=== PATIENT | male | born 1935 | race Caucasian/White ===

== ENCOUNTER 2017-04-03 10:42 | Emergency (ER) | payer MEDICARE, OTHER ==
[2017-04-03] MEDS ORDERED: SODIUM CHLORIDE 0.9% 500 ML IV STA (11:16)
[2017-04-03] MEDS ORDERED: SODIUM CHLORIDE 0.9% 1,000 ML IV STA (11:16)
--- NOTE | 2017-04-03 12:02 | ED ---
General Adult HPI - General Chief complaint: Neuro Symptoms/Deficit Stated complaint: TIA Symptoms Time Seen by Provider: 04/03/17 10:53 Source: patient, EMS, RN notes reviewed, old records reviewed Mode of arrival: EMS - History of Present Illness Initial comments: This is an 79-year-old male the ER for evaluation of mental status. Patient's poor historian unable to give history history obtained by EMS, patient sent from [facility] for evaluation regarding altered mental status not acting himself, or Appropriately. Per [facility] patient was supposed to go home today but over the last 2 days been having some diarrhea some nausea decreased appetite and decreased and altered mental state. Patient is somewhat this time denies any specific complaints. - Related Data Home Medications Medication Instructions Recorded Confirmed Atorvastatin Calcium [Lipitor] 10 mg PO HS 11/02/15 04/03/17 Finasteride [Proscar] 5 mg PO DAILY 11/02/15 04/03/17 Gabapentin [Neurontin] 300 mg PO BID 11/02/15 04/03/17 Isosorbide Mononitrate ER [Imdur] 30 mg PO DAILY 11/02/15 04/03/17 Ranitidine HCl 150 mg PO BID 11/02/15 04/03/17 HYDROcodone/APAP 5-325MG [[place] 1 tab PO Q6HR PRN 04/03/17 04/03/17 5-325] Insulin Aspart [NovoLOG Flexpen] See Protocol SQ DIRECTED 04/03/17 04/03/17 Metoprolol Tartrate [Lopressor] 25 mg PO BID 04/03/17 04/03/17 Nitroglycerin Sl Tabs [Nitrostat] 0.4 mg SUBLINGUAL Q5M PRN 04/03/17 04/03/17 glipiZIDE [Glucotrol] 10 mg PO BID 04/03/17 04/03/17 metFORMIN HCL [Glucophage] 500 mg PO BID 04/03/17 04/03/17 Allergies Allergy/AdvReac Type Severity Reaction Status Date / Time No Known Allergies Allergy Verified 04/03/17 12:33 Review of Systems ROS Statement: Those systems with pertinent positive or pertinent negative responses have been documented in the HPI. ROS Other: All systems not noted in ROS Statement are negative. Past Medical History Past Medical History: Coronary Artery Disease (CAD), Diabetes Mellitus, Deep Vein Thrombosis (DVT), Hyperlipidemia, Hypertension, Prostate Disorder Additional Past Medical History / Comment(s): Pt was admitted to [facility] recently with UTI/severe sepsis and readmitted with diarrhea. He was then discharged to [facility] on the [address] about 2 weeks ago for rehab due to his weakness. [facility] document also states pt has DVT R popliteal and is on coumadin for this reason. 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 Last Myocardial Infarction Date:: 03/04/11 History of Any Multi-Drug Resistant Organisms: None Reported Past Surgical History: Unable to Obtain Additional Past Surgical History / Comment(s): 2005 and 2011 PTCA with stent, 2006 CABG-3 vessel, sebaceous cysts removed from neck, cataract removals bilateral, colonoscopy, total R knee arthroplasty. Past Anesthesia/Blood Transfusion Reactions: No Reported Reaction Date of Last Stent Placement:: 2011 Past Psychological History: Unable to Obtain Smoking Status: Unknown if ever smoked Past Alcohol Use History: None Reported Past Drug Use History: None Reported - Past Family History Father Additional Family Medical History / Comment(s): Father had heart disease. Mother Additional Family Medical History / Comment(s): Mother had heart disease. General Exam General appearance: alert, in no apparent distress Head exam: Present: atraumatic, normocephalic, normal inspection Eye exam: Present: normal appearance, PERRL, EOMI. Absent: scleral icterus, conjunctival injection, periorbital swelling ENT exam: Present: normal exam, mucous membranes moist Neck exam: Present: normal inspection. Absent: tenderness, meningismus, lymphadenopathy Respiratory exam: Present: normal lung sounds bilaterally. Absent: respiratory distress, wheezes, rales, rhonchi, stridor Cardiovascular Exam: Present: regular rate, normal rhythm, normal heart sounds. Absent: systolic murmur, diastolic murmur, rubs, gallop, clicks GI/Abdominal exam: Present: soft, normal bowel sounds. Absent: distended, tenderness, guarding, rebound, rigid Extremities exam: Present: normal inspection, full ROM, normal capillary refill. Absent: tenderness, pedal edema, joint swelling, calf tenderness Back exam: Present: normal inspection Neurological exam: Present: alert, oriented X3, CN II-XII intact Psychiatric exam: Present: normal affect, normal mood Skin exam: Present: warm, dry, intact, normal color. Absent: rash Course Vital Signs 04/03/17 04/03/17 04/03/17 10:47 12:26 13:26 Temperature 97.6 F Pulse Rate 86 63 66 Respiratory 18 17 18 Rate Blood Pressure 116/70 119/59 107/58 O2 Sat by Pulse 96 96 96 Oximetry 04/03/17 04/03/17 13:56 15:02 Temperature Pulse Rate 71 75 Respiratory 19 18 Rate Blood Pressure 119/67 118/64 O2 Sat by Pulse 98 96 Oximetry - Reevaluation(s) Reevaluation #1: 04/03/17 16:32 Family is at bedside, and is concerned patient's quick deterioration at [facility]. Patient states the family states patient is lucid at this point EKG Findings - EKG Comments: EKG Findings:: EKG shows sinus rhythm rate of 97, HI 140, QRS 74, QTC 416 Medical Decision Making - Medical Decision Making 81 male the ER for evaluation regarding altered mental status. Chest x-ray CT brain labwork urine flu test negative. Patient can be discharged home - Lab Data Result diagrams: 04/03/17 12:12 04/03/17 12:12 Lab Results 04/03/17 04/03/17 04/03/17 Range/Units 12:12 12:12 12:12 WBC 2.5 L (3.8-10.6) k/uL RBC 5.24 (4.30-5.90) m/uL Hgb 15.0 (13.0-17.5) gm/dL Hct 45.6 (39.0-53.0) % MCV 87.0 (80.0-100.0) fL MCH 28.7 (25.0-35.0) pg MCHC 33.0 (31.0-37.0) g/dL RDW 13.3 (11.5-15.5) % Plt Count 145 L (150-450) k/uL Neutrophils % 45 % Lymphocytes % 34 % Monocytes % 14 % Eosinophils % 2 % Basophils % 1 % Neutrophils # 1.1 L (1.3-7.7) k/uL Lymphocytes # 0.9 L (1.0-4.8) k/uL Monocytes # 0.4 (0-1.0) k/uL Eosinophils # 0.1 (0-0.7) k/uL Basophils # 0.0 (0-0.2) k/uL PT (9.0-12.0) sec INR (<1.2) APTT (22.0-30.0) sec Sodium 138 (137-145) mmol/L Potassium 4.1 (3.5-5.1) mmol/L Chloride 104 (98-107) mmol/L Carbon Dioxide 27 (22-30) mmol/L Anion Gap 7 mmol/L BUN 14 (9-20) mg/dL Creatinine 1.00 (0.66-1.25) mg/dL Est GFR (MDRD) Af Amer >60 (>60 ml/min/1.73 sqM) Est GFR (MDRD) Non-Af >60 (>60 ml/min/1.73 sqM) Glucose 121 H (74-99) mg/dL Calcium 8.1 L (8.4-10.2) mg/dL Phosphorus 3.0 (2.5-4.5) mg/dL Magnesium 2.1 (1.6-2.3) mg/dL Total Bilirubin 0.4 (0.2-1.3) mg/dL AST 64 H (17-59) U/L ALT 45 (21-72) U/L Alkaline Phosphatase 81 (38-126) U/L Total Creatine Kinase 594 H (55-170) U/L CK-MB (CK-2) 2.1 (0.0-2.4) ng/mL CK-MB (CK-2) Rel Index 0.4 Troponin I <0.012 (0.000-0.034) ng/mL Total Protein 5.7 L (6.3-8.2) g/dL Albumin 3.0 L (3.5-5.0) g/dL Urine Color Urine Appearance (Clear) Urine pH (5.0-8.0) Ur Specific [place] (1.001-1.035) Urine Protein (Negative) Urine Glucose (UA) (Negative) Urine Ketones (Negative) Urine Blood (Negative) Urine Nitrite (Negative) Urine Bilirubin (Negative) Urine Urobilinogen (<2.0) mg/dL Ur Leukocyte Esterase (Negative) 04/03/17 04/03/17 Range/Units 12:12 15:00 WBC (3.8-10.6) k/uL RBC (4.30-5.90) m/uL Hgb (13.0-17.5) gm/dL Hct (39.0-53.0) % MCV (80.0-100.0) fL MCH (25.0-35.0) pg MCHC (31.0-37.0) g/dL RDW (11.5-15.5) % Plt Count (150-450) k/uL Neutrophils % % Lymphocytes % % Monocytes % % Eosinophils % % Basophils % % Neutrophils # (1.3-7.7) k/uL Lymphocytes # (1.0-4.8) k/uL Monocytes # (0-1.0) k/uL Eosinophils # (0-0.7) k/uL Basophils # (0-0.2) k/uL PT 10.1 (9.0-12.0) sec INR 1.0 (<1.2) APTT 23.4 (22.0-30.0) sec Sodium (137-145) mmol/L Potassium (3.5-5.1) mmol/L Chloride (98-107) mmol/L Carbon Dioxide (22-30) mmol/L Anion Gap mmol/L BUN (9-20) mg/dL Creatinine (0.66-1.25) mg/dL Est GFR (MDRD) Af Amer (>60 ml/min/1.73 sqM) Est GFR (MDRD) Non-Af (>60 ml/min/1.73 sqM) Glucose (74-99) mg/dL Calcium (8.4-10.2) mg/dL Phosphorus (2.5-4.5) mg/dL Magnesium (1.6-2.3) mg/dL Total Bilirubin (0.2-1.3) mg/dL AST (17-59) U/L ALT (21-72) U/L Alkaline Phosphatase (38-126) U/L Total Creatine Kinase (55-170) U/L CK-MB (CK-2) (0.0-2.4) ng/mL CK-MB (CK-2) Rel Index Troponin I (0.000-0.034) ng/mL Total Protein (6.3-8.2) g/dL Albumin (3.5-5.0) g/dL Urine Color Yellow Urine Appearance Clear (Clear) Urine pH 5.5 (5.0-8.0) Ur Specific [place] 1.017 (1.001-1.035) Urine Protein Trace H (Negative) Urine Glucose (UA) 1+ H (Negative) Urine Ketones Negative (Negative) Urine Blood Negative (Negative) Urine Nitrite Negative (Negative) Urine Bilirubin Negative (Negative) Urine Urobilinogen <2.0 (<2.0) mg/dL Ur Leukocyte Esterase Negative (Negative) - Radiology Data Radiology results: report reviewed (Chest x-ray CT brain negative for acute disease), image reviewed Disposition Clinical Impression: Altered mental status Disposition: HOME SELF-CARE Condition: Good Instructions: Weakness (ED), Altered Mental Status (ED) Referrals: Alli Peguero MD [Primary Care Provider] - 1-2 days
[2017-04-03 12:28] LABS: Basophils % (A) 1 %; Eosinophils # (A) 0.1 k/uL (0-0.7); Eosinophils % (A) 2 %; HCT 45.6 % (39.0-53.0); Lymphocytes # (A) 0.9 k/uL (1.0-4.8); Lymphocytes % (A) 34 %; MCH 28.7 pg (25.0-35.0); Mean Platelet Volume 8.2; Monocytes # (A) 0.4 k/uL (0-1.0); Monocytes % (A) 14 %; Neutrophils # (A) 1.1 k/uL (1.3-7.7); Neutrophils % (A) 45 %; Platelet Count 145 k/uL (150-450); RBC 5.24 m/uL (4.30-5.90); RDW 13.3 % (11.5-15.5); WBC 2.5 k/uL (3.8-10.6)
[2017-04-03 12:33] LABS: Partial Thromboplastin Time 23.4 sec (22.0-30.0); Prothrombin Time 10.1 sec (9.0-12.0)
[2017-04-03 12:41] LABS: ALT 45 U/L (21-72); AST 64 U/L (17-59); Alkaline Phosphatase 81 U/L (38-126); Anion Gap 7 mmol/L; Blood Urea Nitrogen 14 mg/dL (9-20); Calcium 8.1 mg/dL (8.4-10.2); Carbon Dioxide 27 mmol/L (22-30); Chloride 104 mmol/L (98-107); Glucose 121 mg/dL (74-99); Magnesium 2.1 mg/dL (1.6-2.3); Potassium 4.1 mmol/L (3.5-5.1); Sodium 138 mmol/L (137-145); Total Bilirubin 0.4 mg/dL (0.2-1.3); Total Protein 5.7 g/dL (6.3-8.2)
[2017-04-03 13:10] LABS: Creatine Kinase 594 U/L (55-170)
[2017-04-03 13:23] LABS: Creatine Kinase MB 2.1 ng/mL (0.0-2.4); Troponin I <0.012 ng/mL (0.000-0.034)
--- NOTE | 2017-04-03 13:43 | CT ---
EXAMINATION TYPE: CT brain wo con DATE OF EXAM: 04/03/2017 COMPARISON: CT brain 11/02/2015 HISTORY: TIA symptoms CT DLP: 2285 mGycm Automated exposure control for dose reduction was used. Helical acquisition through the brain FINDINGS: There is motion, artifact. No gross hemorrhage or hydrocephalus. Cortical atrophy is present. Periven tricular white matter low-attenuation is again seen. Vascular calcifications are present. No gross fr acture. Inflammatory change noted in the right maxillary sinus. IMPRESSION: THERE IS MOTION. NO GROSS BRAIN ABNORMALITY. FOLLOW-UP NEEDED. RIGHT MAXILLARY SINUS DISEASE
--- NOTE | 2017-04-03 13:50 | XR ---
EXAMINATION TYPE: XR chest 2V DATE OF EXAM: 04/03/2017 COMPARISON: 11/02/2015 HISTORY: 81-year-old male weakness and altered mental status TECHNIQUE: AP and lateral views FINDINGS: Median sternotomy wires are present with post-CABG clips. Heart upper limits of normal in size. Stabl e elongation of the thoracic aorta. No consolidation or pleural effusion seen. Hazy densities in the lower lungs related to overlying soft tissue. IMPRESSION: Chronic changes without acute cardiopulmonary process.
[2017-04-03 15:04] VITALS: RESP 18
[2017-04-03 15:26] LABS: Appearance,Urine Clear (Clear); Bilirubin,Urine Negative (Negative); Blood,Urine Negative (Negative); Color,Urine Yellow; Glucose,Urine (UA) 1+ (Negative); Ketones,Urine Negative (Negative); Leukocyte Esterase,Urine Negative (Negative); Nitrite,Urine Negative (Negative); PH, Urine 5.5 (5.0-8.0); Protein,Urine Trace (Negative); Specific Gravity,Urine 1.017 (1.001-1.035); Urobilinogen,Urine <2.0 mg/dL (<2.0)
[2017-04-03 18:33] VITALS: BP 118/66; PULSE 66; TEMP 98.7
== END 2017-04-03 17:00 | disposition home or self-care (01) ==
LOC: EC 10:42
DX: R41.82 Altered mental status, unspecified (principal); R19.7 Diarrhea, unspecified; R11.0 Nausea; R63.8 Other symptoms and signs concerning food and fluid intake; E78.5 Hyperlipidemia, unspecified; I10 Essential (primary) hypertension; I25.10 Atherosclerotic heart disease of native coronary artery without angina pectoris; E11.9 Type 2 diabetes mellitus without complications; N42.9 Disorder of prostate, unspecified; Z79.4 Long term (current) use of insulin; Z79.899 Other long term (current) drug therapy
CPT/HCPCS: 36415; 70450; 71046; 80053; 81003; 82550; 82553; 83735; 84100; 84484; 85025; 85610; 85730; 87086; 93005; 96360; 96361; 99285

== ENCOUNTER 2017-05-12 08:16 | Emergency (ER) | payer MEDICARE, OTHER ==
[2017-05-12] MEDS ORDERED: TOPICAL SKIN ADHESIVE 1 EACH AMP TOPICAL ONE (08:31)
--- NOTE | 2017-05-12 08:34 | ED ---
General Adult HPI - General Chief complaint: Fall Stated complaint: Fall Time Seen by Provider: 05/12/17 08:20 Source: patient, RN notes reviewed Mode of arrival: EMS Limitations: no limitations - History of Present Illness Initial comments: Patient 81-year-old male presenting to the emergency room today with a chief complaint of a fall that occurred this morning. He states he went to sit down on a chair was too close to the edge lost his balance falling backwards hitting the back of his head. States she was no loss consciousness. Patient states his neighbor called EMS as he had a difficult time getting off the floor. Patient does admit to a skin tear to the left hand. States his tetanus is up-to -date. Patient does admit some neck pain and a mild headache. Not on any blood thinners. Denies any other injuries or complaints currently. Patient denies any recent fever, chills, shortness of breath, chest pain, back pain, abdominal pain, nausea or vomiting, numbness or tingling, dysuria or hematuria, constipation or diarrhea, visual changes, or any other complaints. - Related Data Home Medications Medication Instructions Recorded Confirmed Atorvastatin Calcium [Lipitor] 10 mg PO HS 11/02/15 05/12/17 Finasteride [Proscar] 5 mg PO DAILY 11/02/15 05/12/17 Gabapentin [Neurontin] 300 mg PO BID 11/02/15 05/12/17 Isosorbide Mononitrate ER [Imdur] 30 mg PO DAILY 11/02/15 05/12/17 Ranitidine HCl 150 mg PO BID 11/02/15 05/12/17 HYDROcodone/APAP 5-325MG [[place] 1 tab PO Q6HR PRN 04/03/17 05/12/17 5-325] Insulin Aspart [NovoLOG Flexpen] See Protocol SQ ACHS 04/03/17 05/12/17 Metoprolol Tartrate [Lopressor] 25 mg PO BID 04/03/17 05/12/17 Nitroglycerin Sl Tabs [Nitrostat] 0.4 mg SUBLINGUAL Q5M PRN 04/03/17 05/12/17 glipiZIDE [Glucotrol] 10 mg PO BID 04/03/17 05/12/17 metFORMIN HCL [Glucophage] 500 mg PO BID 04/03/17 05/12/17 Allergies Allergy/AdvReac Type Severity Reaction Status Date / Time No Known Allergies Allergy Verified 05/12/17 08:42 Review of Systems ROS Statement: Those systems with pertinent positive or pertinent negative responses have been documented in the HPI. ROS Other: All systems not noted in ROS Statement are negative. Past Medical History Past Medical History: Coronary Artery Disease (CAD), Diabetes Mellitus, Deep Vein Thrombosis (DVT), Hyperlipidemia, Hypertension, Prostate Disorder Additional Past Medical History / Comment(s): Pt was admitted to [facility] recently with UTI/severe sepsis and readmitted with diarrhea. He was then discharged to [facility] on the [address] about 2 weeks ago for rehab due to his weakness. [facility] document also states pt has DVT R popliteal and is on coumadin for this reason. 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 Last Myocardial Infarction Date:: 03/04/11 History of Any Multi-Drug Resistant Organisms: None Reported Past Surgical History: Unable to Obtain Additional Past Surgical History / Comment(s): 2005 and 2011 PTCA with stent, 2006 CABG-3 vessel, sebaceous cysts removed from neck, cataract removals bilateral, colonoscopy, total R knee arthroplasty. Past Anesthesia/Blood Transfusion Reactions: No Reported Reaction Date of Last Stent Placement:: 2011 Past Psychological History: Unable to Obtain Smoking Status: Unknown if ever smoked Past Alcohol Use History: None Reported Past Drug Use History: None Reported - Past Family History Father Additional Family Medical History / Comment(s): Father had heart disease. Mother Additional Family Medical History / Comment(s): Mother had heart disease. General Exam - General Exam Comments Initial Comments: General: The patient is awake and alert, in no distress, and does not appear acutely ill. Patient currently C-collared. Eye: Pupils are equal, round and reactive to light, extra-ocular movements are intact. No nystagmus. There is normal conjunctiva bilaterally. No signs of icterus. Ears, nose, mouth and throat: There are moist mucous membranes and no oral lesions. Neck: The neck is supple, there is no tenderness or JVD. Cardiovascular: There is a regular rate and rhythm. No murmur, rub or gallop is appreciated. Respiratory: Lungs are clear to auscultation, respirations are non-labored, breath sounds are equal. No wheezes, stridor, rales, or rhonchi. Musculoskeletal: Normal ROM. No step-offs deformities of the cervical, thoracic or lumbar spine. No tenderness in thoracic or lumbar spine. Mild tender to palpation midline from C5 to C7. Strength 5/5. Sensation intact. Pulses equal bilaterally 2+. Neurological: A&O x 3. CN II-XII intact, There are no obvious motor or sensory deficits. Coordination appears grossly intact. Speech is normal. Skin: Small 1 cm skin tear to the left third MCP joint area. No active bleeding. Psychiatric: Cooperative, appropriate mood & affect, normal judgment. Limitations: no limitations Course Vital Signs 05/12/17 08:20 Temperature 97.9 F Pulse Rate 77 Respiratory 18 Rate Blood Pressure 153/70 O2 Sat by Pulse 98 Oximetry Procedures - Procedures Initial comment: 1 cm linear laceration to the back of the left hand. No active bleeding. Wound was irrigated with saline. Wound edges approximated and closed with Dermabond. Patient tolerated well. Medical Decision Making - Medical Decision Making Patient 81-year-old male presenting for a fall. Sat on the edge of a chair lost his balance at the back of his head. Denies any dizziness lightheadedness or loss consciousness. Patient is not on any blood thinners. Patient's CT of the head and neck is negative for any acute abnormality. Results were discussed with patient. Patient's laceration/skin tear was irrigated with saline and closed here in emergency room. Patient's tetanus is up-to-date. Case discussed in detail with attending physician Dr. Olivarez. Patient will be discharged home. Disposition Clinical Impression: Fall, Hand laceration Disposition: HOME SELF-CARE Condition: Good Instructions: Laceration (ED) Additional Instructions: Please allow glue to fall off on its own over the next 3-5 days. Please watch for any signs of infection. Please follow-up the family doctor return to emergency room for any other concerns. Referrals: Aldo Guerrero MD [Primary Care Provider] - 1-2 days Time of Disposition: 09:38
--- NOTE | 2017-05-12 09:06 | CT ---
EXAMINATION TYPE: CT brain pili kelley DATE OF EXAM: 05/12/2017 COMPARISON: April 03, 2017 HISTORY: fall, hit back of head CT DLP: [address] of the brain was performed. The ventricles, basal cisterns and sulci overlying the cerebral convexities demonstrate moderate enla rgement. There is no evidence for intracranial hemorrhage or sulcal effacement. There is decreased attenuatio n about the periventricular white matter and deep white matter of both cerebral hemispheres, compatib le with chronic small vessel ischemia. No mass effects are seen. If symptoms persist consider MRI. Osseous calvarium is intact. IMPRESSION: 1. Age related atrophic and chronic small vessel ischemic change without acute intracranial process seen at this time. CT Cervical Spine: Unenhanced CT of the cervical spine was performed with bone and soft tissue window settings submitted . Coronal and sagittal reconstruction is obtained. There is normal alignment and prevertebral soft tissues. Reversal of the normal cervical lordosis may be related to muscle spasticity. No evidence for acute cervical fracture . Scattered degenerative disc disease and spondylosis. Biapical scarring. IMPRESSION: 1. No evidence for acute fracture or subluxation of the cervical spine.
[2017-05-12 10:12] VITALS: BP 128/60; PULSE 70; RESP 16; TEMP 97.8
== END 2017-05-12 10:10 | disposition home or self-care (01) ==
LOC: EC 08:16
DX: S61.412A Laceration without foreign body of left hand, initial encounter (principal); E11.9 Type 2 diabetes mellitus without complications; I25.10 Atherosclerotic heart disease of native coronary artery without angina pectoris; E78.5 Hyperlipidemia, unspecified; I10 Essential (primary) hypertension; N42.9 Disorder of prostate, unspecified; Z86.718 Personal history of other venous thrombosis and embolism; Z79.4 Long term (current) use of insulin; Z79.899 Other long term (current) drug therapy; W18.00XA Striking against unspecified object with subsequent fall, initial encounter; Y92.009 Unspecified place in unspecified non-institutional (private) residence as the place of occurrence of the external cause
CPT/HCPCS: 12001; 70450; 72125; 99284

== ENCOUNTER 2017-05-31 12:28 | Inpatient (IN) | payer MEDICARE, OTHER ==
[2017-05-31] MEDS ORDERED: ACETAMINOPHEN TAB 500 MG TAB PO STA (12:59)
[2017-05-31] MEDS ORDERED: SODIUM CHLORIDE 0.9% 1,000 ML IV STA (12:59)
--- NOTE | 2017-05-31 13:02 | ED ---
General Adult HPI - General Chief complaint: Weakness Stated complaint: WEAKNESS/HEADACHE Time Seen by Provider: 05/31/17 12:31 Source: patient, family, RN notes reviewed Mode of arrival: EMS Limitations: no limitations - History of Present Illness Initial comments: Patient is a pleasant 81-year-old male presenting to the emergency Department with generalized weakness. Onset was late last night, early this morning. Patient states he is fatigued and patient states he is able to get around his house however is difficult. Patient feels like he is been a pass out. Patient does have a headache. Headache is 6/10. Patient has been dealing with headaches over the past month or so. No isolated area of weakness. Patient feels achy. No fever. - Related Data Home Medications Medication Instructions Recorded Confirmed Atorvastatin Calcium [Lipitor] 10 mg PO HS 11/02/15 05/12/17 Finasteride [Proscar] 5 mg PO DAILY 11/02/15 05/12/17 Gabapentin [Neurontin] 300 mg PO BID 11/02/15 05/12/17 Isosorbide Mononitrate ER [Imdur] 30 mg PO DAILY 11/02/15 05/12/17 Ranitidine HCl 150 mg PO BID 11/02/15 05/12/17 HYDROcodone/APAP 5-325MG [[place] 1 tab PO Q6HR PRN 04/03/17 05/12/17 5-325] Insulin Aspart [NovoLOG Flexpen] See Protocol SQ ACHS 04/03/17 05/12/17 Metoprolol Tartrate [Lopressor] 25 mg PO BID 04/03/17 05/12/17 Nitroglycerin Sl Tabs [Nitrostat] 0.4 mg SUBLINGUAL Q5M PRN 04/03/17 05/12/17 glipiZIDE [Glucotrol] 10 mg PO BID 04/03/17 05/12/17 metFORMIN HCL [Glucophage] 500 mg PO BID 04/03/17 05/12/17 Allergies Allergy/AdvReac Type Severity Reaction Status Date / Time No Known Allergies Allergy Verified 05/12/17 08:42 Review of Systems ROS Statement: Those systems with pertinent positive or pertinent negative responses have been documented in the HPI. ROS Other: All systems not noted in ROS Statement are negative. Constitutional: Denies: fever Eyes: Denies: eye pain ENT: Denies: ear pain Respiratory: Denies: cough Cardiovascular: Denies: chest pain Endocrine: Reports: fatigue Gastrointestinal: Denies: abdominal pain Genitourinary: Denies: dysuria Musculoskeletal: Denies: back pain Skin: Denies: rash Neurological: Reports: headache, weakness (Generalized). Denies: confusion Past Medical History Past Medical History: Coronary Artery Disease (CAD), Diabetes Mellitus, Deep Vein Thrombosis (DVT), Hyperlipidemia, Hypertension, Prostate Disorder Additional Past Medical History / Comment(s): Pt was admitted to [facility] recently with UTI/severe sepsis and readmitted with diarrhea. He was then discharged to [facility] on the [place] about 2 weeks ago for rehab due to his weakness. [facility] document also states pt has DVT R popliteal and is on coumadin for this reason. 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 Last Myocardial Infarction Date:: 03/04/11 History of Any Multi-Drug Resistant Organisms: None Reported Past Surgical History: Unable to Obtain Additional Past Surgical History / Comment(s): 2005 and 2011 PTCA with stent, 2006 CABG-3 vessel, sebaceous cysts removed from neck, cataract removals bilateral, colonoscopy, total R knee arthroplasty. Past Anesthesia/Blood Transfusion Reactions: No Reported Reaction Date of Last Stent Placement:: 2011 Past Psychological History: Unable to Obtain Smoking Status: Unknown if ever smoked Past Alcohol Use History: None Reported Past Drug Use History: None Reported - Past Family History Father Additional Family Medical History / Comment(s): Father had heart disease. Mother Additional Family Medical History / Comment(s): Mother had heart disease. General Exam Limitations: no limitations General appearance: alert, in no apparent distress Head exam: Present: atraumatic Eye exam: Present: normal appearance, PERRL, EOMI ENT exam: Present: normal oropharynx Neck exam: Present: normal inspection Respiratory exam: Present: normal lung sounds bilaterally Cardiovascular Exam: Present: regular rate, normal rhythm GI/Abdominal exam: Present: soft. Absent: tenderness Extremities exam: Present: normal inspection, full ROM. Absent: tenderness Neurological exam: Present: alert, oriented X3, CN II-XII intact. Absent: motor sensory deficit Expanded Neurological exam: Present: protecting the airway Patient oriented to: Present: person, place, time Speech: Present: fluid speech Cranial nerves: EOM's Intact: Normal Motor strength exam: RUE: 5, LUE: 5, RLE: 5, LLE: 5 Eye Response: (4) open spontaneously Motor Response: (6) obeys commands Verbal Response: (5) oriented Psychiatric exam: Present: normal affect, normal mood Skin exam: Present: normal color Course Vital Signs 05/31/17 05/31/17 12:36 13:50 Temperature 97.2 F L Pulse Rate 100 88 Respiratory 18 18 Rate Blood Pressure 107/62 100/56 O2 Sat by Pulse 98 96 Oximetry EKG Findings - EKG Comments: EKG Findings:: Sinus rhythm and 98. MI 178. QRS 84. QT 350. QTC 446. Normal axis. PVC and PACs present. Normal QRS. Nonspecific T waves. Medical Decision Making - Medical Decision Making Patient reevaluated and resting comfortably in bed. Family updated on results and plan. Patient was able to get up and walk however following that he had a lot of dizziness and was unable to sit up. Case was discussed in detail with Dr. Harris, covering for Dr. buckley, who will admit for Dr. chavez - Lab Data Result diagrams: 05/31/17 12:55 05/31/17 12:55 Lab Results 05/31/17 05/31/17 05/31/17 Range/Units 12:55 12:55 12:55 WBC 5.2 (3.8-10.6) k/uL RBC 4.85 (4.30-5.90) m/uL Hgb 14.1 (13.0-17.5) gm/dL Hct 40.8 (39.0-53.0) % MCV 84.0 (80.0-100.0) fL MCH 29.1 (25.0-35.0) pg MCHC 34.6 (31.0-37.0) g/dL RDW 13.8 (11.5-15.5) % Plt Count 209 (150-450) k/uL Neutrophils % 63 % Lymphocytes % 21 % Monocytes % 7 % Eosinophils % 6 % Basophils % 1 % Neutrophils # 3.3 (1.3-7.7) k/uL Lymphocytes # 1.1 (1.0-4.8) k/uL Monocytes # 0.4 (0-1.0) k/uL Eosinophils # 0.3 (0-0.7) k/uL Basophils # 0.0 (0-0.2) k/uL PT (9.0-12.0) sec INR (<1.2) APTT (22.0-30.0) sec Sodium 141 (137-145) mmol/L Potassium 4.1 (3.5-5.1) mmol/L Chloride 106 (98-107) mmol/L Carbon Dioxide 24 (22-30) mmol/L Anion Gap 11 mmol/L BUN 17 (9-20) mg/dL Creatinine 0.90 (0.66-1.25) mg/dL Est GFR (CKD-EPI)AfAm >90 (>60 ml/min/1.73 sqM) Est GFR (CKD-EPI)NonAf 79 (>60 ml/min/1.73 sqM) Glucose 196 H (74-99) mg/dL Plasma Lactic Acid Ronen (0.7-2.0) mmol/L Calcium 9.2 (8.4-10.2) mg/dL Phosphorus 3.6 (2.5-4.5) mg/dL Magnesium 1.8 (1.6-2.3) mg/dL Total Bilirubin 0.3 (0.2-1.3) mg/dL AST 18 (17-59) U/L ALT 25 (21-72) U/L Alkaline Phosphatase 96 (38-126) U/L Total Creatine Kinase 35 L (55-170) U/L CK-MB (CK-2) 1.1 (0.0-2.4) ng/mL CK-MB (CK-2) Rel Index 3.1 Troponin I <0.012 (0.000-0.034) ng/mL Total Protein 5.5 L (6.3-8.2) g/dL Albumin 2.9 L (3.5-5.0) g/dL TSH 2.830 (0.465-4.680) mIU/L Free T4 1.04 (0.78-2.19) ng/dL Free T3 pg/mL 2.4 L (2.8-5.3) pg/ml Urine Color Urine Appearance (Clear) Urine pH (5.0-8.0) Ur Specific [place] (1.001-1.035) Urine Protein (Negative) Urine Glucose (UA) (Negative) Urine Ketones (Negative) Urine Blood (Negative) Urine Nitrite (Negative) Urine Bilirubin (Negative) Urine Urobilinogen (<2.0) mg/dL Ur Leukocyte Esterase (Negative) Urine RBC (0-5) /hpf Urine WBC (0-5) /hpf Ur Squamous Epith Cells (0-4) /hpf Urine Mucus (None) /hpf 05/31/17 05/31/17 05/31/17 Range/Units 12:55 12:55 14:40 WBC (3.8-10.6) k/uL RBC (4.30-5.90) m/uL Hgb (13.0-17.5) gm/dL Hct (39.0-53.0) % MCV (80.0-100.0) fL MCH (25.0-35.0) pg MCHC (31.0-37.0) g/dL RDW (11.5-15.5) % Plt Count (150-450) k/uL Neutrophils % % Lymphocytes % % Monocytes % % Eosinophils % % Basophils % % Neutrophils # (1.3-7.7) k/uL Lymphocytes # (1.0-4.8) k/uL Monocytes # (0-1.0) k/uL Eosinophils # (0-0.7) k/uL Basophils # (0-0.2) k/uL PT 9.8 (9.0-12.0) sec INR 1.0 (<1.2) APTT 19.1 L (22.0-30.0) sec Sodium (137-145) mmol/L Potassium (3.5-5.1) mmol/L Chloride (98-107) mmol/L Carbon Dioxide (22-30) mmol/L Anion Gap mmol/L BUN (9-20) mg/dL Creatinine (0.66-1.25) mg/dL Est GFR (CKD-EPI)AfAm (>60 ml/min/1.73 sqM) Est GFR (CKD-EPI)NonAf (>60 ml/min/1.73 sqM) Glucose (74-99) mg/dL Plasma Lactic Acid Ronen 1.7 (0.7-2.0) mmol/L Calcium (8.4-10.2) mg/dL Phosphorus (2.5-4.5) mg/dL Magnesium (1.6-2.3) mg/dL Total Bilirubin (0.2-1.3) mg/dL AST (17-59) U/L ALT (21-72) U/L Alkaline Phosphatase (38-126) U/L Total Creatine Kinase (55-170) U/L CK-MB (CK-2) (0.0-2.4) ng/mL CK-MB (CK-2) Rel Index Troponin I (0.000-0.034) ng/mL Total Protein (6.3-8.2) g/dL Albumin (3.5-5.0) g/dL TSH (0.465-4.680) mIU/L Free T4 (0.78-2.19) ng/dL Free T3 pg/mL (2.8-5.3) pg/ml Urine Color Yellow Urine Appearance Cloudy (Clear) Urine pH 5.0 (5.0-8.0) Ur Specific [place] 1.021 (1.001-1.035) Urine Protein Trace H (Negative) Urine Glucose (UA) 3+ H (Negative) Urine Ketones Negative (Negative) Urine Blood Negative (Negative) Urine Nitrite Negative (Negative) Urine Bilirubin Negative (Negative) Urine Urobilinogen <2.0 (<2.0) mg/dL Ur Leukocyte Esterase Negative (Negative) Urine RBC 1 (0-5) /hpf Urine WBC 3 (0-5) /hpf Ur Squamous Epith Cells 12 H (0-4) /hpf Urine Mucus Occasional H (None) /hpf - Radiology Data Radiology results: report reviewed (Computed tomography scan of the brain shows no acute abnormality. Atrophy and chronic white matter changes are present.), image reviewed (Two-view chest x-ray shows COPD.) Disposition Clinical Impression: Weakness Disposition: ADMITTED IP TO THIS HOSP Referrals: Aldo Guerrero MD [Primary Care Provider] - 1-2 days
[2017-05-31 13:10] LABS: Basophils % (A) 1 %; Eosinophils # (A) 0.3 k/uL (0-0.7); Eosinophils % (A) 6 %; HCT 40.8 % (39.0-53.0); HGB 14.1 gm/dL (13.0-17.5); Lymphocytes # (A) 1.1 k/uL (1.0-4.8); Lymphocytes % (A) 21 %; MCH 29.1 pg (25.0-35.0); MCHC 34.6 g/dL (31.0-37.0); Mean Platelet Volume 7.7; Monocytes # (A) 0.4 k/uL (0-1.0); Monocytes % (A) 7 %; Neutrophils # (A) 3.3 k/uL (1.3-7.7); Neutrophils % (A) 63 %; Platelet Count 209 k/uL (150-450); RBC 4.85 m/uL (4.30-5.90); RDW 13.8 % (11.5-15.5); WBC 5.2 k/uL (3.8-10.6)
[2017-05-31 13:20] LABS: Prothrombin Time 9.8 sec (9.0-12.0)
[2017-05-31 13:25] LABS: ALT 25 U/L (21-72); AST 18 U/L (17-59); Albumin 2.9 g/dL (3.5-5.0); Alkaline Phosphatase 96 U/L (38-126); Anion Gap 11 mmol/L; Blood Urea Nitrogen 17 mg/dL (9-20); Calcium 9.2 mg/dL (8.4-10.2); Carbon Dioxide 24 mmol/L (22-30); Chloride 106 mmol/L (98-107); Glucose 196 mg/dL (74-99); Magnesium 1.8 mg/dL (1.6-2.3); Phosphorus 3.6 mg/dL (2.5-4.5); Potassium 4.1 mmol/L (3.5-5.1); Sodium 141 mmol/L (137-145); Total Bilirubin 0.3 mg/dL (0.2-1.3); Total Protein 5.5 g/dL (6.3-8.2)
[2017-05-31 13:30] LABS: Creatine Kinase 35 U/L (55-170); Partial Thromboplastin Time 19.1 sec (22.0-30.0)
--- NOTE | 2017-05-31 13:40 | CT ---
EXAMINATION TYPE: CT brain wo con DATE OF EXAM: 05/31/2017 COMPARISON: Previous study dated 05/12/2017. HISTORY: WARD, weakness CT DLP: 1207 mGycm Automated exposure control for dose reduction was used. FINDINGS: There are generalized changes of sulcal prominence and ventriculomegaly, compatible with atrophic shahram nge. There is diffuse periventricular white matter lucency, compatible small vessel ischemic change. There is no acute focal lesion, mass effect or midline shift identified. I do not see evidence of int racranial blood. Visualized portions of the paranasal sinuses and mastoids are clear. The bony calvarium is intact. IMPRESSION: 1. NO ACUTE INTRACRANIAL ABNORMALITY. 2. ATROPHIC CHANGE. 3. CHRONIC WHITE MATTER ISCHEMIC CHANGE.
[2017-05-31 13:41] LABS: T4, Free (Free Thyroxine) 1.04 ng/dL (0.78-2.19)
[2017-05-31 13:43] LABS: Creatine Kinase MB 1.1 ng/mL (0.0-2.4); Troponin I <0.012 ng/mL (0.000-0.034)
--- NOTE | 2017-05-31 13:48 | XR ---
EXAMINATION TYPE: XR chest 2V DATE OF EXAM: 05/31/2017 HISTORY: Weakness. REFERENCE: Previous study dated 11/07/2015. FINDINGS: There has been a midline sternotomy. Lung volumes are prominent. Heart size upper limits of normal. Lungs are clear. IMPRESSION: COPD.
[2017-05-31 15:01] LABS: Appearance,Urine Cloudy (Clear); Bilirubin,Urine Negative (Negative); Blood,Urine Negative (Negative); Color,Urine Yellow; Glucose,Urine (UA) 3+ (Negative); Ketones,Urine Negative (Negative); Leukocyte Esterase,Urine Negative (Negative); Mucus,Urine Occasional /hpf; Nitrite,Urine Negative (Negative); Protein,Urine Trace (Negative); RBC,Urine 1 /hpf (0-5); Specific Gravity,Urine 1.021 (1.001-1.035); Squamous Epithelial Cell,Urine 12 /hpf (0-4); Urobilinogen,Urine <2.0 mg/dL (<2.0); WBC,Urine 3 /hpf (0-5)
[2017-05-31] MEDS ORDERED: NALOXONE 0.4 MG/ML 1 ML VIAL IV PRN (15:57)
[2017-05-31] MEDS ORDERED: MECLIZINE 12.5 MG TAB PO STA (15:57)
[2017-05-31 17:10] LABS: Glucose,Whole Blood 124 mg/dL (75-99)
[2017-05-31] MEDS: SODIUM CHLORIDE 0.9% 1,000 ML IV SCH (18:44)
[2017-05-31 19:55] LABS: Creatine Kinase 46 U/L (55-170)
[2017-05-31 20:08] LABS: Creatine Kinase MB 1.2 ng/mL (0.0-2.4); Troponin I <0.012 ng/mL (0.000-0.034)
[2017-05-31] MEDS ORDERED: NITROGLYCERIN SL TABS 0.4 MG TAB SUBLINGUAL PRN (20:45)
[2017-05-31 20:54] LABS: Glucose,Whole Blood 161 mg/dL (75-99)
[2017-05-31] MEDS: ATORVASTATIN 10 MG TAB PO SCH (21:33)
[2017-05-31] MEDS: INSULIN ASPART 100 UNIT/ML 1 ML 10 ML VIAL SQ SCH (21:33)
[2017-05-31] MEDS: INSULIN DETEMIR 100 UNIT/ML 10 ML VIAL SQ SCH ×2 (21:33→22:07)
[2017-05-31] MEDS: GABAPENTIN 300 MG CAP PO SCH (21:33)
[2017-05-31] MEDS: METOPROLOL TARTRATE 25 MG TAB PO SCH (21:33)
[2017-05-31] MEDS: FAMOTIDINE 20 MG TAB PO SCH (21:33)
[2017-05-31] MEDS: FINASTERIDE 5 MG TAB PO SCH (21:33)
--- NOTE | 2017-06-01 00:14 | P.HPIM ---
History of Present Illness H&P Date: 05/31/17 Chief Complaint: Weakness and dizziness Patient is age 1-year-old male with a known history of coronary artery disease with history of CABG several years ago and PCI in 2011, diabetes type 2 and other multiple medical problems came to ER with complaints of generalized weakness and dizziness. Patient has been feeling dizzy since last night and has generalized weakness and fatigue and difficulty getting out of bed. Patient felt like passing out. Patient is also having headache and also some blurry vision as well. Headache is for the past 1 month. Denied any injury or trauma. No exertional short of breath. Patient does have these vague symptoms. CT head showed no acute abnormality. Atrophy and chronic white matter ischemic changes noted. Chest x-ray showed COPD Laboratory data within normal limits. CPK not elevated. Troponin negative. Liver enzymes are not elevated. patient was hypotensive with SBP 100 mm hg on admission. Patient was given a fluid bolus in the ER. 1 L TSH and free T4 are within normal limits. T3 level is slightly low at 2.4 (2.8) Review of Systems Constitutional: Patient denies any fever or chills . Generalized weakness and fatigue Abdomen: Patient denied nausea vomiting and diarrhea and abdominal pain. Cardiovascular: Patient denies any chest pain or short of breath no palpitations. Respiratory: patient denied any cough is from production. No shortness of breath Neurologic: Patient denied any numbness or tingling . Patient does have headache. Musculoskeletal: Patient denies any complaints of joint swelling or deformity. Skin: Negative Psychiatric: Negative Endocrine: No heat or cold intolerance. No recent weight gain. Genitourinary: No dysuria or hematuria. All other 14 point ROS negative except the above Past Medical History Past Medical History: Coronary Artery Disease (CAD), Diabetes Mellitus, Deep Vein Thrombosis (DVT), Hyperlipidemia, Hypertension, Prostate Disorder Additional Past Medical History / Comment(s): Pt was admitted to [facility] recently with UTI/severe sepsis and readmitted with diarrhea. He was then discharged to [facility] on the [place] about 2 weeks ago for rehab due to his weakness. [facility] document also states pt has DVT R popliteal and is on coumadin for this reason. 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 Last Myocardial Infarction Date:: 03/04/11 History of Any Multi-Drug Resistant Organisms: None Reported Past Surgical History: Unable to Obtain Additional Past Surgical History / Comment(s): 2005 and 2011 PTCA with stent, 2007 CABG-3 vessel, sebaceous cysts removed from neck, cataract removals bilateral, colonoscopy, total R knee arthroplasty. Past Anesthesia/Blood Transfusion Reactions: No Reported Reaction Date of Last Stent Placement:: 2011 Past Psychological History: Unable to Obtain Smoking Status: Unknown if ever smoked Past Alcohol Use History: None Reported Past Drug Use History: None Reported - Past Family History Father Additional Family Medical History / Comment(s): Father had heart disease. Mother Additional Family Medical History / Comment(s): Mother had heart disease. Medications and Allergies Home Medications Medication Instructions Recorded Confirmed Type Atorvastatin Calcium [Lipitor] 10 mg PO HS 11/02/15 05/12/17 History Finasteride [Proscar] 5 mg PO DAILY 11/02/15 05/12/17 History Gabapentin [Neurontin] 300 mg PO BID 11/02/15 05/12/17 History Isosorbide Mononitrate ER [Imdur] 30 mg PO DAILY 11/02/15 05/12/17 History Ranitidine HCl 150 mg PO BID 11/02/15 05/12/17 History HYDROcodone/APAP 5-325MG [[place] 1 tab PO Q6HR PRN 04/03/17 05/12/17 History 5-325] Insulin Aspart [NovoLOG Flexpen] See Protocol SQ ACHS 04/03/17 05/12/17 History Metoprolol Tartrate [Lopressor] 25 mg PO BID 04/03/17 05/12/17 History Nitroglycerin Sl Tabs [Nitrostat] 0.4 mg SUBLINGUAL Q5M PRN 04/03/17 05/12/17 History glipiZIDE [Glucotrol] 10 mg PO BID 04/03/17 05/12/17 History metFORMIN HCL [Glucophage] 500 mg PO BID 04/03/17 05/12/17 History Allergies Allergy/AdvReac Type Severity Reaction Status Date / Time No Known Allergies Allergy Verified 05/31/17 16:13 Physical Exam Vitals: Vital Signs Temp Pulse Resp BP Pulse Ox 05/31/17 13:50 88 18 100/56 96 05/31/17 12:36 97.2 F L 100 18 107/62 98 Intake and Output 05/31/17 05/31/17 05/31/17 06:59 14:59 22:59 Other: Weight 109.769 kg PHYSICAL EXAMINATION: Patient is lying in the bed comfortably, no acute distress, awake alert and oriented.. HEENT: Normocephalic. Neck is supple. Pupils reactive. Nostrils clear. Oral cavity is moist. Ears reveal no drainage. Neck reveals no JVD, carotid bruits, or thyromegaly. CHEST EXAMINATION: Trachea is central. Symmetrical expansion. Lung melton clear to auscultation and percussion. CARDIAC: Normal S1, S2 with no gallops. No murmurs ABDOMEN: Soft. Bowel sounds normal. No organomegaly. No abdominal bruits. Extremities: reveal no edema. No clubbing or cyanosis Neurologically awake, alert, oriented x3 with well-coordinated movements. No focal deficits noted Skin: No rash or skin lesions. Psychiatric: Cooperative. Nonsuicidal Musculoskeletal: No joint swelling or deformity. Normal range of motion. Results CBC & Chem 7: 05/31/17 12:55 05/31/17 12:55 Labs: Abnormal Lab Results - Last 24 Hours (Table) 05/31/17 05/31/17 05/31/17 Range/Units 12:55 12:55 12:55 APTT 19.1 L (22.0-30.0) sec Glucose 196 H (74-99) mg/dL Total Creatine Kinase 35 L (55-170) U/L Total Protein 5.5 L (6.3-8.2) g/dL Albumin 2.9 L (3.5-5.0) g/dL Free T3 pg/mL 2.4 L (2.8-5.3) pg/ml Urine Protein (Negative) Urine Glucose (UA) (Negative) Ur Squamous Epith Cells (0-4) /hpf Urine Mucus (None) /hpf 05/31/17 Range/Units 14:40 APTT (22.0-30.0) sec Glucose (74-99) mg/dL Total Creatine Kinase (55-170) U/L Total Protein (6.3-8.2) g/dL Albumin (3.5-5.0) g/dL Free T3 pg/mL (2.8-5.3) pg/ml Urine Protein Trace H (Negative) Urine Glucose (UA) 3+ H (Negative) Ur Squamous Epith Cells 12 H (0-4) /hpf Urine Mucus Occasional H (None) /hpf Thrombosis Risk Factor Assmnt - DVT/VTE Prophylaxis DVT/VTE Prophylaxis: Pharmacologic Prophylaxis ordered Assessment and Plan Assessment: Generalized weakness and dizziness with headache. Unspecified etiology. CT head, chest x-ray, UA negative and CPK, LFTs, TSH within normal limits. Possible hypotension present on admission and deconditioning. Neurology was consulted for further evaluation. Continue to monitor overnight. Symptomatic management. Patient was given a dose of meclizine while in the ER. History of coronary artery disease status post CABG in 2006 and PTCA in 2011 Diabetes type 2 insulin-dependent Hypertension Hyperlipidemia Prostate disorder Recent admission at [facility] with UTI/sepsis History of DVT Osteoarthritis with history of right total knee arthroplasty DVT prophylaxis Plan: Patient be continued on home medications and monitor blood pressure. Neurology evaluation. PT OT and follow closely. Further recommendations based on the clinical course. Anticipate discharge tomorrow with some clinical improvement. Time with Patient: Greater than 30
[2017-06-01 02:22] LABS: Creatine Kinase 70 U/L (55-170)
[2017-06-01 02:36] LABS: Creatine Kinase MB 1.4 ng/mL (0.0-2.4); Troponin I <0.012 ng/mL (0.000-0.034)
[2017-06-01] MEDS: HYDROcodone/APAP 5-325MG 1 EACH TAB PO PRN ×2 (02:37→17:37)
[2017-06-01 07:36] LABS: Glucose,Whole Blood 120 mg/dL (75-99)
[2017-06-01] MEDS: INSULIN ASPART 100 UNIT/ML 1 ML 10 ML VIAL SQ SCH ×4 (07:39→20:56)
[2017-06-01] MEDS: GABAPENTIN 300 MG CAP PO SCH ×2 (08:15→20:57)
[2017-06-01] MEDS: metFORMIN 500 MG TAB PO SCH ×2 (08:15→17:37)
[2017-06-01] MEDS: FAMOTIDINE 20 MG TAB PO SCH ×2 (08:15→20:57)
[2017-06-01] MEDS: METOPROLOL TARTRATE 25 MG TAB PO SCH ×2 (08:15→20:57)
[2017-06-01] MEDS: FINASTERIDE 5 MG TAB PO SCH (08:15)
[2017-06-01 08:51] LABS: Basophils % (A) 1 %; Eosinophils # (A) 0.4 k/uL (0-0.7); Eosinophils % (A) 9 %; Lymphocytes # (A) 1.3 k/uL (1.0-4.8); Lymphocytes % (A) 29 %; MCH 29.3 pg (25.0-35.0); MCHC 34.1 g/dL (31.0-37.0); Mean Platelet Volume 7.9; Monocytes # (A) 0.4 k/uL (0-1.0); Monocytes % (A) 9 %; Neutrophils # (A) 2.2 k/uL (1.3-7.7); Neutrophils % (A) 50 %; Platelet Count 170 k/uL (150-450); RBC 4.76 m/uL (4.30-5.90); RDW 13.9 % (11.5-15.5); WBC 4.4 k/uL (3.8-10.6)
[2017-06-01 09:11] LABS: ALT 27 U/L (21-72); AST 19 U/L (17-59); Albumin 2.8 g/dL (3.5-5.0); Alkaline Phosphatase 85 U/L (38-126); Anion Gap 9 mmol/L; Blood Urea Nitrogen 13 mg/dL (9-20); Calcium 8.5 mg/dL (8.4-10.2); Carbon Dioxide 22 mmol/L (22-30); Chloride 109 mmol/L (98-107); Glucose 119 mg/dL (74-99); Potassium 4.2 mmol/L (3.5-5.1); Sodium 140 mmol/L (137-145); Total Bilirubin 0.4 mg/dL (0.2-1.3); Total Protein 5.3 g/dL (6.3-8.2)
[2017-06-01 12:36] LABS: Glucose,Whole Blood 142 mg/dL (75-99)
[2017-06-01] MEDS: ISOSORBIDE MONONITRATE ER 30 MG TAB.ER.24H PO SCH (14:29)
[2017-06-01 17:24] LABS: Hemoglobin A1C 7.8 % (4.0-6.0)
[2017-06-01 17:33] LABS: Glucose,Whole Blood 218 mg/dL (75-99)
[2017-06-01] MEDS: SODIUM CHLORIDE 0.9% 1,000 ML IV SCH (17:37)
[2017-06-01] MEDS ORDERED: CARBIDOPA-LEVODOPA 10-100 MG 1 EACH TAB PO SCH (18:15)
--- NOTE | 2017-06-01 19:25 | PN ---
PROGRESS NOTE DATE OF SERVICE: 06/01/17. PRESENTING COMPLAINT: Weak and tired. INTERVAL HISTORY: This patient presented with multitude of symptoms. The patient said he had a bit of a headache that went away. He become dizzy sometimes when he gets up. Also got a tremor to the left arm. The patient is rather slow on questioning. The patient thinks he has become a bit slow. His speech is rather monotonous. I did get an orthostatic none that came back to be negative. Neurology was consulted. The patient does drool sometimes. Not the most detailed historian. Currently, he is at rehab. REVIEW OF SYSTEMS: Done for constitutional, cardiovascular, GI, pulmonary; relevant findings as above. CURRENT MEDICATIONS: Reviewed. PHYSICAL EXAMINATION: Temperature 97.5, pulse 81, respiratory 18, blood pressure 110/63, pulse ox 96% on room air. GENERAL APPEARANCE: Sitting at the edge of bed, tired appearing. EYES: Pupils equal. Conjunctivae normal. HEENT: External nose and ears normal. Oral cavity normal. NECK: JVD unable to assess. RESPIRATORY: Effort normal. Lungs, slightly decreased breath sounds. CARDIOVASCULAR: 1st and 2nd sounds, minimal edema. ABDOMEN: Soft, nontender. Liver and spleen not palpable. NEUROLOGICAL: The patient's forehead tap, the patient does not stop blinking. The patient is known to have a tremor on the left arm. Speech is rather monotonous though there is not much better rigidity, though there is bradykinesia. INVESTIGATIONS: White count 4.4, potassium 4.2. BUN and creatinine are normal. ASSESSMENT: 1. Possible Parkinson disease with bradykinesia, tremor, though there is not much rigidity. The patient also got other masklike facies, has got a monotonous tone. 2. Diabetes mellitus type 2 on oral hypoglycemic. 3. Coronary artery disease with prior history of stent and coronary bypass. 4. Hyperlipidemia. 5. Essential hypertension. 6. Chronic spinal stenosis. 7. Possible underlying neurocognitive disorder. Will need further evaluation. 8. Possible history of DVT in the right popliteal with a history of being on Coumadin. PLAN: PT, OT was consulted. Will start the patient on Sinemet 10/100 one tablet 3 times a day. I did speak to the nurse, Priscila, to confirm if the patient is still on Coumadin because of a DVT and also do a mini-mental state examination to further assess neurocognitive disorder. Follow. Also at this point, the patient is felt to be rather unsafe to be discharged, is rather unsteady and we will see how he does with Sinemet and also wait at this point for further neurological workup. MMODL / IJN: [id number] /
[2017-06-01 20:49] LABS: Glucose,Whole Blood 188 mg/dL (75-99)
[2017-06-01] MEDS: INSULIN DETEMIR 100 UNIT/ML 10 ML VIAL SQ SCH (20:56)
[2017-06-01] MEDS: ENOXAPARIN 40 MG/0.4 ML SYRINGE SQ SCH (20:57)
[2017-06-01] MEDS: ATORVASTATIN 10 MG TAB PO SCH (22:02)
--- NOTE | 2017-06-01 23:37 | CONS ---
CONSULTATION DATE OF CONSULTATION: 06/01/2017. CHIEF COMPLAINT: Headache and visual changes. HISTORY OF PRESENT ILLNESS: Mr. Rosario is a pleasant 81-year-old, male, who is being evaluated by the neurology service per the request of Dr. Harris for the above-mentioned complaints. The patient was brought into [facility] Emergency Room mainly with the complaints of generalized weakness but he was also complaining of a headache, visual changes, and dizziness. He states that he has been having a headache since he fell a couple of weeks ago. He did suffer a head injury with no loss of consciousness. The headache is described as a dull pain that is mostly in the occipital region bilaterally. He rates it at 5/10 in intensity at the time of my evaluation. He also reports some dizziness which she describes as an off-balance sensation. These symptoms come and go over the past couple of weeks. He also notices that his vision has been more blurred and usual. A CT scan of the brain was done which showed no acute intracranial abnormalities. There was evidence of small vessel ischemic changes and generalized atrophy. His CBC, urinalysis, and TSH were normal. His comprehensive metabolic profile was normal except for mild hyperglycemia at 119 and decreased protein and albumin at 5.3 and 2.8 respectively. At the time of my evaluation, he is lying in his bed and appears to be in no acute distress. A noticeable resting tremor is noticed in the left upper extremity. His son is at bedside and he states that this has been present for a couple of years and has been getting worse. The patient also reports occasional difficulty swallowing. PAST MEDICAL HISTORY: Coronary artery disease, diabetes, deep venous thrombosis, dyslipidemia, hypertension, benign prostatic hypertrophy. History of childhood epilepsy, chronic low back pain, lumbar stenosis. SOCIAL HISTORY: He denies any tobacco, alcohol or drug use. FAMILY HISTORY: Positive for heart disease. HOME MEDICATIONS: Reviewed in the chart. ALLERGIES: No known drug allergies. REVIEW OF SYSTEM: CONSTITUTIONAL: Negative. EYES: As mentioned above. ENT: As mentioned above. He also reports chronic hearing loss. CARDIOVASCULAR: Negative. GENITOURINARY: Negative. RESPIRATORY: Negative. NEUROLOGICAL: As mentioned above. GASTROINTESTINAL: Negative. GENITOURINARY: Positive for benign prostatic hypertrophy. MUSCULOSKELETAL: Positive for recurrent low back pain and occasional joint pain. DERMATOLOGICAL: Negative. ENDOCRINE: Positive for diabetes. PSYCHIATRIC: Negative. PHYSICAL EXAM: Vital signs show a temperature of 98.4, pulse 58, respiration 18, blood pressure 138/79. GENERAL APPEARANCE: The patient is a well-developed, elderly male who appears to be in no acute distress. HEENT: Normal normocephalic atraumatic, no facial asymmetry is seen. Extraocular muscles are intact. Tenderness to palpation is felt along bilateral greater occipital nerve regions. NECK: Supple with no masses felt. CARDIOVASCULAR: Bradycardic rate with normal rhythm. ABDOMEN: Nontender nondistended. EXTREMITIES: No edema or clubbing. NEUROLOGIC: The patient is awake and oriented x3. Speech and language are normal. Strength is full in all 4 extremities. Sensory exam was normal to light touch in all 4 extremities. A resting tremor is noticed in the left upper extremity. Mild cogwheel rigidity is noticed in bilateral upper extremities, left more than right. Mild dysdiadochokinesia is noticed on the left upper extremity. No facial asymmetry seen on cranial nerve testing. IMPRESSION: 1. Headache. 2. Occipital neuritis. 3. Resting tremor. 4. Rigidity. 5. Visual changes. 6. Dizziness. RECOMMENDATIONS: The patient has been having a headache since a recent fall and head injury. As mentioned above. His CT scan of the brain showed no acute findings. He does have evidence of occipital neuritis on my examination and this is likely causing his headache, and this is likely due to his recent fall. He is complaining of disequilibrium and worsening visual changes. I will order an MRI of the brain without contrast. An EEG has been ordered. He is also complaining of some dysphagia and a swallow study will be ordered. He does have a resting tremor on my examination, and has cogwheel rigidity as well. The symptoms have been present for several years as mentioned above, and the patient likely has undiagnosed Parkinson disease. I had a lengthy discussion with the patient and his son regarding this. I will refrain from starting any medications for this until he is evaluated in outpatient clinic. I will likely try him on dopamine agonists at that time. Physical Therapy will be consulted. Continue the rest of your current workup and management. I will continue to follow with you. Further recommendations to follow. Thank you for allowing me to participate in the care of your patient. If you have any questions, please feel free to contact me. SERVANDO / RADUN: [id number] /
[2017-06-02 07:28] LABS: Glucose,Whole Blood 102 mg/dL (75-99)
[2017-06-02] MEDS: INSULIN ASPART 100 UNIT/ML 1 ML 10 ML VIAL SQ SCH ×4 (08:01→21:01)
[2017-06-02] MEDS ORDERED: ASPIRIN 325 MG TAB PO SCH (09:00)
--- NOTE | 2017-06-02 11:26 | FL ---
EXAMINATION TYPE: FL barium swallow DATE OF EXAM: 06/02/2017 CLINICAL HISTORY: Dysphagia. TECHNIQUE: A double contrast esophagram is performed utilizing air and barium. A total of fluoro 1 minute 44 seconds of fluoroscopic time was utilized during procedure. 3 fluoroscopic images were save d. Exam is slightly limited as the patient was unsteady and in appropriate position. COMPARISON: None FINDINGS: The esophagus shows slightly delayed motility with blunted secondary waves but no tertiary contractions. There is normal emptying into the stomach without evidence of stricture or hiatal herni a. No mucosal abnormalities are appreciated. No significant gastroesophageal reflux was seen during r eal time performance of this study. A mild degree of intraesophageal reflux was seen within the mid t horacic esophagus in the gravity dependent and independent portions of the examination. Incidentally noted vallecular retention of contrast was seen. IMPRESSION: 1. Slight delayed motility of the esophagus likely relates to presbyesophagus but is mild and without tertiary contractions. This results in minimal midthoracic intraesophageal reflux without gastroesop hageal reflux. 2. Incidental note of vallecular retention of contrast.
[2017-06-02] MEDS: GABAPENTIN 300 MG CAP PO SCH ×2 (12:14→21:00)
[2017-06-02] MEDS: metFORMIN 500 MG TAB PO SCH ×2 (12:14→17:21)
[2017-06-02] MEDS: ISOSORBIDE MONONITRATE ER 30 MG TAB.ER.24H PO SCH (12:14)
[2017-06-02] MEDS: METOPROLOL TARTRATE 25 MG TAB PO SCH ×2 (12:14→21:00)
[2017-06-02] MEDS: ENOXAPARIN 40 MG/0.4 ML SYRINGE SQ SCH (12:15)
[2017-06-02] MEDS: FAMOTIDINE 20 MG TAB PO SCH ×2 (12:15→21:00)
[2017-06-02] MEDS: ASPIRIN 81 MG PO SCH (12:15)
[2017-06-02] MEDS: FINASTERIDE 5 MG TAB PO SCH (12:15)
[2017-06-02 12:21] LABS: Glucose,Whole Blood 109 mg/dL (75-99)
--- NOTE | 2017-06-02 15:05 | PN ---
PROGRESS NOTE DATE OF SERVICE: 06/02/17. PRESENTING COMPLAINT: Tired. INTERVAL HISTORY: The patient presented with multiple symptoms, had started him on Sinemet. Yesterday per Dr. Hutchinson wants to hold off the medication for Parkinson's when he sees them as an outpatient. The patient in the meantime, the patient has had more tests pending including MRI, EEG and a modified barium swallow. The patient otherwise is able to tolerate his diet. Continues to have his resting tremor. REVIEW OF SYSTEMS: Done for constitutional, cardiovascular, GI, pulmonary, neurological; relevant findings as above. CURRENT MEDICATIONS: Reviewed. EXAMINATION: On examination, temperature 96.8, pulse 56, respiratory 18, blood pressure 107/64, pulse ox 95% on room air. GENERAL APPEARANCE: Sitting up, awake. EYES: Pupils equal. Conjunctivae normal. HEENT: External nose and ears normal. Oral cavity normal. NECK: JVD unable to assess. Mass not palpable. RESPIRATORY: Effort normal. Lungs, slightly decreased breath sounds. CARDIOVASCULAR: 1st and 2nd sounds normal. Mild edema. ABDOMEN: Soft, nontender. Liver and spleen not palpable. NEUROLOGICAL: Resting tremor and bradykinesia with monotonous speech. INVESTIGATIONS: Accu-Cheks are noted. Barium swallow x-ray shows slight delayed motility of the esophagus, possibly presbyesophagus and some vallecular retention of contrast. ASSESSMENT: 1. Probably Parkinson disease with bradykinesia and tremor, to be started on medications as an outpatient per Dr. Hutchinson. 2. Diabetes mellitus type 2 on oral hypoglycemic. 3. Coronary artery disease with prior history of stent and coronary bypass. 4. Hyperlipidemia. 5. Essential hypertension. 6. Chronic spinal stenosis. 7. Possibly underlying neurocognitive disorder. 8. Dysphagia with possible element of aspiration. PLAN: PT, OT is to continue. We will await further testing results to come back and the patient possibly may need rehab. I will switch the patient to the lower dose of glipizide and DC the Levemir subsequently. MMODL / IJN: [id number] /
--- NOTE | 2017-06-02 16:47 | MR ---
EXAMINATION TYPE: MR brain wo con DATE OF EXAM: 06/02/2017 3:04 PM COMPARISON: NONE HISTORY: Headache, weakness, tremor, visual changes FINDINGS: The ventricles, basal cisterns and sulci overlying the cerebral convexities are moderately enlarged. There is evidence of mild to moderate periventricular white matter ischemic demyelination. Remote deep white matter insults are also noted. No acute edema is seen on diffusion weighted imaging. There is no evidence for midline shift or mass effect. Acute intracranial hemorrhage or extra-axial collection is not evident. The paranasal sinuses and mastoid air cells are well-aerated. IMPRESSION: Age-related atrophic and chronic small vessel ischemic change. No acute intracranial process at this time.
[2017-06-02] MEDS: glipiZIDE 5 MG TAB PO SCH (17:21)
[2017-06-02 17:43] LABS: Glucose,Whole Blood 122 mg/dL (75-99)
--- NOTE | 2017-06-02 19:02 | EEG ---
ELECTROENCEPHALOGRAM REPORT DATE OF SERVICE: 06/02/2017. REASON FOR TESTING: Headache and dizziness. DESCRIPTION OF THE PROCEDURE: This EEG was performed using a 21 channel digital electroencephalograph, following international 10-20 system. DESCRIPTION OF THE RECORDING: From the beginning of the tracing, with patient's eyes closed, the background rhythm was mostly consisting of 8 Hz alpha frequency in the posterior occipital leads. No obvious asymmetry is seen. Photic stimulation was performed with a minimal driving response seen. No pathological waves were elicited. Hyperventilation was not performed. Rare movement artifacts are seen. The patient remains awake throughout the tracing. No epileptiform discharges were seen. His EKG lead showed a regular rate and rhythm. INTERPRETATION: This awake EEG can be considered within normal limits. There was no asymmetry seen. No epileptiform discharges were noticed. The absence of epileptiform discharges does not rule out the diagnosis of epilepsy, therefore clinical correlation is recommended. MMMICHAELL / IJLaura: [id number] /
[2017-06-02 20:40] LABS: Glucose,Whole Blood 133 mg/dL (75-99)
[2017-06-02] MEDS: ATORVASTATIN 10 MG TAB PO SCH (21:00)
[2017-06-02] MEDS: INSULIN DETEMIR 100 UNIT/ML 10 ML VIAL SQ SCH (21:07)
--- NOTE | 2017-06-02 22:08 | P.PN ---
Subjective Progress Note Date: 06/02/17 Principal diagnosis: weakness- generalized Neurology is following on a 81 year old male for generalized weakness, headache , visual changes, resting tremor, dysphagia and dizziness. Patient presented to the ED with the noted symptoms above and has a fall history a couple weeks ago. Patient denied any loss of consciousness, but did have ongoing occipital neuralgia pain. Vision has been blurred more than usual. Patient had imaging and testing consisting of CT brain - no acute process, + small vessel ischemic disease, + generalized atrophy. CBC, UA, TSH were all normal. Mild hyperglycemia and decreased protein and albumin Medications included Sinemet for resting tremor was termianted by supervising physician yesterday with a notation that medication management for tremor would be addressed in the outpatient setting. Patient was alert and oriented x 3 Patient was seated at the bed side with nursing staff providing care. Patient was in no acute distress Objective - Vital Signs Vital signs: Vital Signs Temp 98.7 F 06/02/17 15:25 Pulse 89 06/02/17 15:32 Resp 18 06/02/17 15:25 BP 111/68 06/02/17 15:32 Pulse Ox 96 06/02/17 15:25 Intake & Output 06/02/17 06/02/17 06/03/17 06:59 18:59 06:59 Intake Total 100 240 Balance 100 240 Intake: Oral 100 240 Other: # Voids 1 3 - Exam General appearance: Alert & oriented x3, no apparent distress. Head: Atraumatic, normocephalic, normal inspection Eyes: Well appearance, PERRLA, EOMI. Absent scleral icterus, conjunctival injection, nystagmus, periorbital swelling. Ear, nose and throat: Normal exam, mucous membranes moist Neck: Normal inspection, absent tenderness, lymphadenopathy. Respiratory: No increased work of breathing Cardiovascular: Regular rate, rhythm GI/abdominal: no tenderness, no guarding Extremities: full range of motion, normal capillary refill, no tenderness, pedal edema joint swelling, calf tenderness. Neurological: cranial nerves II through XII intact no lateralizing weakness, nilaterla lower extremity weakness as noted below no seizure activity noted on physical exam no pronator drift and no nystagmus. Left lower extremity: 4/5 Right lower extremity: 4/5 Left upper extremity: 5/5, resting tremor, cogwheel rigidity Right upper extremity: 5/5 Sensation: equal in all 4 extremities Psychological: Mood and affect appropriate for setting. - Labs CBC & Chem 7: 06/01/17 08:01 06/01/17 08:01 Labs: Abnormal Lab Results - Last 24 Hours (Table) 06/01/17 06/02/17 06/02/17 Range/Units 01:38 07:11 12:04 POC Glucose (mg/dL) 102 H 109 H (75-99) mg/dL Hemoglobin A1c 7.8 H (4.0-6.0) % 06/02/17 06/02/17 Range/Units 17:01 20:39 POC Glucose (mg/dL) 122 H 133 H (75-99) mg/dL Hemoglobin A1c (4.0-6.0) % Assessment and Plan (1) Resting tremor Current Visit: Yes Status: Acute Code(s): R25.9 - UNSPECIFIED ABNORMAL INVOLUNTARY MOVEMENTS SNOMED Code(s): 01190721 (2) Headache Current Visit: Yes Status: Acute Code(s): R51 - HEADACHE SNOMED Code(s): 09516646 (3) Visual changes Current Visit: Yes Status: Acute Code(s): H53.9 - UNSPECIFIED VISUAL DISTURBANCE SNOMED Code(s): 216595829 (4) Dizziness Current Visit: Yes Status: Acute Code(s): R42 - DIZZINESS AND GIDDINESS SNOMED Code(s): 540036292 (5) Weakness Current Visit: Yes Status: Acute Code(s): R53.1 - WEAKNESS SNOMED Code(s) : 75551326 Plan: 1. resting tremor 2. generalized weakness 3. occipital neuralgia 4. vision changes 5. dizziness 6. dysphagia Patient's symptoms appear related to his recent fall and head injury with regard to #2-5 above. MRI of the brain noted no acute process. It did note atrophic and chronic small vessel ischemic disease. Patient to continue aspirin and lipitor as implemented. Continue with rehabilitation efforts. PT, OT are on consult. Patient states that his dizziness and head pain have improved considerably since beginning treatment in the ED. He also passed a swallow study related to his dysphagia. Patients resting tremor will be addressed in the outpatient setting at a later date and no medications will be implemented for this disorder at this time. Status: Neurology willl continue to follow at this time. I have discussed the plan of care with the physician prior to implementation and he agrees with the plan as implemented.
[2017-06-03 06:28] VITALS: RESP 16; TEMP 97.8
[2017-06-03 07:00] LABS: Glucose,Whole Blood 96 mg/dL (75-99)
[2017-06-03] MEDS: INSULIN ASPART 100 UNIT/ML 1 ML 10 ML VIAL SQ SCH ×2 (08:10→12:56)
[2017-06-03] MEDS: FAMOTIDINE 20 MG TAB PO SCH (08:11)
[2017-06-03] MEDS: ENOXAPARIN 40 MG/0.4 ML SYRINGE SQ SCH (08:11)
[2017-06-03] MEDS: GABAPENTIN 300 MG CAP PO SCH (08:12)
[2017-06-03] MEDS: metFORMIN 500 MG TAB PO SCH (08:12)
[2017-06-03] MEDS: glipiZIDE 5 MG TAB PO SCH (08:12)
[2017-06-03] MEDS: FINASTERIDE 5 MG TAB PO SCH (08:12)
[2017-06-03] MEDS: ASPIRIN 81 MG PO SCH (08:12)
[2017-06-03 11:48] LABS: Glucose,Whole Blood 162 mg/dL (75-99)
[2017-06-03 12:17] VITALS: BP 115/77; PULSE 76
[2017-06-03] MEDS: METOPROLOL TARTRATE 25 MG TAB PO SCH (12:17)
[2017-06-03] MEDS: ISOSORBIDE MONONITRATE ER 30 MG TAB.ER.24H PO SCH (12:17)
--- NOTE | 2017-06-03 23:42 | DS ---
DISCHARGE SUMMARY DATE OF ADMISSION: May 31, 2017. DATE OF DISCHARGE: June 03, 2017. FINAL DIAGNOSES: 1. Possible Parkinson disease resulting in poor balance. 2. Diabetes mellitus type 2 on oral hypoglycemic. 3. Dysphagia due to possibly presbyesophagus. 4. Coronary artery disease prior history of stent and coronary bypass. 5. Hyperlipidemia. 6. Essential hypertension. 7. Chronic spinal stenosis. 8. Neurocognitive disorder. CONSULTATION: Dr. Hutchinson from Neurology. HOSPITAL COURSE: This patient presented weak, tired, falls, found to have bradykinesia, slow speech, tremors. Dr. Hutchinson would like to start his antiparkinson medications as an outpatient. The patient did have a barium swallow, some delayed motility. No evidence of presbyesophagus and some retention of contrast. The patient is seen by Physical therapy and social service worker. The patient will be going home. Tolerating a diet. On examination, the patient has got bradykinesia, tremors, slow , slow speech. CT scan of the brain showed some chronic changes. EEG negative for seizures and brain MRI showed age-related atrophic changes. DISCHARGE MEDICATIONS: 1. Lipitor 10 mg q.h.s. 2. Proscar 5 mg p.o. daily. 3. Neurontin 300 mg p.o. b.i.d. 4. Imdur ER 30 mg p.o. daily. 5. Ranitidine 150 mg b.i.d. 6. Blossom 5 one tab q.6h p.r.n. 7. Nitrostat 0.4 sublingual q.5 p.r.n. 8. Glucophage 500 mg p.o. b.i.d. 9. Aspirin 81 mg p.o. daily. 10.Lopressor 12.5 p.o. b.i.d. 11.Glucotrol 5 mg with breakfast. FOLLOWUP: Follow up with Dr. Hutchinson in 1 week, Dr. Guerrero on June 08, 2017, visiting nurses to go home with [facility] at home. Copy to Dr. Guerrero. MMODL / IJN: [id number] /
== END 2017-06-03 15:00 | disposition home health service (06) | DRG 57 ==
LOC: EC 12:28 → 5MS5E 15:57 → 4MS4W 16:25 → OBSVTOIN 06-03 08:00
PROVIDERS: ADMIT Hospitalist; ATTEND Hospitalist
DX: G20 Parkinson's disease (principal); E11.65 Type 2 diabetes mellitus with hyperglycemia; I95.9 Hypotension, unspecified; Z95.1 Presence of aortocoronary bypass graft; R13.10 Dysphagia, unspecified; E78.5 Hyperlipidemia, unspecified; I10 Essential (primary) hypertension; I25.10 Atherosclerotic heart disease of native coronary artery without angina pectoris; M54.81 Occipital neuralgia; R41.9 Unspecified symptoms and signs involving cognitive functions and awareness; K22.8 Other specified diseases of esophagus; H91.90 Unspecified hearing loss, unspecified ear; Z96.651 Presence of right artificial knee joint; M48.061 Spinal stenosis, lumbar region without neurogenic claudication; G89.29 Other chronic pain; N40.0 Benign prostatic hyperplasia without lower urinary tract symptoms; I25.2 Old myocardial infarction; Z91.81 History of falling; Z79.01 Long term (current) use of anticoagulants; Z79.4 Long term (current) use of insulin; Z79.899 Other long term (current) drug therapy; Z82.49 Family history of ischemic heart disease and other diseases of the circulatory system; Z86.718 Personal history of other venous thrombosis and embolism; Z95.5 Presence of coronary angioplasty implant and graft; Z79.891 Long term (current) use of opiate analgesic
CPT/HCPCS: 36415; 70450; 70551; 71046; 74220; 80053; 81001; 82550; 82553; 83036; 83605; 83735; 84100; 84439; 84443; 84481; 84484; 85025; 85610; 85730; 93005; 95816; 96360; 96361; 99285

== ENCOUNTER 2017-08-09 22:37 | Observation (INO) | payer MEDICARE, OTHER ==
--- NOTE | 2017-08-09 23:14 | ED ---
Back Pain HPI - General Chief Complaint: Back Pain/Injury Stated Complaint: back pain/hip pain Time Seen by Provider: 08/09/17 22:44 Source: patient, EMS, RN notes reviewed Limitations: no limitations - History of Present Illness Initial Comments: This is an 81-year-old male who presents to the emergency department with chief coming to fall injuries. Patient states that approximately one week to 10 days ago he was sitting on a chair and it tipped over and hit him in the head. He comes in via EMS complaining of right low back pain and right-sided head pain. Patient states that since his initial fall he has fallen 4 or 5 other times. Patient is unsure why he is falling. Patient also reports increased urinary frequency and burning upon urination. Patient states that he's also had multiple episodes of vomiting a "black tarry substance." He states that the last episode of vomiting was a couple of days ago. He denies any hematuria, melena or hematochezia. Denies hemoptysis. Denies fevers or chills, chest pain or shortness of breath, abdominal pain, diarrhea or constipation. Patient states that he is ambulating normally. He complains of lumbar pain to the right side of his back as well as right hip pain. - Related Data Home Medications Medication Instructions Recorded Confirmed Atorvastatin Calcium [Lipitor] 10 mg PO HS 11/02/15 06/01/17 Finasteride [Proscar] 5 mg PO DAILY 11/02/15 06/01/17 Gabapentin [Neurontin] 300 mg PO BID 11/02/15 06/01/17 Isosorbide Mononitrate ER [Imdur] 30 mg PO DAILY 11/02/15 06/01/17 Ranitidine HCl 150 mg PO BID 11/02/15 06/01/17 HYDROcodone/APAP 5-325MG [[place] 1 tab PO Q6HR PRN 04/03/17 06/01/17 5-325] Nitroglycerin Sl Tabs [Nitrostat] 0.4 mg SUBLINGUAL Q5M PRN 04/03/17 06/01/17 metFORMIN HCL [Glucophage] 500 mg PO BID 04/03/17 06/01/17 Previous Rx's Medication Instructions Recorded Aspirin 81 mg PO DAILY chew 06/03/17 Metoprolol Tartrate [Lopressor] 12.5 mg PO BID #0 06/03/17 glipiZIDE [Glucotrol] 5 mg PO AC-BRKFST #30 tab 06/03/17 Sulfamethox-Tmp 800-160Mg [Bactrim 1 tab PO Q12HR #10 tab 08/10/17 DS 800-160 mg] Allergies Allergy/AdvReac Type Severity Reaction Status Date / Time No Known Allergies Allergy Verified 08/09/17 22:45 Review of Systems ROS Statement: Those systems with pertinent positive or pertinent negative responses have been documented in the HPI. ROS Other: All systems not noted in ROS Statement are negative. Past Medical History Past Medical History: Coronary Artery Disease (CAD), Diabetes Mellitus, Deep Vein Thrombosis (DVT), Hyperlipidemia, Hypertension, Prostate Disorder Additional Past Medical History / Comment(s): Pt was admitted to [facility] recently with UTI/severe sepsis and readmitted with diarrhea. He was then discharged to [facility] on the [place] about 2 weeks ago for rehab due to his weakness. [facility] document also states pt has DVT R popliteal and is on coumadin for this reason. 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 Past Anesthesia/Blood Transfusion Reactions: No Reported Reaction Date of Last Stent Placement:: 2011 Past Psychological History: No Psychological Hx Reported Smoking Status: Unknown if ever smoked Past Alcohol Use History: None Reported Past Drug Use History: None Reported - Past Family History Father Additional Family Medical History / Comment(s): Father had heart disease. Mother Additional Family Medical History / Comment(s): Mother had heart disease. General Exam - General Exam Comments Initial Comments: General: Awake and alert, well-developed; in no apparent distress. HEENT: Head atraumatic, normocephalic. No hematomas noted. Pupils are equal, round and reactive to light. Extraocular movements intact. Oropharynx moist without erythema or exudate. Neck: Supple. Normal ROM. No tenderness. Cardiovascular: Regular rate and rhythm. No murmurs, rubs or gallops. Chest symmetrical. No bilateral pedal edema. Pedal pulses are 2+ equal and palpable bilaterally. Respiratory: Lungs clear to auscultation bilaterally. No wheezes, rales or rhonchi. Normal respiratory effort with no use of accessory muscles. Abdomen: Soft, non-tender, non-distended. No rigidity, rebound or guarding. Normal bowel sounds in all 4 quadrants. Musculoskeletal: Normal ROM, no tenderness bilateral, strength 5/5 upper and lower extremities. Ambulating normally. Skin: [place], warm and dry without rashes or lesions. Neurological: Alert and oriented x3. CN II-XII grossly intact. Speech is fluent and answers are appropriate. No focal neuro deficits. Romberg negative. Finger to nose testing normal. Psychiatric: Normal mood and affect. No overt signs of depression or anxiety noted. Limitations: no limitations Rectal exam: Present: normal inspection, normal rectal tone Back exam: Present: normal inspection, full ROM, paraspinal tenderness (Right lumbar). Absent: vertebral tenderness Course Vital Signs 08/09/17 08/10/17 08/10/17 22:39 00:45 02:00 Temperature 98.9 F 98.9 F Pulse Rate 86 67 88 Respiratory 20 19 19 Rate Blood Pressure 156/77 139/67 132/61 O2 Sat by Pulse 94 L 94 L 97 Oximetry Medical Decision Making - Medical Decision Making This is an 81-year-old male who presents to the emergency department with chief complaint of fall injuries. Patient states that 10 days ago he had a fall after slipping from his chair. He states that since that time he has had a 4-5 falls. He called EMS for transport to the emergency department this evening for right low back and right hip pain. Patient denies any loss of consciousness , nausea or vomiting, dizziness or headache. He states he is unsure why he has been falling. He reports recent vomiting episodes of a dark substance. He also reports increased urinary frequency and dysuria. CBC was unremarkable with a normal hemoglobin and hematocrit. No white count. CMP was unremarkable. UA did reveal evidence for infection with large leukocyte esterase and greater than 182 white blood cells, occasional white blood cell clumps. Stool occult was negative. CT of the brain and C-spine were obtained and reveal no acute abnormalities. X-ray of the lumbar spine was negative. X- ray of the bilateral hips and pelvis were negative. Patient was given one dose of Rocephin in the emergency Department for urinary tract infection. Vital signs are stable throughout entire emergency department stay and patient is in no acute distress. This case was discussed with attending physician, Dr. Lawrence. Patient's vital signs are stable and he is in no acute distress. He will be discharged home at this time. He will be given a prescription for Bactrim to treat UTI. Recommend following up with primary care provider within 1-2 days. Patient is in agreement with plan and voices understanding. All questions answered. - Lab Data Result diagrams: 08/09/17 23:27 08/09/17 23:27 Lab Results 08/09/17 08/09/17 08/09/17 Range/Units 00:24 23:27 23:27 WBC 8.0 (3.8-10.6) k/uL RBC 5.06 (4.30-5.90) m/uL Hgb 14.9 (13.0-17.5) gm/dL Hct 44.4 (39.0-53.0) % MCV 87.7 (80.0-100.0) fL MCH 29.4 (25.0-35.0) pg MCHC 33.5 (31.0-37.0) g/dL RDW 14.2 (11.5-15.5) % Plt Count 231 (150-450) k/uL Neutrophils % 72 % Lymphocytes % 13 % Monocytes % 10 % Eosinophils % 3 % Basophils % 0 % Neutrophils # 5.8 (1.3-7.7) k/uL Lymphocytes # 1.1 (1.0-4.8) k/uL Monocytes # 0.8 (0-1.0) k/uL Eosinophils # 0.2 (0-0.7) k/uL Basophils # 0.0 (0-0.2) k/uL PT (9.0-12.0) sec INR (<1.2) APTT (22.0-30.0) sec Sodium 134 L (137-145) mmol/L Potassium 4.5 (3.5-5.1) mmol/L Chloride 100 (98-107) mmol/L Carbon Dioxide 25 (22-30) mmol/L Anion Gap 9 mmol/L BUN 21 H (9-20) mg/dL Creatinine 1.00 (0.66-1.25) mg/dL Est GFR (CKD-EPI)AfAm 81 (>60 ml/min/1.73 sqM) Est GFR (CKD-EPI)NonAf 70 (>60 ml/min/1.73 sqM) Glucose 234 H (74-99) mg/dL Calcium 9.3 (8.4-10.2) mg/dL Total Bilirubin 0.6 (0.2-1.3) mg/dL AST 18 (17-59) U/L ALT 18 L (21-72) U/L Alkaline Phosphatase 126 (38-126) U/L Troponin I (0.000-0.034) ng/mL Total Protein 6.2 L (6.3-8.2) g/dL Albumin 3.5 (3.5-5.0) g/dL Urine Color Urine Appearance (Clear) Urine pH (5.0-8.0) Ur Specific Her[place] (1.001-1.035) Urine Protein (Negative) Urine Glucose (UA) (Negative) Urine Ketones (Negative) Urine Blood (Negative) Urine Nitrite (Negative) Urine Bilirubin (Negative) Urine Urobilinogen (<2.0) mg/dL Ur Leukocyte Esterase (Negative) Urine RBC (0-5) /hpf Urine WBC (0-5) /hpf Urine WBC Clumps (None) /hpf Stool Occult Blood Negative (Negative) Blood Type Blood Type Recheck Antibody Screen Spec Expiration Date 08/09/17 08/09/17 08/10/17 Range/Units 23:27 23:27 00:22 WBC (3.8-10.6) k/uL RBC (4.30-5.90) m/uL Hgb (13.0-17.5) gm/dL Hct (39.0-53.0) % MCV (80.0-100.0) fL MCH (25.0-35.0) pg MCHC (31.0-37.0) g/dL RDW (11.5-15.5) % Plt Count (150-450) k/uL Neutrophils % % Lymphocytes % % Monocytes % % Eosinophils % % Basophils % % Neutrophils # (1.3-7.7) k/uL Lymphocytes # (1.0-4.8) k/uL Monocytes # (0-1.0) k/uL Eosinophils # (0-0.7) k/uL Basophils # (0-0.2) k/uL PT (9.0-12.0) sec INR (<1.2) APTT (22.0-30.0) sec Sodium (137-145) mmol/L Potassium (3.5-5.1) mmol/L Chloride (98-107) mmol/L Carbon Dioxide (22-30) mmol/L Anion Gap mmol/L BUN (9-20) mg/dL Creatinine (0.66-1.25) mg/dL Est GFR (CKD-EPI)AfAm (>60 ml/min/1.73 sqM) Est GFR (CKD-EPI)NonAf (>60 ml/min/1.73 sqM) Glucose (74-99) mg/dL Calcium (8.4-10.2) mg/dL Total Bilirubin (0.2-1.3) mg/dL AST (17-59) U/L ALT (21-72) U/L Alkaline Phosphatase (38-126) U/L Troponin I <0.012 (0.000-0.034) ng/mL Total Protein (6.3-8.2) g/dL Albumin (3.5-5.0) g/dL Urine Color Yellow Urine Appearance Turbid (Clear) Urine pH 5.5 (5.0-8.0) Ur Specific Her[place] 1.011 (1.001-1.035) Urine Protein 1+ H (Negative) Urine Glucose (UA) 3+ H (Negative) Urine Ketones Negative (Negative) Urine Blood Small H (Negative) Urine Nitrite Negative (Negative) Urine Bilirubin Negative (Negative) Urine Urobilinogen <2.0 (<2.0) mg/dL Ur Leukocyte Esterase Large H (Negative) Urine RBC 9 H (0-5) /hpf Urine WBC >182 H (0-5) /hpf Urine WBC Clumps Occasional H (None) /hpf Stool Occult Blood (Negative) Blood Type O Positive Blood Type Recheck No Antibody Screen NEGATIVE Spec Expiration Date 08/13/2017 - 232108/10/17 Range/Units 00:22 WBC (3.8-10.6) k/uL RBC (4.30-5.90) m/uL Hgb (13.0-17.5) gm/dL Hct (39.0-53.0) % MCV (80.0-100.0) fL MCH (25.0-35.0) pg MCHC (31.0-37.0) g/dL RDW (11.5-15.5) % Plt Count (150-450) k/uL Neutrophils % % Lymphocytes % % Monocytes % % Eosinophils % % Basophils % % Neutrophils # (1.3-7.7) k/uL Lymphocytes # (1.0-4.8) k/uL Monocytes # (0-1.0) k/uL Eosinophils # (0-0.7) k/uL Basophils # (0-0.2) k/uL PT 9.9 (9.0-12.0) sec INR 1.0 (<1.2) APTT 20.7 L (22.0-30.0) sec Sodium (137-145) mmol/L Potassium (3.5-5.1) mmol/L Chloride (98-107) mmol/L Carbon Dioxide (22-30) mmol/L Anion Gap mmol/L BUN (9-20) mg/dL Creatinine (0.66-1.25) mg/dL Est GFR (CKD-EPI)AfAm (>60 ml/min/1.73 sqM) Est GFR (CKD-EPI)NonAf (>60 ml/min/1.73 sqM) Glucose (74-99) mg/dL Calcium (8.4-10.2) mg/dL Total Bilirubin (0.2-1.3) mg/dL AST (17-59) U/L ALT (21-72) U/L Alkaline Phosphatase (38-126) U/L Troponin I (0.000-0.034) ng/mL Total Protein (6.3-8.2) g/dL Albumin (3.5-5.0) g/dL Urine Color Urine Appearance (Clear) Urine pH (5.0-8.0) Ur Specific [place] (1.001-1.035) Urine Protein (Negative) Urine Glucose (UA) (Negative) Urine Ketones (Negative) Urine Blood (Negative) Urine Nitrite (Negative) Urine Bilirubin (Negative) Urine Urobilinogen (<2.0) mg/dL Ur Leukocyte Esterase (Negative) Urine RBC (0-5) /hpf Urine WBC (0-5) /hpf Urine WBC Clumps (None) /hpf Stool Occult Blood (Negative) Blood Type Blood Type Recheck Antibody Screen Spec Expiration Date - EKG Data EKG Comments: 23:40:29. Normal sinus rhythm. Nonspecific T wave abnormality. Ventricular rate 91 bpm, IL interval 190, QRS duration 82, QT/QTC 358/440. Disposition Clinical Impression: UTI (urinary tract infection) Disposition: HOME SELF-CARE Condition: Good Instructions: Urinary Tract Infection in Men (ED), Urinary Traction Infection in Older Adults (ED) Additional Instructions: Please take medications as prescribed. Please follow up with primary care provider within 1-2 days. Return to emergency department if symptoms should worsen or any concerns arise. Prescriptions: Sulfamethox-Tmp 800-160Mg [Bactrim DS 800-160 mg] 1 tab PO Q12HR #10 tab Is patient prescribed a controlled substance at d/c from ED?: No Referrals: Aldo Guerrero MD [Primary Care Provider] - 1-2 days Time of Disposition: 02:31
[2017-08-09 23:37] LABS: Basophils % (A) 0 %; Eosinophils # (A) 0.2 k/uL (0-0.7); Eosinophils % (A) 3 %; HCT 44.4 % (39.0-53.0); HGB 14.9 gm/dL (13.0-17.5); Lymphocytes # (A) 1.1 k/uL (1.0-4.8); Lymphocytes % (A) 13 %; MCH 29.4 pg (25.0-35.0); MCHC 33.5 g/dL (31.0-37.0); MCV 87.7 fL (80.0-100.0); Mean Platelet Volume 7.7; Monocytes # (A) 0.8 k/uL (0-1.0); Monocytes % (A) 10 %; Neutrophils # (A) 5.8 k/uL (1.3-7.7); Neutrophils % (A) 72 %; Platelet Count 231 k/uL (150-450); RBC 5.06 m/uL (4.30-5.90); RDW 14.2 % (11.5-15.5)
[2017-08-09 23:43] LABS: Appearance,Urine Turbid (Clear); Bilirubin,Urine Negative (Negative); Blood,Urine Small (Negative); Color,Urine Yellow; Glucose,Urine (UA) 3+ (Negative); Ketones,Urine Negative (Negative); Leukocyte Esterase,Urine Large (Negative); Nitrite,Urine Negative (Negative); PH, Urine 5.5 (5.0-8.0); Protein,Urine 1+ (Negative); RBC,Urine 9 /hpf (0-5); Specific Gravity,Urine 1.011 (1.001-1.035); Urobilinogen,Urine <2.0 mg/dL (<2.0); WBC,Urine >182 /hpf (0-5)
[2017-08-09 23:50] LABS: Albumin 3.5 g/dL (3.5-5.0); Calcium 9.3 mg/dL (8.4-10.2); Potassium 4.5 mmol/L (3.5-5.1); Total Bilirubin 0.6 mg/dL (0.2-1.3); Total Protein 6.2 g/dL (6.3-8.2)
[2017-08-10] MEDS ORDERED: cefTRIAXone IN SWFI 1,000 MG/10 ML SYRINGE IVP STA (00:41)
[2017-08-10 01:00] LABS: Prothrombin Time 9.9 sec (9.0-12.0)
[2017-08-10 01:02] LABS: Partial Thromboplastin Time 20.7 sec (22.0-30.0)
--- NOTE | 2017-08-10 02:06 | CT ---
EXAMINATION TYPE: CT brain pili mccarthy con DATE OF EXAM: 08/10/2017 COMPARISON: 05/12/2017 HISTORY: fall CT DLP: 1488.80 mGycm Automated exposure control for dose reduction was used. TECHNIQUE: CT scan of the head and cervical spine are performed without contrast. FINDINGS: There is cerebral cortical atrophy. There is no mass effect nor midline shift. There is n o sign of intracranial hemorrhage. The calvarium is intact. There is mild cervical kyphotic curvature. There is anterior spurring at C5-6 C6-7. The posterior herbie ments are intact. There is hypertrophic facet arthropathy in the mid cervical spine. IMPRESSION: Cerebral atrophy. No acute intracranial abnormality. 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 No fracture. Brain and cervical spine are stable compared to old exam.
--- NOTE | 2017-08-10 02:08 | XR ---
EXAMINATION TYPE: XR Hip Bilateral and AP pelvis DATE OF EXAM: 08/10/2017 COMPARISON: NONE HISTORY: Fall. Bilateral hip pain TECHNIQUE: 5 views of pelvis and both hips FINDINGS: The pelvic ring is intact. Proximal femurs and hip joints are intact. There is no sign of hip dysplasia. Sacroiliac joints appear normal. IMPRESSION: Negative pelvis and bilateral hip exam.
--- NOTE | 2017-08-10 02:09 | XR ---
EXAMINATION TYPE: XR lumbar spine 2 or 3V DATE OF EXAM: 08/10/2017 COMPARISON: NONE HISTORY: Fall. Back pain TECHNIQUE: 3 views FINDINGS: The lumbar vertebra have normal alignment. Posterior element are intact. There is spurring of the endplates. Sacroiliac joints are intact. I see no compression fracture. IMPRESSION: Spondylotic changes. No fracture.
[2017-08-10] MEDS: SODIUM CHLORIDE 0.9% 1,000 ML IV SCH ×2 (03:52→18:21)
[2017-08-10] MEDS ORDERED: NITROGLYCERIN SL TABS 0.4 MG TAB SUBLINGUAL PRN (06:27)
--- NOTE | 2017-08-10 06:47 | P.HPIM ---
History of Present Illness H&P Date: 08/10/17 Chief Complaint: generalized weakness and falling 81 year old male with extensive past medical history including diabetes mellitus , CAD. Presented to the hospital due to frequent falling over the past week. Started when he slipped off a chair in the sitting position and had the back of his head around 1 week ago without any loss of consciousness or any symptoms prior to the fall, and then since then he developed falling on a daily basis. Currently complaining of low back pain and right hip pain for which she decided to call EMS and get transferred to the hospital.. patient realizes that he has bad case of parkinsons and that its possibly progressing Patient also reports vomiting of blackish material, denies any associated epigastric abdominal pain denies any similar symptoms in the past he denies any history of GI bleeding. Patient also reports urinary frequency and dysuria, with history of urinary tract infection, denies any hematuria, or penile discharge. Denies any associated fevers or chills. But does report associated generalized weakness and frequent falling as mentioned above Patient otherwise denies any chest pain or shortness of breath, denies any fevers or chills, denies any changes in his vision or hearing acutely, denies any focal neurologic deficit. Denies any heat or cold intolerance In the emergency department further testing revealed normal hemoglobin, normal white count, positive urine suggesting urinary tract infection, CAT scan of the brain and spine showed no acute process. Imaging of bilateral hips and pelvis were negative. Occult blood test in the stool was negative. Initially the plan from the ED was to discharge the patient from the emergency department however due to concerns regarding patient's safety as he was unable to walk on his own due to severe weakness and concern for further falling at home decision was made to admit the patient Review of Systems Pertinent positives as noted in HPI. All other systems were reviewed and are negative Past Medical History Past Medical History: Coronary Artery Disease (CAD), Diabetes Mellitus, Deep Vein Thrombosis (DVT), Hyperlipidemia, Hypertension, Prostate Disorder Additional Past Medical History / Comment(s): UTI/severe sepsis, was then discharged to [facility] [place] for rehab due to his weakness. 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 Past Anesthesia/Blood Transfusion Reactions: No Reported Reaction Date of Last Stent Placement:: 2011 Past Psychological History: No Psychological Hx Reported Smoking Status: Never smoker Past Alcohol Use History: None Reported Past Drug Use History: None Reported - Past Family History Father Additional Family Medical History / Comment(s): Father had heart disease. Mother Additional Family Medical History / Comment(s): Mother had heart disease. Medications and Allergies Home Medications Medication Instructions Recorded Confirmed Type Atorvastatin Calcium [Lipitor] 10 mg PO HS 11/02/15 06/01/17 History Finasteride [Proscar] 5 mg PO DAILY 11/02/15 06/01/17 History Gabapentin [Neurontin] 300 mg PO BID 11/02/15 06/01/17 History Isosorbide Mononitrate ER [Imdur] 30 mg PO DAILY 11/02/15 06/01/17 History Ranitidine HCl 150 mg PO BID 11/02/15 06/01/17 History HYDROcodone/APAP 5-325MG [[place] 1 tab PO Q6HR PRN 04/03/17 06/01/17 History 5-325] Nitroglycerin Sl Tabs [Nitrostat] 0.4 mg SUBLINGUAL Q5M PRN 04/03/17 06/01/17 History metFORMIN HCL [Glucophage] 500 mg PO BID 04/03/17 06/01/17 History Aspirin 81 mg PO DAILY chew 06/03/17 Rx Metoprolol Tartrate [Lopressor] 12.5 mg PO BID #0 06/03/17 06/01/17 Rx glipiZIDE [Glucotrol] 5 mg PO AC-BRKFST #30 tab 06/03/17 Rx Sulfamethox-Tmp 800-160Mg [Bactrim 1 tab PO Q12HR #10 tab 08/10/17 Rx DS 800-160 mg] Allergies Allergy/AdvReac Type Severity Reaction Status Date / Time No Known Allergies Allergy Verified 08/10/17 04:51 Physical Exam Vitals: Vital Signs Temp Pulse Pulse Resp BP BP Pulse Ox 08/10/17 05:02 18 08/10/17 05:01 98.2 F 90 18 120/60 94 L 08/10/17 02:00 98.9 F 88 19 132/61 97 08/10/17 00:45 67 19 139/67 94 L 08/09/17 22:39 98.9 F 86 20 156/77 94 L Intake and Output 08/09/17 08/09/17 08/10/17 14:59 22:59 06:59 Intake Total 75 Output Total 400 Balance -325 Intake: IV 75 Sodium Chloride 0.9% 1, 75 000 ml @ 75 mls/hr IV . [id number] [facility] Rx#:[id number] Output: Urine 400 Other: Voiding Method Urinal Weight 111.13 kg Constitutional: No acute distress, conversant, pleasant Eyes: Anicteric sclerae, moist conjunctiva, no lid-lag Pupils equal round reactive to light ENMT: NC/AT Oropharynx clear, no erythema, or exudates Neck: Supple, FROM, no masses, or JVD No carotid bruits No thyromegaly Lungs: Clear to auscultation Clear to percussion Normal respiratory effort, no accessory muscle use Cardiovascular: Heart regular in rate and rhythm, No murmurs, gallops, or rubs No peripheral edema Abdominal: Soft Nontender, no guarding, rebound or rigidity Abdomen moving with respiration Normoactive bowel sounds No hepatomegaly, No splenomegaly No palpable mass No abdominal wall hernia noted Skin: Normal temperature, tone, texture, turgor No induration No subcutaneous nodules No rash, lesions No ulcers Extremities: No digital cyanosis No clubbing Pedal pulses intact and symmetrical Radial pulses intact and symmetrical No calf tenderness Psychiatric: Alert and oriented to person, place mask facies fair judgment Neuro Muscles Strength 4/5 in all 4 extremities Sensation to light touch grossly present throughout Cranial nerves II-XII grossly intact No focal sensory deficits gait not tested Lymphatics: no palpable cervical or supraclavicular , or inguinal lymph nodes Results CBC & Chem 7: 08/09/17 23:27 08/09/17 23:27 Labs: Abnormal Lab Results - Last 24 Hours (Table) 08/09/17 08/09/17 08/10/17 Range/Units 23:27 23:27 00:22 APTT 20.7 L (22.0-30.0) sec Sodium 134 L (137-145) mmol/L BUN 21 H (9-20) mg/dL Glucose 234 H (74-99) mg/dL ALT 18 L (21-72) U/L Total Protein 6.2 L (6.3-8.2) g/dL Urine Protein 1+ H (Negative) Urine Glucose (UA) 3+ H (Negative) Urine Blood Small H (Negative) Ur Leukocyte Esterase Large H (Negative) Urine RBC 9 H (0-5) /hpf Urine WBC >182 H (0-5) /hpf Urine WBC Clumps Occasional H (None) /hpf Thrombosis Risk Factor Assmnt - Choose All That Apply Any of the Below Risk Factors Present?: Yes Each Factor Represents 1 point: Obesity (BMI >25) Other Risk Factors: Yes Each Risk Factor Represents 3 Points: Age 75 years or older, History of DVT/PE Other congenital or acquired thrombophilia - If yes, enter type in comment: No Thrombosis Risk Factor Assessment Total Risk Factor Score: 7 Thrombosis Risk Factor Assessment Level: High Risk Assessment and Plan Assessment: 81-year-old male with history of diabetes mellitus, CAD, hypertension, Parkinson disease. Presented to the hospital due to frequent falling over the past week along with dysuria and frequent urination. Patient admitted due to generalized weakness and frequent falling with concerns regarding safety for further evaluation and treatment of his urinary tract infection Plan: #Generalized weakness and frequent falling, this is multifactorial could be secondary to progression of Parkinson disease along with acute urinary tract infection #Acute urinary tract infection, no chronic catheter from home Fall precautions Neurology consult Rocephin IV Follow-up cultures Monitor vital signs Check TSH, vitamin B12 level, vitamin D stores PT/OT evaluation #Recent History of vomiting with black material Fecal occult blood test was negative Continue to monitor Hemoglobin is within normal limits #History of CAD Continue with aspirin and statin and beta joan Continue with Imdur #Hypertension currently controlled Continue with home blood pressure medications #Diabetes mellitus Currently with hyperglycemia Hold oral hypoglycemics Start patient on insulin sliding scale #Diet as tolerated #DVT prophylaxis Heparin subcu 3 times a day await patient daughter to bring uptodate medication list Surrogate decision-maker: Patient's daughter CODE STATUS: Full code Discussed with: Patient, ER, RN Anticipated discharge: 48-[address]: Pending clinical status, possible long term placement A total of 55 minutes was spent on the care of this complex patient more than 50 % of the time was spent in counseling and care coordination.
[2017-08-10 07:30] LABS: Glucose,Whole Blood 207 mg/dL (75-99)
[2017-08-10] MEDS ORDERED: ASPIRIN 81 MG PO SCH (09:00)
[2017-08-10] MEDS ORDERED: GABAPENTIN 300 MG CAP PO SCH ×2 (09:00→21:00)
[2017-08-10] MEDS: INSULIN ASPART 100 UNIT/ML 1 ML 10 ML VIAL SQ SCH ×4 (09:27→21:39)
[2017-08-10] MEDS: HEPARIN SODIUM,PORCINE 5,000 UNIT/ML 1 ML VIAL SQ SCH ×3 (10:03→22:34)
[2017-08-10] MEDS: FINASTERIDE 5 MG TAB PO SCH (10:04)
[2017-08-10] MEDS: ISOSORBIDE MONONITRATE ER 30 MG TAB.ER.24H PO SCH (10:04)
[2017-08-10] MEDS: FAMOTIDINE 20 MG TAB PO SCH ×2 (10:04→20:57)
[2017-08-10] MEDS: METOPROLOL TARTRATE 12.5 MG TAB PO SCH ×3 (10:04→22:36)
[2017-08-10] MEDS ORDERED: CARBIDOPA-LEVODOPA 25-100 MG 1 EACH TAB PO SCH (10:15)
[2017-08-10 12:14] LABS: Glucose,Whole Blood 165 mg/dL (75-99)
[2017-08-10] MEDS: ACETAMINOPHEN TAB 325 MG TAB PO PRN ×2 (12:36→20:58)
[2017-08-10 12:46] LABS: Hemoglobin A1C 7.8 % (4.0-6.0)
[2017-08-10 16:26] LABS: Vitamin D 25 Hydroxy 34.7 ng/mL (30.0-100.0)
[2017-08-10 17:22] LABS: Glucose,Whole Blood 137 mg/dL (75-99)
[2017-08-10] MEDS: CARBIDOPA-LEVODOPA 25-100 MG 1 EACH TAB PO SCH (20:58)
[2017-08-10] MEDS ORDERED: ATORVASTATIN 10 MG TAB PO SCH (21:00)
[2017-08-10 21:08] LABS: Glucose,Whole Blood 140 mg/dL (75-99)
[2017-08-10] MEDS ORDERED: cefTRIAXone IN SWFI 1,000 MG/10 ML SYRINGE IVP SCH (23:00)
[2017-08-11 07:04] LABS: Glucose,Whole Blood 152 mg/dL (75-99)
[2017-08-11 07:38] LABS: Calcium 8.1 mg/dL (8.4-10.2); Magnesium 2.1 mg/dL (1.6-2.3); Phosphorus 3.6 mg/dL (2.5-4.5); Potassium 4.1 mmol/L (3.5-5.1)
[2017-08-11 08:15] VITALS: BP 131/60; PULSE 62; RESP 16; TEMP 97.7
[2017-08-11] MEDS: INSULIN ASPART 100 UNIT/ML 1 ML 10 ML VIAL SQ SCH ×2 (08:24→12:50)
[2017-08-11] MEDS: HEPARIN SODIUM,PORCINE 5,000 UNIT/ML 1 ML VIAL SQ SCH (08:24)
[2017-08-11] MEDS: SODIUM CHLORIDE 0.9% 1,000 ML IV SCH (08:24)
[2017-08-11] MEDS: CARBIDOPA-LEVODOPA 25-100 MG 1 EACH TAB PO SCH ×2 (08:25→12:30)
[2017-08-11] MEDS: FAMOTIDINE 20 MG TAB PO SCH (08:27)
[2017-08-11] MEDS: METOPROLOL TARTRATE 12.5 MG TAB PO SCH (08:27)
[2017-08-11] MEDS: ISOSORBIDE MONONITRATE ER 30 MG TAB.ER.24H PO SCH (08:27)
[2017-08-11] MEDS: FINASTERIDE 5 MG TAB PO SCH (08:27)
[2017-08-11] MEDS ORDERED: ASPIRIN 325 MG TAB PO SCH (09:00)
--- NOTE | 2017-08-11 09:46 | CONS ---
CONSULTATION DATE OF CONSULTATION: 08/10/2017 CHIEF COMPLAINT: Recurrent falls. HISTORY OF PRESENT ILLNESS: Mr. Rosario is a pleasant 81-year-old, male, who is being evaluated today on 08/10/2017 by the Neurology Service per the request of Dr. Ventura for recurrent falls. The patient was recently diagnosed with Parkinson's disease and was started on Sinemet b.i.d. by Dr. Guerrero. He recently established care in my office and his dose was recently increased to 3 times daily. The patient was also establishing care with physical therapy for his gait instability. He was brought into [facility] Emergency Room complaining of recurrent falls with the last 1 having a head injury with no loss of consciousness. He was complaining of low back pain and right hip pain. X- rays were done showing no evidence of any fractures. A CT scan of the brain was done which showed no acute intracranial abnormalities. Generalized atrophy was seen. His CBC, INR, and cardiac enzymes were normal. His comprehensive metabolic profile showed mild hyponatremia at 134, slightly elevated BUN at 21, and hyperglycemia at 234,. His hemoglobin A1c was 7.8. His urinalysis showed greater than 182 WBCs with large leukocyte esterase. He was started on Rocephin and admitted for further workup and management. The patient is also complaining of occasional dysphagia which is not new. He did have a recent barium swallow study on 06/02/2017 which showed a slightly delayed motility of the esophagus. At the time of my evaluation, he is lying in his bed and appears to be in no acute distress. He denies any lateralizing numbness or weakness. PAST MEDICAL HISTORY: Parkinson's disease, recurrent falls, coronary artery disease, diabetes, history of deep venous thrombosis, dyslipidemia, hypertension, spinal stenosis, history of childhood epilepsy, history of coronary artery bypass grafting, history of coronary artery stent placement, orthopedic surgeries, cataract surgeries, cataract surgery, history of sebaceous cyst resection from the neck. SOCIAL HISTORY: There is no history of any tobacco, alcohol or drug use. FAMILY HISTORY: Positive for heart disease. HOME MEDICATIONS: Reviewed in the chart. ALLERGIES: No known drug allergies. REVIEW OF SYSTEMS: As mentioned above and also positive for abdominal pain and recent nausea and vomiting. PHYSICAL EXAM: Vital signs show a temperature of 98.9, pulse 92, respirations 16, blood pressure 128/88. GENERAL APPEARANCE: The patient is a well-developed, elderly male, who appears to be in no acute distress. HEENT: Normocephalic, atraumatic, no facial asymmetry is seen. NECK: Supple with no masses felt. CARDIOVASCULAR: Regular rate and rhythm. ABDOMEN: Mild tenderness to palpation with no distention seen. Extremities showed trace edema with no clubbing seen. NEUROLOGICAL EXAM: The patient is awake and oriented x3. Speech and language are normal. No lateralizing weakness is seen. Mild postural tremors are noticed. Minimal cogwheel rigidity is seen in the right upper extremity more than the left upper extremity. No resting tremor is present at the time of my evaluation. No facial asymmetry is seen on cranial nerve testing. Sensory exam was normal to light touch in all 4 extremities. IMPRESSION: 1. Recurrent falls. 2. Parkinson's disease. 3. Acute urinary tract infection. 4. Dysphagia. RECOMMENDATION: The patient's recurrent falls are likely due to his Parkinson's disease. His dose was recently increased from b.i.d. to t.i.d. at his last outpatient visit. I will change his Sinemet dosing to t.i.d. as he was started on a b.i.d. dose on this admission. Physical therapy has been consulted. The patient will need physical therapy for gait training, and he has been scheduled for this in the outpatient setting. I will consult speech therapy for his dysphagia. He did have a recent swallow study as mentioned above. Continue the rest of your current workup and management. I will continue to follow with you. Further recommendations to follow. Thank you for allowing me to participate in the care of your patient. If you have any questions, please feel free to contact me. MMODL / IJN: [id number] /
[2017-08-11 12:09] LABS: Glucose,Whole Blood 166 mg/dL (75-99)
--- NOTE | 2017-08-11 12:31 | P.DS ---
Providers Date of admission: 08/10/17 03:51 Expected date of discharge: 08/11/17 Attending physician: Susy Ventura MD Consults: 08/10/17 07:02 Consult Physician Routine Consulting Provider: Brooklynn Hutchinson Consult Reason/Comments: falls, Parkinson disease Do you want consulting provider notified?: Yes Primary care physician: Aldo Fam [facility] Course: 81 year old male with extensive past medical history including diabetes mellitus , CAD presented to the hospital due to frequent falling and general weakness. He slipped off a chair in the sitting position and hit the back of his head on the floor around 1 week ago without any loss of consciousness or any symptoms prior to the fall, then since then he has been falling on a daily basis. Upon arrival he was complaining of low back pain and right hip pain. He stated he had a bad case of parkinsons and that its possibly progressing. He reported vomiting of blackish material, denied any associated abdominal pain, similar symptoms in the past, no hx of GI bleeding. He also mentioned urinary frequency and dysuria. He does have history of recurrent urinary tract infections, no hematuria, or penile discharge. Denied any associated fevers or chills. No chest pain or shortness of breath, no changes in his vision or hearing acutely, In the ER he was hemodynamically stable, labs revealed normal hemoglobin, normal white count, UA was positive for pyuria suggesting urinary tract infection, CAT scan of the brain and spine showed no acute process. Imaging of bilateral hips and pelvis were negative. Occult blood test in the stool was negative. Initially the plan was to d/c the patient from the emergency department however due to concerns regarding patient's safety as he was unable to walk on his own due to severe weakness and concern for further falling at home decision was made to admit the patient. Patient was started on IV antibiotics treatment with ceftriaxone 1 g IV daily. He was evaluated by physical therapy when he first came in, physical therapy recommended subacute rehabilitation due to weakness but over the course of the hospitalization his strength improved and today he is able to walk by himself. Patient insisted that he wanted to go home and not to rehab. He will be discharged home in stable condition. I told his daughter to have someone be with him in the house the whole time for the first couple of days after discharge. Discharge diagnoses Adult failure to thrive Urinary tract infection General weakness and frequent falls Patient Condition at Discharge: Good Plan - Discharge Summary Discharge Rx Participant: No New Discharge Prescriptions: New Ciprofloxacin HCl [Cipro] 500 mg PO BID 10 Days #20 tab Continue Atorvastatin Calcium [Lipitor] 10 mg PO HS Gabapentin [Neurontin] 300 mg PO HS Isosorbide Mononitrate ER [Imdur] 30 mg PO DAILY Finasteride [Proscar] 5 mg PO DAILY Nitroglycerin Sl Tabs [Nitrostat] 0.4 mg SUBLINGUAL Q5M PRN PRN Reason: Chest Pain metFORMIN HCL [Glucophage] 500 mg PO BID glipiZIDE [Glucotrol] 5 mg PO AC-BRKFST #30 tab Metoprolol Tartrate [Lopressor] 12.5 mg PO BID #0 Cholecalciferol (Vitamin D3) [Vitamin D3] 2,000 unit PO DAILY Carbidopa-Levodopa 25-100 mg [Sinemet 25-100 mg] 1 tab PO BID Aspirin 325 mg PO DAILY Discharge Medication List Atorvastatin Calcium [Lipitor] 10 mg PO HS 11/02/15 [History] Finasteride [Proscar] 5 mg PO DAILY 11/02/15 [History] Gabapentin [Neurontin] 300 mg PO HS 11/02/15 [History] Isosorbide Mononitrate ER [Imdur] 30 mg PO DAILY 11/02/15 [History] Nitroglycerin Sl Tabs [Nitrostat] 0.4 mg SUBLINGUAL Q5M PRN 04/03/17 [History] metFORMIN HCL [Glucophage] 500 mg PO BID 04/03/17 [History] Metoprolol Tartrate [Lopressor] 12.5 mg PO BID #0 06/03/17 [Rx] glipiZIDE [Glucotrol] 5 mg PO AC-BRKFST #30 tab 06/03/17 [Rx] Aspirin 325 mg PO DAILY 08/10/17 [History] Carbidopa-Levodopa 25-100 mg [Sinemet 25-100 mg] 1 tab PO BID 08/10/17 [History] Cholecalciferol (Vitamin D3) [Vitamin D3] 2,000 unit PO DAILY 08/10/17 [History] Ciprofloxacin HCl [Cipro] 500 mg PO BID 10 Days #20 tab 08/11/17 [Rx] Follow up Appointment(s)/Referral(s): Aldo Guerrero MD [Primary Care Provider] - 1-2 days [facility] Visiting Nurse, [NON-STAFF] - Patient Instructions/Handouts: Urinary Tract Infection in Men (ED), Urinary Traction Infection in Older Adults (ED) Activity/Diet/Wound Care/Special Instructions: Please take medications as prescribed. Please follow up with primary care provider within 1-2 days. Return to emergency department if symptoms should worsen or any concerns arise.
== END 2017-08-11 13:13 | disposition home or self-care (01) ==
LOC: EC 22:37 → 3OBS 08-10 03:51
PROVIDERS: ADMIT Internal Medicine; ATTEND Internal Medicine
DX: R62.7 Adult failure to thrive (principal); R53.1 Weakness; N39.0 Urinary tract infection, site not specified; G20 Parkinson's disease; E11.65 Type 2 diabetes mellitus with hyperglycemia; E87.1 Hypo-osmolality and hyponatremia; R29.6 Repeated falls; I25.10 Atherosclerotic heart disease of native coronary artery without angina pectoris; R13.10 Dysphagia, unspecified; M25.551 Pain in right hip; M54.5 Low back pain; I10 Essential (primary) hypertension; E78.5 Hyperlipidemia, unspecified; N42.9 Disorder of prostate, unspecified; M48.00 Spinal stenosis, site unspecified; E66.9 Obesity, unspecified; Z68.31 Body mass index [BMI] 31.0-31.9, adult; G40.909 Epilepsy, unspecified, not intractable, without status epilepticus; W07.XXXA Fall from chair, initial encounter; Z79.84 Long term (current) use of oral hypoglycemic drugs; Z79.82 Long term (current) use of aspirin; Z79.899 Other long term (current) drug therapy; Z86.718 Personal history of other venous thrombosis and embolism; Z91.81 History of falling; Z86.19 Personal history of other infectious and parasitic diseases; Z95.1 Presence of aortocoronary bypass graft; Z95.5 Presence of coronary angioplasty implant and graft; Z96.651 Presence of right artificial knee joint; Z82.49 Family history of ischemic heart disease and other diseases of the circulatory system
CPT/HCPCS: 99285 ×2; 96374 ×2; 96361 ×4; 96372 ×2; 96376; 36415 ×2; 93005; 97116; 97162; 97535; 97166; 92610; 86900; 86901; 80053; 80048; 84443; 82607; 83735; 84100; 84484; 85025; 85610; 85730; 86850; 82272; 81001; 87040; 82306; 83036; 72100; 73521; 72125; 70450; G0378 ×2; S0138 ×2; J1644 ×2; J0696

== ENCOUNTER 2017-09-02 02:36 | Emergency (ER) | payer MEDICARE, OTHER ==
[2017-09-02 05:22] LABS: Appearance,Urine Cloudy (Clear); Bilirubin,Urine Negative (Negative); Blood,Urine Negative (Negative); Color,Urine Yellow; Glucose,Urine (UA) 3+ (Negative); Ketones,Urine Negative (Negative); Leukocyte Esterase,Urine Moderate (Negative); Mucus,Urine Rare /hpf; Nitrite,Urine Negative (Negative); Protein,Urine Trace (Negative); RBC,Urine 3 /hpf (0-5); Specific Gravity,Urine 1.019 (1.001-1.035); Squamous Epithelial Cell,Urine 5 /hpf (0-4); Urobilinogen,Urine <2.0 mg/dL (<2.0); WBC,Urine 29 /hpf (0-5)
[2017-09-02 05:50] LABS: ALT 27 U/L (21-72); AST 17 U/L (17-59); Alkaline Phosphatase 120 U/L (38-126); Anion Gap 7 mmol/L; Blood Urea Nitrogen 22 mg/dL (9-20); Calcium 8.8 mg/dL (8.4-10.2); Carbon Dioxide 22 mmol/L (22-30); Chloride 108 mmol/L (98-107); Creatine Kinase 40 U/L (55-170); Creatine Kinase MB 2.3 ng/mL (0.0-2.4); Glucose 197 mg/dL (74-99); Potassium 4.6 mmol/L (3.5-5.1); Sodium 137 mmol/L (137-145); Total Bilirubin 0.2 mg/dL (0.2-1.3); Total Protein 5.7 g/dL (6.3-8.2); Troponin I <0.012 ng/mL (0.000-0.034)
[2017-09-02 05:52] LABS: Partial Thromboplastin Time 23.4 sec (22.0-30.0); Prothrombin Time 9.8 sec (9.0-12.0)
[2017-09-02 05:57] LABS: Basophils # (A) 0.1 k/uL (0-0.2); Basophils % (A) 1 %; Eosinophils # (A) 0.2 k/uL (0-0.7); Eosinophils % (A) 4 %; HCT 40.3 % (39.0-53.0); HGB 13.7 gm/dL (13.0-17.5); Lymphocytes # (A) 1.8 k/uL (1.0-4.8); Lymphocytes % (A) 27 %; MCH 29.8 pg (25.0-35.0); MCHC 34.1 g/dL (31.0-37.0); MCV 87.4 fL (80.0-100.0); Mean Platelet Volume 8.2; Monocytes # (A) 0.6 k/uL (0-1.0); Monocytes % (A) 8 %; Neutrophils # (A) 4.1 k/uL (1.3-7.7); Neutrophils % (A) 59 %; Platelet Count 217 k/uL (150-450); RBC 4.61 m/uL (4.30-5.90); RDW 14.7 % (11.5-15.5); WBC 6.9 k/uL (3.8-10.6)
[2017-09-02 09:12] LABS: Glucose,Whole Blood 189 mg/dL (75-99)
--- NOTE | 2017-09-02 10:00 | XR ---
EXAM: XR Lumbar Spine, 2 or 3 Views CLINICAL HISTORY: fall, pain TECHNIQUE: Frontal and lateral views of the lumbar spine. COMPARISON: No relevant prior studies available. FINDINGS: Vertebrae: See below. Disc spaces: Moderate multilevel degenerative changes, most prominent at L5-S1 there is loss of disc height, endplate sclerosis, and facet arthropathy. Soft tissues: Unremarkable. Other findings: IMPRESSION: No acute findings.
== END 2017-09-02 05:47 ==
LOC: EC 02:36
DX: R53.1 Weakness (principal); R11.10 Vomiting, unspecified; R42 Dizziness and giddiness; R30.0 Dysuria; G20 Parkinson's disease; E11.9 Type 2 diabetes mellitus without complications; R29.6 Repeated falls
CPT/HCPCS: 36415; 72100; 80053; 81001; 82550; 82553; 84484; 85025; 85610; 85730; 87086; 99284

== ENCOUNTER 2017-09-21 09:22 | Emergency (ER) | payer MEDICARE, OTHER ==
[2017-09-21 10:11] LABS: Appearance,Urine Turbid (Clear); Bacteria,Urine Rare /hpf; Bilirubin,Urine Negative (Negative); Blood,Urine Large (Negative); Color,Urine Red; Glucose,Urine (UA) 2+ (Negative); Ketones,Urine Negative (Negative); Leukocyte Esterase,Urine Large (Negative); Nitrite,Urine Negative (Negative); PH, Urine 7.5 (5.0-8.0); Protein,Urine 3+ (Negative); RBC,Urine >182 /hpf (0-5); Specific Gravity,Urine 1.017 (1.001-1.035); Urobilinogen,Urine <2.0 mg/dL (<2.0); WBC,Urine >182 /hpf (0-5)
[2017-09-21 10:14] LABS: Partial Thromboplastin Time 22.1 sec (22.0-30.0); Prothrombin Time 9.6 sec (9.0-12.0)
--- NOTE | 2017-09-21 10:14 | ED ---
General Adult HPI - General Chief complaint: Weakness Stated complaint: Blood in urine/not feeling good Time Seen by Provider: 09/21/17 09:42 Source: patient, RN notes reviewed, old records reviewed Mode of arrival: wheelchair Limitations: no limitations - History of Present Illness Initial comments: 82-year-old male presents for evaluation of generalized weakness and hematuria. Patient has diagnosis Parkinson's, he does do with generalized weakness, this sounds more like a chronic issue rather than acute weakness. There is no focal numbness or weakness on history. Patient has had no significant nausea vomiting or diarrhea. No fever or chills. No abdominal pain. No chest pain or dyspnea. He does report a mild cough. Patient reports hematuria which was fairly significant today. No history of blood thinners. - Related Data Home Medications Medication Instructions Recorded Confirmed Atorvastatin Calcium [Lipitor] 10 mg PO HS 11/02/15 09/21/17 Finasteride [Proscar] 5 mg PO DAILY 11/02/15 09/21/17 Gabapentin [Neurontin] 300 mg PO HS 11/02/15 09/21/17 Isosorbide Mononitrate ER [Imdur] 30 mg PO HS 11/02/15 09/21/17 Nitroglycerin Sl Tabs [Nitrostat] 0.4 mg SUBLINGUAL Q5M PRN 04/03/17 09/21/17 metFORMIN HCL [Glucophage] 500 mg PO BID 04/03/17 09/21/17 Carbidopa-Levodopa 25-100 mg 1 tab PO TID 08/10/17 09/21/17 [Sinemet 25-100 mg] Cholecalciferol [Vitamin D3] 1,000 unit PO BID 09/21/17 09/21/17 glipiZIDE [Glucotrol] 5 mg PO AC-BID 09/21/17 09/21/17 Previous Rx's Medication Instructions Recorded Metoprolol Tartrate [Lopressor] 12.5 mg PO BID #0 06/03/17 Cephalexin [Keflex] 500 mg PO Q12HR #14 cap 09/21/17 Allergies Allergy/AdvReac Type Severity Reaction Status Date / Time No Known Allergies Allergy Verified 09/21/17 10:18 Review of Systems ROS Statement: Those systems with pertinent positive or pertinent negative responses have been documented in the HPI. ROS Other: All systems not noted in ROS Statement are negative. Past Medical History Past Medical History: Coronary Artery Disease (CAD), Diabetes Mellitus, Deep Vein Thrombosis (DVT), Hyperlipidemia, Hypertension, Prostate Disorder Additional Past Medical History / Comment(s): UTI/severe sepsis, was then discharged to [facility] the [address] for rehab due to his weakness. 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 Past Anesthesia/Blood Transfusion Reactions: No Reported Reaction Date of Last Stent Placement:: 2011 Past Psychological History: No Psychological Hx Reported Smoking Status: Never smoker Past Alcohol Use History: None Reported Past Drug Use History: None Reported - Past Family History Father Additional Family Medical History / Comment(s): Father had heart disease. Mother Additional Family Medical History / Comment(s): Mother had heart disease. General Exam Limitations: no limitations General appearance: alert, in no apparent distress Head exam: Present: atraumatic, normocephalic Eye exam: Present: normal appearance, PERRL ENT exam: Present: normal exam, mucous membranes moist Neck exam: Present: normal inspection. Absent: tenderness, meningismus Respiratory exam: Present: normal lung sounds bilaterally. Absent: respiratory distress, wheezes Cardiovascular Exam: Present: regular rate, normal rhythm GI/Abdominal exam: Present: soft. Absent: distended, tenderness, guarding Extremities exam: Present: normal inspection Neurological exam: Present: alert, oriented X3, CN II-XII intact. Absent: motor sensory deficit Psychiatric exam: Present: normal affect, normal mood Skin exam: Present: warm, dry, intact. Absent: cyanosis, diaphoretic Course Vital Signs 09/21/17 09/21/17 09/21/17 09:36 11:04 11:12 Temperature 98.0 F Pulse Rate 95 78 89 Respiratory 20 16 18 Rate Blood Pressure 137/84 118/56 118/56 O2 Sat by Pulse 94 L 98 99 Oximetry Medical Decision Making - Medical Decision Making 82-year-old male presenting with chief complaint of hematuria. Patient did complain of some chronic weakness as well as this is been ongoing unchanged from baseline. Laboratory studies obtained, normal white blood cell count, stable hemoglobin, normal electrolytes. Chest x-rays obtained as there was mild cough, this is negative for any focal pneumonia or acute cardiopulmonary process. EKG shows normal sinus rhythm with no ST segment changes. Urinalysis is positive for greater than 182 red blood cells and greater than 182 white blood cells, this is consistent with hemorrhagic cystitis and UTI. Patient does have second urination while emergency department and this urine is clear. Urine culture pending, he's given a dose of ceftriaxone in the emergency department. He will be started on Keflex awaiting culture results. - Lab Data Result diagrams: 09/21/17 09:56 09/21/17 09:56 Lab Results 09/21/17 09/21/17 09/21/17 Range/Units 09:56 09:56 09:56 WBC 10.0 (3.8-10.6) k/uL RBC 5.19 (4.30-5.90) m/uL Hgb 14.2 (13.0-17.5) gm/dL Hct 45.0 (39.0-53.0) % MCV 86.7 (80.0-100.0) fL MCH 27.4 (25.0-35.0) pg MCHC 31.6 (31.0-37.0) g/dL RDW 14.0 (11.5-15.5) % Plt Count 183 (150-450) k/uL Neutrophils % 80 % Lymphocytes % 12 % Monocytes % 5 % Eosinophils % 2 % Basophils % 0 % Neutrophils # 8.0 H (1.3-7.7) k/uL Lymphocytes # 1.2 (1.0-4.8) k/uL Monocytes # 0.5 (0-1.0) k/uL Eosinophils # 0.2 (0-0.7) k/uL Basophils # 0.0 (0-0.2) k/uL PT (9.0-12.0) sec INR (<1.2) APTT (22.0-30.0) sec Sodium 136 L (137-145) mmol/L Potassium 4.7 (3.5-5.1) mmol/L Chloride 105 (98-107) mmol/L Carbon Dioxide 24 (22-30) mmol/L Anion Gap 7 mmol/L BUN 14 (9-20) mg/dL Creatinine 0.97 (0.66-1.25) mg/dL Est GFR (CKD-EPI)AfAm 84 (>60 ml/min/1.73 sqM) Est GFR (CKD-EPI)NonAf 73 (>60 ml/min/1.73 sqM) Glucose 204 H (74-99) mg/dL Plasma Lactic Acid Ronen (0.7-2.0) mmol/L Calcium 8.6 (8.4-10.2) mg/dL Magnesium 1.9 (1.6-2.3) mg/dL Total Bilirubin 0.5 (0.2-1.3) mg/dL AST 25 (17-59) U/L ALT 15 L (21-72) U/L Alkaline Phosphatase 104 (38-126) U/L Total Creatine Kinase 48 L (55-170) U/L CK-MB (CK-2) 1.5 (0.0-2.4) ng/mL CK-MB (CK-2) Rel Index 3.1 Troponin I <0.012 (0.000-0.034) ng/mL Total Protein 6.2 L (6.3-8.2) g/dL Albumin 3.4 L (3.5-5.0) g/dL Urine Color Urine Appearance (Clear) Urine pH (5.0-8.0) Ur Specific Bu[place] (1.001-1.035) Urine Protein (Negative) Urine Glucose (UA) (Negative) Urine Ketones (Negative) Urine Blood (Negative) Urine Nitrite (Negative) Urine Bilirubin (Negative) Urine Urobilinogen (<2.0) mg/dL Ur Leukocyte Esterase (Negative) Urine RBC (0-5) /hpf Urine WBC (0-5) /hpf Urine WBC Clumps (None) /hpf Urine Bacteria (None) /hpf 09/21/17 09/21/17 09/21/17 Range/Units 09:56 09:56 09:56 WBC (3.8-10.6) k/uL RBC (4.30-5.90) m/uL Hgb (13.0-17.5) gm/dL Hct (39.0-53.0) % MCV (80.0-100.0) fL MCH (25.0-35.0) pg MCHC (31.0-37.0) g/dL RDW (11.5-15.5) % Plt Count (150-450) k/uL Neutrophils % % Lymphocytes % % Monocytes % % Eosinophils % % Basophils % % Neutrophils # (1.3-7.7) k/uL Lymphocytes # (1.0-4.8) k/uL Monocytes # (0-1.0) k/uL Eosinophils # (0-0.7) k/uL Basophils # (0-0.2) k/uL PT 9.6 (9.0-12.0) sec INR 1.0 (<1.2) APTT 22.1 (22.0-30.0) sec Sodium (137-145) mmol/L Potassium (3.5-5.1) mmol/L Chloride (98-107) mmol/L Carbon Dioxide (22-30) mmol/L Anion Gap mmol/L BUN (9-20) mg/dL Creatinine (0.66-1.25) mg/dL Est GFR (CKD-EPI)AfAm (>60 ml/min/1.73 sqM) Est GFR (CKD-EPI)NonAf (>60 ml/min/1.73 sqM) Glucose (74-99) mg/dL Plasma Lactic Acid Ronen 2.0 (0.7-2.0) mmol/L Calcium (8.4-10.2) mg/dL Magnesium (1.6-2.3) mg/dL Total Bilirubin (0.2-1.3) mg/dL AST (17-59) U/L ALT (21-72) U/L Alkaline Phosphatase (38-126) U/L Total Creatine Kinase (55-170) U/L CK-MB (CK-2) (0.0-2.4) ng/mL CK-MB (CK-2) Rel Index Troponin I (0.000-0.034) ng/mL Total Protein (6.3-8.2) g/dL Albumin (3.5-5.0) g/dL Urine Color Red Urine Appearance Turbid (Clear) Urine pH 7.5 (5.0-8.0) Ur Specific [place] 1.017 (1.001-1.035) Urine Protein 3+ H (Negative) Urine Glucose (UA) 2+ H (Negative) Urine Ketones Negative (Negative) Urine Blood Large H (Negative) Urine Nitrite Negative (Negative) Urine Bilirubin Negative (Negative) Urine Urobilinogen <2.0 (<2.0) mg/dL Ur Leukocyte Esterase Large H (Negative) Urine RBC >182 H (0-5) /hpf Urine WBC >182 H (0-5) /hpf Urine WBC Clumps Many H (None) /hpf Urine Bacteria Rare H (None) /hpf Disposition Clinical Impression: Urinary tract infection Disposition: HOME SELF-CARE Condition: Fair Instructions: Urinary Tract Infection in Men (ED) Prescriptions: Cephalexin [Keflex] 500 mg PO Q12HR #14 cap Is patient prescribed a controlled substance at d/c from ED?: No Referrals: Aldo Guerrero MD [Primary Care Provider] - 1-2 days Time of Disposition: 11:29
[2017-09-21 10:16] LABS: Albumin 3.4 g/dL (3.5-5.0); Calcium 8.6 mg/dL (8.4-10.2); Magnesium 1.9 mg/dL (1.6-2.3); Potassium 4.7 mmol/L (3.5-5.1); Total Bilirubin 0.5 mg/dL (0.2-1.3); Total Protein 6.2 g/dL (6.3-8.2)
[2017-09-21 10:22] LABS: Basophils % (A) 0 %; Eosinophils # (A) 0.2 k/uL (0-0.7); Eosinophils % (A) 2 %; HGB 14.2 gm/dL (13.0-17.5); Lymphocytes # (A) 1.2 k/uL (1.0-4.8); Lymphocytes % (A) 12 %; MCH 27.4 pg (25.0-35.0); MCHC 31.6 g/dL (31.0-37.0); MCV 86.7 fL (80.0-100.0); Monocytes # (A) 0.5 k/uL (0-1.0); Monocytes % (A) 5 %; Neutrophils % (A) 80 %; Platelet Count 183 k/uL (150-450); RBC 5.19 m/uL (4.30-5.90)
[2017-09-21 10:39] LABS: Creatine Kinase 48 U/L (55-170)
[2017-09-21 10:52] LABS: Creatine Kinase MB 1.5 ng/mL (0.0-2.4); Troponin I <0.012 ng/mL (0.000-0.034)
--- NOTE | 2017-09-21 10:52 | XR ---
EXAMINATION TYPE: XR chest 2V DATE OF EXAM: 09/21/2017 COMPARISON: 05/31/2017 HISTORY: 82-year-old male with weakness TECHNIQUE: AP and lateral views FINDINGS: Heart mildly enlarged. Median sternotomy wires are present. Prominent epicardial fat along the cardia c apex. Pulmonary vasculature within normal limits. No consolidation or pleural effusion seen. IMPRESSION: Borderline heart size. No acute cardiopulmonary process seen.
[2017-09-21 11:13] VITALS: RESP 18
[2017-09-21] MEDS ORDERED: cefTRIAXone IN SWFI 1,000 MG/10 ML SYRINGE IVP STA (11:20)
[2017-09-21 12:39] VITALS: BP 119/87; PULSE 87; TEMP 97.4
== END 2017-09-21 12:38 | disposition home or self-care (01) ==
LOC: EC 09:22
DX: N39.0 Urinary tract infection, site not specified (principal); R05 Cough; R53.1 Weakness; I25.10 Atherosclerotic heart disease of native coronary artery without angina pectoris; E11.9 Type 2 diabetes mellitus without complications; E78.5 Hyperlipidemia, unspecified; I10 Essential (primary) hypertension; N42.9 Disorder of prostate, unspecified; G20 Parkinson's disease; Z86.718 Personal history of other venous thrombosis and embolism; G40.909 Epilepsy, unspecified, not intractable, without status epilepticus; Z79.84 Long term (current) use of oral hypoglycemic drugs; Z79.899 Other long term (current) drug therapy; Z95.1 Presence of aortocoronary bypass graft; Z95.5 Presence of coronary angioplasty implant and graft
CPT/HCPCS: 36415; 93005; 80053; 82550; 82553; 83605; 83735; 84484; 85025; 85610; 85730; 81001; 87086; 71046; 99285; 96374; J0696

== ENCOUNTER 2017-11-27 09:32 | Emergency (ER) | payer MEDICARE, OTHER ==
[2017-11-27 09:43] VITALS: RESP 18; TEMP 98.3
[2017-11-27] MEDS ORDERED: KETOROLAC 30 MG/ML 1 ML VIAL IM STA (10:46)
--- NOTE | 2017-11-27 10:54 | ED ---
General Adult HPI - General Chief complaint: Back Pain/Injury Stated complaint: back pain Time Seen by Provider: 11/27/17 10:34 Source: patient, family, EMS, RN notes reviewed, old records reviewed Mode of arrival: EMS Limitations: no limitations - History of Present Illness Initial comments: 82-year-old male presents for evaluation of back pain and diffuse joint pain. Patient has history of arthritis. His family physician is aware of his pain complaints. He had a fall several months ago that resulted in some worsening of this pain. This was evaluated in the emergency department at that time. Patient is accompanied by his daughter was concerned that he may have urinary tract infection which may be worsening his symptoms. He does have history of Parkinson's. No new falls. No chest pain or abdominal pain. No vomiting or diarrhea. Patient is taking gabapentin at bedtime for pain. No other daily pain medications. No focal weakness or numbness. - Related Data Home Medications Medication Instructions Recorded Confirmed Atorvastatin Calcium [Lipitor] 10 mg PO HS 11/02/15 11/27/17 Finasteride [Proscar] 5 mg PO DAILY 11/02/15 11/27/17 Isosorbide Mononitrate ER [Imdur] 30 mg PO HS 11/02/15 11/27/17 Nitroglycerin Sl Tabs [Nitrostat] 0.4 mg SUBLINGUAL Q5M PRN 04/03/17 11/27/17 metFORMIN HCL [Glucophage] 500 mg PO BID 04/03/17 11/27/17 Carbidopa-Levodopa 25-100 mg 1 tab PO TID 08/10/17 11/27/17 [Sinemet 25-100 mg] Cholecalciferol [Vitamin D3] 1,000 unit PO BID 09/21/17 11/27/17 glipiZIDE [Glucotrol] 10 mg PO AC-BID 09/21/17 11/27/17 Metoprolol Tartrate [Lopressor] 25 mg PO BID 11/27/17 11/27/17 Allergies Allergy/AdvReac Type Severity Reaction Status Date / Time No Known Allergies Allergy Verified 11/27/17 10:38 Review of Systems ROS Statement: Those systems with pertinent positive or pertinent negative responses have been documented in the HPI. ROS Other: All systems not noted in ROS Statement are negative. Past Medical History Past Medical History: Coronary Artery Disease (CAD), Diabetes Mellitus, Deep Vein Thrombosis (DVT), Hyperlipidemia, Hypertension, Prostate Disorder Additional Past Medical History / Comment(s): UTI/severe sepsis, was then discharged to [facility] on the [address] for rehab due to his weakness. 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 Past Anesthesia/Blood Transfusion Reactions: No Reported Reaction Date of Last Stent Placement:: 2011 Past Psychological History: No Psychological Hx Reported Smoking Status: Never smoker Past Alcohol Use History: None Reported Past Drug Use History: None Reported - Past Family History Father Additional Family Medical History / Comment(s): Father had heart disease. Mother Additional Family Medical History / Comment(s): Mother had heart disease. General Exam Limitations: no limitations General appearance: alert, in no apparent distress Head exam: Present: atraumatic, normocephalic Eye exam: Present: normal appearance, PERRL, EOMI ENT exam: Present: normal exam Neck exam: Present: normal inspection. Absent: tenderness, meningismus Respiratory exam: Present: normal lung sounds bilaterally. Absent: respiratory distress, wheezes Cardiovascular Exam: Present: regular rate, normal rhythm GI/Abdominal exam: Present: soft. Absent: distended, tenderness, guarding Extremities exam: Present: normal inspection, tenderness (Tenderness in bilateral knees, no effusion, no warmth), normal capillary refill, other ( Distal pulses intact). Absent: joint swelling, calf tenderness Back exam: Present: tenderness. Absent: CVA tenderness (R), CVA tenderness (L) (Tenderness in the lumbar region both spinal and paraspinal.) Neurological exam: Present: alert, oriented X3, CN II-XII intact. Absent: motor sensory deficit Psychiatric exam: Present: normal affect, normal mood Skin exam: Present: warm, dry, intact. Absent: cyanosis, diaphoretic Course Vital Signs 11/27/17 09:41 Temperature 98.3 F Pulse Rate 60 Respiratory 18 Rate Blood Pressure 163/112 O2 Sat by Pulse 97 Oximetry Medical Decision Making - Medical Decision Making 82-year-old male presenting with low back pain and bilateral knee pain. Symptoms have been ongoing for several months. No acute fall. No alarming features on history or physical exam. Patient has had no bowel or bladder issues. His daughter was concerned about urinary tract infection, urine is obtained which is negative for signs of infection. Patient has normal sensation , he is able to stand and ambulate. X-ray obtained of the lumbar spine was does show degenerative changes specifically at L5 and S1 1, is no change compared to prior. Pelvis x-ray obtained which shows joint space narrowing consistent with osteoarthritis, no acute fracture dislocation. Patient given 1 dose of Toradol in the emergency department on reevaluation he is feeling better. Symptoms are consistent with osteoarthritis, patient will follow-up with primary care physician. Discharged home return with worsening or changing symptoms. - Lab Data Lab Results 11/27/17 Range/Units 11:54 Urine Color Yellow Urine Appearance Clear (Clear) Urine pH 5.0 (5.0-8.0) Ur Specific [place] 1.013 (1.001-1.035) Urine Protein Negative (Negative) Urine Glucose (UA) 2+ H (Negative) Urine Ketones Negative (Negative) Urine Blood Negative (Negative) Urine Nitrite Negative (Negative) Urine Bilirubin Negative (Negative) Urine Urobilinogen <2.0 (<2.0) mg/dL Ur Leukocyte Esterase Negative (Negative) Disposition Clinical Impression: Mechanical back pain, Osteoarthritis Disposition: HOME SELF-CARE Condition: Fair Instructions: Chronic Back Pain (ED), Osteoarthritis (ED) Is patient prescribed a controlled substance at d/c from ED?: No Referrals: Aldo Guerrero MD [Primary Care Provider] - 1-2 days Time of Disposition: 12:17
--- NOTE | 2017-11-27 11:34 | XR ---
EXAMINATION TYPE: XR pelvis AP view DATE OF EXAM: 11/27/2017 COMPARISON: 08/10/2017 HISTORY: Pain TECHNIQUE: AP pelvis FINDINGS: Femoral heads articulate with the acetabulum. There is mild joint space narrowing. Symphysi s pubis and sacroiliac joints are normal. Normal bowel gas is present. Some nonspecific small bowel g as is present. IMPRESSION: 1. No acute osseous abnormality evident.
--- NOTE | 2017-11-27 11:36 | XR ---
EXAMINATION TYPE: XR lumbar spine 2 or 3V DATE OF EXAM: 11/27/2017 COMPARISON: 09/02/2017 HISTORY: Fall one month prior, low back pain TECHNIQUE: Three-view lumbar spine FINDINGS: There 5 lumbar-type vertebral bodies. The pedicles are intact. Spondylosis is present. Vert ebral body heights are preserved. There is narrowing of the L5-S1 disc height. Remaining disc heights appear preserved. No significant interval changes evident. IMPRESSION: 1. Degenerative disc change L5-S1.
[2017-11-27 12:14] LABS: Appearance,Urine Clear (Clear); Bilirubin,Urine Negative (Negative); Blood,Urine Negative (Negative); Color,Urine Yellow; Glucose,Urine (UA) 2+ (Negative); Ketones,Urine Negative (Negative); Leukocyte Esterase,Urine Negative (Negative); Nitrite,Urine Negative (Negative); Protein,Urine Negative (Negative); Specific Gravity,Urine 1.013 (1.001-1.035); Urobilinogen,Urine <2.0 mg/dL (<2.0)
[2017-11-27 12:48] VITALS: BP 138/67; PULSE 59
== END 2017-11-27 12:49 | disposition home or self-care (01) ==
LOC: EC 09:32
DX: M16.10 Unilateral primary osteoarthritis, unspecified hip (principal); M47.817 Spondylosis without myelopathy or radiculopathy, lumbosacral region; M25.561 Pain in right knee; M25.562 Pain in left knee; E78.5 Hyperlipidemia, unspecified; I10 Essential (primary) hypertension; I25.10 Atherosclerotic heart disease of native coronary artery without angina pectoris; E11.9 Type 2 diabetes mellitus without complications; N42.9 Disorder of prostate, unspecified; G20 Parkinson's disease; Z79.84 Long term (current) use of oral hypoglycemic drugs; Z79.899 Other long term (current) drug therapy; Z95.1 Presence of aortocoronary bypass graft; W19.XXXA Unspecified fall, initial encounter
CPT/HCPCS: 81003; 72100; 72170; 99284; 96372; J1885

== ENCOUNTER 2018-01-31 17:47 | Emergency (ER) | payer MEDICARE, OTHER ==
--- NOTE | 2018-01-31 17:59 | ED ---
Nausea/Vomiting/Diarrhea HPI - General Chief complaint: Nausea/Vomiting/Diarrhea Stated complaint: weakness Time Seen by Provider: 01/31/18 17:56 Source: patient, RN notes reviewed Mode of arrival: EMS Limitations: no limitations - History of Present Illness Initial comments: This is a 82-year-old male with a history of Parkinson's disease who is brought in by EMS with complaints of weakness not feeling well having nausea and vomiting today elevated glucose decrease food intake as stated no reports of fevers chills or sweats. No diarrhea no constipation no dysuria or hematuria. MD complaint: nausea, other - Related Data Home Medications Medication Instructions Recorded Confirmed Atorvastatin Calcium [Lipitor] 10 mg PO HS 11/02/15 01/31/18 Finasteride [Proscar] 5 mg PO DAILY 11/02/15 01/31/18 Isosorbide Mononitrate ER [Imdur] 30 mg PO HS 11/02/15 01/31/18 Nitroglycerin Sl Tabs [Nitrostat] 0.4 mg SUBLINGUAL Q5M PRN 04/03/17 01/31/18 metFORMIN HCL [Glucophage] 500 mg PO BID 04/03/17 01/31/18 Cholecalciferol [Vitamin D3] 1,000 unit PO BID 09/21/17 01/31/18 Metoprolol Tartrate [Lopressor] 25 mg PO BID 11/27/17 01/31/18 Previous Rx's Medication Instructions Recorded Ondansetron Odt [Zofran Odt] 4 mg PO Q8HR PRN #10 tab 01/31/18 Allergies Allergy/AdvReac Type Severity Reaction Status Date / Time No Known Allergies Allergy Verified 01/31/18 18:15 Review of Systems ROS Statement: Those systems with pertinent positive or pertinent negative responses have been documented in the HPI. ROS Other: All systems not noted in ROS Statement are negative. Past Medical History Past Medical History: Coronary Artery Disease (CAD), Diabetes Mellitus, Deep Vein Thrombosis (DVT), Hyperlipidemia, Hypertension, Prostate Disorder Additional Past Medical History / Comment(s): UTI/severe sepsis, was then discharged to [facility] on the [address] for rehab due to his weakness. 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 Past Anesthesia/Blood Transfusion Reactions: No Reported Reaction Date of Last Stent Placement:: 2011 Past Psychological History: No Psychological Hx Reported Smoking Status: Never smoker Past Alcohol Use History: None Reported Past Drug Use History: None Reported - Past Family History Father Additional Family Medical History / Comment(s): Father had heart disease. Mother Additional Family Medical History / Comment(s): Mother had heart disease. General Exam - General Exam Comments Initial Comments: This is a well-developed well-nourished awake alert male Limitations: no limitations General appearance: alert, in no apparent distress Head exam: Present: atraumatic, normocephalic, normal inspection Eye exam: Present: normal appearance, PERRL, EOMI. Absent: scleral icterus, conjunctival injection, periorbital swelling ENT exam: Present: normal exam, mucous membranes moist Neck exam: Present: normal inspection. Absent: tenderness, meningismus, lymphadenopathy Respiratory exam: Present: normal lung sounds bilaterally. Absent: respiratory distress, wheezes, rales, rhonchi, stridor Cardiovascular Exam: Present: regular rate, normal rhythm, normal heart sounds. Absent: systolic murmur, diastolic murmur, rubs, gallop, clicks GI/Abdominal exam: Present: soft, normal bowel sounds. Absent: distended, tenderness, guarding, rebound, rigid Extremities exam: Present: normal inspection, full ROM, normal capillary refill. Absent: tenderness, pedal edema, joint swelling, calf tenderness Back exam: Present: normal inspection Neurological exam: Present: alert, oriented X3, CN II-XII intact, other (Tremor noted consistent with Parkinson's disease.) Psychiatric exam: Present: normal affect, normal mood Skin exam: Present: warm, dry, intact, normal color. Absent: rash Course Vital Signs 01/31/18 17:48 Temperature 98.4 F Pulse Rate 65 Respiratory 18 Rate Blood Pressure 133/85 O2 Sat by Pulse 98 Oximetry Medical Decision Making - Medical Decision Making I did discuss findings with the patient family members the patient is feeling improved after IV hydration she will be discharged he does have mildly elevated lipase level he'll follow-up with his doctor outpatient evaluation is had no abdominal pain is asymptomatic at this time his family member is in agreement with this. - Lab Data Result diagrams: 01/31/18 18:10 01/31/18 18:10 Lab Results 01/31/18 01/31/18 01/31/18 Range/Units 18:10 18:10 18:10 WBC 6.6 (3.8-10.6) k/uL RBC 4.80 (4.30-5.90) m/uL Hgb 13.8 (13.0-17.5) gm/dL Hct 42.2 (39.0-53.0) % MCV 88.0 (80.0-100.0) fL MCH 28.9 (25.0-35.0) pg MCHC 32.8 (31.0-37.0) g/dL RDW 14.0 (11.5-15.5) % Plt Count 192 (150-450) k/uL Neutrophils % 54 % Lymphocytes % 32 % Monocytes % 7 % Eosinophils % 4 % Basophils % 1 % Neutrophils # 3.6 (1.3-7.7) k/uL Lymphocytes # 2.1 (1.0-4.8) k/uL Monocytes # 0.5 (0-1.0) k/uL Eosinophils # 0.3 (0-0.7) k/uL Basophils # 0.0 (0-0.2) k/uL Sodium 137 (137-145) mmol/L Potassium 4.2 (3.5-5.1) mmol/L Chloride 108 H (98-107) mmol/L Carbon Dioxide 21 L (22-30) mmol/L Anion Gap 8 mmol/L BUN 14 (9-20) mg/dL Creatinine 0.89 (0.66-1.25) mg/dL Est GFR (CKD-EPI)AfAm >90 (>60 ml/min/1.73 sqM) Est GFR (CKD-EPI)NonAf 79 (>60 ml/min/1.73 sqM) Glucose 216 H (74-99) mg/dL Calcium 8.3 L (8.4-10.2) mg/dL Magnesium 2.0 (1.6-2.3) mg/dL Total Bilirubin 0.3 (0.2-1.3) mg/dL AST 20 (17-59) U/L ALT 12 L (21-72) U/L Alkaline Phosphatase 95 (38-126) U/L Total Creatine Kinase 50 L (55-170) U/L CK-MB (CK-2) 1.0 (0.0-2.4) ng/mL CK-MB (CK-2) Rel Index 2.0 Troponin I <0.012 (0.000-0.034) ng/mL Total Protein 5.8 L (6.3-8.2) g/dL Albumin 3.0 L (3.5-5.0) g/dL Amylase 58 (30-110) U/L Lipase 416 H (23-300) U/L Urine Color Urine Appearance (Clear) Urine pH (5.0-8.0) Ur Specific [place] (1.001-1.035) Urine Protein (Negative) Urine Glucose (UA) (Negative) Urine Ketones (Negative) Urine Blood (Negative) Urine Nitrite (Negative) Urine Bilirubin (Negative) Urine Urobilinogen (<2.0) mg/dL Ur Leukocyte Esterase (Negative) 01/31/18 Range/Units 20:24 WBC (3.8-10.6) k/uL RBC (4.30-5.90) m/uL Hgb (13.0-17.5) gm/dL Hct (39.0-53.0) % MCV (80.0-100.0) fL MCH (25.0-35.0) pg MCHC (31.0-37.0) g/dL RDW (11.5-15.5) % Plt Count (150-450) k/uL Neutrophils % % Lymphocytes % % Monocytes % % Eosinophils % % Basophils % % Neutrophils # (1.3-7.7) k/uL Lymphocytes # (1.0-4.8) k/uL Monocytes # (0-1.0) k/uL Eosinophils # (0-0.7) k/uL Basophils # (0-0.2) k/uL Sodium (137-145) mmol/L Potassium (3.5-5.1) mmol/L Chloride (98-107) mmol/L Carbon Dioxide (22-30) mmol/L Anion Gap mmol/L BUN (9-20) mg/dL Creatinine (0.66-1.25) mg/dL Est GFR (CKD-EPI)AfAm (>60 ml/min/1.73 sqM) Est GFR (CKD-EPI)NonAf (>60 ml/min/1.73 sqM) Glucose (74-99) mg/dL Calcium (8.4-10.2) mg/dL Magnesium (1.6-2.3) mg/dL Total Bilirubin (0.2-1.3) mg/dL AST (17-59) U/L ALT (21-72) U/L Alkaline Phosphatase (38-126) U/L Total Creatine Kinase (55-170) U/L CK-MB (CK-2) (0.0-2.4) ng/mL CK-MB (CK-2) Rel Index Troponin I (0.000-0.034) ng/mL Total Protein (6.3-8.2) g/dL Albumin (3.5-5.0) g/dL Amylase (30-110) U/L Lipase (23-300) U/L Urine Color Yellow Urine Appearance Clear (Clear) Urine pH 6.0 (5.0-8.0) Ur Specific [place] 1.018 (1.001-1.035) Urine Protein Trace H (Negative) Urine Glucose (UA) 4+ H (Negative) Urine Ketones Negative (Negative) Urine Blood Negative (Negative) Urine Nitrite Negative (Negative) Urine Bilirubin Negative (Negative) Urine Urobilinogen <2.0 (<2.0) mg/dL Ur Leukocyte Esterase Negative (Negative) - EKG Data -: EKG Interpreted by Me EKG shows normal: axis - Radiology Data Radiology results: report reviewed (I did review the imaging no acute findings.) , image reviewed Disposition Clinical Impression: Dehydration, Pancreatitis, Gastritis Disposition: HOME SELF-CARE Condition: Good Instructions: Acute Nausea and Vomiting (ED), Dehydration (ED), Pancreatitis ( ED) Prescriptions: Ondansetron Odt [Zofran Odt] 4 mg PO Q8HR PRN #10 tab PRN Reason: Nausea Is patient prescribed a controlled substance at d/c from ED?: No Referrals: Aldo Guerrero MD [Primary Care Provider] - 1-2 days
[2018-01-31 18:23] LABS: Basophils % (A) 1 %; Eosinophils # (A) 0.3 k/uL (0-0.7); Eosinophils % (A) 4 %; HCT 42.2 % (39.0-53.0); HGB 13.8 gm/dL (13.0-17.5); Lymphocytes # (A) 2.1 k/uL (1.0-4.8); Lymphocytes % (A) 32 %; MCH 28.9 pg (25.0-35.0); MCHC 32.8 g/dL (31.0-37.0); Monocytes # (A) 0.5 k/uL (0-1.0); Monocytes % (A) 7 %; Neutrophils # (A) 3.6 k/uL (1.3-7.7); Neutrophils % (A) 54 %; Platelet Count 192 k/uL (150-450); WBC 6.6 k/uL (3.8-10.6)
--- NOTE | 2018-01-31 18:27 | XR ---
EXAMINATION TYPE: XR chest 2V DATE OF EXAM: 01/31/2018 COMPARISON: Chest x-ray September 21, 2017. HISTORY: Cough TECHNIQUE: Frontal and lateral views of the chest are obtained. FINDINGS: Post CABG changes with mediastinal clips and sternal wires is redemonstrated. There is dry cell sealer bina parenchymal change without suspicious focal air space opacity, pleural effusion, or pneumothorax seen. The cardiac silhouette size remains enlarged. Multilevel spurring in the thoracic spine is red emonstrated. IMPRESSION: Chronic changes and cardiomegaly without suspicious acute infiltrate.
[2018-01-31 18:33] LABS: ALT 12 U/L (21-72); AST 20 U/L (17-59); Alkaline Phosphatase 95 U/L (38-126); Amylase 58 U/L (30-110); Anion Gap 8 mmol/L; Blood Urea Nitrogen 14 mg/dL (9-20); Calcium 8.3 mg/dL (8.4-10.2); Carbon Dioxide 21 mmol/L (22-30); Chloride 108 mmol/L (98-107); Glucose 216 mg/dL (74-99); Lipase 416 U/L (23-300); Potassium 4.2 mmol/L (3.5-5.1); Sodium 137 mmol/L (137-145); Total Bilirubin 0.3 mg/dL (0.2-1.3); Total Protein 5.8 g/dL (6.3-8.2)
[2018-01-31 18:54] LABS: Creatine Kinase 50 U/L (55-170)
[2018-01-31 19:06] LABS: Troponin I <0.012 ng/mL (0.000-0.034)
[2018-01-31 20:33] LABS: Appearance,Urine Clear (Clear); Bilirubin,Urine Negative (Negative); Blood,Urine Negative (Negative); Color,Urine Yellow; Glucose,Urine (UA) 4+ (Negative); Ketones,Urine Negative (Negative); Leukocyte Esterase,Urine Negative (Negative); Nitrite,Urine Negative (Negative); Protein,Urine Trace (Negative); Specific Gravity,Urine 1.018 (1.001-1.035); Urobilinogen,Urine <2.0 mg/dL (<2.0)
[2018-01-31 21:54] VITALS: BP 141/72; PULSE 70; RESP 20; TEMP 98.2
== END 2018-01-31 21:41 | disposition home or self-care (01) ==
LOC: EC 17:47
DX: K85.90 Acute pancreatitis without necrosis or infection, unspecified (principal); K29.70 Gastritis, unspecified, without bleeding; E86.0 Dehydration; I25.10 Atherosclerotic heart disease of native coronary artery without angina pectoris; E11.9 Type 2 diabetes mellitus without complications; E78.5 Hyperlipidemia, unspecified; I10 Essential (primary) hypertension; I25.2 Old myocardial infarction; Z87.438 Personal history of other diseases of male genital organs; Z95.1 Presence of aortocoronary bypass graft; Z95.5 Presence of coronary angioplasty implant and graft; Z96.651 Presence of right artificial knee joint; Z79.84 Long term (current) use of oral hypoglycemic drugs; Z79.899 Other long term (current) drug therapy
CPT/HCPCS: 36415; 71046; 80053; 81003; 82150; 82550; 82553; 83690; 83735; 84484; 85025; 93005; 99284

== ENCOUNTER 2018-02-07 07:51 | Inpatient (IN) | payer MEDICARE, OTHER ==
[2018-02-07] MEDS ORDERED: SODIUM CHLORIDE 0.9% 500 ML 500 ML IV STA (07:56)
--- NOTE | 2018-02-07 08:12 | ED ---
General Adult HPI - General Stated complaint: Poss Stroke Time Seen by Provider: 02/07/18 07:56 Source: patient, EMS, RN notes reviewed, old records reviewed Mode of arrival: EMS Limitations: physical limitation - History of Present Illness Initial comments: 82-year-old male presenting with right lower extremity weakness. Patient is brought in by EMS at 8 AM. Symptoms began at approximately 7 AM. Patient woke with these symptoms. He had been up to the bathroom around 4 AM with normal ambulation according to the patient. Patient states when he went to bed yesterday evening he had some mild dizziness, no complaints of focal numbness or weakness. Patient does have history of Parkinson's, hypertension, diabetes. Denies headache or vision changes. Denies symptoms in his upper extremities. Symptoms are isolated to the right leg. - Related Data Home Medications Medication Instructions Recorded Confirmed Atorvastatin Calcium [Lipitor] 10 mg PO HS 11/02/15 02/07/18 Finasteride [Proscar] 5 mg PO DAILY 11/02/15 02/07/18 Isosorbide Mononitrate ER [Imdur] 30 mg PO HS 11/02/15 02/07/18 Nitroglycerin Sl Tabs [Nitrostat] 0.4 mg SUBLINGUAL Q5M PRN 04/03/17 02/07/18 metFORMIN HCL [Glucophage] 500 mg PO BID 04/03/17 02/07/18 Metoprolol Tartrate [Lopressor] 12.5 mg PO BID 11/27/17 02/07/18 Aspirin [Children's Aspirin] 81 mg PO DAILY 02/07/18 02/07/18 Carbidopa-Levodopa 25-100 mg 1 tab PO TID 02/07/18 02/07/18 [Sinemet 25-100] Gabapentin [Neurontin] 300 mg PO BID 02/07/18 02/07/18 glipiZIDE [Glucotrol] 10 mg PO AC-BID 02/07/18 02/07/18 Allergies Allergy/AdvReac Type Severity Reaction Status Date / Time No Known Allergies Allergy Verified 02/07/18 09:31 Review of Systems ROS Statement: Those systems with pertinent positive or pertinent negative responses have been documented in the HPI. ROS Other: All systems not noted in ROS Statement are negative. Past Medical History Past Medical History: Coronary Artery Disease (CAD), Diabetes Mellitus, Deep Vein Thrombosis (DVT), Hyperlipidemia, Hypertension, Prostate Disorder Additional Past Medical History / Comment(s): UTI/severe sepsis, was then discharged to [facility] on the [place] for rehab due to his weakness. 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 Past Anesthesia/Blood Transfusion Reactions: No Reported Reaction Date of Last Stent Placement:: 2011 Past Psychological History: No Psychological Hx Reported Smoking Status: Never smoker Past Alcohol Use History: None Reported Past Drug Use History: None Reported - Past Family History Father Additional Family Medical History / Comment(s): Father had heart disease. Mother Additional Family Medical History / Comment(s): Mother had heart disease. General Exam Limitations: physical limitation General appearance: alert Head exam: Present: atraumatic, normocephalic Eye exam: Present: normal appearance, PERRL, EOMI Neck exam: Present: normal inspection. Absent: tenderness, meningismus Respiratory exam: Present: normal lung sounds bilaterally. Absent: respiratory distress, wheezes Cardiovascular Exam: Present: regular rate, normal rhythm GI/Abdominal exam: Present: soft. Absent: distended Extremities exam: Present: normal inspection, normal capillary refill. Absent: pedal edema Neurological exam: Present: alert, oriented X3, CN II-XII intact, motor sensory deficit (Patient is able to move his toes on the right, unable to lift the leg against gravity. Left leg is 5 out of 5. Bilateral upper extremities 5 out of 5) Psychiatric exam: Present: normal affect, normal mood Skin exam: Present: warm, dry, intact. Absent: cyanosis, diaphoretic Course Vital Signs 02/07/18 02/07/18 02/07/18 07:58 08:12 09:00 Temperature 97.8 F Pulse Rate 78 Respiratory 18 17 Rate Blood Pressure 154/73 147/102 108/78 O2 Sat by Pulse 96 97 Oximetry 02/07/18 02/07/18 02/07/18 09:52 10:00 10:17 Temperature Pulse Rate 64 69 78 Respiratory 16 12 18 Rate Blood Pressure 119/72 119/72 122/56 O2 Sat by Pulse 97 97 97 Oximetry 02/07/18 02/07/18 02/07/18 10:30 11:00 11:30 Temperature Pulse Rate 64 67 65 Respiratory 8 L Rate Blood Pressure 114/79 110/64 118/73 O2 Sat by Pulse Oximetry - Reevaluation(s) Reevaluation #1: 02/07/18 08:[address] Aceves, review CT, CTA 02/07/18 0835 I did discuss the possibility of TPA with the patient, he declines. His symptoms are improving. Reevaluation #2: 02/07/18 11:40 Patient reevaluated, he is moving his right lower extremity, improved strength. Overall improvement on exam. EKG Findings - EKG Comments: EKG Findings:: EKG: Normal sinus rhythm, rate 66, AZ interval 200, castration 88 , QTC 463, no ST segment elevation or depression. Medical Decision Making - Medical Decision Making 82-year-old male history of hypertension diabetes and Parkinson's presents with acute onset weakness. Initial NIH is 8, this is for right-sided facial numbness , mild right facial droop, dysarthria, and right lower extremity paralysis. Case is activated as a code stroke protocol. Patient receives CT CT angiography. Did discuss case with the no intervention at rest. Patient symptoms improved emergency department, he declines TPA and he has not had any TPA candidate given his improving symptoms., Age and the fact that he woke with these symptoms. Patient is on 81 mg aspirin, he is given [address] is obtained. There is no intracranial hemorrhage or mass effect, CT angiography shows no aneurysm, no acute occlusion, or significant stenosis in the carotid arteries. Patient has normal CBC, CMP. He will be admitted for further stroke workup. Neurology placed on consult. Case discussed with Dr. Alegria he will admit. - Lab Data Result diagrams: 02/07/18 08:48 02/07/18 08:48 Lab Results 02/07/18 02/07/18 02/07/18 Range/Units 08:48 08:48 08:48 WBC 5.4 (3.8-10.6) k/uL RBC 4.82 (4.30-5.90) m/uL Hgb 13.9 (13.0-17.5) gm/dL Hct 42.3 (39.0-53.0) % MCV 87.8 (80.0-100.0) fL MCH 28.8 (25.0-35.0) pg MCHC 32.8 (31.0-37.0) g/dL RDW 14.0 (11.5-15.5) % Plt Count 173 (150-450) k/uL Neutrophils % 59 % Lymphocytes % 28 % Monocytes % 7 % Eosinophils % 3 % Basophils % 1 % Neutrophils # 3.2 (1.3-7.7) k/uL Lymphocytes # 1.5 (1.0-4.8) k/uL Monocytes # 0.4 (0-1.0) k/uL Eosinophils # 0.2 (0-0.7) k/uL Basophils # 0.0 (0-0.2) k/uL PT (9.0-12.0) sec INR (<1.2) APTT (22.0-30.0) sec Sodium 138 (137-145) mmol/L Potassium 4.8 (3.5-5.1) mmol/L Chloride 109 H (98-107) mmol/L Carbon Dioxide 24 (22-30) mmol/L Anion Gap 5 mmol/L BUN 19 (9-20) mg/dL Creatinine 1.01 (0.66-1.25) mg/dL Est GFR (CKD-EPI)AfAm 79 (>60 ml/min/1.73 sqM) Est GFR (CKD-EPI)NonAf 69 (>60 ml/min/1.73 sqM) Glucose 126 H (74-99) mg/dL Calcium 8.5 (8.4-10.2) mg/dL Total Bilirubin 0.5 (0.2-1.3) mg/dL AST 22 (17-59) U/L ALT 18 L (21-72) U/L Alkaline Phosphatase 72 (38-126) U/L Total Creatine Kinase 76 (55-170) U/L CK-MB (CK-2) 0.9 (0.0-2.4) ng/mL CK-MB (CK-2) Rel Index 1.2 Troponin I <0.012 (0.000-0.034) ng/mL Total Protein 5.5 L (6.3-8.2) g/dL Albumin 2.8 L (3.5-5.0) g/dL 02/07/18 Range/Units 08:48 WBC (3.8-10.6) k/uL RBC (4.30-5.90) m/uL Hgb (13.0-17.5) gm/dL Hct (39.0-53.0) % MCV (80.0-100.0) fL MCH (25.0-35.0) pg MCHC (31.0-37.0) g/dL RDW (11.5-15.5) % Plt Count (150-450) k/uL Neutrophils % % Lymphocytes % % Monocytes % % Eosinophils % % Basophils % % Neutrophils # (1.3-7.7) k/uL Lymphocytes # (1.0-4.8) k/uL Monocytes # (0-1.0) k/uL Eosinophils # (0-0.7) k/uL Basophils # (0-0.2) k/uL PT 9.9 (9.0-12.0) sec INR 0.9 (<1.2) APTT 22.1 (22.0-30.0) sec Sodium (137-145) mmol/L Potassium (3.5-5.1) mmol/L Chloride (98-107) mmol/L Carbon Dioxide (22-30) mmol/L Anion Gap mmol/L BUN (9-20) mg/dL Creatinine (0.66-1.25) mg/dL Est GFR (CKD-EPI)AfAm (>60 ml/min/1.73 sqM) Est GFR (CKD-EPI)NonAf (>60 ml/min/1.73 sqM) Glucose (74-99) mg/dL Calcium (8.4-10.2) mg/dL Total Bilirubin (0.2-1.3) mg/dL AST (17-59) U/L ALT (21-72) U/L Alkaline Phosphatase (38-126) U/L Total Creatine Kinase (55-170) U/L CK-MB (CK-2) (0.0-2.4) ng/mL CK-MB (CK-2) Rel Index Troponin I (0.000-0.034) ng/mL Total Protein (6.3-8.2) g/dL Albumin (3.5-5.0) g/dL Disposition Clinical Impression: Cerebrovascular accident Disposition: ADMITTED IP TO THIS HOSP Condition: Stable Is patient prescribed a controlled substance at d/c from ED?: No Referrals: Aldo Guerrero MD [Primary Care Provider] - 1-2 days Time of Disposition: 11:44
--- NOTE | 2018-02-07 08:31 | CT ---
EXAMINATION TYPE: CT brain wo con for TPA DATE OF EXAM: 02/07/2018 HISTORY: Mental status changes, neurodeficits per order CT DLP: 1143.8 mGycm. Automated Exposure Control for Dose Reduction was Utilized. TECHNIQUE: CT scan of the head is performed without contrast. COMPARISON: CT brain August 10, 2017 FINDINGS: There is no acute intracranial hemorrhage or midline shift identified. There is diffuse v entricular and sulcal prominence consistent with diffuse age-related cerebral atrophy. Asymmetry at l evel of occipital horns is unchanged from prior. There is low-attenuation in the periventricular whit e matter consistent with chronic small vessel ischemic change. Bilateral basal ganglia calcifications are redemonstrated. Air-fluid level left maxillary sinus is again seen IMPRESSION: No acute intracranial hemorrhage or midline shift. There is persistent moderate to bord lala severe diffuse age-related cerebral atrophy and mild to moderate chronic small vessel ischemic change as well as left maxillary sinus disease all redemonstrated without significant interval hill e from most recent prior.
--- NOTE | 2018-02-07 09:10 | CT ---
EXAMINATION TYPE: CT angio head neck DATE OF EXAM: 02/07/2018 HISTORY: Mental status changes. Right-sided facial numbness and weakness. COMPARISON: NONE CT DLP: 497.8 mGycm. Automated Exposure Control for Dose Reduction was Utilized. TECHNIQUE: CTA scan of the neck is performed with IV Contrast, patient injected with 65 mL of Isovue 370, axial images are obtained, coronal and sagittal reformatted images are reviewed. Three-D recons tructed images are created on an independent workstation and reviewed. FINDINGS: Carotid/Vascular Structures: There is bovine type arch which is normal variant. There is mild perip heral plaque in the aortic arch. The right arm common carotid artery shows normal origin from the rig ht brachiocephalic artery. There is no significant plaque or stenosis. There is mild mixed plaque at right carotid bulb without significant stenosis. There is patent right external carotid artery withou t significant plaque or stenosis. Remainder of right internal carotid artery shows mild to moderate c alcified plaque supraclinoid segment without significant stenosis. There is mild peripheral calcified plaque left carotid bulb extending into proximal internal carotid artery without significant stenosis. There is mild to moderate calcified plaque supraclinoid segment distal left internal carotid artery. No significant stenosis is seen. There is patent left external c arotid artery without incident plaque or stenosis. There is codominant vertebral basilar system. Vertebral arteries are patent to basilar junction. Ther e is patent left posterior communicating artery. There is hypoplastic right posterior communicating a rtery. No significant focal stenosis or aneurysmal change is present. Images of the anterior circulation show patent anterior communicating artery. There is no significant focal stenosis or aneurysmal change. Other: There is moderate generalized atrophy and ventricular prominence visualized brain parenchyma. The air-fluid level left maxillary sinus is redemonstrated There is reversal of normal cervical curvature with multilevel spurring and disc space narrowing most prominent at C5-C6 and C6-C7 levels. Multilevel uncovertebral facet degenerative changes are seen bi laterally. IMPRESSION: 1. No aneurysmal change or significant stenosis at level of [place]. 2. No significant stenosis in common or internal carotid arteries bilaterally.
[2018-02-07 09:12] LABS: Basophils % (A) 1 %; Eosinophils # (A) 0.2 k/uL (0-0.7); Eosinophils % (A) 3 %; HCT 42.3 % (39.0-53.0); HGB 13.9 gm/dL (13.0-17.5); Lymphocytes # (A) 1.5 k/uL (1.0-4.8); Lymphocytes % (A) 28 %; MCH 28.8 pg (25.0-35.0); MCHC 32.8 g/dL (31.0-37.0); MCV 87.8 fL (80.0-100.0); Mean Platelet Volume 8.2; Monocytes # (A) 0.4 k/uL (0-1.0); Monocytes % (A) 7 %; Neutrophils # (A) 3.2 k/uL (1.3-7.7); Neutrophils % (A) 59 %; Platelet Count 173 k/uL (150-450); RBC 4.82 m/uL (4.30-5.90); WBC 5.4 k/uL (3.8-10.6)
[2018-02-07 09:19] LABS: Albumin 2.8 g/dL (3.5-5.0); Calcium 8.5 mg/dL (8.4-10.2); Total Bilirubin 0.5 mg/dL (0.2-1.3); Total Protein 5.5 g/dL (6.3-8.2)
[2018-02-07 09:23] LABS: INR 0.9 (<1.2); Partial Thromboplastin Time 22.1 sec (22.0-30.0); Prothrombin Time 9.9 sec (9.0-12.0)
[2018-02-07 09:24] LABS: Potassium 4.8 mmol/L (3.5-5.1)
[2018-02-07 09:26] LABS: Creatine Kinase 76 U/L (55-170)
[2018-02-07 09:40] LABS: Creatine Kinase MB 0.9 ng/mL (0.0-2.4); Troponin I <0.012 ng/mL (0.000-0.034)
[2018-02-07] MEDS ORDERED: ASPIRIN 325 MG TAB PO STA (10:04)
[2018-02-07] MEDS ORDERED: SODIUM CHLORIDE 0.9% 500 ML 500 ML IV ONE (10:04)
--- NOTE | 2018-02-07 10:34 | XR ---
EXAMINATION TYPE: XR chest 2V DATE OF EXAM: 02/07/2018 COMPARISON: Chest x-ray from one week ago. HISTORY: Altered mental status and weakness. TECHNIQUE: Frontal and lateral views of the chest are obtained. FINDINGS: There is some chronic parenchymal change without suspicious new focal air space opacity, p leural effusion, or pneumothorax seen. The cardiac silhouette size remains enlarged. Overlying ster nal wires are redemonstrated. Multilevel spurring in the thoracic spine is again seen. IMPRESSION: Chronic changes without acute pulmonary process.
[2018-02-07] MEDS: SODIUM CHLORIDE 0.9% 1,000 ML IV SCH ×2 (13:36→23:18)
[2018-02-07 14:40] LABS: Appearance,Urine Clear (Clear); Bilirubin,Urine Negative (Negative); Blood,Urine Negative (Negative); Color,Urine Light Yellow; Glucose,Urine (UA) Negative (Negative); Ketones,Urine Negative (Negative); Leukocyte Esterase,Urine Negative (Negative); Nitrite,Urine Negative (Negative); Protein,Urine Negative (Negative); Specific Gravity,Urine 1.018 (1.001-1.035); Urobilinogen,Urine <2.0 mg/dL (<2.0)
[2018-02-07 16:53] LABS: Glucose,Whole Blood 131 mg/dL (75-99)
[2018-02-07 17:54] VITALS: BMI 33.3
[2018-02-07 21:38] LABS: Glucose,Whole Blood 168 mg/dL (75-99)
[2018-02-07] MEDS: CARBIDOPA-LEVODOPA 25-100 MG 1 EACH TAB PO SCH (22:04)
[2018-02-07] MEDS: ATORVASTATIN 80 MG TAB PO SCH (22:04)
[2018-02-07] MEDS: GABAPENTIN 300 MG CAP PO SCH (22:04)
[2018-02-07] MEDS: METOPROLOL TARTRATE 25 MG TAB PO SCH (22:04)
[2018-02-07] MEDS: ISOSORBIDE MONONITRATE ER 30 MG TAB.ER.24H PO SCH (22:04)
[2018-02-07] MEDS ORDERED: ALPRAZolam 0.25 MG TAB PO PRN (22:30)
[2018-02-07] MEDS ORDERED: NALOXONE 0.4 MG/ML 1 ML VIAL IV PRN (22:30)
[2018-02-07] MEDS ORDERED: MAGNESIUM HYDROXIDE 2,400 MG/10 ML CUP PO PRN (22:30)
[2018-02-07] MEDS ORDERED: MELATONIN 3 MG TABLET PO PRN (22:30)
[2018-02-07] MEDS ORDERED: LACTULOSE 20 GM/30 ML CUP PO PRN (22:30)
[2018-02-07] MEDS ORDERED: CALCIUM CARBONATE 500 MG CHEWABLE PO PRN (22:30)
[2018-02-07] MEDS ORDERED: ONDANSETRON 4 MG/2 ML VIAL IVP PRN (22:30)
[2018-02-07] MEDS: ENOXAPARIN 40 MG/0.4 ML SYRINGE SQ SCH (23:24)
[2018-02-07] MEDS: NAPROXEN 250 MG TAB PO SCH (23:24)
--- NOTE | 2018-02-07 23:58 | HP ---
HISTORY AND PHYSICAL DATE OF ADMISSION: 02/07/2018. DATE OF SERVICE: 02/07/2018. PRESENT COMPLAINT: Right leg weakness. HISTORY OF PRESENTING COMPLAINT: This is a pleasant 82-year-old patient of Dr. Guerrero. Chronic stable medical conditions include Parkinson's, diabetes, presbyesophagus, coronary artery disease, hypertension, hyperlipidemia, neurocognitive disorder. The patient is not the best of historians. The patient stated about 6 weeks ago he fell backwards and hurt his back and then actually sitting on a chair recently, slid off again and hurt his back yet again. His back has been hurting. Now patient presented with a 1-day history of right leg weakness. It became rather weak. At the same time, he noticed that every time he would move his leg there was pain in the back, The patient presented to the ER. In the ER the patient did have a CT scan of the brain that showed diffuse age-related changes. He also had a CT angio of the brain. Did not show anything acute. The ER doctor did speak to the stroke team and actually weakness was improving, so nothing further was done. The patient repeatedly states that when he moves the right leg there is pain in the lower back. The patient does use a walker and a wheelchair. REVIEW OF SYSTEMS: CONSTITUTIONAL: Tired. HEENT: Decreased hearing. RESPIRATORY: None. CARDIOVASCULAR: None. GASTROINTESTINAL: Some dysphagia from presbyesophagus. GENITOURINARY: None. MUSCULOSKELETAL: Arthritic pain in the joints, lower back pain. DERMATOLOGICAL, HEMATOLOGIC, LYMPHATIC: None. PSYCHIATRY: Forgetfulness. NEUROLOGICAL: The patient has tremor The rest as above. PAST MEDICAL HISTORY: Possible Parkinson disease, diabetes mellitus type 2, dysphagia from presbyesophagus, coronary artery disease with prior history of stent and bypass, hyperlipidemia, essential hypertension, chronic spinal stenosis, neurocognitive disorder. PAST SURGICAL HISTORY: Coronary bypass cardiac, cardiac cath with stent in 2005 and 2011, angioplasty with stent in 2006, coronary bypass, sebaceous cyst removed from the neck, cataract removed bilateral, right total knee arthroplasty. SOCIAL HISTORY: The patient is currently living at [facility]. Lives by himself. Has a walker and a wheelchair. The patient smoked for 15 years, stopped in 1976, one pack a day. Alcohol none. FAMILY HISTORY: Father had disease. HOME MEDICATIONS: 1. Nitrostat 0.4 sublingual every 5 p.r.n. 2. Sinemet 25/200 one tablet p.o. t.i.d. 3. Aspirin 81 mg a day. 4. Glucophage 5 mg b.i.d. 5. Glucotrol 10 mg b.i.d. 6. Lopressor 12.5 p.o. b.i.d. 7. Imdur ER 30 mg at bedtime. 8. Neurontin 300 mg b.i.d. 9. Proscar 5 mg p.o. daily. 10.Lipitor 10 mg at bedtime. ALLERGIES: None. PHYSICAL EXAMINATION: VITAL SIGNS: Vital signs on presentation, temperature 97.8, pulse 72, respiratory 18, blood pressure 154/73, pulse ox 96 percent room air. GENERAL APPEARANCE: Well built. BMI 33.4. Lying in bed, tired-appearing. EYES: Pupils equal. Conjunctivae normal. HEENT: External nose and ears normal. Oral cavity normal. Decreased hearing. NECK: JVD unable to assess. Mass not palpable. Respiratory effort normal. LUNGS: Decreased breath sounds,. CARDIOVASCULAR: 1st and 2nd heart sounds. No edema. ABDOMEN: Soft, nontender. Liver and spleen not palpable. LYMPHATIC: No lymph nodes palpable in the neck or axillae. PSYCHIATRY: Patient is able to answer simple questions. Mood and affect normal. NEUROLOGIC: Pupils are equal. No facial asymmetry. Minimal weakness if any in the right. Plantars and reflexes equivocal. Sensation grossly preserved. INVESTIGATIONS: White count 5.4, hemoglobin 13.9, potassium 4.8. CT scan of the brain and CT angio of the brain showing chronic changes. ASSESSMENT: 1. This is a patient who has got known spinal stenosis, took a fall 6 years ago, pain in lower back and had again fell off the chair, now presented with right-sided weakness, which actually has improved. It is highly possible this was a radicular pain and right leg weakness associated with lower back pain. 2. Idiopathic Parkinson disease. 3. Diabetes mellitus type 2 on oral hypoglycemic. 4. 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 5. Coronary artery disease with history of stent and bypass. 6. Hyperlipidemia. 7. Essential hypertension. 8. Chronic neurocognitive disorder. 9. Chronic spinal stenosis. 10.Benign prostatic hypertrophy. PLAN: At this point, we will do an x-ray of the lumbosacral spine. Also do a CT scan of the lumbar spine. We will get an opinion from Dr. Melendez from [facility]. Home medications resumed. We will start the patient on naproxen. Also get physical therapy involved. Wound care was discussed with the patient. Questions were answered. No family currently present. MMODL / IJN: [id number] /
[2018-02-08 05:56] LABS: Glucose,Whole Blood 147 mg/dL (75-99)
[2018-02-08] MEDS: SODIUM CHLORIDE 0.9% 1,000 ML IV SCH ×2 (06:32→18:09)
[2018-02-08] MEDS: glipiZIDE 10 MG TAB PO SCH ×2 (06:32→17:32)
--- NOTE | 2018-02-08 07:09 | XR ---
EXAMINATION TYPE: XR lumbosacral spine min 4V DATE OF EXAM: 02/08/2018 CLINICAL HISTORY: Low back pain causing right leg weakness. TECHNIQUE: Frontal, lateral, and oblique images of the lumbar spine are obtained. COMPARISON: Lumbar spine x-ray November 27, 2017 FINDINGS: There are 5 lumbar type vertebral bodies redemonstrated. The lumbar spine shows satisfact ory alignment without evidence of acute fracture or dislocation. Vertebral body heights are within no rmal limits. Moderate disc space narrowing L5-S1 level is seen. There is multilevel spinous process hypertrophy. There is moderate multilevel anterior and lateral spurring. There is facet arthropathy l ower lumbar spine. The oblique images appear within normal limits. The overlying soft tissue appears unremarkable. IMPRESSION: As above, no significant change from prior.
--- NOTE | 2018-02-08 07:22 | CT ---
EXAMINATION TYPE: CT lumbar spine wo con DATE OF EXAM: 02/08/2018 7:06 AM COMPARISON: Same day lumbar spine x-ray. HISTORY: Back pain and right leg weakness CT DLP: 1569.4 mGycm Automated exposure control for dose reduction was used. There are 5 lumbar type vertebra redemonstrated. Lumbar spine shows satisfactory alignment without ev idence of acute fracture or dislocation. There is moderate disc space narrowing with vacuum disc phen omenon at L5-S1 level otherwise vertebral body heights and disc space heights are fairly well-maintai aldo. No large posterior disc herniations are seen on sagittal images. There is moderate multilevel an terior and lateral spurring present. Review of the axial images shows the T12-L1 and L1-L2 levels to appear within normal limits. Axial images at the L2-L3 level show mild to moderate broad disc bulge and mild facet degenerative ch anges bilaterally. There is mild effacement of the anterior thecal sac. There is mild bilateral ante rior inferior neural foraminal narrowing. Axial images at the L3-L4 level show advanced broad disc bulge effacing anterior thecal sac. There is mild to moderate facet degenerative changes and ligament flavum hypertrophy effacing posterior later al thecal sac on axial image 46. There is moderate bilateral anterior inferior neural foraminal narro wing at this level identified. Axial images at the L4-L5 level show advanced facet degenerative changes bilaterally. There is broad- based posterior disc protrusion effacing anterior thecal sac. There is moderate to advanced bilateral inferior neural foraminal narrowing. Axial images at the L5-S1 level show moderate to advanced facet degenerative changes bilaterally. The re is central disc protrusion seen but spinal canal is preserved. There is moderate to advanced bilat eral neural foraminal narrowing at this level with marginal spurring noted. Some hyperdense material in bilateral collecting systems likely is product of recent CTA study one da y earlier. There is mild left-sided hydroureter without hydronephrosis. Cortical thinning in both kid neys worse than right kidney is seen presumed product of chronic medical renal disease. IMPRESSION: Multilevel degenerative changes as detailed above most prominent in mid to lower lumbar l evels.
[2018-02-08 07:34] LABS: Cholesterol 101 mg/dL (<200); HDL Cholesterol 43 mg/dL (40-60); LDL Cholesterol,Calculated 29 mg/dL (0-99); Triglycerides 146 mg/dL (<150)
[2018-02-08] MEDS ORDERED: ASPIRIN 325 MG TAB PO SCH (09:00)
[2018-02-08] MEDS ORDERED: ASPIRIN 81 MG PO SCH (09:00)
[2018-02-08] MEDS: METOPROLOL TARTRATE 25 MG TAB PO SCH ×2 (09:15→21:10)
[2018-02-08] MEDS: GABAPENTIN 300 MG CAP PO SCH ×2 (09:15→21:09)
[2018-02-08] MEDS: FINASTERIDE 5 MG TAB PO SCH (09:15)
[2018-02-08] MEDS: CARBIDOPA-LEVODOPA 25-100 MG 1 EACH TAB PO SCH ×3 (09:15→21:09)
[2018-02-08] MEDS: NAPROXEN 250 MG TAB PO SCH ×3 (09:16→21:10)
--- NOTE | 2018-02-08 11:14 | P.CNOR ---
History of Present Illness - [facility] Consult date: 02/08/18 Requesting physician: Lalo Alegria Consult reason: joint pain (Right knee pain with history of right total knee arthroplasty), back pain (Low back pain) History of present illness: Patient is a very pleasant 82-year-old male who was seen and examined at bedside after consultation was placed in regards to low back and right lower extremity radiculopathy. Patient presented to the emergency department yesterday after waking up with increased back pain and right lower extremity weakness. During his presentation emergency department he was found to have some right sided facial numbness, mild right facial droop, dysarthria, and right lower extremity weakness. Patient's weakness had been improving in the emergency department. TPA was not given. Patient was admitted for further evaluation from neurological standpoint for stroke evaluation. Initial imaging including brain CT and CT angiogram of the head and neck have been negative for significant acute findings. Patient is a somewhat poor historian. Documentation by medicine states patient initially fell approximately 6 weeks ago and then again off a chair recently. Patient states he initially fell approximately 7 months ago has had increased right knee pain since that time. He denies specific lower extremity radiculopathy pattern. He states his pain is most significant at the right knee. During standing the pain well radiate up towards his lumbar spine. He does have some low back pain along the midline. He does have a history of right total knee arthroplasty performed a couple years ago. X-rays the lumbar spine and CT lumbar spine did show some degenerative changes without evidence of acute change or obvious sign of fracture. Patient states he feels his speech is normal for him and that his speech is different due to Parkinson's disease and his [place] accent. He feels his right lower extremity weakness has continued to improve. At the bedside he continues to state multiple times his is most significant pain at his right knee pain exacerbated with weightbearing and some low back pain. He is unable to describe a specific radicular pattern down the lower extremities. He denies any specific left lower extremity radiculopathy or weakness. He has mild chronic pain at the left knee. He states no one has evaluated his right knee following his falls. He has a significant medical history which includes Parkinson's disease, hypertension, hyperlipidemia, diabetes mellitus, and neurocognitive disorder. He continues to be seen by medicine. Consultation has been placed with neurology. Past Medical History Past Medical History: Coronary Artery Disease (CAD), Diabetes Mellitus, Deep Vein Thrombosis (DVT), Hyperlipidemia, Hypertension, Prostate Disorder Additional Past Medical History / Comment(s): UTI/severe sepsis, was then discharged to [facility] [place] for rehab due to his weakness. 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 Past Anesthesia/Blood Transfusion Reactions: No Reported Reaction Date of Last Stent Placement:: 2011 Past Psychological History: No Psychological Hx Reported Smoking Status: Never smoker Past Alcohol Use History: None Reported Additional Past Alcohol Use History / Comment(s): Pt smoked from [id number], one pack per day. Past Drug Use History: None Reported - Past Family History Father Additional Family Medical History / Comment(s): Father had heart disease. Mother Additional Family Medical History / Comment(s): Mother had heart disease. Medications and Allergies Home Medications Medication Instructions Recorded Confirmed Type Atorvastatin Calcium [Lipitor] 10 mg PO HS 11/02/15 02/07/18 History Finasteride [Proscar] 5 mg PO DAILY 11/02/15 02/07/18 History Isosorbide Mononitrate ER [Imdur] 30 mg PO HS 11/02/15 02/07/18 History Nitroglycerin Sl Tabs [Nitrostat] 0.4 mg SUBLINGUAL Q5M PRN 04/03/17 02/07/18 History metFORMIN HCL [Glucophage] 500 mg PO BID 04/03/17 02/07/18 History Metoprolol Tartrate [Lopressor] 12.5 mg PO BID 11/27/17 02/07/18 History Aspirin [Children's Aspirin] 81 mg PO DAILY 02/07/18 02/07/18 History Carbidopa-Levodopa 25-100 mg 1 tab PO TID 02/07/18 02/07/18 History [Sinemet 25-100] Gabapentin [Neurontin] 300 mg PO BID 02/07/18 02/07/18 History glipiZIDE [Glucotrol] 10 mg PO AC-BID 02/07/18 02/07/18 History Allergies Allergy/AdvReac Type Severity Reaction Status Date / Time No Known Allergies Allergy Verified 02/07/18 09:31 Physical Examination Physical exam: Patient is awake, alert, and oriented 3 Mild right-sided facial droop; patient was able to communicate and answer questions appropriately Vital signs stable Good chest excursion with deep inspiration and expiration Examination of lumbar spine reveals skin is intact with no abrasions, lacerations, or bruises; no erythema, purulence or signs of infection Pain with palpation along the midline of the lower lumbar spine the proximal lumbosacral junction Dorsiflexion, plantarflexion, and extensor hallucis longus positive sustained bilaterally Patient is able to move legs independently in bed and lift legs off the bed independently without significant difficulty Right hip flexion is slightly weaker than the left Straight leg test negative bilateral lower extremities Evidence of a well-healed incision over the right anterior knee Generalized pain with palpation over the whole right knee Examination of the right knee does not show evidence of significant erythema, bruising, laceration, wound, palpable fluid collection, or obvious sign of infection No signs or symptoms of DVT; no calf pain No pain with internal and external rotation of the hips bilaterally Neurovascularly intact Results Pertinent studies: X-rays the lumbar spine: No significant changes as compared to previous study taken on 11/29/2017; no evidence of vertebral body compression fracture; L5-S1 significant degenerative disc disease; facet arthropathy lower lumbar spine; anterior osteophytic spurring most significant at T12-L1, L1-2, and L5-S1; lateral osteophytic spurring greatest on the right CT of the lumbar spine: Multilevel anterior and lateral osteophytic spurring; no evidence of large posterior disc herniation evident on sagittal film; no evidence of acute body compression fracture; L2-3 disc bulging and facet arthropathy resulting in mild neural foraminal narrowing; L3-4 bulging, facet arthropathy, and ligamentum flavum hypertrophy resulting in bilateral neural foraminal narrowing; L4-5 broad-based disc protrusion, and facet arthropathy resulting in moderate to advanced bilateral neural foraminal narrowing; L5-S1 significant degenerative disc disease, facet arthropathy, and central disc protrusion with moderate to advanced bilateral neural foraminal narrowing CT angiogram of the head and neck: No aneurysmal change; no stenosis of the [place] of [place]; no stenosis at the carotid arteries bilaterally CT brain: No acute intracranial hemorrhage or midline shift - Labs Labs: Abnormal Lab Results - Last 24 Hours (Table) 02/07/18 02/07/18 02/08/18 Range/Units 16:38 21:37 05:54 POC Glucose (mg/dL) 131 H 168 H 147 H (75-99) mg/dL H & H 02/07/18 Range/Units 08:48 Hgb 13.9 (13.0-17.5) gm/dL Hct 42.3 (39.0-53.0) % Coagulation 02/07/18 Range/Units 08:48 INR 0.9 (<1.2) Result Diagrams: 02/07/18 08:48 02/07/18 08:48 Assessment and Plan Assessment: Assessment: Low back pain L5-S1 degenerative disc disease Lumbar facet arthropathy Right knee pain History of right total knee arthroplasty Multiple falls over and under determine timeframe Right lower extremity weakness resolving Right-sided facial droop and dysarthria History of Parkinson's disease, hypertension, hyperlipidemia, diabetes mellitus , neurocognitive disorder (1) Right knee pain Current Visit: Yes Status: Acute Code(s): M25.561 - PAIN IN RIGHT KNEE SNOMED Code(s): 16894421 (2) History of total right knee replacement Current Visit: Yes Status: Acute Code(s): Z96.651 - PRESENCE OF RIGHT ARTIFICIAL KNEE JOINT SNOMED Code(s): 3818810993533 (3) Low back pain Current Visit: Yes Status: Acute Code(s): M54.5 - LOW BACK PAIN SNOMED Code(s): 754589720 (4) Disc disease, degenerative, lumbar or lumbosacral Current Visit: Yes Status: Acute Code(s): M51.37 - OTHER INTERVERTEBRAL DISC DEGENERATION, LUMBOSACRAL REGION SNOMED Code(s): 44430879 (5) Facet arthritis, degenerative, L5-S1 level, lumbosacral spine Current Visit: Yes Status: Acute Code(s): M47.817 - SPONDYLS W/O MYELOPATHY OR RADICULOPATHY, LUMBOSACR REGION SNOMED Code(s): 630135585 (6) Lumbar facet arthropathy Current Visit: Yes Status: Acute Code(s): M47.816 - SPONDYLOSIS W/O MYELOPATHY OR RADICULOPATHY, LUMBAR REGION SNOMED Code(s): 673751698 (7) Facial droop Current Visit: Yes Status: Acute Code(s): R29.810 - FACIAL WEAKNESS SNOMED Code(s): 86451115 (8) History of Parkinson's disease Current Visit: Yes Status: Acute Code(s): Z86.69 - PERSONAL HISTORY OF DIS OF THE NERVOUS SYS AND SENSE ORGANS SNOMED Code(s): 821005565 (9) History of hypertension Current Visit: Yes Status: Acute Code(s): Z86.79 - PERSONAL HISTORY OF OTHER DISEASES OF THE CIRCULATORY SYSTEM SNOMED Code(s): 887325487 (10) History of hyperlipidemia Current Visit: Yes Status: Acute Code(s): Z86.39 - PERSONAL HISTORY OF ENDO , NUTRITIONAL AND METABOLIC DISEASE SNOMED Code(s): 674438046 (11) History of diabetes mellitus Current Visit: Yes Status: Acute Code(s): Z86.39 - PERSONAL HISTORY OF ENDO , NUTRITIONAL AND METABOLIC DISEASE SNOMED Code(s): 296704180 Plan: Plan: 1. After reviewing of imaging of the lumbar spine, physical examination the patient, and further discussion with the patient, we will currently plan to continue with conservative treatment. He is unable to describe the specific lower extremity radiculopathy pattern in the bilateral lower extremities. At presentation emergency department his right lower extremity weakness had began to improve. He continues to state his right lower extremity weakness is improving. He does have changes of the lumbar spine which are degenerative without evidence of significant change compared to previous imaging or evidence of acute fracture. He feels his back pain has been exacerbated following recent falls but is unable to specify exactly when his falls were as his timeline does not coordinate well with a history given to medicine. He states multiple times of the bedtime is most significant pain is right-sided knee pain that is exacerbated with weightbearing and ambulation. He states that pain radiates from the knee up towards his back. He has a history of previous right total knee arthroplasty performed a couple years ago. At this time, we'll plan to obtain x-rays the right knee for further evaluation. We are not currently planning for acute surgical intervention regards to his lumbar spine. Patient does not feel he needs surgical intervention of his lumbar spine. We discussed if his back pain does not to improve, we may plan for a consultation with pain management. We will follow up following the results of his x-rays of the right knee. Patient has been discussed in detail with Dr. Kenrick Melendez and he agrees with this plan. 2. Medicine will continue following the patient closely for his other medical diagnoses including stroke evaluation 3. Patient currently waiting for consultation with neurology for stroke evaluation Time with Patient: Less than 30
--- NOTE | 2018-02-08 11:37 | ECHOF ---
Referral Reason:Thrombus MEASUREMENTS -------- HEIGHT: 185.4 cm WEIGHT: 113.4 kg BP: 109/64 RVIDd: 3.6 cm (< 3.3) IVSd: 1.3 cm (0.6 - 1.1) LVIDd: 5.1 cm (3.9 - 5.3) LVPWd: 1.3 cm (0.6 - 1.1) IVSs: 1.9 cm LVIDs: 3.2 cm LVPWs: 1.9 cm LA Diam: 3.8 cm (2.7 - 3.8) LAESV Index (A-L): 28.26 ml/m Ao Diam: 3.5 cm (2.0 - 3.7) AV Cusp: 2.1 cm (1.5 - 2.6) MV EXCURSION: 18.438 mm (> 18.000) MV EF SLOPE: 36 mm/s (70 - 150) EPSS: 1.4 cm MV E Felix: 0.75 m/s MV DecT: 239 ms MV A Felix: 0.98 m/s MV E/A Ratio: 0.77 AR PHT: 541 ms RAP: 5.00 mmHg RVSP: 34.00 mmHg FINDINGS -------- Sinus rhythm. This was a technically adequate study. The left ventricular size is normal. There is mild concentric left ventricular hypertrophy. Overa ll left ventricular systolic function is normal with, an EF between 60 - 65 %. The right ventricle is mildly enlarged. Normal LA size by volume 22+/-6 ml/m2. The right atrium is normal in size. There is mild aortic valve sclerosis. Trace to mild aortic regurgitation. The mitral valve leaflets are mildly thickened. Mild mitral annular calcification present. There is trace to mild mitral regurgitation. Mild tricuspid regurgitation present. There is borderline pulmonary hypertension. The right ventr icular systolic pressure, as measured by Doppler, is 34.00mmHg. There is no pulmonic regurgitation present. The aortic root size is normal. IVC Not well visulized. There is no pericardial effusion. CONCLUSIONS -------- 1. Sinus rhythm. 2. This was a technically adequate study. 3. The left ventricular size is normal. 4. There is mild concentric left ventricular hypertrophy. 5. Overall left ventricular systolic function is normal with, an EF between 60 - 65 %. 6. The right ventricle is mildly enlarged. 7. Normal LA size by volume 22+/-6 ml/m2. 8. The right atrium is normal in size. 9. There is mild aortic valve sclerosis. 10. Trace to mild aortic regurgitation. 11. The mitral valve leaflets are mildly thickened. 12. Mild mitral annular calcification present. 13. There is trace to mild mitral regurgitation. 14. Mild tricuspid regurgitation present. 15. There is borderline pulmonary hypertension. 16. The right ventricular systolic pressure, as measured by Doppler, is 34.00mmHg. 17. There is no pulmonic regurgitation present. 18. The aortic root size is normal. 19. IVC Not well visulized. 20. There is no pericardial effusion. SOCIAL WORKER: Shanthi Hilario RDCS
[2018-02-08 11:42] LABS: Glucose,Whole Blood 158 mg/dL (75-99)
--- NOTE | 2018-02-08 13:01 | P.CNNES ---
History of Present Illness Consult date: 02/08/18 Reason for Consult: Patient admitted with right leg weakness. History of Present Illness: This patient is a 82-year-old right-handed white male who was brought into the emergency room yesterday with symptoms of acute right leg weakness. According to the patient he was unable to stand due to right leg weakness yesterday when he attempted to get out of bed. Apparently this was a sudden change for him as he has not had this symptom previously. When he awoke yesterday morning at about 7 AM he was complaining of increased back pain and right lower extremity weakness. His daughter who is at bedside and provided medical history states that he has a history of back trouble over the last several years. He also recently was being evaluated for weakness as he suffers from underlying Parkinson's disease and fell to recently have some mild infection. She states that his primary care physician had given him a injection about a week ago for a question of mild infection. Yesterday the weakness was quite significant and the daughter decided to bring him to the emergency room. He was brought into the ER at [facility] yesterday morning at about 8:00 and was seen in the ER by Dr. Trinidad. The patient presented with right leg weakness and also some evidence of right facial droop. According to the daughter his speech was also showing slight slurred pattern. The patient was sent for computed tomography scan of the brain and CTA angiogram of the head and neck. CAT scan of the brain failed to reveal any evidence of acute stroke. CTA angiogram of the head and neck was also negative. Dr. Trinidad did discuss this patient's clinical findings with the neuro interventionalists at [facility] Dr. Lopez and the stroke or but was activated. Discussion was made for possible TPA intervention however the patient declined and TPA was not considered further acute intervention with thrombolytics.. His symptoms also did improve in the ER and this was another reason for no further intervention with TPA. He was recommended admission to the hospital for further stroke evaluation as well as further evaluation of chronic low back pain. Patient underwent a computed tomography scan of the lumbar spine which did show some degenerative changes without evidence of acute change or obvious fracture. Patient was admitted to hospital for further evaluation and neurology consultation. According to the daughter who is at bedside she feels his speech still seems to be somewhat slurred as he is having difficulty expressing his thoughts. His right leg weakness has shown improvement but he still complains of right facial numbness. His clinical history suggests possibility of left hemispheric TIA versus stroke. We did discuss these findings today with the patient and his daughter at bedside. Cording to the daughter he has a history of having several TIAs in the past. He has been taking one baby aspirin daily and we would recommend he increase his aspirin to a full adult dose 325 mg daily. The patient was seen by orthopedic spine surgery and all of his films were reviewed by them. He does not require any acute surgical intervention. If his pain symptoms continue he may be considered for pain management in the outpatient setting. They're evaluating his right-sided knee pain as well. X-rays of the right knee were ordered by orthopedic surgery. We did review the results of the orthopedic consultation today with the patient and his daughter at bedside. Clinically the patient states he is feeling better with the right leg weakness but still complains of right facial numbness and slight slurred speech. We recommend the patient undergo a complete stroke evaluation for further assessment. His Parkinson's condition remains stable at this time and he should continue on his current dose of Sinemet. As mentioned he has a known history of chronic low back pain which has been ongoing for over 7 years. His stroke risk factors include history of diabetes mellitus and hyperlipidemia. Once again his daughter states that she has noted a decline for him in generalized weakness and general with new finding of right leg weakness and recurrent history of TIAs. According to the daughter the patient ambulates at home with the use of a walker. He has not had any recent falls. She has noted ongoing symptoms of neurocognitive decline for the patient as well over the last year. We have recommended a complete stroke evaluation for the patient. Case was discussed at length with the patient and his daughter who was at bedside. All of their questions were answered. She is aware of his guarded condition. Neurology is now been consulted for further evaluation and recommendations. Review of Systems Constitutional: Denies chills, Denies fever Eyes: denies blurred vision, denies pain Ears, nose, mouth and throat: Denies headache, Denies sore throat Cardiovascular: Denies chest pain, Denies shortness of breath Respiratory: Denies cough Gastrointestinal: Denies abdominal pain, Denies diarrhea, Denies nausea, Denies vomiting Musculoskeletal: Denies myalgias Integumentary: Denies pruritus, Denies rash Neurological: Reports aphasia, Reports balance difficulties, Reports change in mentation, Reports change in speech, Reports confusion, Reports gait dysfunction , Reports memory loss, Reports motor disturbance, Reports paresthesias, Reports tingling, Denies numbness, Denies weakness Psychiatric: Denies anxiety, Denies depression Endocrine: Denies fatigue, Denies weight change Past Medical History Past Medical History: Coronary Artery Disease (CAD), Diabetes Mellitus, Deep Vein Thrombosis (DVT), Hyperlipidemia, Hypertension, Prostate Disorder Additional Past Medical History / Comment(s): UTI/severe sepsis, was then discharged to [facility] on the [place] for rehab due to his weakness. 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 Past Anesthesia/Blood Transfusion Reactions: No Reported Reaction Date of Last Stent Placement:: 2011 Past Psychological History: No Psychological Hx Reported Smoking Status: Never smoker Past Alcohol Use History: None Reported Additional Past Alcohol Use History / Comment(s): Pt smoked from [id number], one pack per day. Past Drug Use History: None Reported - Past Family History Father Additional Family Medical History / Comment(s): Father had heart disease. Mother Additional Family Medical History / Comment(s): Mother had heart disease. Medications and Allergies Home Medications Medication Instructions Recorded Confirmed Type Atorvastatin Calcium [Lipitor] 10 mg PO HS 11/02/15 02/07/18 History Finasteride [Proscar] 5 mg PO DAILY 11/02/15 02/07/18 History Isosorbide Mononitrate ER [Imdur] 30 mg PO HS 11/02/15 02/07/18 History Nitroglycerin Sl Tabs [Nitrostat] 0.4 mg SUBLINGUAL Q5M PRN 04/03/17 02/07/18 History metFORMIN HCL [Glucophage] 500 mg PO BID 04/03/17 02/07/18 History Metoprolol Tartrate [Lopressor] 12.5 mg PO BID 11/27/17 02/07/18 History Aspirin [Children's Aspirin] 81 mg PO DAILY 02/07/18 02/07/18 History Carbidopa-Levodopa 25-100 mg 1 tab PO TID 02/07/18 02/07/18 History [Sinemet 25-100] Gabapentin [Neurontin] 300 mg PO BID 02/07/18 02/07/18 History glipiZIDE [Glucotrol] 10 mg PO AC-BID 02/07/18 02/07/18 History Allergies Allergy/AdvReac Type Severity Reaction Status Date / Time No Known Allergies Allergy Verified 02/07/18 09:31 Physical Examination - Vital Signs Vital Signs: Vital Signs Temp Pulse Pulse Resp BP BP Pulse Ox 02/08/18 04:10 97.5 F L 67 18 109/64 99 02/08/18 00:15 97.5 F L 71 17 123/59 97 02/07/18 20:10 98.2 F 80 19 171/70 96 02/07/18 16:38 97.9 F 74 16 146/68 94 L 02/07/18 15:20 98.6 F 02/07/18 15:00 72 15 150/96 98 02/07/18 14:15 79 20 113/52 98 02/07/18 13:15 65 20 130/90 97 02/07/18 12:15 63 20 127/65 02/07/18 11:30 65 118/73 02/07/18 11:00 67 110/64 Intake and Output 02/07/18 02/08/18 02/08/18 22:59 06:59 14:59 Intake Total 340 240 Output Total 750 1000 Balance -410 -1000 240 Intake: Intake, IV Titration 100 Amount Sodium Chloride 0.9% 1, 100 000 ml @ 100 mls/hr IV . Q10H [facility] Rx#:[id number] Oral 240 240 Output: Urine 750 1000 Other: Voiding Method Urinal Urinal Incontinent Incontinent # Voids 2 1 Weight 113.5 kg - Constitutional General appearance: average body habitus, cooperative - EENT EENT: PERRL, mucous membranes moist - Respiratory Respiratory: lungs clear, normal breath sounds - Cardiovascular Cardiovascular: regular rate, normal S1, normal S2 Extremities: no peripheral edema bilaterally - Gastrointestinal Gastrointestinal: normoactive bowel sounds - Integumentary Integumentary: normal - Neurologic Cranial nerve examination: PERRL, EOMI, VFF, V1/V2/V3 grossly intact, face symmetric, tongue midline, intact gag reflex, intact corneal reflex, normal palatal elevation Speech examination: intact Sensorimotor examination: intact Motor examination - right side: 3/5: hip flexors, knee extensors, dorsiflexion, toe extension (EHL), plantarflexion, 4/5: biceps, triceps, wrist flexion, wrist extension, asbestos siding mechanic Motor examination - left side: 4/5: biceps, triceps, wrist flexion, wrist extension, asbestos siding mechanic, hip flexors, knee extensors, dorsiflexion, toe extension (EHL) , plantarflexion Detailed sensory examination: intact Reflex and gait examination: intact Reflexes: 1+: ankle, bicep, knee, tricep - Musculoskeletal Musculoskeletal: no pain - Psychiatric Psychiatric: mood/affect appropriate, cooperative Results - Laboratory Findings CBC and BMP: 02/07/18 08:48 02/07/18 08:48 Abnormal Lab Findings: Abnormal Labs 02/07/18 02/07/18 02/07/18 08:48 16:38 21:37 Chloride 109 H Glucose 126 H POC Glucose (mg/dL) 131 H 168 H ALT 18 L Total Protein 5.5 L Albumin 2.8 L 02/08/18 05:54 Chloride Glucose POC Glucose (mg/dL) 147 H ALT Total Protein Albumin Assessment and Plan (1) TIA involving left internal carotid artery Current Visit: Yes Status: Acute Code(s): G45.1 - CAROTID ARTERY SYNDROME ( HEMISPHERIC) SNOMED Code(s): 992909990 (2) Parkinsons disease Current Visit: Yes Status: Acute Code(s): G20 - PARKINSON'S DISEASE SNOMED Code(s): 55868920 (3) Facet arthritis, degenerative, L5-S1 level, lumbosacral spine Current Visit: Yes Status: Acute Code(s): M47.817 - SPONDYLS W/O MYELOPATHY OR RADICULOPATHY, LUMBOSACR REGION SNOMED Code(s): 488661824 (4) History of hyperlipidemia Current Visit: Yes Status: Acute Code(s): Z86.39 - PERSONAL HISTORY OF ENDO , NUTRITIONAL AND METABOLIC DISEASE SNOMED Code(s): 530148033 (5) History of hypertension Current Visit: Yes Status: Acute Code(s): Z86.79 - PERSONAL HISTORY OF OTHER DISEASES OF THE CIRCULATORY SYSTEM SNOMED Code(s): 589353606 (6) Low back pain Current Visit: Yes Status: Acute Code(s): M54.5 - LOW BACK PAIN SNOMED Code(s): 811105955 (7) Lumbar facet arthropathy Current Visit: Yes Status: Acute Code(s): M47.816 - SPONDYLOSIS W/O MYELOPATHY OR RADICULOPATHY, LUMBAR REGION SNOMED Code(s): 081895247 (8) Right knee pain Current Visit: Yes Status: Acute Code(s): M25.561 - PAIN IN RIGHT KNEE SNOMED Code(s): 47342886 Plan: This patient is a 82-year-old male being evaluated for sudden onset of right leg weakness and chronic low back pain. Patient presented with acute right leg weakness to the emergency room as well as some right facial droop and slurred speech. He was evaluated in the ER yesterday by Dr. Trinidad. He was recommended to consider TPA but the patient refused. Neurologically his symptoms also improved in the ER which was another reason to defer any TPA intervention. He was admitted to hospital for further evaluation of right leg weakness and back pain. He was seen by orthopedic spine surgery for further assessment today. He does not require any surgical intervention of his lumbar spine at this time. His clinical history suggests possibility of left hemispheric TIA as he had right leg weakness as well as right facial numbness and slurred speech. We have recommended a complete stroke evaluation for the patient. We would recommend patient to be placed on full adult strength aspirin as well. He has a history of recurrent TIAs in the past. He is a poor historian and does have neurocognitive issues as well according to the daughter who was at bedside. We have suggested possibility of obtaining a MRI of the brain for further evaluation of question of stroke versus TIA in this patient given his current symptoms. His right leg weakness does not appear to be radicular in nature as per orthopedic spine surgery. We will continue a complete stroke evaluation for this patient and give further recommendations pending the test results. His overall prognosis at this time remains very guarded. His stroke risk factors include diabetes mellitus and hyperlipidemia. We will continue to follow his progress closely during this admission. His overall prognosis at this time remains guarded. Case was discussed at length with the patient and his daughter who is at bedside. All of their questions were answered. Daughter is aware of his guarded condition. We will continue close neurological follow-up of this patient during this admission. Time with Patient: Greater than 30
--- NOTE | 2018-02-08 16:15 | MR ---
EXAMINATION TYPE: MR brain wo con DATE OF EXAM: 02/08/2018 COMPARISON: 06/02/2017 HISTORY: 82-year-old male with right leg weakness/possible stroke TECHNIQUE: Multiplanar, multisequence images of the brain and brainstem were acquired without IV con trast. Diffusion weighted imaging is performed. FINDINGS: No evidence for acute infarction, hemorrhage, mass, mass effect, midline shift, herniation, effacemen t of basal cisterns, or extra-axial fluid collection. There is redemonstrated moderate to advanced generalized supratentorial volume loss and secondary mil d hydrocephalus. Major intracranial flow voids are intact. T2/FLAIR weighted sequences show moderate confluent and some patchy bright signal change in the white matter of both cerebral hemispheres, primarily periventricular. Midline structures demonstrate normal morphology. The craniocervical junction is normal. Persistent air-fluid level left maxillary sinus. Globes appear intact. IMPRESSION: 1. Moderate to advanced cerebral atrophy and moderate changes of chronic small vessel ischemic diseas e redemonstrated. 2. No acute intracranial abnormality seen. 3. Continuing acute left maxillary sinusitis.
[2018-02-08 16:33] LABS: Glucose,Whole Blood 164 mg/dL (75-99)
--- NOTE | 2018-02-08 16:46 | XR ---
EXAMINATION TYPE: XR knee complete RT DATE OF EXAM: 02/08/2018 COMPARISON: NONE HISTORY: 82-year-old male right knee pain after fall TECHNIQUE: 3 views FINDINGS: Image demonstrating a retroaortic plasty. There is some focal lucency and suggestion of some bony dis tortion medially proximal tibial plateau just underlying the tibial tray component. A subtle nondispl aced periprostatic fracture is suspected, best seen on the AP view. No significant loosening seen. IMPRESSION: Suspect a subtle nondisplaced fracture along the medial tibial plateau just underlying the tibial tra y component.
[2018-02-08] MEDS: FAMOTIDINE 20 MG TAB PO SCH ×2 (17:16→17:32)
[2018-02-08 20:56] LABS: Glucose,Whole Blood 157 mg/dL (75-99)
[2018-02-08] MEDS: ATORVASTATIN 80 MG TAB PO SCH (21:09)
[2018-02-08] MEDS: ISOSORBIDE MONONITRATE ER 30 MG TAB.ER.24H PO SCH (21:10)
[2018-02-08] MEDS: ENOXAPARIN 40 MG/0.4 ML SYRINGE SQ SCH (21:30)
--- NOTE | 2018-02-09 01:35 | PN ---
PROGRESS NOTE DATE OF SERVICE: 02/08/2018. PRESENT COMPLAINT: Right leg weakness. INTERVAL HISTORY: This patient presented with right leg weakness. Per Neurology evaluation, the patient also had some slurring of speech, right facial numbness and they think it may be left cerebral TIA as opposed to radicular pain. The patient is doing much better today. Stroke workup is in place. Patient was evaluated also by Orthopedics. Right leg weakness is greatly improved. Patient really feels back to his baseline. REVIEW OF SYSTEMS: Done for constitutional, cardiovascular, GI, pulmonary; relevant findings as above. CURRENT MEDICATIONS: Reviewed, that includes aspirin. PHYSICAL EXAMINATION: Temperature 97.9, pulse 52, respirations 14, blood pressure 134/78, pulse 96% on room air. GENERAL APPEARANCE: Lying in bed, awake. EYES: Pupils equal. Conjunctivae normal. NECK: JVD not raised. Mass not palpable. Respiratory effort normal. LUNGS: Decreased breath sounds. CARDIOVASCULAR: 1st and 2nd sounds normal. No edema. ABDOMEN: Soft, nontender. Liver and spleen not palpable. PSYCHIATRY: Answers simple questions. NEUROLOGIC: No new findings. INVESTIGATIONS: MRI of the brain shows chronic changes. Knee x-ray shows arthritic changes. Lumbar spine x-ray again shows evidence of arthritis and some spinal stenosis. ASSESSMENT: 1. 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 Symptoms are greatly improved. 2. Idiopathic Parkinson disease. 3. Diabetes mellitus type 2 on oral hypoglycemic. 4. 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 5. Coronary artery prior history of stent and bypass. 6. Hyperlipidemia. 7. Essential hypertension. 8. Chronic neurocognitive disorder. 9. Chronic spinal stenosis. 10.Benign prostatic hypertrophy. PLAN: Keep patient on aspirin and naproxen. Other medications to continue. The patient is already on Lipitor. Hoping patient can be discharged tomorrow. Care was discussed with daughter at the bedside. MMODL / IJN: [id number] /
[2018-02-09] MEDS: ACETAMINOPHEN TAB 325 MG TAB PO PRN (04:23)
[2018-02-09] MEDS: glipiZIDE 10 MG TAB PO SCH ×2 (06:40→16:43)
[2018-02-09 07:08] LABS: Cholesterol 96 mg/dL (<200); HDL Cholesterol 43 mg/dL (40-60); LDL Cholesterol,Calculated 26 mg/dL (0-99); Triglycerides 135 mg/dL (<150)
[2018-02-09] MEDS: METOPROLOL TARTRATE 25 MG TAB PO SCH ×2 (08:48→23:16)
[2018-02-09] MEDS: NAPROXEN 250 MG TAB PO SCH ×3 (08:48→20:52)
[2018-02-09] MEDS: ASPIRIN 81 MG PO SCH (08:48)
[2018-02-09] MEDS: FAMOTIDINE 20 MG TAB PO SCH ×2 (08:48→20:52)
[2018-02-09] MEDS: FINASTERIDE 5 MG TAB PO SCH (08:48)
[2018-02-09] MEDS: CARBIDOPA-LEVODOPA 25-100 MG 1 EACH TAB PO SCH ×3 (08:49→20:52)
[2018-02-09] MEDS: GABAPENTIN 300 MG CAP PO SCH ×2 (08:52→20:52)
--- NOTE | 2018-02-09 11:50 | P.PN ---
Subjective Progress Note Date: 02/09/18 This patient is a 82-year-old male who is being followed for recent episode of right leg weakness. His clinical exam findings yesterday suggested possibility of TIA versus stroke. He has been seen by orthopedic spine surgery and does not require any surgical intervention for severe arthritis in his back. Patient underwent MRI of the brain yesterday which was reviewed. MRI reveals moderate to advance cerebral atrophy and chronic small vessel ischemic changes. No evidence of acute stroke. We reviewed the results of the MRI today with the patient. He states he has been up and ambulating with the use of his rolling walker today at bedside. He seems to be making some improvement with his muscle strength. We reviewed the MRI results with him and should continue close monitoring of his other conditions including Parkinson's disease and diabetes mellitus. Patient otherwise seems to be stable neurologically and we will continue to follow his progress closely during this admission. Once again his MRI failed to reveal any evidence of acute stroke. Objective - Vital Signs Vital signs: Vital Signs Temp 97.5 F L 02/09/18 08:00 Pulse 50 L 02/09/18 08:00 Resp 18 02/09/18 08:00 BP 111/57 02/09/18 08:00 Pulse Ox 96 02/09/18 08:00 Intake & Output 02/08/18 02/09/18 02/09/18 18:59 06:59 18:59 Intake Total 942 380 240 Output Total 350 Balance 942 30 240 Weight 113.5 kg Intake: IV 20 0.9 20 Oral 942 360 240 Output: Urine 350 Other: Voiding Method Urinal Urinal Urinal Incontinent Incontinent Incontinent - Exam Physical examination: PHYSICAL EXAMINATION: Patient is resting comfortably in bed. VITAL SIGNS: Blood pressure is [112/57]. Heart rate is [50]. Respiration is [18] . Temperature is [97.5]. HEENT: Head is atraumatic, neck is supple, there were no carotid bruits. CHEST: Lungs are clear to auscultation and percussion. CARDIAC: S1, S2 normal rate and rhythm. There is no murmur. ABDOMEN: Soft and nontender. Bowel sounds are present. EXTREMITIES: There is no pedal edema. Peripheral pulses are present. Neurological examination: Patient's neurological examination is unchanged from yesterday. - Labs CBC & Chem 7: 02/07/18 08:48 02/07/18 08:48 Labs: Abnormal Lab Results - Last 24 Hours (Table) 02/08/18 02/08/18 Range/Units 16:32 20:55 POC Glucose (mg/dL) 164 H 157 H (75-99) mg/dL Assessment and Plan (1) TIA involving left internal carotid artery Current Visit: Yes Status: Acute Code(s): G45.1 - CAROTID ARTERY SYNDROME ( HEMISPHERIC) SNOMED Code(s): 969960696 (2) Parkinsons disease Current Visit: Yes Status: Acute Code(s): G20 - PARKINSON'S DISEASE SNOMED Code(s): 86800104 (3) Facet arthritis, degenerative, L5-S1 level, lumbosacral spine Current Visit: Yes Status: Acute Code(s): M47.817 - SPONDYLS W/O MYELOPATHY OR RADICULOPATHY, LUMBOSACR REGION SNOMED Code(s): 399243233 (4) History of hyperlipidemia Current Visit: Yes Status: Acute Code(s): Z86.39 - PERSONAL HISTORY OF ENDO , NUTRITIONAL AND METABOLIC DISEASE SNOMED Code(s): 795075045 (5) History of hypertension Current Visit: Yes Status: Acute Code(s): Z86.79 - PERSONAL HISTORY OF OTHER DISEASES OF THE CIRCULATORY SYSTEM SNOMED Code(s): 535024510 (6) Low back pain Current Visit: Yes Status: Acute Code(s): M54.5 - LOW BACK PAIN SNOMED Code(s): 891664781 (7) Lumbar facet arthropathy Current Visit: Yes Status: Acute Code(s): M47.816 - SPONDYLOSIS W/O MYELOPATHY OR RADICULOPATHY, LUMBAR REGION SNOMED Code(s): 058701149 (8) Right knee pain Current Visit: Yes Status: Acute Code(s): M25.561 - PAIN IN RIGHT KNEE SNOMED Code(s): 59612361 Plan: This patient is a 82-year-old male being evaluated for right leg weakness and possible left hemispheric TIA versus stroke. Patient underwent MRI of the brain yesterday for further evaluation of possible stroke. MRI results are as noted above. There is no evidence of acute stroke on this MRI study. We reviewed the MRI results today with the patient. He seems to be doing somewhat better today and is ambulating with the use of his rolling walker. He may benefit from outpatient physical therapy at the time of discharge. Orthopedic spine surgery has evaluated him and he does not require any surgical intervention to the lumbar region of the spine. We will continue to follow his progress closely during this admission. His overall prognosis at this time remains guarded.
--- NOTE | 2018-02-09 13:41 | P.PN ---
Subjective Progress Note Date: 02/09/18 Principal diagnosis: Low back pain and right knee pain Patient is a very pleasant 82-year-old male who was seen and examined at bedside for further evaluation in regards to low back and right lower extremity radiculopathy. Patient presented to the emergency department yesterday after waking up with increased back pain and right lower extremity weakness. During his presentation emergency department he was found to have some right sided facial numbness, mild right facial droop, dysarthria, and right lower extremity weakness. Patient's weakness had been improving in the emergency department. TPA was not given. Patient was admitted for further evaluation from neurological standpoint for stroke evaluation. Initial imaging including brain CT and CT angiogram of the head and neck have been negative for significant acute findings. Patient is a somewhat poor historian and continues has some difficulty with dates of falls. Documentation by medicine states patient initially fell approximately 6 weeks ago and then again off a chair recently. Patient states he initially fell approximately 7 months ago has had increased right knee pain since that time. He denies specific lower extremity radiculopathy pattern. Today he states his right knee pain has improved but he continues to have pain at the right knee. This pain is exacerbated with weightbearing. He states this has been ongoing for months. Sometimes she does not experience pain at the right knee. During standing the pain well radiate up towards his lumbar spine. He does have some low back pain along the midline. He is not currently complaining of significant back pain. He does have a history of right total knee arthroplasty performed a couple years ago. X -rays the lumbar spine and CT lumbar spine did show some degenerative changes without evidence of acute change or obvious sign of fracture. Patient states he feels his speech is normal for him and that his speech is different due to Parkinson's disease and his [place] accent. He feels his right lower extremity weakness has continued to improve. At the bedside he continues to state multiple times his is most significant pain at his right knee pain exacerbated with weightbearing and some low back pain. He is unable to describe a specific radicular pattern down the lower extremities. He denies any specific left lower extremity radiculopathy or weakness. He has mild chronic pain at the left knee. Nursing states he was previously planning to be discharged to a rehabilitation facility with rehab at [facility] but states medicine is currently planning to discharge the patient home today. Nursing is looking into the reason for this change and discharge. He has a significant medical history which includes Parkinson's disease, hypertension, hyperlipidemia, diabetes mellitus, and neurocognitive disorder. He continues to be seen by medicine. Consultation has been placed with neurology. Objective - Vital Signs Vital signs: Vital Signs Temp 97.5 F L 02/09/18 08:00 Pulse 60 02/09/18 12:00 Resp 18 02/09/18 12:00 BP 128/67 02/09/18 12:00 Pulse Ox 97 02/09/18 12:00 Intake & Output 02/08/18 02/09/18 02/09/18 18:59 06:59 18:59 Intake Total 942 380 250 Output Total 350 Balance 942 30 250 Weight 113.5 kg Intake: IV 20 10 0.9 20 10 Oral 942 360 240 Output: Urine 350 Other: Voiding Method Urinal Urinal Urinal Incontinent Incontinent Incontinent - Exam Physical exam: Patient is awake, alert, and oriented 3 Mild right-sided facial droop appears to be improving; patient was able to communicate and answer questions appropriately Vital signs stable Good chest excursion with deep inspiration and expiration Examination of lumbar spine reveals skin is intact with no abrasions, lacerations, or bruises; no erythema, purulence or signs of infection Pain with palpation along the midline of the lower lumbar spine the proximal lumbosacral junction Dorsiflexion, plantarflexion, and extensor hallucis longus positive sustained bilaterally Patient is able to move legs independently without significant difficulty Right hip flexion is slightly weaker than the left Straight leg test negative bilateral lower extremities Evidence of a well-healed incision over the right anterior knee Exacerbation of pain with palpation along the right medial knee at approximately the tibial plateau with mild generalized pain with palpation over the whole right knee Examination of the right knee does not show evidence of significant erythema, bruising, laceration, wound, palpable fluid collection, or obvious sign of infection No signs or symptoms of DVT; no calf pain No pain with internal and external rotation of the hips bilaterally Neurovascularly intact - Labs CBC & Chem 7: 02/07/18 08:48 02/07/18 08:48 Labs: Abnormal Lab Results - Last 24 Hours (Table) 02/08/18 02/08/18 Range/Units 16:32 20:55 POC Glucose (mg/dL) 164 H 157 H (75-99) mg/dL - Imaging and Cardiology Pertinent studies: X-ray the right knee: Suspected subtle nondisplaced fracture along the medial tibial plateau just underlying the tibial tray component which suggests subtle nondisplaced periprosthetic fracture with no evidence of hardware loosening; evidence of right total knee arthroplasty X-rays the lumbar spine: No significant changes as compared to previous study taken on 11/29/2017; no evidence of vertebral body compression fracture; L5-S1 significant degenerative disc disease; facet arthropathy lower lumbar spine; anterior osteophytic spurring most significant at T12-L1, L1-2, and L5-S1; lateral osteophytic spurring greatest on the right CT of the lumbar spine: Multilevel anterior and lateral osteophytic spurring; no evidence of large posterior disc herniation evident on sagittal film; no evidence of acute body compression fracture; L2-3 disc bulging and facet arthropathy resulting in mild neural foraminal narrowing; L3-4 bulging, facet arthropathy, and ligamentum flavum hypertrophy resulting in bilateral neural foraminal narrowing; L4-5 broad-based disc protrusion, and facet arthropathy resulting in moderate to advanced bilateral neural foraminal narrowing; L5-S1 significant degenerative disc disease, facet arthropathy, and central disc protrusion with moderate to advanced bilateral neural foraminal narrowing CT angiogram of the head and neck: No aneurysmal change; no stenosis of the lower brule of [place]; no stenosis at the carotid arteries bilaterally CT brain: No acute intracranial hemorrhage or midline shift Assessment and Plan Assessment: Assessment: Low back pain L5-S1 degenerative disc disease Lumbar facet arthropathy Right knee periprosthetic fracture nondisplaced Right knee pain History of right total knee arthroplasty Multiple falls over and under determine timeframe Right lower extremity weakness resolving Right-sided facial droop and dysarthria which appears to be improving History of Parkinson's disease, hypertension, hyperlipidemia, diabetes mellitus , neurocognitive disorder (1) Right knee pain Current Visit: Yes Status: Acute Code(s): M25.561 - PAIN IN RIGHT KNEE SNOMED Code(s): 90561903 (2) History of total right knee replacement Current Visit: Yes Status: Acute Code(s): Z96.651 - PRESENCE OF RIGHT ARTIFICIAL KNEE JOINT SNOMED Code(s): 2671041523401 (3) Low back pain Current Visit: Yes Status: Acute Code(s): M54.5 - LOW BACK PAIN SNOMED Code(s): 595707598 (4) Disc disease, degenerative, lumbar or lumbosacral Current Visit: Yes Status: Acute Code(s): M51.37 - OTHER INTERVERTEBRAL DISC DEGENERATION, LUMBOSACRAL REGION SNOMED Code(s): 23822186 (5) Facet arthritis, degenerative, L5-S1 level, lumbosacral spine Current Visit: Yes Status: Acute Code(s): M47.817 - SPONDYLS W/O MYELOPATHY OR RADICULOPATHY, LUMBOSACR REGION SNOMED Code(s): 945633915 (6) Lumbar facet arthropathy Current Visit: Yes Status: Acute Code(s): M47.816 - SPONDYLOSIS W/O MYELOPATHY OR RADICULOPATHY, LUMBAR REGION SNOMED Code(s): 100305618 (7) Facial droop Current Visit: Yes Status: Acute Code(s): R29.810 - FACIAL WEAKNESS SNOMED Code(s): 21325540 (8) History of Parkinson's disease Current Visit: Yes Status: Acute Code(s): Z86.69 - PERSONAL HISTORY OF DIS OF THE NERVOUS SYS AND SENSE ORGANS SNOMED Code(s): 586921257 (9) History of hypertension Current Visit: Yes Status: Acute Code(s): Z86.79 - PERSONAL HISTORY OF OTHER DISEASES OF THE CIRCULATORY SYSTEM SNOMED Code(s): 733973373 (10) History of hyperlipidemia Current Visit: Yes Status: Acute Code(s): Z86.39 - PERSONAL HISTORY OF ENDO , NUTRITIONAL AND METABOLIC DISEASE SNOMED Code(s): 789882324 (11) History of diabetes mellitus Current Visit: Yes Status: Acute Code(s): Z86.39 - PERSONAL HISTORY OF ENDO , NUTRITIONAL AND METABOLIC DISEASE SNOMED Code(s): 798772730 (12) Periprosthetic fracture around internal prosthetic knee joint Current Visit: Yes Status: Acute Code(s): M97.8XXA - PERIPROSTH FRACTURE AROUND OTHER INTERNAL PROSTH JOINT, INIT; Z96.659 - PRESENCE OF UNSPECIFIED ARTIFICIAL KNEE JOINT SNOMED Code(s): 538266769 Plan: Plan: 1. After reviewing of imaging of the lumbar spine, physical examination the patient, and further discussion with the patient, we will currently plan to continue with conservative treatment. He is unable to describe the specific lower extremity radiculopathy pattern in the bilateral lower extremities. At presentation emergency department his right lower extremity weakness had began to improve. He continues to state his right lower extremity weakness is improving. He does have changes of the lumbar spine which are degenerative without evidence of significant change compared to previous imaging or evidence of acute fracture. He feels his back pain has been exacerbated following recent falls but is unable to specify exactly when his falls were as his timeline does not coordinate well with a history given to medicine. He states multiple times of the bedtime is most significant pain is right-sided knee pain that is exacerbated with weightbearing and ambulation. He states that pain radiates from the knee up towards his back. He has a history of previous right total knee arthroplasty performed a couple years ago. After imaging of the right knee was obtained yesterday, imaging did show evidence of subtle nondisplaced periprosthetic fracture without evidence of hardware loosening at the medial tibial plateau. At this time, he does not need further surgical intervention in regards to his right knee. He may continue to weight-bear as tolerated. He does not need bracing for the right knee at this time. He may work with rehabilitation and therapy to increase mobility and ambulation. We' ll plan to have him follow-up in the outpatient setting approximately 1-2 weeks for further evaluation of his right knee. We'll continue to follow him for his lumbar spine at that time as well. We are not currently planning for surgical intervention regards to his lumbar spine. If he were to fail conservative treatment with his lumbar spine, we may plan to refer him to pain management to discuss possible treatments including the possibility of injections. Patient has been discussed in detail with Dr. Kenrick Melendez and he agrees with this plan. She is here for discharge from an orthopedic standpoint. 2. Medicine and neurology will continue following the patient closely for his other medical diagnoses including stroke evaluation Time with Patient: Less than 30
[2018-02-09 17:04] LABS: Glucose,Whole Blood 155 mg/dL (75-99)
--- NOTE | 2018-02-09 17:40 | CT ---
EXAMINATION TYPE: CT brain wo con DATE OF EXAM: 02/09/2018 COMPARISON: 02/07/2018 HISTORY: Right sided facial droop CT DLP: 2340.4 mGycm Automated exposure control for dose reduction was used. FINDINGS: There is cerebral cortical atrophy. There is no mass effect nor midline shift. There is no sign of in tracranial hemorrhage. Calvarium is intact. IMPRESSION: CEREBRAL ATROPHY. NO ACUTE INTRACRANIAL ABNORMALITY. NO CHANGE. STABLE MILD LEFT MAXILLARY SINUSITIS.
--- NOTE | 2018-02-09 18:21 | CT ---
EXAMINATION TYPE: CODE STROKE: CTA head neck DATE OF EXAM: 02/09/2018 HISTORY: Right sided facial droop COMPARISON: 02/07/2018 CT DLP: 452.1 mGycm. Automated Exposure Control for Dose Reduction was Utilized. TECHNIQUE: CTA scan of the neck is performed with IV Contrast, patient injected with 65 mL of Isovue 370, axial images are obtained, coronal and sagittal reformatted images are reviewed. Three-D recons tructed images are created on an independent workstation and reviewed. FINDINGS: There are 3-D post processed images. There is normal branching pattern of the great vessels on the aortic arch. There is bilateral patency of the vertebral arteries which are fairly symmetric. Basilar artery appears to fill more from the l eft side. There is patency of the vertebrobasilar artery system. There are spondylotic changes in the cervical spine with uncovertebral spurring and multilevel neural foraminal stenosis. There is bilateral patency of the subclavian arteries. There is bilateral patency of the common inter nal and external carotid arteries. There is minimal plaque at the carotid artery bifurcations and les s than 10% stenosis. There is arterial flow in the anterior middle and posterior cerebral arteries. There is no evidence o f intracranial aneurysm or neovascularity. I see no evidence of hemodynamic intracranial stenosis. Th ere is normal contrast opacification of the venous sinuses.. Left posterior cerebral artery appears t o fill significantly through the left posterior communicating artery. IMPRESSION: Negative CT angiogram of the neck. Negative CT angiogram of the brain.
[2018-02-09 20:11] LABS: Glucose,Whole Blood 175 mg/dL (75-99)
[2018-02-09] MEDS: ATORVASTATIN 80 MG TAB PO SCH (20:52)
[2018-02-09] MEDS: ENOXAPARIN 40 MG/0.4 ML SYRINGE SQ SCH (20:53)
[2018-02-09] MEDS: ISOSORBIDE MONONITRATE ER 30 MG TAB.ER.24H PO SCH (23:16)
[2018-02-10] MEDS: ACETAMINOPHEN TAB 325 MG TAB PO PRN (00:51)
[2018-02-10 05:45] LABS: Glucose,Whole Blood 166 mg/dL (75-99)
[2018-02-10] MEDS: glipiZIDE 10 MG TAB PO SCH ×2 (06:09→17:53)
--- NOTE | 2018-02-10 06:51 | PN ---
PROGRESS NOTE DATE OF SERVICE: 02/09/2018 PRESENTING COMPLAINT: Right leg weakness. INTERVAL HISTORY: This patient admitted with left cerebral TIA, presented with right-sided weakness, slurring of speech, right facial numbness. The patient had been doing. Today in the evening when the nurse went in there, patient's speech became slurred and became less responsive. Code stroke was called. CT scan was unremarkable. Later, CT angio was done that also came back negative. Both Dr. Diego was involved and the stroke neurology team. was also involved. The patient has gone back to his normal self. The patient had 2 of these episodes [id number]. Earlier when I saw the patient, the patient otherwise had been doing well. REVIEW OF SYSTEMS: Done for constitutional, cardiovascular, GI, pulmonary; relevant findings as above. CURRENT MEDICATIONS: Current medications are reviewed. PHYSICAL EXAMINATION: On examination, temperature 97.5, pulse 50, respiratory 18, blood pressure 111/57, pulse ox 96% on room air. GENERAL APPEARANCE: Lying in bed, comfortable, awake. EYES: Pupils equal. Conjunctivae normal. NECK: JVD not raised. Mass not palpable. RESPIRATORY: Effort normal. LUNGS: Decreased breath sounds. CARDIOVASCULAR: First and second sounds normal. No edema. ABDOMEN: Soft, nontender. Liver and spleen not palpable. PSYCHIATRY: Answering questions appropriately. NEUROLOGICAL: Nil focal. INVESTIGATIONS: Later today, the CT scan of the brain and CTA of the brain did not show any acute event. ASSESSMENT: 1. 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 2. Idiopathic Parkinson disease. 3. Diabetes mellitus type 2, on oral hypoglycemic. 4. 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 5. Coronary artery disease with prior history of stent and bypass. 6. Hyperlipidemia. 7. Essential hypertension. 8. Chronic neurocognitive disorder. 9. Chronic spinal stenosis. 10.Benign prostatic hypertrophy. PLAN: At this point, continue with aspirin and other medication and treatment plan. The patient is already on Lipitor. Neurology is already involved. The patient is otherwise supposed to go to [facility]. Follow up with Dr. Hawthorne. MMODL / IJN: [id number] /
--- NOTE | 2018-02-10 08:25 | P.CONS ---
History of Present Illness - Chief Complaint Gait disturbance and confusion - History of Present Illness I had the opportunity to see patient for inpatient rehab consultation with regard to gait disturbance. He is admitted February 07 with right leg weakness. Seen in consultation by Dr. Gabriella Diego. Also seen by orthopedics, Dr. Melendez for right TKA and low back pain. Lumbar x-ray negative. Lumbar CT with advanced degenerative change L2-5. Right knee x-ray with subtle hairline fracture medial tibial plateau. Brain MRI with atrophy and ischemic change. Head CT with atrophy and left maxillary sinusitis. Angiogram CT negative. PT reports supervision for bed mobility and minimal assistance for gait 3 feet with roller walker, short steps. OT reports supervision for upper dressing and minimal assistance for lower dressing, bathing, toileting, mobility. Speech therapy prescribed. Previous functional history as elicited from patient: 82-year-old right-handed white male who is lives in second-floor apartment with steps and elevator, alone. Describes independent with own cooking, sitdown shower and gait with device, has cane, 4 wheeled walker and wheelchair. Daughter does the laundry and driving. Family history both parents with diabetes and heart disease. Review of Systems Review of systems: ENT: Denies sneezes or discharge. Eyes: Denies discharge or photophobia. Cardiac: Denies chest pain or palpitation. Pulmonary: Denies cough or shortness of breath. Gastrointestinal: Denies nausea, emesis, constipation, diarrhea. Genitourinary: Denies discharge or frequency. Musculoskeletal: Denies muscle or bone aches. Neurologic: Reports admitted with right leg weakness. But obviously confused and nursing supervising quite closely. Endocrine: Denies shakes or sweats. Oncology: Denies cancers. Dermatologic: Denies rash, itching, pruritus. ALLERGY/immunology: Denies sneezes, rashes. Past Medical History Past Medical History: Coronary Artery Disease (CAD), Diabetes Mellitus, Deep Vein Thrombosis (DVT), Hyperlipidemia, Hypertension, Prostate Disorder Additional Past Medical History / Comment(s): UTI/severe sepsis, was then discharged to [facility] on the [place] for rehab due to his weakness. 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 Past Anesthesia/Blood Transfusion Reactions: No Reported Reaction Date of Last Stent Placement:: 2011 Past Psychological History: No Psychological Hx Reported Smoking Status: Never smoker Past Alcohol Use History: None Reported Additional Past Alcohol Use History / Comment(s): Pt smoked from 0429-5413, one pack per day. Past Drug Use History: None Reported - Past Family History Father Additional Family Medical History / Comment(s): Father had heart disease. Mother Additional Family Medical History / Comment(s): Mother had heart disease. Medications and Allergies Home Medications Medication Instructions Recorded Confirmed Type Finasteride [Proscar] 5 mg PO DAILY 11/02/15 02/07/18 History Isosorbide Mononitrate ER [Imdur] 30 mg PO HS 11/02/15 02/07/18 History Nitroglycerin Sl Tabs [Nitrostat] 0.4 mg SUBLINGUAL Q5M PRN 04/03/17 02/07/18 History metFORMIN HCL [Glucophage] 500 mg PO BID 04/03/17 02/07/18 History Metoprolol Tartrate [Lopressor] 12.5 mg PO BID 11/27/17 02/07/18 History Carbidopa-Levodopa 25-100 mg 1 tab PO TID 02/07/18 02/07/18 History [Sinemet 25-100 mg] Gabapentin [Neurontin] 300 mg PO BID 02/07/18 02/07/18 History glipiZIDE [Glucotrol] 10 mg PO AC-BID 02/07/18 02/07/18 History Aspirin [Children's Aspirin] 81 mg PO BID #0 02/09/18 02/07/18 Rx Atorvastatin Calcium [Lipitor] 40 mg PO HS #30 tablet 02/09/18 Rx Famotidine [Pepcid] 20 mg PO BID #60 tab 02/09/18 Rx Naproxen [Naprosyn] 250 mg PO TID #21 tab 02/09/18 Rx Allergies Allergy/AdvReac Type Severity Reaction Status Date / Time No Known Allergies Allergy Verified 02/07/18 09:31 Physical Exam Vitals: Vital Signs Temp Pulse Resp BP Pulse Ox 02/10/18 03:34 98 F 72 18 118/65 99 02/09/18 23:39 65 18 115/61 96 02/09/18 21:16 97.6 F 69 18 97/56 95 02/09/18 12:00 60 18 128/67 97 Intake and Output 02/09/18 02/10/18 02/10/18 22:59 06:59 14:59 Intake Total 240 Balance 240 Intake: Oral 240 Other: Voiding Method Urinal Toilet Incontinent Urinal Incontinent # Voids 2 Weight 113.8 kg Skin: Atrophic, intact. General: Overweight build and comfortable appearance. Head: Normocephalic, atraumatic. Eyes: Symmetric. Pupils equal round. Ears: Symmetric. Hearing within normal limits. Mouth: Clear. Neck: Supple. Carotid without bruit. Cardiac: Regular rate and rhythm. Lungs: Clear anteriorly and posteriorly. Abdomen: Soft active nontender. Extremities: Normal tone. Neurological: Mental status: Alert, cooperative, pleasant but confused. Cranial nerves: Symmetric facial tone and trapezius. Motor: Active movement all 4 limbs. Sensation: Intact throughout. DTRs: Symmetric and equal throughout. Mobility: Sits and stands with supervision and at least standby assist due to confusion, hands-on for safety though. Results CBC & Chem 7: 02/07/18 08:48 02/07/18 08:48 Labs: Abnormal Lab Results - Last 24 Hours (Table) 02/09/18 02/09/18 02/10/18 Range/Units 16:56 20:09 05:43 POC Glucose (mg/dL) 155 H 175 H 166 H (75-99) mg/dL Assessment and Plan (1) Cerebrovascular accident Current Visit: Yes Status: Acute Code(s): I63.9 - CEREBRAL INFARCTION, UNSPECIFIED SNOMED Code(s): 835733677 (2) Facet arthritis, degenerative, L5-S1 level, lumbosacral spine Current Visit: Yes Status: Acute Code(s): M47.817 - SPONDYLS W/O MYELOPATHY OR RADICULOPATHY, LUMBOSACR REGION SNOMED Code(s): 250175691 (3) History of Parkinson's disease Current Visit: Yes Status: Acute Code(s): Z86.69 - PERSONAL HISTORY OF DIS OF THE NERVOUS SYS AND SENSE ORGANS SNOMED Code(s): 535489446 Plan: Impression: 1. Gait disturbance. 2. Right leg weakness with stroke. 3. Lumbar degenerative disc disease. 4. Parkinson. 5. Hypertension. 6. Dislocated. 7. Diabetes. 8. History of DVT. 9. Coronary artery disease. Comments and plan: At this time PT and OT are ongoing and speech therapy ordered. Nursing supervising patient room quite closely due to confusion and impulsivity. To concerns noted. Currently would require 24-hour supervision upon discharge. Must determine what discharge plan is prior to inpatient rehab.
[2018-02-10] MEDS: NAPROXEN 250 MG TAB PO SCH ×3 (11:06→20:19)
[2018-02-10 11:29] LABS: Hemoglobin A1C 8.5 % (4.0-6.0)
[2018-02-10] MEDS: METOPROLOL TARTRATE 25 MG TAB PO SCH ×2 (11:58→20:19)
[2018-02-10] MEDS: ASPIRIN 81 MG PO SCH (11:58)
[2018-02-10] MEDS: CARBIDOPA-LEVODOPA 25-100 MG 1 EACH TAB PO SCH ×3 (11:59→20:19)
[2018-02-10] MEDS: GABAPENTIN 300 MG CAP PO SCH ×2 (11:59→20:19)
[2018-02-10] MEDS: FINASTERIDE 5 MG TAB PO SCH (11:59)
[2018-02-10] MEDS: FAMOTIDINE 20 MG TAB PO SCH ×2 (11:59→20:19)
[2018-02-10 12:30] LABS: Glucose,Whole Blood 159 mg/dL (75-99)
--- NOTE | 2018-02-10 12:51 | US ---
EXAMINATION TYPE: US venous doppler duplex LE RT DATE OF EXAM: 02/10/2018 12:45 PM COMPARISON: NONE CLINICAL HISTORY: leg pain . Right leg pain. On aspirin. No hx of blood clots. No swelling. No re dness. SIDE PERFORMED: Right TECHNIQUE: The lower extremity deep venous system is examined utilizing real time linear array sonog veronique with graded compression, doppler sonography and color-flow sonography. VESSELS IMAGED: External Iliac Vein (EIV) Common Femoral Vein Deep Femoral Vein Greater Saphenous Vein * Femoral Vein Popliteal Vein Small Saphenous Vein * Proximal Calf Veins (* superficial vessels) Right Leg: Negative for DVT Grayscale, color doppler, spectral doppler imaging performed of the deep veins of the right lower ext remity. There is normal flow, compressibility, vascular waveforms. IMPRESSION: No ultrasound evidence for acute DVT in the right lower extremity.
[2018-02-10 16:25] LABS: Glucose,Whole Blood 145 mg/dL (75-99)
--- NOTE | 2018-02-10 17:16 | P.PN ---
Subjective This is a pleasant 82 years old male with past medical history of coronary artery disease, diabetes mellitus who presents because of right lower extremity weakness and tenderness. A certain point he have some episodes of slurring of speech and right-sided facial numbness. His speech back to normal and his facial numbness is improving but not resolve completely. He is been evaluated by neurologist already his MRI of the brain failed to show acute stroke. He is currently on aspirin besides his home medication for diabetes mellitus and Parkinson disease as well as pain medication. Left knee x-ray showing subtle nondisplaced fracture of the medial tibial plateau, evaluated by orthopedic team as well as for his lumbar pain and they cleared him for discharge and follow-up in the clinic in 2 weeks. Patient has recommended to undergo subacute rehab for strengthening training and therapy. Patient and daughter at bedside have low lengthy discussion with them and they are going to think about it until tomorrow. Doppler of the lower extremity showing negative for DVT Objective - Vital Signs Vital signs: Vital Signs Temp 98.2 F 02/10/18 15:40 Pulse 60 02/10/18 15:40 Resp 16 02/10/18 15:40 BP 123/67 02/10/18 15:40 Pulse Ox 97 02/10/18 15:40 Intake & Output 02/09/18 02/10/18 02/10/18 18:59 06:59 18:59 Intake Total 490 240 480 Balance 490 240 480 Weight 113.8 kg Intake: IV 10 0.9 10 Oral 480 240 480 Other: Voiding Method Urinal Toilet Toilet Incontinent Urinal Urinal Incontinent Incontinent # Voids 2 1 - Exam GENERAL: The patient is alert and oriented x3, not in any acute distress. Well developed, well nourished. HEENT: Pupils are round and equally reacting to light. EOMI. No scleral icterus. No conjunctival pallor. Normocephalic, atraumatic. No pharyngeal erythema. No thyromegaly. CARDIOVASCULAR: S1 and S2 present. No murmurs, rubs, or gallops. PULMONARY: Chest is clear to auscultation, no wheezing or crackles. ABDOMEN: Soft, nontender, nondistended, normoactive bowel sounds. No palpable organomegaly. MUSCULOSKELETAL: No joint swelling or deformity. -EXTREMITIES: No cyanosis, clubbing, or pedal edema. Mild tenderness and weakness around the right knee joint. Improvement NEUROLOGICAL: Gross neurological examination did not reveal any focal deficits. SKIN: No rashes. - Labs CBC & Chem 7: 02/07/18 08:48 02/07/18 08:48 Labs: Abnormal Lab Results - Last 24 Hours (Table) 02/09/18 02/09/18 02/10/18 Range/Units 05:35 20:09 05:43 POC Glucose (mg/dL) 175 H 166 H (75-99) mg/dL Hemoglobin A1c 8.5 H (4.0-6.0) % 02/10/18 02/10/18 Range/Units 11:50 16:06 POC Glucose (mg/dL) 159 H 145 H (75-99) mg/dL Hemoglobin A1c (4.0-6.0) % Assessment and Plan Assessment: Acute lower back pain and right lower extremity weakness, improving Slurred speech and numbness, mostly TIA. Negative MRI of the brain for stroke History of recurrent falls Lumbar facet arthropathy Right knee pain Right knee periprosthetic fracture, nondisplaced. Already evaluated by orthopedic team. History of Parkinson's disease Right facial droop and dysarthria. Resolved. Neurology is following the patient. History of essential hypertension History of diabetes mellitus. Plan: This is a pleasant 82 years old male who presents with right lower extremity weakness and pain, associated with pain and knee fracture, nondisplaced was alleviated by orthopedic team elected for discharge. Input is appreciated for possible TIA. Patient recommended to undergo subacute rehab however he refused. We have elected discussion with him and he is going to think about it until tomorrow.Labs and medication were reviewed.. Continue same treatment. Continue with symptomatic treatment. Resume home medication. Monitor lytes and vitals. DVT and GI prophylaxis. Further recommendations of the clinical course of the patient DVT prophylaxis: Subcutaneous Lovenox GI Prophylaxis: Pepcid PT/OT: Recommended subacute rehab, however patient is considering rehab versus home Prognosis is guarded
--- NOTE | 2018-02-10 19:09 | P.PN ---
Subjective Progress Note Date: 02/10/18 This patient is a 82-year-old male who is being followed for recent episode of right leg weakness. His clinical exam findings yesterday suggested possibility of TIA versus stroke. He has been seen by orthopedic spine surgery and does not require any surgical intervention for severe arthritis in his back. Patient underwent MRI of the brain yesterday which was reviewed. MRI reveals moderate to advance cerebral atrophy and chronic small vessel ischemic changes. No evidence of acute stroke. We reviewed the results of the MRI yesterday with the patient. He states he has been up and ambulating with the use of his rolling walker today at bedside. He seems to be making some improvement with his muscle strength. We reviewed the MRI results with him and should continue close monitoring of his other conditions including Parkinson's disease and diabetes mellitus. Patient otherwise seems to be stable neurologically and we will continue to follow his progress closely during this admission. Once again his MRI failed to reveal any evidence of acute stroke. Yesterday the patient had a recurrent episode of TIA. A code stroke was initiated. He was sent for a CT angiogram of the head and neck as well as a repeat computed tomography scan of the brain. CAT scan of the brain failed to reveal any evidence of acute stroke or hemorrhage. No change from previous study that was done 2017. Patient's CTA angiogram of the head and neck was also negative. The patient recovered very quickly yesterday evening. Today he is back to baseline. He was sent for a venous Doppler ultrasound of the right lower extremity which came back negative for DVT. Patient seems to be back to baseline in terms of his speech and right-sided weakness. We will continue to follow his progress closely. We did review his MRI results that was done a few days ago which failed to reveal any evidence of acute stroke. Patient apparently was evaluated for inpatient rehab but is now considering discharge to home rather than going into the rehab unit. We will await further recommendations from Dr. Gatica. The patient and his daughter going to consider rehab tomorrow. We will await further final decision. We will continue close neurological follow-up the patient during this admission. Objective - Vital Signs Vital signs: Vital Signs Temp 97.4 F L 02/10/18 08:00 Pulse 78 02/10/18 11:48 Resp 16 02/10/18 11:48 BP 123/85 02/10/18 11:30 Pulse Ox 100 02/10/18 11:30 Intake & Output 02/09/18 02/10/18 02/10/18 18:59 06:59 18:59 Intake Total 490 240 480 Balance 490 240 480 Weight 113.8 kg Intake: IV 10 0.9 10 Oral 480 240 480 Other: Voiding Method Urinal Toilet Toilet Incontinent Urinal Urinal Incontinent Incontinent # Voids 2 1 - Exam Physical examination: PHYSICAL EXAMINATION: Patient is resting comfortably in bed. VITAL SIGNS: Blood pressure is [123/67]. Heart rate is [60]. Respiration is [16] . Temperature is [98.2]. HEENT: Head is atraumatic, neck is supple, there were no carotid bruits. CHEST: Lungs are clear to auscultation and percussion. CARDIAC: S1, S2 normal rate and rhythm. There is no murmur. ABDOMEN: Soft and nontender. Bowel sounds are present. EXTREMITIES: There is no pedal edema. Peripheral pulses are present. Neurological examination: Patient's neurological examination is unchanged from yesterday. He shows no focal motor deficit on exam. - Labs CBC & Chem 7: 02/07/18 08:48 02/07/18 08:48 Labs: Abnormal Lab Results - Last 24 Hours (Table) 02/09/18 02/09/18 02/09/18 Range/Units 05:35 16:56 20:09 POC Glucose (mg/dL) 155 H 175 H (75-99) mg/dL Hemoglobin A1c 8.5 H (4.0-6.0) % 02/10/18 02/10/18 Range/Units 05:43 11:50 POC Glucose (mg/dL) 166 H 159 H (75-99) mg/dL Hemoglobin A1c (4.0-6.0) % Assessment and Plan (1) TIA involving left internal carotid artery Current Visit: Yes Status: Acute Code(s): G45.1 - CAROTID ARTERY SYNDROME ( HEMISPHERIC) SNOMED Code(s): 482881239 (2) Parkinsons disease Current Visit: Yes Status: Acute Code(s): G20 - PARKINSON'S DISEASE SNOMED Code(s): 25864510 (3) Facet arthritis, degenerative, L5-S1 level, lumbosacral spine Current Visit: Yes Status: Acute Code(s): M47.817 - SPONDYLS W/O MYELOPATHY OR RADICULOPATHY, LUMBOSACR REGION SNOMED Code(s): 848702691 (4) History of hyperlipidemia Current Visit: Yes Status: Acute Code(s): Z86.39 - PERSONAL HISTORY OF ENDO , NUTRITIONAL AND METABOLIC DISEASE SNOMED Code(s): 343910700 (5) History of hypertension Current Visit: Yes Status: Acute Code(s): Z86.79 - PERSONAL HISTORY OF OTHER DISEASES OF THE CIRCULATORY SYSTEM SNOMED Code(s): 147362396 (6) Low back pain Current Visit: Yes Status: Acute Code(s): M54.5 - LOW BACK PAIN SNOMED Code(s): 288509048 (7) Lumbar facet arthropathy Current Visit: Yes Status: Acute Code(s): M47.816 - SPONDYLOSIS W/O MYELOPATHY OR RADICULOPATHY, LUMBAR REGION SNOMED Code(s): 248099083 (8) Right knee pain Current Visit: Yes Status: Acute Code(s): M25.561 - PAIN IN RIGHT KNEE SNOMED Code(s): 72274341 Plan: This patient is a 82-year-old male who was initially admitted to Hospital for evaluation of left hemispheric TIA. Patient had a code stroke event yesterday which quickly resolved. He underwent a computed tomography scan of the brain as well as CTA angiogram of the head and neck all of which came back negative. He was not considered for any further intervention by the interventional neurologist. He has recently had an MRI of the brain which at that time failed to reveal any evidence of acute stroke. He seems to be back to baseline level of function today. He was evaluated for possible inpatient rehab but has refused. The patient and his daughter will reconsider rehab tomorrow. He is awaiting discharge to home to continue outpatient physical therapy. He underwent venous Doppler ultrasound of the right lower extremity which came back negative for DVT. Patient seems to be back to his normal baseline cognitive functioning today and has had no further setbacks. He is to continue with all of his current medications including aspirin for secondary stroke prevention. We reviewed the results of the computed tomography scan of the brain and CTA angiogram in detail today with the patient. Again no evidence for acute stroke or any other abnormality on these 2 studies. We will continue to follow his progress closely during this admission. His overall prognosis at this time remains guarded.
[2018-02-10] MEDS: ISOSORBIDE MONONITRATE ER 30 MG TAB.ER.24H PO SCH (20:19)
[2018-02-10] MEDS: ENOXAPARIN 40 MG/0.4 ML SYRINGE SQ SCH (20:19)
[2018-02-10] MEDS: ATORVASTATIN 80 MG TAB PO SCH (20:19)
[2018-02-10 21:38] LABS: Glucose,Whole Blood 178 mg/dL (75-99)
[2018-02-11 04:53] VITALS: TEMP 97.2
[2018-02-11 07:45] LABS: Glucose,Whole Blood 113 mg/dL (75-99)
[2018-02-11] MEDS: ASPIRIN 81 MG PO SCH (08:19)
[2018-02-11] MEDS: GABAPENTIN 300 MG CAP PO SCH (08:19)
[2018-02-11] MEDS: FAMOTIDINE 20 MG TAB PO SCH (08:20)
[2018-02-11] MEDS: METOPROLOL TARTRATE 25 MG TAB PO SCH (08:20)
[2018-02-11] MEDS: CARBIDOPA-LEVODOPA 25-100 MG 1 EACH TAB PO SCH (09:26)
[2018-02-11] MEDS: glipiZIDE 10 MG TAB PO SCH (09:26)
[2018-02-11] MEDS: FINASTERIDE 5 MG TAB PO SCH (09:26)
[2018-02-11] MEDS: NAPROXEN 250 MG TAB PO SCH (09:27)
[2018-02-11 10:47] LABS: Glucose,Whole Blood 159 mg/dL (75-99)
[2018-02-11 11:24] LABS: Glucose,Whole Blood 143 mg/dL (75-99)
[2018-02-11 11:44] VITALS: BP 116/71; PULSE 74; RESP 19
--- NOTE | 2018-02-11 16:19 | P.PN ---
Subjective Progress Note Date: 02/11/18 This patient is a 82-year-old male who is being followed for recent episode of right leg weakness. His clinical exam findings yesterday suggested possibility of TIA versus stroke. He has been seen by orthopedic spine surgery and does not require any surgical intervention for severe arthritis in his back. Patient underwent MRI of the brain yesterday which was reviewed. MRI reveals moderate to advance cerebral atrophy and chronic small vessel ischemic changes. No evidence of acute stroke. We reviewed the results of the MRI yesterday with the patient. He states he has been up and ambulating with the use of his rolling walker today at bedside. He seems to be making some improvement with his muscle strength. We reviewed the MRI results with him and should continue close monitoring of his other conditions including Parkinson's disease and diabetes mellitus. Patient otherwise seems to be stable neurologically and we will continue to follow his progress closely during this admission. Once again his MRI failed to reveal any evidence of acute stroke. Yesterday the patient had a recurrent episode of TIA. A code stroke was initiated. He was sent for a CT angiogram of the head and neck as well as a repeat computed tomography scan of the brain. CAT scan of the brain failed to reveal any evidence of acute stroke or hemorrhage. No change from previous study that was done 2017. Patient's CTA angiogram of the head and neck was also negative. The patient recovered very quickly yesterday evening. Today he is back to baseline. He was sent for a venous Doppler ultrasound of the right lower extremity which came back negative for DVT. Patient seems to be back to baseline in terms of his speech and right-sided weakness. We will continue to follow his progress closely. We did review his MRI results that was done a few days ago which failed to reveal any evidence of acute stroke. Patient apparently was evaluated for inpatient rehab but is now considering discharge to home rather than going into the rehab unit. We will await further recommendations from Dr. Gatica. The patient and his daughter going to consider rehab. The patient and his daughter have decided to go home today rather than to subacute rehab. They will follow-up with [facility] as outpatient. Patient may follow-up in the outpatient neurology clinic in 3-4 weeks. Case was discussed with the nursing staff today and he has been cleared for discharge home later today. We will continue close neurological follow-up the patient during this admission. Objective - Vital Signs Vital signs: Vital Signs Temp 97.2 F L 02/11/18 04:53 Pulse 74 02/11/18 11:43 Resp 19 02/11/18 11:43 BP 116/71 02/11/18 11:43 Pulse Ox 96 02/11/18 11:43 Intake & Output 02/10/18 02/11/18 02/11/18 18:59 06:59 18:59 Intake Total 480 100 Balance 480 100 Weight 115 kg Intake: Oral 480 100 Other: Voiding Method Toilet Toilet Toilet Urinal Urinal Urinal Incontinent Incontinent Incontinent # Voids 3 3 # Bowel Movements 1 - Exam Physical examination: PHYSICAL EXAMINATION: Patient is resting comfortably in bed. VITAL SIGNS: Blood pressure is [116/71]. Heart rate is [74]. Respiration is [18] . Temperature is [97.2]. HEENT: Head is atraumatic, neck is supple, there were no carotid bruits. CHEST: Lungs are clear to auscultation and percussion. CARDIAC: S1, S2 normal rate and rhythm. There is no murmur. ABDOMEN: Soft and nontender. Bowel sounds are present. EXTREMITIES: There is no pedal edema. Peripheral pulses are present. Neurological examination: Patient's neurological examination is unchanged from yesterday. He shows no focal motor deficit on exam. - Labs CBC & Chem 7: 02/07/18 08:48 02/07/18 08:48 Labs: Abnormal Lab Results - Last 24 Hours (Table) 02/10/18 02/10/18 02/11/18 Range/Units 16:06 21:36 07:33 POC Glucose (mg/dL) 145 H 178 H 113 H (75-99) mg/dL 02/11/18 02/11/18 Range/Units 10:45 11:23 POC Glucose (mg/dL) 159 H 143 H (75-99) mg/dL Assessment and Plan (1) TIA involving left internal carotid artery Current Visit: Yes Status: Acute Code(s): G45.1 - CAROTID ARTERY SYNDROME ( HEMISPHERIC) SNOMED Code(s): 381383098 (2) Parkinsons disease Current Visit: Yes Status: Acute Code(s): G20 - PARKINSON'S DISEASE SNOMED Code(s): 90901770 (3) Facet arthritis, degenerative, L5-S1 level, lumbosacral spine Current Visit: Yes Status: Acute Code(s): M47.817 - SPONDYLS W/O MYELOPATHY OR RADICULOPATHY, LUMBOSACR REGION SNOMED Code(s): 953358327 (4) History of hyperlipidemia Current Visit: Yes Status: Acute Code(s): Z86.39 - PERSONAL HISTORY OF ENDO , NUTRITIONAL AND METABOLIC DISEASE SNOMED Code(s): 161372383 (5) History of hypertension Current Visit: Yes Status: Acute Code(s): Z86.79 - PERSONAL HISTORY OF OTHER DISEASES OF THE CIRCULATORY SYSTEM SNOMED Code(s): 297567158 (6) Low back pain Current Visit: Yes Status: Acute Code(s): M54.5 - LOW BACK PAIN SNOMED Code(s): 339251502 (7) Lumbar facet arthropathy Current Visit: Yes Status: Acute Code(s): M47.816 - SPONDYLOSIS W/O MYELOPATHY OR RADICULOPATHY, LUMBAR REGION SNOMED Code(s): 194839081 (8) Right knee pain Current Visit: Yes Status: Acute Code(s): M25.561 - PAIN IN RIGHT KNEE SNOMED Code(s): 58423190 Plan: This patient is a 82-year-old male who was initially admitted to Hospital for evaluation of left hemispheric TIA. Patient had a code stroke event yesterday which quickly resolved. He underwent a computed tomography scan of the brain as well as CTA angiogram of the head and neck all of which came back negative. He was not considered for any further intervention by the interventional neurologist. He has recently had an MRI of the brain which at that time failed to reveal any evidence of acute stroke. He seems to be back to baseline level of function today. He was evaluated for possible inpatient rehab but has refused. The patient and his daughter will reconsider rehab tomorrow. He is awaiting discharge to home to continue outpatient physical therapy. He underwent venous Doppler ultrasound of the right lower extremity which came back negative for DVT. Patient seems to be back to his normal baseline cognitive functioning today and has had no further setbacks. He is to continue with all of his current medications including aspirin for secondary stroke prevention. We reviewed the results of the computed tomography scan of the brain and CTA angiogram in detail today with the patient. Again no evidence for acute stroke or any other abnormality on these 2 studies. Patient has had no further recurrence of TIA or strokelike symptoms. The patient and his daughter had a long discussion and have decided to go home with outpatient Homecare. According to the nursing staff he is going to have [facility] visit with him as outpatient. He has had no further episodes of recurrent right -sided weakness. They have decided against subacute rehab at this time. Neurologically he remained stable and should follow-up in the outpatient neurology clinic in 3-4 weeks. We will continue to follow his progress closely during this admission. His overall prognosis at this time remains guarded.
== END 2018-02-11 16:00 | disposition home health service (06) | DRG 69 ==
LOC: EC 07:51 → 3SCARD 11:38 → OBSVTOIN 11:38 → INTOOBSV 11:38 → 3SCARD 14:57 → 3NMEDONC 02-10 21:45
PROVIDERS: ADMIT Hospitalist; ATTEND Hospitalist
DX: G45.1 Carotid artery syndrome (hemispheric) (principal); M51.06 Intervertebral disc disorders with myelopathy, lumbar region; M97.11XA Periprosthetic fracture around internal prosthetic right knee joint, initial encounter; E11.9 Type 2 diabetes mellitus without complications; E78.5 Hyperlipidemia, unspecified; G20 Parkinson's disease; G83.11 Monoplegia of lower limb affecting right dominant side; G89.29 Other chronic pain; I10 Essential (primary) hypertension; I25.10 Atherosclerotic heart disease of native coronary artery without angina pectoris; I25.2 Old myocardial infarction; J32.0 Chronic maxillary sinusitis; K22.8 Other specified diseases of esophagus; M46.96 Unspecified inflammatory spondylopathy, lumbar region; M48.00 Spinal stenosis, site unspecified; M51.16 Intervertebral disc disorders with radiculopathy, lumbar region; M51.17 Intervertebral disc disorders with radiculopathy, lumbosacral region; N40.0 Benign prostatic hyperplasia without lower urinary tract symptoms; R13.10 Dysphagia, unspecified; R29.6 Repeated falls; W07.XXXA Fall from chair, initial encounter; Z79.82 Long term (current) use of aspirin; Z79.84 Long term (current) use of oral hypoglycemic drugs; Z79.899 Other long term (current) drug therapy; Z82.49 Family history of ischemic heart disease and other diseases of the circulatory system; Z83.3 Family history of diabetes mellitus; Z86.718 Personal history of other venous thrombosis and embolism; Z86.73 Personal history of transient ischemic attack (TIA), and cerebral infarction without residual deficits; Z87.891 Personal history of nicotine dependence; Z91.81 History of falling; Z95.1 Presence of aortocoronary bypass graft; Z95.5 Presence of coronary angioplasty implant and graft
CPT/HCPCS: 36415; 70450; 70496; 70498; 70551; 71046; 72110; 72131; 80053; 80061; 81003; 82550; 82553; 83036; 84484; 85025; 85610; 85730; 93005; 93306; 94760; 96360; 99285

== ENCOUNTER 2018-03-09 00:25 | Emergency (ER) | payer MEDICARE, OTHER ==
--- NOTE | 2018-03-09 01:28 | XR ---
EXAMINATION TYPE: XR knee complete RT DATE OF EXAM: 03/09/2018 COMPARISON: 02/08/2018 HISTORY: Fall. Right knee pain TECHNIQUE: 3 views FINDINGS: There is a right knee prosthesis. Components appear in anatomic position. I see no fracture . IMPRESSION: No fracture seen. No change seen compared to last exam.
[2018-03-09] MEDS ORDERED: SODIUM CHLORIDE 0.9% 500 ML 500 ML IV STA (01:49)
[2018-03-09] MEDS ORDERED: ACETAMINOPHEN TAB 325 MG TAB PO STA (01:50)
[2018-03-09 02:33] LABS: Basophils # (A) 0.1 k/uL (0-0.2); Basophils % (A) 1 %; Eosinophils # (A) 0.4 k/uL (0-0.7); Eosinophils % (A) 5 %; HCT 43.7 % (39.0-53.0); HGB 14.6 gm/dL (13.0-17.5); Lymphocytes # (A) 1.8 k/uL (1.0-4.8); Lymphocytes % (A) 26 %; MCH 29.4 pg (25.0-35.0); MCHC 33.4 g/dL (31.0-37.0); MCV 87.8 fL (80.0-100.0); Mean Platelet Volume 7.9; Monocytes # (A) 0.6 k/uL (0-1.0); Monocytes % (A) 8 %; Neutrophils # (A) 3.9 k/uL (1.3-7.7); Neutrophils % (A) 57 %; Platelet Count 157 k/uL (150-450); RBC 4.97 m/uL (4.30-5.90); RDW 13.6 % (11.5-15.5); WBC 6.8 k/uL (3.8-10.6)
[2018-03-09 02:37] LABS: Albumin 3.5 g/dL (3.5-5.0); Calcium 8.9 mg/dL (8.4-10.2); Potassium 4.4 mmol/L (3.5-5.1); Total Bilirubin 0.5 mg/dL (0.2-1.3); Total Protein 6.3 g/dL (6.3-8.2)
[2018-03-09 02:38] LABS: Partial Thromboplastin Time 23.6 sec (22.0-30.0); Prothrombin Time 10.4 sec (9.0-12.0)
[2018-03-09 02:41] LABS: Creatine Kinase 57 U/L (55-170)
--- NOTE | 2018-03-09 02:46 | XR ---
EXAMINATION TYPE: XR chest 1V DATE OF EXAM: 03/09/2018 COMPARISON: 02/07/2018 HISTORY: Weakness TECHNIQUE: Single frontal view of the chest is obtained. FINDINGS: Heart and mediastinum are normal. Lungs are clear. Diaphragm is normal. There are sternal wires. Bony thorax appears intact. IMPRESSION: Normal chest. No change.
--- NOTE | 2018-03-09 02:48 | CT ---
EXAMINATION TYPE: CT brain wo con DATE OF EXAM: 03/09/2018 COMPARISON: 02/09/2018 HISTORY: Weakness, ams CT DLP: 1109.40 mGycm Automated exposure control for dose reduction was used. FINDINGS: There is cerebral cortical atrophy. There is no mass effect nor midline shift. There is no sign of in tracranial hemorrhage. The calvarium is intact. There is mild mucosal thickening left maxillary sinus . There is debris in the external auditory canals. IMPRESSION: CEREBRAL ATROPHY. NO ACUTE INTRACRANIAL ABNORMALITY. NO CHANGE.
[2018-03-09 02:49] LABS: Appearance,Urine Clear (Clear); Bilirubin,Urine Negative (Negative); Blood,Urine Negative (Negative); Color,Urine Light Yellow; Glucose,Urine (UA) 4+ (Negative); Ketones,Urine Negative (Negative); Leukocyte Esterase,Urine Negative (Negative); Nitrite,Urine Negative (Negative); Protein,Urine Negative (Negative); Specific Gravity,Urine 1.012 (1.001-1.035); Urobilinogen,Urine <2.0 mg/dL (<2.0)
[2018-03-09 02:54] LABS: Creatine Kinase MB 1.8 ng/mL (0.0-2.4); Troponin I <0.012 ng/mL (0.000-0.034)
[2018-03-09 04:08] VITALS: RESP 18
--- NOTE | 2018-03-09 04:27 | ED ---
General Adult HPI - General Chief complaint: Extremity Injury, Lower Stated complaint: KNEE PAIN Time Seen by Provider: 03/09/18 00:32 Source: EMS Mode of arrival: EMS Limitations: no limitations - History of Present Illness Initial comments: 82-year-old male patient presents to the emergency department today for evaluation of weakness to the right leg. Patient states that he feels like his right leg will not hold him. States that his knee keeps giving out on him. Patient states usually walks with a walker was having difficulty last night and into today. Patient is also reporting weakness in the right arm with altered sensation. States he also has a frontal headache. States he was having some blurred vision over the last couple of days as well. States it seems like the blurred vision is bilateral. Patient states that he was recently diagnosed with TIA at an admission in January. He denies any fever or chills. Denies any chest pain, shortness of breath, nausea, vomiting, constipation, or diarrhea. Denies any new medications. States at time of discharge with his last admission he did follow-up with neurology, he believes it was Dr. Ballesteros. Patient denies any recent rash, fever, chills, abdominal pain, back pain, dizziness, hematuria, dysuria, urinary urgency, urinary frequency, or any other complaints. - Related Data Home Medications Medication Instructions Recorded Confirmed Finasteride [Proscar] 5 mg PO DAILY 11/02/15 03/09/18 Isosorbide Mononitrate ER [Imdur] 30 mg PO HS 11/02/15 03/09/18 Nitroglycerin Sl Tabs [Nitrostat] 0.4 mg SUBLINGUAL Q5M PRN 04/03/17 03/09/18 metFORMIN HCL [Glucophage] 500 mg PO BID 04/03/17 03/09/18 Metoprolol Tartrate [Lopressor] 12.5 mg PO BID 11/27/17 03/09/18 Carbidopa-Levodopa 25-100 mg 1 tab PO TID 02/07/18 03/09/18 [Sinemet 25-100 mg] Gabapentin [Neurontin] 300 mg PO BID 02/07/18 03/09/18 glipiZIDE [Glucotrol] 10 mg PO AC-BID 02/07/18 03/09/18 Previous Rx's Medication Instructions Recorded Atorvastatin Calcium [Lipitor] 40 mg PO HS #30 tablet 12/25/18 Famotidine [Pepcid] 20 mg PO BID #60 tab 02/09/18 Naproxen [Naprosyn] 250 mg PO TID #21 tab 02/09/18 Aspirin 162 mg PO DAILY #60 chewable 02/11/18 Allergies Allergy/AdvReac Type Severity Reaction Status Date / Time No Known Allergies Allergy Verified 03/09/18 00:30 Review of Systems ROS Statement: Those systems with pertinent positive or pertinent negative responses have been documented in the HPI. ROS Other: All systems not noted in ROS Statement are negative. Past Medical History Past Medical History: Coronary Artery Disease (CAD), Diabetes Mellitus, Deep Vein Thrombosis (DVT), Hyperlipidemia, Hypertension, Prostate Disorder Additional Past Medical History / Comment(s): UTI/severe sepsis, was then discharged to [facility] on the [place] for rehab due to his weakness. 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 Past Anesthesia/Blood Transfusion Reactions: No Reported Reaction Date of Last Stent Placement:: 2011 Past Psychological History: No Psychological Hx Reported Smoking Status: Never smoker Past Alcohol Use History: None Reported Past Drug Use History: None Reported - Past Family History Father Additional Family Medical History / Comment(s): Father had heart disease. Mother Additional Family Medical History / Comment(s): Mother had heart disease. General Exam Limitations: no limitations General appearance: alert, in no apparent distress, other (Physical well- developed, well-nourished elderly male patient in no acute distress. Vital signs upon presentation are temperature 97.9F, pulse 71, respirations 20, blood pressure 147/80, pulse ox 98% on room air.) Eye exam: Present: normal appearance, PERRL, EOMI. Absent: scleral icterus, conjunctival injection, nystagmus, periorbital swelling ENT exam: Present: normal exam, normal oropharynx, mucous membranes moist Respiratory exam: Present: normal lung sounds bilaterally. Absent: respiratory distress, wheezes, rales, rhonchi, stridor Cardiovascular Exam: Present: regular rate, normal rhythm, normal heart sounds. Absent: systolic murmur, diastolic murmur, rubs, gallop, clicks GI/Abdominal exam: Present: soft, normal bowel sounds. Absent: distended, tenderness, guarding, rebound, rigid Extremities exam: Present: normal inspection, full ROM, normal capillary refill. Absent: tenderness, pedal edema, joint swelling, calf tenderness Neurological exam: Present: alert, oriented X3, CN II-XII intact Expanded Speech: Present: fluid speech Cranial nerves: EOM's Intact: Normal, Tongue Deviation: Normal, Nystagmus: Normal, Facial Sensation: Normal Sensory exam: Upper Extremity Light Touch: Abnormal Right, Upper Extremity Pin Prick: Abnormal Right, Lower Extremity Light Touch: Abnormal Right, Lower Extremity Pin Prick: Abnormal Right Motor strength exam: RUE: 3, LUE: 3, RLE: 2/1, LLE: 4 Psychiatric exam: Present: normal affect, normal mood Skin exam: Present: warm, dry, intact, normal color. Absent: rash Course Vital Signs 03/09/18 03/09/18 00:26 04:00 Temperature 97.9 F Pulse Rate 71 65 Respiratory 20 18 Rate Blood Pressure 147/80 148/77 O2 Sat by Pulse 98 98 Oximetry EKG Findings - EKG Comments: EKG Findings:: EKG obtained at 03 59 shows sinus bradycardia with a ventricular rate of 59, [place] interval 178, QRS duration 80, QTc 454, QTC 449. No evidence of ST elevation or depression. Medical Decision Making - Medical Decision Making 82-year-old male patient presents to the emergency department today for evaluation of right leg weakness and diminished sensation to the right arm and leg. Patient also reported headache and blurred vision. Labs reviewed and are unremarkable. CT brain was negative for any acute findings. Chest x-ray showed no acute cardio pulmonary process. X-ray of the right knee was negative for any acute abnormalities. NIHSS score: 4. Reevaluation patient is still reporting similar symptoms. My attending Dr. Marie did discuss the case with Dr. Alegria who covers for Dr. Guerrero. Dr. Alegria requested transfer to [facility] for neurology evaluation. Did discuss findings, results, and plan with the patient, he is agreeable. - Lab Data Result diagrams: 03/09/18 02:12 03/09/18 02:12 Lab Results 03/09/18 03/09/18 03/09/18 Range/Units 02:12 02:12 02:12 WBC 6.8 (3.8-10.6) k/uL RBC 4.97 (4.30-5.90) m/uL Hgb 14.6 (13.0-17.5) gm/dL Hct 43.7 (39.0-53.0) % MCV 87.8 (80.0-100.0) fL MCH 29.4 (25.0-35.0) pg MCHC 33.4 (31.0-37.0) g/dL RDW 13.6 (11.5-15.5) % Plt Count 157 (150-450) k/uL Neutrophils % 57 % Lymphocytes % 26 % Monocytes % 8 % Eosinophils % 5 % Basophils % 1 % Neutrophils # 3.9 (1.3-7.7) k/uL Lymphocytes # 1.8 (1.0-4.8) k/uL Monocytes # 0.6 (0-1.0) k/uL Eosinophils # 0.4 (0-0.7) k/uL Basophils # 0.1 (0-0.2) k/uL PT (9.0-12.0) sec INR (<1.2) APTT (22.0-30.0) sec Sodium 138 (137-145) mmol/L Potassium 4.4 (3.5-5.1) mmol/L Chloride 107 (98-107) mmol/L Carbon Dioxide 25 (22-30) mmol/L Anion Gap 6 mmol/L BUN 23 H (9-20) mg/dL Creatinine 0.91 (0.66-1.25) mg/dL Est GFR (CKD-EPI)AfAm 90 (>60 ml/min/1.73 sqM) Est GFR (CKD-EPI)NonAf 78 (>60 ml/min/1.73 sqM) Glucose 165 H (74-99) mg/dL Calcium 8.9 (8.4-10.2) mg/dL Total Bilirubin 0.5 (0.2-1.3) mg/dL AST 30 (17-59) U/L ALT 36 (21-72) U/L Alkaline Phosphatase 141 H (38-126) U/L Total Creatine Kinase 57 (55-170) U/L CK-MB (CK-2) 1.8 (0.0-2.4) ng/mL CK-MB (CK-2) Rel Index 3.2 Troponin I <0.012 (0.000-0.034) ng/mL Total Protein 6.3 (6.3-8.2) g/dL Albumin 3.5 (3.5-5.0) g/dL Urine Color Urine Appearance (Clear) Urine pH (5.0-8.0) Ur Specific [place] (1.001-1.035) Urine Protein (Negative) Urine Glucose (UA) (Negative) Urine Ketones (Negative) Urine Blood (Negative) Urine Nitrite (Negative) Urine Bilirubin (Negative) Urine Urobilinogen (<2.0) mg/dL Ur Leukocyte Esterase (Negative) 03/09/18 03/09/18 Range/Units 02:12 02:12 WBC (3.8-10.6) k/uL RBC (4.30-5.90) m/uL Hgb (13.0-17.5) gm/dL Hct (39.0-53.0) % MCV (80.0-100.0) fL MCH (25.0-35.0) pg MCHC (31.0-37.0) g/dL RDW (11.5-15.5) % Plt Count (150-450) k/uL Neutrophils % % Lymphocytes % % Monocytes % % Eosinophils % % Basophils % % Neutrophils # (1.3-7.7) k/uL Lymphocytes # (1.0-4.8) k/uL Monocytes # (0-1.0) k/uL Eosinophils # (0-0.7) k/uL Basophils # (0-0.2) k/uL PT 10.4 (9.0-12.0) sec INR 1.0 (<1.2) APTT 23.6 (22.0-30.0) sec Sodium (137-145) mmol/L Potassium (3.5-5.1) mmol/L Chloride (98-107) mmol/L Carbon Dioxide (22-30) mmol/L Anion Gap mmol/L BUN (9-20) mg/dL Creatinine (0.66-1.25) mg/dL Est GFR (CKD-EPI)AfAm (>60 ml/min/1.73 sqM) Est GFR (CKD-EPI)NonAf (>60 ml/min/1.73 sqM) Glucose (74-99) mg/dL Calcium (8.4-10.2) mg/dL Total Bilirubin (0.2-1.3) mg/dL AST (17-59) U/L ALT (21-72) U/L Alkaline Phosphatase (38-126) U/L Total Creatine Kinase (55-170) U/L CK-MB (CK-2) (0.0-2.4) ng/mL CK-MB (CK-2) Rel Index Troponin I (0.000-0.034) ng/mL Total Protein (6.3-8.2) g/dL Albumin (3.5-5.0) g/dL Urine Color Light Yellow Urine Appearance Clear (Clear) Urine pH 6.0 (5.0-8.0) Ur Specific [place] 1.012 (1.001-1.035) Urine Protein Negative (Negative) Urine Glucose (UA) 4+ H (Negative) Urine Ketones Negative (Negative) Urine Blood Negative (Negative) Urine Nitrite Negative (Negative) Urine Bilirubin Negative (Negative) Urine Urobilinogen <2.0 (<2.0) mg/dL Ur Leukocyte Esterase Negative (Negative) - Radiology Data Radiology results: report reviewed, image reviewed CT brain without contrast was performed. Report was reviewed in its entirety. Impression by Dr. Traylor shows cerebral atrophy. No acute intracranial on the mouth. No change. One view x-ray of the chest is obtained. Report was reviewed in its entirety. Impression by Dr. Traylor shows normal chest with no change. 3 views of the right knee are obtained. Report was reviewed in its entirety. Impression by Dr. Traylor shows no fracture seen. No change seen compared to last exam. Disposition Clinical Impression: CVA (cerebral vascular accident) Disposition: OTHER INSTITUTION NOT DEFINED Condition: Serious Referrals: Aldo Guerrero MD [Primary Care Provider] - 1-2 days - Out of Hospital Transfer - Req. Specs Out of Hospital Transfer - Requested Specifics: Other Emergency Center ([facility])
[2018-03-09 05:38] VITALS: BP 168/79; PULSE 78; TEMP 98.2
== END 2018-03-09 05:40 | disposition other institution (70) ==
LOC: EC 00:25
DX: I63.9 Cerebral infarction, unspecified (principal); R29.704 NIHSS score 4; I25.10 Atherosclerotic heart disease of native coronary artery without angina pectoris; E11.9 Type 2 diabetes mellitus without complications; I10 Essential (primary) hypertension; G40.909 Epilepsy, unspecified, not intractable, without status epilepticus; G20 Parkinson's disease; N42.9 Disorder of prostate, unspecified; Z95.1 Presence of aortocoronary bypass graft; Z95.5 Presence of coronary angioplasty implant and graft; Z95.810 Presence of automatic (implantable) cardiac defibrillator; Z96.651 Presence of right artificial knee joint; Z79.84 Long term (current) use of oral hypoglycemic drugs; Z79.899 Other long term (current) drug therapy
CPT/HCPCS: 36415; 70450; 71045; 80053; 81003; 82550; 82553; 84484; 85025; 85610; 85730; 93005; 96360; 96361; 99285

== ENCOUNTER 2018-05-25 00:43 | Emergency (ER) | payer MEDICARE, OTHER ==
[2018-05-25 01:02] VITALS: TEMP 97.6
[2018-05-25] MEDS ORDERED: SODIUM CHLORIDE 0.9% 1,000 ML IV STA (02:24)
[2018-05-25] MEDS ORDERED: ASPIRIN 325 MG TAB PO STA (02:26)
[2018-05-25 03:41] LABS: Basophils % (A) 1 %; Eosinophils # (A) 0.3 k/uL (0-0.7); Eosinophils % (A) 4 %; HCT 42.2 % (39.0-53.0); HGB 14.2 gm/dL (13.0-17.5); Lymphocytes # (A) 1.8 k/uL (1.0-4.8); Lymphocytes % (A) 25 %; MCH 29.2 pg (25.0-35.0); MCHC 33.7 g/dL (31.0-37.0); MCV 86.8 fL (80.0-100.0); Mean Platelet Volume 8.4; Monocytes # (A) 0.6 k/uL (0-1.0); Monocytes % (A) 8 %; Neutrophils # (A) 4.2 k/uL (1.3-7.7); Neutrophils % (A) 60 %; Platelet Count 171 k/uL (150-450); RBC 4.86 m/uL (4.30-5.90)
[2018-05-25] MEDS ORDERED: methylPREDNISolone SOD SUCCI 125 MG/2 ML VIAL IV STA (04:02)
[2018-05-25] MEDS ORDERED: diphenhydrAMINE 50 MG/ML 1 ML VIAL IVP STA (04:02)
[2018-05-25 04:16] LABS: ALT 17 U/L (21-72); AST 27 U/L (17-59); Albumin 3.1 g/dL (3.5-5.0); Alkaline Phosphatase 91 U/L (38-126); Anion Gap 8 mmol/L; Blood Urea Nitrogen 15 mg/dL (9-20); Calcium 8.9 mg/dL (8.4-10.2); Carbon Dioxide 22 mmol/L (22-30); Chloride 108 mmol/L (98-107); Glucose 198 mg/dL (74-99); Sodium 138 mmol/L (137-145); Total Bilirubin 0.8 mg/dL (0.2-1.3); Total Protein 5.8 g/dL (6.3-8.2)
--- NOTE | 2018-05-25 04:31 | ED ---
Headache HPI - General Chief Complaint: Headache Stated Complaint: Headache Time Seen by Provider: 05/25/18 01:17 Source: RN notes reviewed, old records reviewed Mode of arrival: EMS Limitations: no limitations - History of Present Illness Initial Comments: Patient is an 82-year-old male who presents emergency department today with a transient right-sided headache. The symptoms started this evening. Patient has had no fevers or chills. He states that occasionally has had some changes with position and been blurry and double vision. He states that the symptoms resolved upon arriving to the ED. Patient denies any chest pain or shortness of breath this time. He denies any nausea or vomiting. - Related Data Home Medications Medication Instructions Recorded Confirmed Finasteride [Proscar] 5 mg PO DAILY 11/02/15 03/09/18 Isosorbide Mononitrate ER [Imdur] 30 mg PO HS 11/02/15 03/09/18 Nitroglycerin Sl Tabs [Nitrostat] 0.4 mg SUBLINGUAL Q5M PRN 04/03/17 03/09/18 metFORMIN HCL [Glucophage] 500 mg PO BID 04/03/17 03/09/18 Metoprolol Tartrate [Lopressor] 12.5 mg PO BID 11/27/17 03/09/18 Carbidopa-Levodopa 25-100 mg 1 tab PO TID 02/07/18 03/09/18 [Sinemet 25-100 mg] Gabapentin [Neurontin] 300 mg PO BID 02/07/18 03/09/18 glipiZIDE [Glucotrol] 10 mg PO AC-BID 02/07/18 03/09/18 Previous Rx's Medication Instructions Recorded Atorvastatin Calcium [Lipitor] 40 mg PO HS #30 tablet 02/09/18 Famotidine [Pepcid] 20 mg PO BID #60 tab 02/09/18 Naproxen [Naprosyn] 250 mg PO TID #21 tab 02/09/18 Aspirin 162 mg PO DAILY #60 chewable 02/11/18 Allergies Allergy/AdvReac Type Severity Reaction Status Date / Time No Known Allergies Allergy Verified 03/09/18 00:30 Review of Systems ROS Statement: Those systems with pertinent positive or pertinent negative responses have been documented in the HPI. ROS Other: All systems not noted in ROS Statement are negative. Past Medical History Past Medical History: Coronary Artery Disease (CAD), Diabetes Mellitus, Deep Vein Thrombosis (DVT), Hyperlipidemia, Hypertension, Prostate Disorder Additional Past Medical History / Comment(s): UTI/severe sepsis, was then discharged to [facility] on the [place] for rehab due to his weakness. 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 Past Anesthesia/Blood Transfusion Reactions: No Reported Reaction Date of Last Stent Placement:: 2011 Past Psychological History: No Psychological Hx Reported Smoking Status: Never smoker Past Alcohol Use History: None Reported Past Drug Use History: None Reported - Past Family History Father Additional Family Medical History / Comment(s): Father had heart disease. Mother Additional Family Medical History / Comment(s): Mother had heart disease. General Exam - General Exam Comments Initial Comments: This is a 82-year-old male. Alert and oriented 3. Appears in no distress on examination. Limitations: no limitations General appearance: alert, in no apparent distress Head exam: Present: atraumatic, normocephalic, normal inspection Eye exam: Present: normal appearance, PERRL, EOMI. Absent: scleral icterus, conjunctival injection, periorbital swelling ENT exam: Present: normal exam, normal oropharynx, mucous membranes moist, TM's normal bilaterally Neck exam: Present: normal inspection. Absent: tenderness, meningismus, lymphadenopathy Respiratory exam: Present: normal lung sounds bilaterally. Absent: respiratory distress, wheezes, rales, rhonchi, stridor Cardiovascular Exam: Present: regular rate, normal rhythm, normal heart sounds. Absent: systolic murmur, diastolic murmur, rubs, gallop, clicks GI/Abdominal exam: Present: soft, normal bowel sounds. Absent: distended, tenderness, guarding, rebound, rigid Extremities exam: Present: normal inspection, full ROM, normal capillary refill. Absent: tenderness, pedal edema, joint swelling, calf tenderness Back exam: Present: normal inspection Neurological exam: Present: alert, oriented X3, CN II-XII intact Expanded Patient oriented to: Present: person, place, time Speech: Present: fluid speech Cranial nerves: EOM's Intact: Normal Cerebellar function: Finger to Nose: Normal Upper motor neuron: Pronator Drift: Normal Sensory exam: Upper Extremity Light Touch: Normal, Lower Extremity Light Touch: Normal Motor strength exam: RUE: 5, LUE: 5, RLE: 5, LLE: 5 Eye Response: (4) open spontaneously Motor Response: (6) obeys commands Verbal Response: (5) oriented Donald Total: 15 Psychiatric exam: Present: normal affect Skin exam: Present: warm, dry, intact, normal color. Absent: rash Course Vital Signs 05/25/18 05/25/18 00:55 05:02 Temperature 97.6 F Pulse Rate 59 L 68 Respiratory 16 16 Rate Blood Pressure 131/90 143/71 O2 Sat by Pulse 95 97 Oximetry - Reevaluation(s) Reevaluation #1: 05/25/18 04:32 Patient is reevaluated this time after nurse come into the room. Patient seemed to have acute unresponsive episode. He would not respond to verbal commands. Patient had left upper extremity shaking. Pupils are equal and reactive. Symptoms lasted approximately 2 minutes. The Patient was re-aroused and alert and oriented. 05/25/18 04:32 05/25/18 05:28 Medical Decision Making - Medical Decision Making Patient has history of CAD, diabetes, hyperlipidemia and hypertension and prostate disorder. History of coronary bypass. Presents to the emergency department stay with a right-sided headache. It was transient. He reports he was also having some episodes of dizziness and bilateral vision loss for short period of time when symptoms occur. Upon arrival to the ER Patient appeared clinically well. No neurological deficits. When I discussed the concerns for the Patient having symptoms caused by TIA, Patient was a difficult IV start, after multiple attempts IV was established and was sent to CT. When Patient was receiving pre medications for IV contrast With the nurse was in evaluating Patient and he had 2 episodes of unresponsiveness. Patient was staring off in space and not responding to questions asked. At some left upper extremity shaking at that time as well. After symptoms occurred for 2 minutes it would resolve and talk is a normally had been. Patient's family member was there to witness the first one. He's never had this happen before. Patient CT of the brain and angiogram negative for any acute process. Patient has chest x-ray shows no acute changes. EKG was normal. Blood work was otherwise unremarkable including troponin. Patient informed the concerns for symptoms could be from some focal seizures as well. Patient was reevaluated and continued when some headache, will give patient 15mg IV toradol. I discussed case with Dr Walters at [facility] whom agrees to admit the Patient for transfer for neuro evaluation. - Lab Data Result diagrams: 05/25/18 03:15 05/25/18 03:15 Lab Results 05/25/18 05/25/18 05/25/18 Range/Units 03:15 03:15 03:15 WBC 7.0 (3.8-10.6) k/uL RBC 4.86 (4.30-5.90) m/uL Hgb 14.2 (13.0-17.5) gm/dL Hct 42.2 (39.0-53.0) % MCV 86.8 (80.0-100.0) fL MCH 29.2 (25.0-35.0) pg MCHC 33.7 (31.0-37.0) g/dL RDW 14.0 (11.5-15.5) % Plt Count 171 (150-450) k/uL Neutrophils % 60 % Lymphocytes % 25 % Monocytes % 8 % Eosinophils % 4 % Basophils % 1 % Neutrophils # 4.2 (1.3-7.7) k/uL Lymphocytes # 1.8 (1.0-4.8) k/uL Monocytes # 0.6 (0-1.0) k/uL Eosinophils # 0.3 (0-0.7) k/uL Basophils # 0.0 (0-0.2) k/uL Sodium 138 (137-145) mmol/L Potassium 5.2 H (3.5-5.1) mmol/L Chloride 108 H (98-107) mmol/L Carbon Dioxide 22 (22-30) mmol/L Anion Gap 8 mmol/L BUN 15 (9-20) mg/dL Creatinine 0.73 (0.66-1.25) mg/dL Est GFR (CKD-EPI)AfAm >90 (>60 ml/min/1.73 sqM) Est GFR (CKD-EPI)NonAf 86 (>60 ml/min/1.73 sqM) Glucose 198 H (74-99) mg/dL Calcium 8.9 (8.4-10.2) mg/dL Total Bilirubin 0.8 (0.2-1.3) mg/dL AST 27 (17-59) U/L ALT 17 L (21-72) U/L Alkaline Phosphatase 91 (38-126) U/L Troponin I <0.012 (0.000-0.034) ng/mL Total Protein 5.8 L (6.3-8.2) g/dL Albumin 3.1 L (3.5-5.0) g/dL 05/25/18 04:33 EKG shows normal sinus rhythm normal EKG. Ventricular rate is 63 beats were minute. Pulse 202 ms. QS duration 82 ms. QT QTc is 438/448 ms. - Radiology Data Radiology results: report reviewed Normal neck CTA noted. Normal head CT. Chest x-ray shows bilateral pleural effusions. CT of the brain is negative for any acute findings. Disposition Clinical Impression: Headache, History of diabetes mellitus, Unresponsive episode, History of h ypertension, History of hyperlipidemia Disposition: DC/TRNS INTERMEDIATE CARE FAC Condition: Stable Referrals: Aldo Guerrero MD [Primary Care Provider] - 1-2 days Time of Disposition: 05:36 - Out of Hospital Transfer - Req. Specs Out of Hospital Transfer - Requested Specifics: Other Emergency Center ([facility])
[2018-05-25 04:43] LABS: Potassium 5.2 mmol/L (3.5-5.1)
--- NOTE | 2018-05-25 05:01 | CT ---
EXAM: CT Head Without Intravenous Contrast CLINICAL HISTORY: ITS.REASON CT Reason: Neuro Deficits TECHNIQUE: Axial computed tomography images of the head/brain without intravenous contrast. [id number] exam was performed using one or more of the following dose reduction techniques: automated exposure control, adjustment of the mA and/or kV according to patient size, and/or use of iterative reconstruction technique. COMPARISON: No relevant prior studies available. FINDINGS: Brain: No hemorrhage. No edema. Ventricles: Unremarkable. No ventriculomegaly. Bones/joints: No acute fracture. Soft tissues: Unremarkable. Sinuses: No fluid levels. Mastoid air cells: Unremarkable as visualized. No mastoid effusion. IMPRESSION: No acute intracranial findings
--- NOTE | 2018-05-25 05:02 | XR ---
EXAM: XR Chest, 2 Views CLINICAL HISTORY: ITS.REASON XR Reason: altered mental status TECHNIQUE: Frontal and lateral views of the chest. COMPARISON: No relevant prior studies available. FINDINGS: Lungs: Unremarkable. No consolidation. Pleural space: Bilateral pleural effusions. No pneumothorax. Heart: Unremarkable. No cardiomegaly. Mediastinum: Unremarkable. Bones/joints: No acute fracture. IMPRESSION: Bilateral pleural effusions.
--- NOTE | 2018-05-25 05:10 | CT ---
EXAM: CT Angiography Head Without And With Intravenous Contrast CLINICAL HISTORY: ITS.REASON CT Reason: Pain TECHNIQUE: Axial computed tomographic angiography images of the head without and with intravenous contrast using CT angiography protocol. [id number] exam was performed using one or more of the following dose reduction techniques: automated exposure control, adjustment of the mA and/or kV according to patient size, and/or use of iterative reconstruction technique. 3D reconstructed images were created and reviewed. COMPARISON: No relevant prior studies available. FINDINGS: VASCULATURE: Right internal carotid artery: No suspicious findings. Intracranial segment is patent with no significant stenosis. No aneurysm. Right anterior cerebral artery: Unremarkable. No occlusion or significant stenosis. No aneurysm. Right middle cerebral artery: Unremarkable. No occlusion or significant stenosis. No aneurysm. Right posterior cerebral artery: Unremarkable. No occlusion or significant stenosis. No aneurysm. Right vertebral artery: Unremarkable as visualized. Left internal carotid artery: No suspicious findings. Intracranial segment is patent with no significant stenosis. No aneurysm. Left anterior cerebral artery: Unremarkable. No occlusion or significant stenosis. No aneurysm. Left middle cerebral artery: Unremarkable. No occlusion or significant stenosis. No aneurysm. Left posterior cerebral artery: Unremarkable. No occlusion or significant stenosis. No aneurysm. Left vertebral artery: Unremarkable as visualized. Basilar artery: Unremarkable. No occlusion or significant stenosis. No aneurysm. HEAD: Brain: No suspicious findings. No hemorrhage. No edema. Normal enhancement. Ventricles: Unremarkable. No ventriculomegaly. Bones/joints: No acute fracture. Soft tissues: Unremarkable. Sinuses: Unremarkable as visualized. No acute sinusitis. Mastoid air cells: Unremarkable as visualized. No mastoid effusion. IMPRESSION: Normal head CTA. EXAM: CT Angiography Neck Without And With Intravenous Contrast CLINICAL HISTORY: ITS.REASON CT Reason: Pain TECHNIQUE: Axial computed tomographic angiography images of the neck without and with intravenous contrast using CT angiography protocol. This CT exam was performed using one or more of the following dose reduction techniques: automated exposure control, adjustment of the mA and/or kV according to patient size, and/or use of iterative reconstruction technique. 3D reconstructed images were created and reviewed. COMPARISON: No relevant prior studies available. FINDINGS: VASCULATURE: Right common carotid artery: Unremarkable. No significant stenosis. No dissection or occlusion. Right internal carotid artery: Unremarkable. Extracranial segment is patent with no significant stenosis. No dissection or occlusion. Right external carotid artery: Unremarkable. No occlusion. Right vertebral artery: Unremarkable. No significant stenosis. No dissection or occlusion. Left common carotid artery: Unremarkable. No significant stenosis. No dissection or occlusion. Left internal carotid artery: Unremarkable. Extracranial segment is patent with no significant stenosis. No dissection or occlusion. Left external carotid artery: Unremarkable. No occlusion. Left vertebral artery: Unremarkable. No significant stenosis. No dissection or occlusion. NECK: Bones/joints: No acute fracture. No dislocation. Soft tissues: Unremarkable as visualized. No mass. CAROTID STENOSIS REFERENCE USING NASCET CRITERIA: % ICA stenosis = (1 - narrowest ICA diameter/diameter of distal cervical ICA) x 100. Mild - <50% stenosis. Moderate - 50-69% stenosis. Severe - 70-94% stenosis. Near occlusion - 95-99% stenosis. Occluded - 100% stenosis. IMPRESSION: Normal neck CTA.
[2018-05-25] MEDS ORDERED: KETOROLAC 30 MG/ML 1 ML VIAL IVP STA (05:35)
[2018-05-25 06:16] VITALS: BP 148/71; PULSE 69; RESP 18
== END 2018-05-25 06:13 ==
LOC: EC 00:43
DX: R51 Headache (principal); R40.20 Unspecified coma; H53.2 Diplopia; H53.8 Other visual disturbances; H53.123 Transient visual loss, bilateral; R42 Dizziness and giddiness; I25.10 Atherosclerotic heart disease of native coronary artery without angina pectoris; E11.9 Type 2 diabetes mellitus without complications; I10 Essential (primary) hypertension; G40.909 Epilepsy, unspecified, not intractable, without status epilepticus; I25.2 Old myocardial infarction; G20 Parkinson's disease; Z86.718 Personal history of other venous thrombosis and embolism; Z95.1 Presence of aortocoronary bypass graft; Z98.61 Coronary angioplasty status; Z96.651 Presence of right artificial knee joint; Z98.890 Other specified postprocedural states; Z79.84 Long term (current) use of oral hypoglycemic drugs; Z79.899 Other long term (current) drug therapy
CPT/HCPCS: 36415; 93005; 80053; 84484; 85025; 71046; 70496; 70450; 70498; 99285; 96374; 96375; 96361 ×2; J1200; J2930; Q9967

== ENCOUNTER 2018-07-14 08:41 | Inpatient (IN) | payer MEDICARE, OTHER ==
[2018-07-14] MEDS ORDERED: SODIUM CHLORIDE 0.9% 500 ML 500 ML IV STA (08:47)
[2018-07-14 08:56] LABS: Glucose,Whole Blood 132 mg/dL (75-99)
[2018-07-14 09:12] LABS: Basophils % (A) 0 %; Eosinophils # (A) 0.1 k/uL (0-0.7); Eosinophils % (A) 2 %; HCT 40.9 % (39.0-53.0); HGB 13.3 gm/dL (13.0-17.5); Lymphocytes # (A) 1.4 k/uL (1.0-4.8); Lymphocytes % (A) 22 %; MCH 28.9 pg (25.0-35.0); MCHC 32.4 g/dL (31.0-37.0); MCV 89.1 fL (80.0-100.0); Mean Platelet Volume 7.7; Monocytes # (A) 0.4 k/uL (0-1.0); Monocytes % (A) 7 %; Neutrophils # (A) 4.1 k/uL (1.3-7.7); Neutrophils % (A) 66 %; Platelet Count 211 k/uL (150-450); RBC 4.59 m/uL (4.30-5.90); RDW 13.7 % (11.5-15.5); WBC 6.3 k/uL (3.8-10.6)
--- NOTE | 2018-07-14 09:15 | ED ---
General Adult HPI - General Chief complaint: Neuro Symptoms/Deficit Stated complaint: Poss stroke Time Seen by Provider: 07/14/18 08:46 Source: EMS Mode of arrival: EMS Limitations: no limitations - History of Present Illness Initial comments: Dictation was produced using [employer] dictation software. please excuse any grammatical, word or spelling errors. Chief Complaint: 82-year-old male with multiple comorbidities presents with strokelike symptoms. History of Present Illness: Patient is 82-year-old male who lives at home by himself. He gets checked on by his daughter every morning. This morning patient was discovered by his doctor to have strokelike symptoms. EMS was called patient was brought to the emergency department. Patient complains of his right face feeling funny. Patient is a poor historian. EMS reports that they noticed some drift his right upper extremity and right facial droop with slurred speech. Family confirms that patient usually doesn't have any slurred speech. She denies any history of anticoagulation medications. Does report having had mini strokes in the past. Patient has no pain complaints at this time. The ROS documented in this emergency department record has been reviewed and confirmed by me. Those systems with pertinent positive or negative responses have been documented in the HPI. All other systems are other negative and/or noncontributory. PHYSICAL EXAM: General Impression: Alert and oriented x3, not in acute distress HEENT: Normocephalic atraumatic, extra-ocular movements intact, pupils equal and reactive to light bilaterally, mucous membranes moist. Cardiovascular: Heart regular rate and rhythm, S1&S2 audible, no murmurs, rubs or gallops Chest: Lungs clear to auscultation bilaterally, no rhonchi, no wheeze, no rales Abdomen: Bowel sounds present, abdomen soft, non-tender, non-distended, no organomegaly Musculoskeletal: Pulses present and equal in all extremities, no peripheral edema Motor: no focal deficits noted Neurological: Slurred speech, right lower facial droop, mild right upper extremity drift, no lower extremity clonus, no hyperreflexia Skin: Intact with no visualized rashes Psych: Normal affect and mood ED course: 82-year-old male with clinical presentation consistent with cerebrovascular accident. There is no clear time of onset of patient's symptoms. Patient woke up with the symptoms however isn't able to confirm his symptom onset yesterday during the daytime. Patient was last checked on him and found to be normal yesterday morning. Time of onset could have been up to 24 hours ago. Patient given NIH of 4. Vital signs upon arrival are within acceptable limits. Rest of physical examination is unremarkable. Given that unclear time of onset of symptoms culture was not called due to increased risk-benefit ratio. Nonetheless patient had CVA workup. Laboratory evaluation obtained. CBC, coag panel, metabolic panel is unremarkable. Cardiac enzymes negative. Brain CT and CT angios the head are not acute. Patient was given aspirin. His reevaluated at bedside with rapidly improving symptoms. Family is at bedside able to provide collateral information. They report that patient was admitted to [facility] where he was seen by a neurologist. He had extensive workup done. 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 Family is concerned that patient's symptoms are secondary to ST seizure instead of CVA. No S, patient to be admitted with neurology consultation. Discussed patient case with Dr. Flores who is willing to accept admission. His blood pressure was slightly low however he did respond to fluids and has stable blood pressure at this time. EKG interpretation: Ventricular rate 76, sinus rhythm, WY interval 190, QRS 86, QTC 447. No WY prolongation, no QTC prolongation, no ST or T-wave changes noted. Overall, this EKG is unremarkable - Related Data Home Medications Medication Instructions Recorded Confirmed Finasteride [Proscar] 5 mg PO DAILY 11/02/15 07/14/18 Isosorbide Mononitrate ER [Imdur] 30 mg PO HS 11/02/15 07/14/18 Nitroglycerin Sl Tabs [Nitrostat] 0.4 mg SUBLINGUAL Q5M PRN 04/03/17 07/14/18 Metoprolol Tartrate [Lopressor] 12.5 mg PO BID 11/27/17 07/14/18 Carbidopa-Levodopa 25-100 mg 1 tab PO TID 02/07/18 07/14/18 [Sinemet 25-100 mg] Gabapentin [Neurontin] 300 mg PO BID 02/07/18 07/14/18 glipiZIDE [Glucotrol] 10 mg PO AC-BID 02/07/18 07/14/18 Cholecalciferol [Vitamin D3 (25 1,000 unit PO DAILY 07/14/18 07/14/18 Mcg = 1000 Iu)] Ethosuximide [Zarontin] 250 mg PO BID 07/14/18 07/14/18 Pioglitazone [Actos] 15 mg PO DAILY 07/14/18 07/14/18 metFORMIN HCL [Glucophage] 1,000 mg PO BID 07/14/18 07/14/18 Previous Rx's Medication Instructions Recorded Atorvastatin Calcium [Lipitor] 40 mg PO HS #30 tablet 02/09/18 Famotidine [Pepcid] 20 mg PO BID #60 tab 02/09/18 Aspirin 162 mg PO DAILY #60 chewable 02/11/18 Allergies Allergy/AdvReac Type Severity Reaction Status Date / Time No Known Allergies Allergy Verified 07/14/18 09:02 Review of Systems ROS Statement: Those systems with pertinent positive or pertinent negative responses have been documented in the HPI. ROS Other: All systems not noted in ROS Statement are negative. Past Medical History Past Medical History: Coronary Artery Disease (CAD), Diabetes Mellitus, Deep Vein Thrombosis (DVT), Hyperlipidemia, Hypertension, Prostate Disorder Additional Past Medical History / Comment(s): UTI/severe sepsis, was then discharged to [facility] the [place] for rehab due to his weakness. 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 Past Anesthesia/Blood Transfusion Reactions: No Reported Reaction Date of Last Stent Placement:: 2011 Past Psychological History: No Psychological Hx Reported Smoking Status: Never smoker Past Alcohol Use History: None Reported Past Drug Use History: None Reported - Past Family History Father Additional Family Medical History / Comment(s): Father had heart disease. Mother Additional Family Medical History / Comment(s): Mother had heart disease. General Exam Limitations: no limitations Course Vital Signs 07/14/18 07/14/18 07/14/18 08:58 10:04 10:46 Temperature 98.2 F Pulse Rate 75 58 L 66 Respiratory 18 18 18 Rate Blood Pressure 91/71 80/65 107/64 O2 Sat by Pulse 98 97 98 Oximetry Medical Decision Making - Lab Data Result diagrams: 07/14/18 08:50 07/14/18 08:50 Lab Results 07/14/18 07/14/18 07/14/18 Range/Units 08:50 08:50 08:50 WBC 6.3 (3.8-10.6) k/uL RBC 4.59 (4.30-5.90) m/uL Hgb 13.3 (13.0-17.5) gm/dL Hct 40.9 (39.0-53.0) % MCV 89.1 (80.0-100.0) fL MCH 28.9 (25.0-35.0) pg MCHC 32.4 (31.0-37.0) g/dL RDW 13.7 (11.5-15.5) % Plt Count 211 (150-450) k/uL Neutrophils % 66 % Lymphocytes % 22 % Monocytes % 7 % Eosinophils % 2 % Basophils % 0 % Neutrophils # 4.1 (1.3-7.7) k/uL Lymphocytes # 1.4 (1.0-4.8) k/uL Monocytes # 0.4 (0-1.0) k/uL Eosinophils # 0.1 (0-0.7) k/uL Basophils # 0.0 (0-0.2) k/uL PT 9.7 (9.0-12.0) sec INR 0.9 (<1.2) APTT 23.7 (22.0-30.0) sec Sodium 139 (137-145) mmol/L Potassium 4.6 (3.5-5.1) mmol/L Chloride 108 H (98-107) mmol/L Carbon Dioxide 24 (22-30) mmol/L Anion Gap 7 mmol/L BUN 18 (9-20) mg/dL Creatinine 0.89 (0.66-1.25) mg/dL Est GFR (CKD-EPI)AfAm >90 (>60 ml/min/1.73 sqM) Est GFR (CKD-EPI)NonAf 79 (>60 ml/min/1.73 sqM) Glucose 145 H (74-99) mg/dL POC Glucose (mg/dL) (75-99) mg/dL POC Glu Project Geophysicist ID Calcium 8.8 (8.4-10.2) mg/dL Total Bilirubin 0.4 (0.2-1.3) mg/dL AST 22 (17-59) U/L ALT 10 L (21-72) U/L Alkaline Phosphatase 78 (38-126) U/L Troponin I (0.000-0.034) ng/mL Total Protein 6.3 (6.3-8.2) g/dL Albumin 3.5 (3.5-5.0) g/dL 07/14/18 07/14/18 Range/Units 08:50 08:54 WBC (3.8-10.6) k/uL RBC (4.30-5.90) m/uL Hgb (13.0-17.5) gm/dL Hct (39.0-53.0) % MCV (80.0-100.0) fL MCH (25.0-35.0) pg MCHC (31.0-37.0) g/dL RDW (11.5-15.5) % Plt Count (150-450) k/uL Neutrophils % % Lymphocytes % % Monocytes % % Eosinophils % % Basophils % % Neutrophils # (1.3-7.7) k/uL Lymphocytes # (1.0-4.8) k/uL Monocytes # (0-1.0) k/uL Eosinophils # (0-0.7) k/uL Basophils # (0-0.2) k/uL PT (9.0-12.0) sec INR (<1.2) APTT (22.0-30.0) sec Sodium (137-145) mmol/L Potassium (3.5-5.1) mmol/L Chloride (98-107) mmol/L Carbon Dioxide (22-30) mmol/L Anion Gap mmol/L BUN (9-20) mg/dL Creatinine (0.66-1.25) mg/dL Est GFR (CKD-EPI)AfAm (>60 ml/min/1.73 sqM) Est GFR (CKD-EPI)NonAf (>60 ml/min/1.73 sqM) Glucose (74-99) mg/dL POC Glucose (mg/dL) 132 H (75-99) mg/dL POC Glu Project Geophysicist ID [place] Calcium (8.4-10.2) mg/dL Total Bilirubin (0.2-1.3) mg/dL AST (17-59) U/L ALT (21-72) U/L Alkaline Phosphatase (38-126) U/L Troponin I <0.012 (0.000-0.034) ng/mL Total Protein (6.3-8.2) g/dL Albumin (3.5-5.0) g/dL Disposition Clinical Impression: Neurological deficit present Disposition: ADMITTED IP TO THIS HOSP Condition: Fair Referrals: Aldo Guerrero MD [Primary Care Provider] - 1-2 days Decision Time: 10:59
[2018-07-14 09:16] LABS: INR 0.9 (<1.2); Partial Thromboplastin Time 23.7 sec (22.0-30.0); Prothrombin Time 9.7 sec (9.0-12.0)
[2018-07-14 09:28] LABS: ALT 10 U/L (21-72); AST 22 U/L (17-59); Albumin 3.5 g/dL (3.5-5.0); Alkaline Phosphatase 78 U/L (38-126); Anion Gap 7 mmol/L; Blood Urea Nitrogen 18 mg/dL (9-20); Calcium 8.8 mg/dL (8.4-10.2); Carbon Dioxide 24 mmol/L (22-30); Chloride 108 mmol/L (98-107); Glucose 145 mg/dL (74-99); Potassium 4.6 mmol/L (3.5-5.1); Sodium 139 mmol/L (137-145); Total Bilirubin 0.4 mg/dL (0.2-1.3); Total Protein 6.3 g/dL (6.3-8.2)
--- NOTE | 2018-07-14 09:31 | XR ---
EXAMINATION TYPE: XR chest 1V portable DATE OF EXAM: 07/14/2018 COMPARISON: Chest x-ray May 25, 2018. HISTORY: History of open-heart surgery with altered mental status and weakness. TECHNIQUE: Single frontal view of the chest is obtained. FINDINGS: Overlying sternal wires are redemonstrated. Overlying EKG leads are now present. Exam subo ptimal due to portable technique and patient's large body habitus. Cardiomegaly is again seen there i s no suspicious focal airspace opacity, pleural effusion, or pneumothorax seen currently. Better visu alization of the hemidiaphragms noted on current exam. Osseous structures are intact. IMPRESSION: Cardiomegaly without acute pulmonary process.
--- NOTE | 2018-07-14 09:47 | CT ---
EXAMINATION TYPE: CT brain wo con DATE OF EXAM: 07/14/2018 COMPARISON: 05/25/2018 INDICATION: Neural deficits right-sided weakness and facial droop DLP: 1125.8 mGycm, Automated exposure control for dose reduction was used. CONTRAST: None CT of the brain is performed utilizing 3 mm thick sections through the posterior fossa and 3 mm thick sections through the remaining calvarium. Study is performed within 24 hours of arrival to the hosp ital. No abnormal hyperdensity is present to suggest an acute intracranial hemorrhage. No mass lesion is evident. No acute infarcts are evident. Periventricular white matter hypodensity is present, likely on the bas is of chronic white matter ischemic change. Ventricles and sulci are dominant for the patient age. Paranasal sinuses and mastoid air cells within the [id number] are clear. IMPRESSIONS: 1. Atrophy with mild stable appearing chronic white matter changes.
--- NOTE | 2018-07-14 10:02 | CT ---
EXAMINATION TYPE: CT angio head neck DATE OF EXAM: 07/14/2018 HISTORY: Neuro deficits COMPARISON: 05/25/2018 CT DLP: 501.3 mGycm. Automated Exposure Control for Dose Reduction was Utilized. TECHNIQUE: CTA scan of the neck is performed with IV Contrast, patient injected with 50 mL of Isovue 370, axial images are obtained, coronal and sagittal reformatted images are reviewed. Three-D recons tructed images are created on an independent workstation and reviewed. FINDINGS: Carotid/Vascular Structures: The innominate artery appears to give rise to the right subclavian arter y and the left common carotid artery. Left subclavian artery arises from the arch. Vertebral arterie s appear to be codominant. Atheromatous plaquing is at the bilateral carotid bifurcations. Significan t flow-limiting stenosis however is not evident. [place]: Vertebral basilar system appears normal. The posterior cerebral vasculature is norm al. Left posterior communicating artery is patent. A faint posterior communicating artery may be present on source images on the right. The internal carotid arteries bifurcate normally into A1 and M1 segmen ts. The anterior communicating artery is patent. A2 segments appear unremarkable. Middle cerebral art tabitha branches appear normal. Other: The thyroid visualized is normal. Vocal cord level appear symmetrical. IMPRESSION: 1. Atheromatous plaquing at the carotid bifurcations without significant flow-limiting stenosis. 2. [place] is within normal limits.
[2018-07-14] MEDS ORDERED: ASPIRIN 81 MG PO STA (10:05)
[2018-07-14] MEDS ORDERED: SODIUM CHLORIDE 0.9% 1,000 ML IV STA (10:28)
[2018-07-14] MEDS ORDERED: SODIUM CHLORIDE 0.9% 1,000 ML IV SCH (11:00)
[2018-07-14 17:53] LABS: Glucose,Whole Blood 112 mg/dL (75-99)
[2018-07-14] MEDS ORDERED: ONDANSETRON 4 MG/2 ML VIAL IVP PRN (18:06)
[2018-07-14] MEDS ORDERED: NALOXONE 0.4 MG/ML 1 ML VIAL IV PRN (18:06)
[2018-07-14] MEDS ORDERED: ACETAMINOPHEN TAB 325 MG TAB PO PRN (18:06)
--- NOTE | 2018-07-14 18:16 | P.HPIM ---
History of Present Illness H&P Date: 07/14/18 Chief Complaint: Right facial weakness Patient's an 82-year-old male past medical history of prior TIA, diabetes mellitus type 2, hypertension, and dyslipidemia who presented to the ER with complaints of right facial droop and numbness. In the ER he underwent extensive evaluation. On arrival his vital signs within normal limits. Laboratory analysis was essentially unremarkable. Troponin less than 0.012. CT brain showed atrophy with no acute process. CTA of head and neck was negative. EKG showed normal sinus rhythm with PVCs but no ST-T wave changes. NIH stroke scale was 3 arrival. Due to him waking up with the symptoms he was not a candidate for TPA. We are called to admit the patient for further stroke evaluation. Patient seen and examined at bedside in the emergency department. He states that he woke up today and noticed right-sided facial droop. He states his face also felt like it was sleeping. He has chronically poor vision but did not notice any changes. Has intermittent difficulty swallowing with a known history of presbyesophagus. He did not notice any changes in his swallowing. He denies any dysarthria, however reported some to the ER physician. He complains of neck and back pain it is difficult to discern whether this is new or old. He states that over the last several weeks he has noticed bilateral arm weakness. He also has had some right hand cramping for the last month. He has a history of Parkinson's disease but has not noted any recent changes. He has noticed decreased appetite over the last month but denies any weight loss. He has had some intermittent left leg cramping. He also describes chronic constipation. He denies any recent cough, cold, fever, flu, nausea, vomiting, diarrhea, dysuria, chest pain, or shortness of breath. Review of Systems Pertinent positives and negatives as discussed in HPI, a complete review of systems was performed and all other systems are negative. Past Medical History Past Medical History: Coronary Artery Disease (CAD), Diabetes Mellitus, Deep Vein Thrombosis (DVT), Hearing Disorder / Deafness, Hyperlipidemia, Hypertension, Myocardial Infarction (NM), Prostate Disorder, Rheumatoid Arthritis (RA) Additional Past Medical History / Comment(s): TIAs, NIDDM type II, epilepsy as a child, spinal stenosis, lumbar pain, cervical pain, parkinsons disease, DVT per past medical history but pt does not recall dvt, BPH, falls, tinnitis R ear, deaf in L ear, history of presbyesophagus Last Myocardial Infarction Date:: 03/04/11 History of Any Multi-Drug Resistant Organisms: None Reported Past Surgical History: Coronary Bypass/CABG, Heart Catheterization With Stent, Joint Replacement, Tonsillectomy Additional Past Surgical History / Comment(s): 2005 and 2011 PTCA with stent, 2006 CABG-3 vessel, sebaceous cysts removed from neck, laser surgery for catar act removals bilateral, colonoscopy, total R knee arthroplasty. Past Anesthesia/Blood Transfusion Reactions: No Reported Reaction Date of Last Stent Placement:: 2011 Smoking Status: Former smoker Past Alcohol Use History: None Reported Past Drug Use History: None Reported Additional History: Lives in apartment alone, his daughter drives for him and ensures that he has food to eat. - Past Family History Father Additional Family Medical History / Comment(s): Father had heart disease. Mother Additional Family Medical History / Comment(s): Mother had heart disease. Medications and Allergies Home Medications Medication Instructions Recorded Confirmed Type Finasteride [Proscar] 5 mg PO DAILY 11/02/15 07/14/18 History Isosorbide Mononitrate ER [Imdur] 30 mg PO HS 11/02/15 07/14/18 History Nitroglycerin Sl Tabs [Nitrostat] 0.4 mg SUBLINGUAL Q5M PRN 04/03/17 07/14/18 History Metoprolol Tartrate [Lopressor] 12.5 mg PO BID 11/27/17 07/14/18 History Carbidopa-Levodopa 25-100 mg 1 tab PO TID 02/07/18 07/14/18 History [Sinemet 25-100 mg] Gabapentin [Neurontin] 300 mg PO BID 02/07/18 07/14/18 History glipiZIDE [Glucotrol] 10 mg PO AC-BID 02/07/18 07/14/18 History Atorvastatin Calcium [Lipitor] 40 mg PO HS #30 tablet 02/09/18 07/14/18 Rx Famotidine [Pepcid] 20 mg PO BID #60 tab 02/09/18 07/14/18 Rx Aspirin 162 mg PO DAILY #60 chewable 02/11/18 07/14/18 Rx Cholecalciferol [Vitamin D3 (25 1,000 unit PO DAILY 07/14/18 07/14/18 History Mcg = 1000 Iu)] Ethosuximide [Zarontin] 250 mg PO BID 07/14/18 07/14/18 History Pioglitazone [Actos] 15 mg PO DAILY 07/14/18 07/14/18 History metFORMIN HCL [Glucophage] 1,000 mg PO BID 07/14/18 07/14/18 History Allergies Allergy/AdvReac Type Severity Reaction Status Date / Time No Known Allergies Allergy Verified 07/14/18 09:02 Physical Exam Osteopathic Statement: *. No significant issues noted on an osteopathic structural exam other than those noted in the History and Physical/Consult. Vitals: Vital Signs Temp Pulse Pulse Resp BP BP Pulse Ox 07/14/18 15:59 97.7 F 57 L 17 126/116 98 07/14/18 14:43 59 L 18 140/88 100 07/14/18 10:46 66 18 107/64 98 07/14/18 10:04 58 L 18 80/65 97 07/14/18 08:58 98.2 F 75 18 91/71 98 Intake and Output 07/14/18 07/14/18 07/14/18 06:59 14:59 22:59 Output Total 300 Balance -300 Output: Urine 300 Other: Weight 121.563 kg General: non toxic, no distress, appears at stated age, Obese Derm: no unusual rashes/lesions no unusual ecchymoses, warm, dry Head: atraumatic, normocephalic, Right sided facial droop., [place] Eyes: EOMI, no lid lag, anicteric sclera, pupils equal round reactive to light ENT: Nose and ears atraumatic, no thrush, no pharyngeal erythema Neck: No thyromegaly, no cervical lymphadenopathy, trachea midline, supple Mouth: no lip lesion, mucus membranes moist Cardiovascular: S1S2 reg, no murmur, positive posterior tibial pulse bilateral, no edema, capillary refill less than 2 seconds Lungs: decreased bs bilateral, no rhonchi, no rales , no accessory muscle use Abdominal: soft, nontender to palpation, no guarding, no appreciable organomegaly, normal bowel sounds Ext: no gross muscle atrophy, muscle strength 4 out of 5 in all 4 extremities grossly, no contractures, + resting tremor on the right Neuro: CN II-XI grossly intact, light touch intact all 4 extremities, finger to nose within normal limits, no pronator drift, leg raise intact Psych: Alert, oriented, appropriate affect Results CBC & Chem 7: 07/14/18 08:50 07/14/18 08:50 Labs: Abnormal Lab Results - Last 24 Hours (Table) 07/14/18 07/14/18 Range/Units 08:50 08:54 Chloride 108 H (98-107) mmol/L Glucose 145 H (74-99) mg/dL POC Glucose (mg/dL) 132 H (75-99) mg/dL ALT 10 L (21-72) U/L Comments: EKG is reviewed by myself reveals normal sinus rhythm with PVC, no ST-T wave changes, AK 190, QRS 86, QTC 447. CTA head and neck-Artheromatous plaquing at the carotid bifurcations without significant flow limiting lesions, [place] within normal limits Chest x-ray: report reviewed CT Scan - head: report reviewed Thrombosis Risk Factor Assmnt - DVT/VTE Prophylaxis DVT/VTE Prophylaxis: Pharmacologic Prophylaxis ordered - Choose All That Apply Any of the Below Risk Factors Present?: Yes Each Factor Represents 1 point: Obesity (BMI >25) Other Risk Factors: Yes Each Risk Factor Represents 2 Points: Malignancy Each Risk Factor Represents 3 Points: Age 75 years or older, History of DVT/PE Thrombosis Risk Factor Assessment Total Risk Factor Score: 9 Thrombosis Risk Factor Assessment Level: High Risk Assessment and Plan Assessment: Right-sided facial droop TIA versus CVA -CT a head and neck unrevealing, CT brain with age-related atrophy -PT/OT/speech evaluation -Neurology recommendations -Telemetry and echocardiogram -Fall precautions -Patient already takes aspirin daily however only 182 mg daily, if stroke confirmed consider Plavix -Check cholesterol profile -Lipitor -Permissive hypertension 24 hours Diabetes mellitus type 2 -Hold Actos, Glucotrol, and Glucophage -Sliding-scale insulin -Follow blood sugars closely -Check hemoglobin A1c Parkinson's disease -Continue with Sinemet and Neurontin -Neurology recommendations Hypertension, low blood pressure on arrival -Hold Lopressor, Imdur for the next 24 hours -Follow blood pressures Dyslipidemia -Statin therapy -Check lipid profile Morbid obesity with BMI 34.4 -Structured outpatient weight loss Chronic: BPH Spinal stenosis Arthritis Atherosclerotic coronary artery disease with history of myocardial infarction The patient is admitted with an anticipated greater than 2 midnight stay for evaluation of Right facial droop. Surrogate decision-maker: Patient refused to appoint one CODE STATUS:undetermined by patient, full code by default DVT prophylaxis: Lovenox Discussed with: Patient, ED physicians, Nursing Anticipated discharge date: 24-[address]: home with home health A total of 65 minutes was spent on the care of this complex patient more than 50% of the time was spent in counseling and care coordination.
--- NOTE | 2018-07-14 18:47 | P.CNNES ---
History of Present Illness Consult date: 07/14/18 Reason for Consult: Neuro deficit History of Present Illness: Patient is a 82-year-old male who came to the hospital for some strokelike symptoms. Patient is a poor historian and not able to provide any history. He just tells me that he has Parkinson's disease. As per electronic medical records, the patient lives at home by himself. His daughter checks on him every morning. This morning patient was discovered by his daughter to have strokelike symptoms. EMS was called and patient was brought to the hospital. There was right facial droop, and right upper extremity drift noted and some slurred speech. Patient's NIH stroke scale was reported as 4 in the ED. Patient was not a candidate for TPA, as he woke up with symptoms and unclear onset of symptoms. Patient underwent computed tomography scan of the head which is normal. CTA of head and neck also showed no significant stenosis. Patient was given aspirin in the ER. His symptoms improved while in the ER. According to the family members report, patient was recently admitted to [facility] where he was seen by a neurologist. He had extensive workup done. He was diagnosed with seizures. Family was concerned if these symptoms he had today were due to absence seizure rather than CVA. I tried to contact patient's daughter on the phone multiple times, and not able to get a hold of her. On review of previous records, patient had a normal EEG on 06/02/2017. Patient had presented on 02/07/2018 with right facial droop, slurred speech and right leg weakness. Patient had MRI performed 02/08/2018 which revealed moderate to advanced stable atrophy and moderate changes of chronic small vessel disease. Patient apparently takes aspirin 162 mg daily. Patient's EKG showed sinus rhythm with occasional PVCs. CT head showed atrophy with mild stable appearing chronic white matter change. CTA of head and neck showed atheromatous plaquing at the carotid bifurcations without significant flow limiting stenosis. [place] is within normal limits. Chest x-ray showed cardiomegaly without acute process. Patient's last hemoglobin A1c was 8.5 on 02/09/2018. [id number] on 08/09/2017. TFTs normal. Total cholesterol 96, LDL 26, HDL 43. 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 Past Anesthesia/Blood Transfusion Reactions: No Reported Reaction Date of Last Stent Placement:: 2011 Smoking Status: Former smoker Past Alcohol Use History: None Reported Past Drug Use History: None Reported - Past Family History Father Additional Family Medical History / Comment(s): Father had heart disease. Mother Additional Family Medical History / Comment(s): Mother had heart disease. Medications and Allergies Home Medications Medication Instructions Recorded Confirmed Type Finasteride [Proscar] 5 mg PO DAILY 11/02/15 07/14/18 History Isosorbide Mononitrate ER [Imdur] 30 mg PO HS 11/02/15 07/14/18 History Nitroglycerin Sl Tabs [Nitrostat] 0.4 mg SUBLINGUAL Q5M PRN 04/03/17 07/14/18 History Metoprolol Tartrate [Lopressor] 12.5 mg PO BID 11/27/17 07/14/18 History Carbidopa-Levodopa 25-100 mg 1 tab PO TID 02/07/18 07/14/18 History [Sinemet 25-100 mg] Gabapentin [Neurontin] 300 mg PO BID 02/07/18 07/14/18 History glipiZIDE [Glucotrol] 10 mg PO AC-BID 02/07/18 07/14/18 History Atorvastatin Calcium [Lipitor] 40 mg PO HS #30 tablet 02/09/18 07/14/18 Rx Famotidine [Pepcid] 20 mg PO BID #60 tab 02/09/18 07/14/18 Rx Aspirin 162 mg PO DAILY #60 chewable 02/11/18 07/14/18 Rx Cholecalciferol [Vitamin D3 (25 1,000 unit PO DAILY 07/14/18 07/14/18 History Mcg = 1000 Iu)] Ethosuximide [Zarontin] 250 mg PO BID 07/14/18 07/14/18 History Pioglitazone [Actos] 15 mg PO DAILY 07/14/18 07/14/18 History metFORMIN HCL [Glucophage] 1,000 mg PO BID 07/14/18 07/14/18 History Allergies Allergy/AdvReac Type Severity Reaction Status Date / Time No Known Allergies Allergy Verified 07/14/18 09:02 Physical Examination - Vital Signs Vital Signs: Vital Signs Temp Pulse Pulse Resp BP BP Pulse Ox 07/14/18 15:59 97.7 F 57 L 17 126/116 98 07/14/18 14:43 59 L 18 140/88 100 07/14/18 10:46 66 18 107/64 98 07/14/18 10:04 58 L 18 80/65 97 07/14/18 08:58 98.2 F 75 18 91/71 98 Intake and Output 07/14/18 07/14/18 07/14/18 06:59 14:59 22:59 Output Total 300 Balance -300 Output: Urine 300 Other: Weight 121.563 kg On examination patient is an elderly male, laying comfortably in the bed. Patient knows that he is in [facility] and that it is June 2018. His speech and language functions are normal. On cranial nerve examination his pupils are round and reacting, visual [place] are full, face is symmetric and tongue protrudes the midline on muscle strength testing there is no pronator drift and the strength is normal in arms and legs distally and proximally. Tone is mildly increased in both upper limbs. Some resting tremors were noted on the left. Bulk of muscles is slightly decreased in the hands. Reflexes are diminished and plantars are downgoing. Results - Laboratory Findings CBC and BMP: 07/14/18 08:50 07/14/18 08:50 Abnormal Lab Findings: Abnormal Labs 07/14/18 07/14/18 07/14/18 08:50 08:54 17:50 Chloride 108 H Glucose 145 H POC Glucose (mg/dL) 132 H 112 H ALT 10 L Assessment and Plan Assessment: * Possible TIA, manifesting with right facial droop, right arm weakness and slurred speech, that now seems to have resolved. * Patient had TIA in January 2018 as well. * Diabetes, not well controlled * Hypertension * Hyperlipidemia * Parkinson's disease. Plan: We will start patient on Plavix 75 mg daily along with aspirin 81 mg, due to recurrent TIA. We will check 2-D echo with bubble study to rule out embolic source. We will check fasting lipid panel and hemoglobin A1c. Continue Sinemet for Parkinson's disease.
[2018-07-14] MEDS: ETHOSUXIMIDE 250 MG PO SCH (20:51)
[2018-07-14 20:56] LABS: Glucose,Whole Blood 134 mg/dL (75-99)
[2018-07-14] MEDS: FAMOTIDINE 20 MG TAB PO SCH (21:06)
[2018-07-14] MEDS: GABAPENTIN 300 MG CAP PO SCH (21:06)
[2018-07-14] MEDS: CARBIDOPA-LEVODOPA 25-100 MG 1 EACH TAB PO SCH (21:06)
[2018-07-14] MEDS: CLOPIDOGREL 75 MG TAB PO SCH (21:06)
[2018-07-14] MEDS: ATORVASTATIN 40 MG TAB PO SCH (21:07)
[2018-07-14] MEDS: MELATONIN 3 MG TABLET PO PRN (21:07)
[2018-07-14] MEDS: INSULIN ASPART (NovoLOG) 100 UNIT/ML VIAL SQ SCH (21:08)
[2018-07-15 01:50] VITALS: RESP 20
[2018-07-15 02:40] LABS: Hemoglobin A1C 7.5 % (4.0-6.0)
[2018-07-15 05:26] LABS: Cholesterol 114 mg/dL (<200); HDL Cholesterol 44 mg/dL (40-60); LDL Cholesterol,Calculated 43 mg/dL (0-99); Triglycerides 134 mg/dL (<150)
[2018-07-15 06:26] LABS: Glucose,Whole Blood 109 mg/dL (75-99)
[2018-07-15] MEDS: INSULIN ASPART (NovoLOG) 100 UNIT/ML VIAL SQ SCH ×4 (06:31→21:34)
[2018-07-15] MEDS ORDERED: ASPIRIN 325 MG TAB PO SCH (09:00)
[2018-07-15] MEDS: GABAPENTIN 300 MG CAP PO SCH ×2 (09:27→21:29)
[2018-07-15] MEDS: ENOXAPARIN 40 MG/0.4 ML SYRINGE SQ SCH (09:27)
[2018-07-15] MEDS: CLOPIDOGREL 75 MG TAB PO SCH (09:27)
[2018-07-15] MEDS: CHOLECALCIFEROL 1,000 UNIT TAB PO SCH (09:27)
[2018-07-15] MEDS: FINASTERIDE 5 MG TAB PO SCH (09:27)
[2018-07-15] MEDS: CARBIDOPA-LEVODOPA 25-100 MG 1 EACH TAB PO SCH ×3 (09:27→21:29)
[2018-07-15] MEDS: ASPIRIN 81 MG PO SCH (09:27)
[2018-07-15] MEDS: FAMOTIDINE 20 MG TAB PO SCH ×2 (09:27→21:29)
--- NOTE | 2018-07-15 10:47 | ECHOF ---
Referral Reason:stroke MEASUREMENTS -------- HEIGHT: 157.5 cm WEIGHT: 116.6 kg BP: 131/72 IVSd: 1.3 cm (0.6 - 1.1) LVIDd: 4.0 cm (3.9 - 5.3) LVPWd: 1.4 cm (0.6 - 1.1) IVSs: 1.8 cm LVIDs: 2.3 cm LVPWs: 1.9 cm LAESV Index (A-L): 23.72 ml/m Ao Diam: 2.9 cm (2.0 - 3.7) AV Cusp: 1.8 cm (1.5 - 2.6) LA Diam: 3.8 cm (2.7 - 3.8) EPSS: 0.9 cm MV E Felix: 0.55 m/s MV DecT: 158 ms MV A Felix: 0.84 m/s MV E/A Ratio: 0.65 AR PHT: 737 ms RAP: 5.00 mmHg RVSP: 23.03 mmHg MV EF SLOPE: 40.40 mm/s (70 - 150) MV EXCURSION: 1.82 cm (> 18.000) FINDINGS -------- Sinus rhythm. This was a technically adequate study. The left ventricular size is normal. There is mild concentric left ventricular hypertrophy. Overa ll left ventricular systolic function is low-normal with, an EF between 50 - 55 %. There is paradox ical/dysynergic septal motion consistent with post-operative status. Basal inferior LV wall motion is hypokinetic. Mid inferior LV wall motion is hypokinetic. The right ventricle is normal in size. The left atrial size is normal. The right atrial size is normal. Aneurysmal septum Aortic valve is trileaflet and is mildly thickened. Trace amount of aortic regurgitation. The mitral valve leaflets are mildly thickened. Mild mitral regurgitation is present. Mild tricuspid regurgitation present. There is no evidence of pulmonary hypertension. The right v entricular systolic pressure, as measured by Doppler, is 23.03mmHg. Trace/mild (physiologic) pulmonic regurgitation. The aortic root size is normal. The inferior vena cava is mildly dilated. There is no pericardial effusion. CONCLUSIONS -------- 1. Sinus rhythm. 2. This was a technically adequate study. 3. The left ventricular size is normal. 4. There is mild concentric left ventricular hypertrophy. 5. Overall left ventricular systolic function is low-normal with, an EF between 50 - 55 %. 6. There is paradoxical/dysynergic septal motion consistent with post-operative status. 7. Basal inferior LV wall motion is hypokinetic. 8. Mid inferior LV wall motion is hypokinetic. 9. The right ventricle is normal in size. 10. The left atrial size is normal. 11. The right atrial size is normal. 12. Aneurysmal septum 13. Aortic valve is trileaflet and is mildly thickened. 14. Trace amount of aortic regurgitation. 15. The mitral valve leaflets are mildly thickened. 16. Mild mitral regurgitation is present. 17. Mild tricuspid regurgitation present. 18. There is no evidence of pulmonary hypertension. 19. The right ventricular systolic pressure, as measured by Doppler, is 23.03mmHg. 20. Trace/mild (physiologic) pulmonic regurgitation. 21. The aortic root size is normal. 22. The inferior vena cava is mildly dilated. 23. There is no pericardial effusion. INDUSTRIAL STAFF NURSE: Marilyn Lozano RDCS
--- NOTE | 2018-07-15 12:17 | P.CONS ---
History of Present Illness - Chief Complaint Gait disturbance, right hemiparesthesias - History of Present Illness I had the opportunity to see patient for inpatient rehab consultation with regard to gait disturbance. He was admitted to [facility] July 14 acute onset speech disturbance and right facial weakness. Seen in consultation by Dr. Cota. PT, OT, ROPE SILICA MACHINE OPERATOR all ordered. Cardiac echo with mild concentric LVH and 50- 55% ejection fraction. Angiogram CT with atheromatous plaques only. Head CT with cerebral atrophy. Chest x-ray with cardiomegaly. Previous functional history: 83-year-old right-handed white male who is lives in second-floor apartment with elevator, alone. Retired. Daughter does the laundry and driving. Meals provided. Patient describes independent with sitdown shower and gait with 4 wheeled walker. Denies tobacco or alcohol. Dr. Caldwell regular doctor. Family history mother with diabetes in father with cardiac disease and hypertension. Review of Systems Review of systems: ENT: Denies sneezes or discharge. Eyes: Denies discharge or photophobia. Cardiac: Denies chest pain or palpitation. Pulmonary: Denies cough or shortness of breath. Gastrointestinal: Denies nausea, emesis, constipation, diarrhea. Genitourinary: Denies discharge or frequency. Musculoskeletal: Denies muscle or bone aches. Neurologic: Right facial weakness and numbness and speech disturbance. Endocrine: Denies shakes or sweats. Oncology: Denies cancers. Dermatologic: Denies rash, itching, pruritus. ALLERGY/immunology: Denies sneezes, rashes. Past Medical History Past Medical History: Coronary Artery Disease (CAD), Diabetes Mellitus, Deep Vein Thrombosis (DVT), Hearing Disorder / Deafness, Hyperlipidemia, Hypertens ion, Myocardial Infarction (GA), Prostate Disorder, Rheumatoid Arthritis (RA) Additional Past Medical History / Comment(s): TIAs, NIDDM type II, epilepsy as a child, spinal stenosis, lumbar pain, cervical pain, parkinsons disease, DVT per past medical history but pt does not recall dvt, BPH, falls, tinnitis R ear, deaf in L ear, history of presbyesophagus Last Myocardial Infarction Date:: 03/04/11 History of Any Multi-Drug Resistant Organisms: None Reported Past Surgical History: Coronary Bypass/CABG, Heart Catheterization With Stent, Joint Replacement, Tonsillectomy Additional Past Surgical History / Comment(s): 2005 and 2011 PTCA with stent, 2006 CABG-3 vessel, sebaceous cysts removed from neck, laser surgery for cataract removals bilateral, colonoscopy, total R knee arthroplasty. Past Anesthesia/Blood Transfusion Reactions: No Reported Reaction Date of Last Stent Placement:: 2011 Smoking Status: Former smoker Past Alcohol Use History: None Reported Past Drug Use History: None Reported - Past Family History Father Additional Family Medical History / Comment(s): Father had heart disease. Mother Additional Family Medical History / Comment(s): Mother had heart disease. Medications and Allergies Home Medications Medication Instructions Recorded Confirmed Type Finasteride [Proscar] 5 mg PO DAILY 11/02/15 07/14/18 History Isosorbide Mononitrate ER [Imdur] 30 mg PO HS 11/02/15 07/14/18 History Nitroglycerin Sl Tabs [Nitrostat] 0.4 mg SUBLINGUAL Q5M PRN 04/03/17 07/14/18 History Metoprolol Tartrate [Lopressor] 12.5 mg PO BID 11/27/17 07/14/18 History Carbidopa-Levodopa 25-100 mg 1 tab PO TID 02/07/18 07/14/18 History [Sinemet 25-100 mg] Gabapentin [Neurontin] 300 mg PO BID 02/07/18 07/14/18 History glipiZIDE [Glucotrol] 10 mg PO AC-BID 02/07/18 07/14/18 History Atorvastatin Calcium [Lipitor] 40 mg PO HS #30 tablet 02/09/18 07/14/18 Rx Famotidine [Pepcid] 20 mg PO BID #60 tab 02/09/18 07/14/18 Rx Aspirin 162 mg PO DAILY #60 chewable 02/11/18 07/14/18 Rx Cholecalciferol [Vitamin D3 (25 1,000 unit PO DAILY 07/14/18 07/14/18 History Mcg = 1000 Iu)] Ethosuximide [Zarontin] 250 mg PO BID 07/14/18 07/14/18 History Pioglitazone [Actos] 15 mg PO DAILY 07/14/18 07/14/18 History metFORMIN HCL [Glucophage] 1,000 mg PO BID 07/14/18 07/14/18 History Allergies Allergy/AdvReac Type Severity Reaction Status Date / Time No Known Allergies Allergy Verified 07/14/18 09:02 Physical Exam Vitals: Vital Signs Temp Pulse Pulse Resp BP BP Pulse Ox 07/15/18 08:00 97.1 F L 71 119/58 92 L 07/15/18 04:00 98.3 F 61 20 131/72 93 L 07/15/18 00:00 98.0 F 78 20 110/65 92 L 07/14/18 20:00 97.8 F 70 18 124/60 94 L 07/14/18 15:59 97.7 F 57 L 17 126/116 98 07/14/18 14:43 59 L 18 140/88 100 Intake and Output 07/14/18 07/15/18 07/15/18 22:59 06:59 14:59 Intake Total 260 Output Total 300 250 Balance -300 -250 260 Intake: Intake, IV Titration 20 Amount Sodium Chloride 0.9% 1, 20 000 ml @ 100 mls/hr IV . Q10H JEFF Rx#:[id number] Oral 240 Output: Urine 300 250 Other: Voiding Method Urinal Urinal Diaper Diaper # Voids 2 Weight 117 kg Skin: Good color, texture, turgor. General: Medium build and comfortable appearance. Head: Normocephalic, atraumatic. Eyes: Symmetric. Pupils equal round. Ears: Symmetric. Hearing within normal limits. Mouth: Clear. Neck: Supple. Carotid without bruit. Cardiac: Regular rate and rhythm. Lungs: Clear anteriorly and posteriorly. Abdomen: Soft active nontender. Extremities: Normal tone. Neurological: Mental status: Alert, cooperative, pleasant. Cranial nerves: Right facial numbness and weakness. Motor: Normal strength and isolation all 4 limbs. Mildly apraxic right arm and leg. Sensation: Intact throughout. DTRs: Symmetric and equal throughout. Mobility: Sits with physical assistance. Results CBC & Chem 7: 07/14/18 08:50 07/14/18 08:50 Labs: Abnormal Lab Results - Last 24 Hours (Table) 07/14/18 07/14/18 07/14/18 Range/Units 08:50 17:50 20:55 POC Glucose (mg/dL) 112 H 134 H (75-99) mg/dL Hemoglobin A1c 7.5 H (4.0-6.0) % 07/15/18 Range/Units 06:25 POC Glucose (mg/dL) 109 H (75-99) mg/dL Hemoglobin A1c (4.0-6.0) % Assessment and Plan (1) Cerebrovascular accident Current Visit: No Status: Acute Code(s): I63.9 - CEREBRAL INFARCTION, UNSPECIFIED SNOMED Code(s): 197482588 Plan: Impression: 1. Gait disturbance. 2. Stroke result in right facial weakness and numbness and dysarthria. Physical exam with right hemiparesthesias. 3. Hypertension. 4. Diabetes. 5. Coronary disease with history of GA and DVT. 6. Rheumatoid arthritis. Constant plan: At this time PT, OT, ROPE SILICA MACHINE OPERATOR ordered. We'll follow closely with yourself. Would anticipate need and benefit of inpatient rehab. Support appears to be daughter.
[2018-07-15 12:37] LABS: Glucose,Whole Blood 119 mg/dL (75-99)
[2018-07-15] MEDS: ETHOSUXIMIDE 250 MG PO SCH ×2 (14:43→21:30)
[2018-07-15 17:14] LABS: Glucose,Whole Blood 151 mg/dL (75-99)
[2018-07-15] MEDS: ATORVASTATIN 40 MG TAB PO SCH (21:29)
[2018-07-15] MEDS: MELATONIN 3 MG TABLET PO PRN (21:29)
[2018-07-15 21:32] LABS: Glucose,Whole Blood 181 mg/dL (75-99)
--- NOTE | 2018-07-16 05:32 | PN ---
PROGRESS NOTE DATE OF SERVICE: 07/15/2018 PRESENTING COMPLAINT: Possible TIA. INTERVAL HISTORY: This is a patient with episodes of multiple episodes of TIAs and weakness and has been worked up extensively by Neurology and patient gets these episodes in the left middle cerebral artery territory with CTs and CTAs being negative. The patient's other chronic stable medical conditions include Parkinson disease, diabetes mellitus type 2, chronic dysphagia from presbyesophagus, coronary artery disease, hypertension, neurocognitive disorder, spinal stenosis. The patient did tolerate a diet. Lying in bed. REVIEW OF SYSTEMS: Done for constitutional, cardiovascular, GI, pulmonary; relevant findings as above. CURRENT MEDICATIONS: Current medications are reviewed. PHYSICAL EXAMINATION: On examination, temperature 97.1, pulse 71, respiration 18, blood pressure 119/58, pulse ox 92% on room air. GENERAL APPEARANCE: Lying in bed, awake. EYES: Pupils equal. Conjunctivae normal. NECK: JVD not raised. Mass not palpable. RESPIRATORY: Effort normal. LUNGS: Decreased breath sounds. CARDIOVASCULAR: First and second sounds normal. No edema. ABDOMEN: Soft, nontender. Liver and spleen not palpable. PSYCHIATRY: Patient able to answer simple questions. INVESTIGATIONS: Accu-Cheks are noted. ASSESSMENT: 1. 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 2. Idiopathic Parkinson disease. 3. Diabetes mellitus type 2 on oral hypoglycemic. 4. 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 5. Coronary artery disease, prior history of stent and bypass. 6. Hyperlipidemia. 7. Essential hypertension. 8. Chronic neurocognitive disorder. 9. Chronic spinal stenosis. 10.Benign prostatic hypertrophy. PLAN: The patient did have a 2-D echocardiogram showed EF 50% to 55%, some nonspecific wall motion abnormalities are present. Patient did have a CT angio of the brain did not show any critical stenosis. If okay with Neurology, patient can hopefully go to rehab tomorrow. Overall prognosis is guarded. Has had multiple extensive workup in the past. MMODL / IJN: [id number] /
[2018-07-16 06:07] LABS: Glucose,Whole Blood 136 mg/dL (75-99)
[2018-07-16] MEDS: INSULIN ASPART (NovoLOG) 100 UNIT/ML VIAL SQ SCH (06:16)
[2018-07-16] MEDS: FAMOTIDINE 20 MG TAB PO SCH (08:52)
[2018-07-16] MEDS: CHOLECALCIFEROL 1,000 UNIT TAB PO SCH (08:52)
[2018-07-16] MEDS: CARBIDOPA-LEVODOPA 25-100 MG 1 EACH TAB PO SCH (08:52)
[2018-07-16] MEDS: ASPIRIN 81 MG PO SCH (08:52)
[2018-07-16] MEDS: GABAPENTIN 300 MG CAP PO SCH (08:52)
[2018-07-16] MEDS: ENOXAPARIN 40 MG/0.4 ML SYRINGE SQ SCH (08:53)
[2018-07-16] MEDS: FINASTERIDE 5 MG TAB PO SCH (08:53)
[2018-07-16] MEDS: CLOPIDOGREL 75 MG TAB PO SCH (08:53)
[2018-07-16 09:15] LABS: Basophils % (A) 0 %; Eosinophils # (A) 0.1 k/uL (0-0.7); Eosinophils % (A) 2 %; HGB 12.3 gm/dL (13.0-17.5); Lymphocytes % (A) 22 %; MCH 28.4 pg (25.0-35.0); MCHC 31.5 g/dL (31.0-37.0); MCV 90.1 fL (80.0-100.0); Mean Platelet Volume 7.6; Monocytes # (A) 0.4 k/uL (0-1.0); Monocytes % (A) 9 %; Neutrophils # (A) 2.9 k/uL (1.3-7.7); Neutrophils % (A) 63 %; Platelet Count 189 k/uL (150-450); RBC 4.33 m/uL (4.30-5.90); RDW 13.7 % (11.5-15.5); WBC 4.6 k/uL (3.8-10.6)
[2018-07-16 09:28] LABS: Calcium 8.3 mg/dL (8.4-10.2); Potassium 4.2 mmol/L (3.5-5.1)
[2018-07-16 11:26] LABS: Glucose,Whole Blood 154 mg/dL (75-99)
[2018-07-16 12:06] VITALS: TEMP 98.1
[2018-07-16 12:11] VITALS: BP 103/66; PULSE 76
--- NOTE | 2018-07-16 13:51 | DS ---
DISCHARGE SUMMARY DATE OF ADMISSION: 07/14/2018. DATE OF DISCHARGE: 07/16/2018 FINAL DIAGNOSES: 1. 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 2. Idiopathic Parkinson disease. 3. Diabetes mellitus type 2, on oral hypoglycemic. 4. 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 5. Coronary artery disease, prior history of stent and bypass. 6. Hyperlipidemia. 7. Essential hypertension. 8. Chronic neurocognitive disorder. 9. Chronic spinal stenosis. 10.Benign prostatic hypertrophy. HOSPITAL COURSE: This patient has had multiple TIA's and extensive workup in the past including is CT scan, CT scan angio, etc. Presents with change of mental status, complaining of right facial droop and right-sided numbness. Symptoms did actually resolve. Patient did have a CT angio, did not show any critical stenosis. CT scan of the brain showed some chronic atrophic changes. A 2D echocardiogram, ejection fraction of 50%-55%, some wall motion abnormality. The patient is now back to his baseline. CONSULTATION: Dr. Cota from Neurology. PHYSICAL EXAMINATION: Temperature 97.1, pulse 91, respiration 16, blood pressure 109/58, pulse ox 92% on room air. LUNGS: Decreased breath sounds. CARDIOVASCULAR: First and second sounds are normal. LABS: BUN and creatinine are normal, Accu-Cheks 154. DISCHARGE MEDICATIONS: 1. Proscar 5 mg p.o. daily. 2. Imdur ER 30 mg p.o. q.h.s. 3. Nitrostat 0.4 sublingual q.5 p.r.n. 4. Sinemet 20/100 one tablet p.o. t.i.d. 5. Neurontin 300 mg p.o. b.i.d. 6. Lipitor 40 mg q.h.s. 7. Pepcid 20 mg b.i.d. 8. Vitamin D3 one thousand units p.o. daily. 9. Neurontin 250 mg b.i.d. 10.Glucophage 1000 mg b.i.d. 11.Aspirin 81 mg daily. 12.Plavix 75 mg p.o. daily. 13.NovoLog q.a.c. and at bedtime per scale. 14.Melatonin 3 mg q.h.s. p.r.n. DISPOSITION: Inpatient rehab at [facility]. EXCEPTING PHYSICIAN: Dr. Ayers from [facility]. Follow up with Dr. Guerrero after DC from rehab. MMODL / RADUN: [id number] /
--- NOTE | 2018-07-16 18:43 | P.PN ---
Subjective Progress Note Date: 07/15/18 Patient is laying comfortably in the bed. Patient states his stomach hurts. He states he ate his lunch, and afterwards became dizzy, lost balance and has to lay down. No new focal symptoms. Objective - Vital Signs Vital signs: Vital Signs Temp 97.1 F L 07/15/18 08:00 Pulse 119 H 07/15/18 12:00 Resp 20 07/15/18 04:00 BP 114/69 07/15/18 12:00 Pulse Ox 90 L 07/15/18 12:00 Intake & Output 07/14/18 07/15/18 07/15/18 18:59 06:59 18:59 Intake Total 500 Output Total 300 250 250 Balance -300 -250 250 Weight 121.563 kg 117 kg Intake: Intake, IV Titration 20 Amount Sodium Chloride 0.9% 1, 20 000 ml @ 100 mls/hr IV . Q10H JEFF Rx#:[id number] Oral 480 Output: Urine 300 250 250 Other: Voiding Method Urinal Diaper # Voids 2 1 - Exam p - Labs CBC & Chem 7: 07/16/18 08:35 07/16/18 08:35 Labs: Abnormal Lab Results - Last 24 Hours (Table) 07/14/18 07/14/18 07/14/18 Range/Units 08:50 17:50 20:55 POC Glucose (mg/dL) 112 H 134 H (75-99) mg/dL Hemoglobin A1c 7.5 H (4.0-6.0) % 07/15/18 07/15/18 Range/Units 06:25 12:34 POC Glucose (mg/dL) 109 H 119 H (75-99) mg/dL Hemoglobin A1c (4.0-6.0) % Assessment and Plan Assessment: * Possible TIA, manifesting with right facial droop, right arm weakness and slurred speech, that now seems to have resolved. * Patient had TIA in January 2018 as well. * Diabetes, not well controlled * Hypertension * Hyperlipidemia * Parkinson's disease. Plan: Patient tolerating dual antiplatelet medications including Plavix 75 mg daily along with aspirin 81 mg, due to recurrent TIA (previously on monotherapy with aspirin). 2-D echo showed ejection fraction 55-60%, there is for motion a bnormalities/hypokinesia involving the basal inferior and mid inferior whaley. Aneurysmal septum. Fasting lipid panel showed cholesterol 114, LDL 43, HDL 44. Continue statins. Hemoglobin A1c 7.5. Target hemoglobin A1c <7.0. Continue Sinemet for Parkinson's disease. Neurologically clear for discharge, if medically cleared.
== END 2018-07-16 15:45 | DRG 69 ==
LOC: EC 08:41 → 3SCARD 10:59
PROVIDERS: ADMIT Hospitalist; ATTEND Hospitalist
DX: G45.9 Transient cerebral ischemic attack, unspecified (principal); E11.51 Type 2 diabetes mellitus with diabetic peripheral angiopathy without gangrene; E66.01 Morbid (severe) obesity due to excess calories; E78.5 Hyperlipidemia, unspecified; G20 Parkinson's disease; G40.909 Epilepsy, unspecified, not intractable, without status epilepticus; H54.7 Unspecified visual loss; H91.90 Unspecified hearing loss, unspecified ear; I11.9 Hypertensive heart disease without heart failure; I25.10 Atherosclerotic heart disease of native coronary artery without angina pectoris; I25.2 Old myocardial infarction; I49.3 Ventricular premature depolarization; K22.8 Other specified diseases of esophagus; K59.09 Other constipation; M06.9 Rheumatoid arthritis, unspecified; M19.90 Unspecified osteoarthritis, unspecified site; M48.00 Spinal stenosis, site unspecified; N40.0 Benign prostatic hyperplasia without lower urinary tract symptoms; R13.10 Dysphagia, unspecified; R29.703 NIHSS score 3; R29.810 Facial weakness; Z68.34 Body mass index [BMI] 34.0-34.9, adult; Z79.82 Long term (current) use of aspirin; Z79.84 Long term (current) use of oral hypoglycemic drugs; Z79.899 Other long term (current) drug therapy; Z82.49 Family history of ischemic heart disease and other diseases of the circulatory system; Z83.3 Family history of diabetes mellitus; Z87.891 Personal history of nicotine dependence; Z95.1 Presence of aortocoronary bypass graft; Z95.5 Presence of coronary angioplasty implant and graft; Z96.651 Presence of right artificial knee joint; Z71.3 Dietary counseling and surveillance
CPT/HCPCS: 36415; 70450; 70496; 70498; 71045; 80048; 80053; 80061; 83036; 83735; 84484; 85025; 85610; 85730; 93005; 93306; 96360; 96361; 99285

== ENCOUNTER 2018-11-08 11:07 | Inpatient (IN) | payer MEDICARE, OTHER ==
[2018-11-08 17:22] LABS: Glucose,Whole Blood 53 mg/dL (75-99)
[2018-11-08] MEDS: ACETAMINOPHEN TAB 325 MG TAB PO PRN (19:31)
[2018-11-08] MEDS: DEXTROSE 5%-0.45% NACL 1,000 ML IV SCH (19:34)
--- NOTE | 2018-11-08 19:47 | P.CNNES ---
History of Present Illness Consult date: 11/08/18 Requesting physician: Lalo Alegria Reason for Consult: Absence seizure Chief complaint: seizure History of Present Illness: This is an 83 RH male transferred from [facility] for ne urological consultation. He has history of hypertension, diabetes mellitus type 2, probable Parkinson disease, history of stroke with mild right-sided weakness, recurrent UTI who was brought in to the hospital for generalized weakness and confusion. Reportedly, patient resides at a facility for seniors but one that does not provide actually assisted living. A neighbor went to check on him on 11/07/2018 and found him to be quite confused. The daughter was also concerned because of increased staring spells in the context of a history of absence seizures. His epilepsy was diagnosed when he was a child. Patient states that he after had a grand mal seizure when he was 18 years old. He was put on ethosuximide 250 mg twice daily that he has been taking for decades. Patient states that more recently, he was emotionally upset because of the of his [id number] and therefore was less responsive. Patient personally the sloughing that he was having more seizure activity. Patient was found to have an ongoing urinary tract infection as well as metabolic acidosis, thought secondary to infection. He was started on ceftriaxone IV as well as IV rehydration. He is now here for a formal neurological evaluation. Review of Systems 14-point ROS performed and as per HPI. Neurologically, patient denies decreased level or loss of consciousness, headache, changes in vision, diplopia, amaurosis, changes in hearing, facial droop, ptosis, vertigo, hearing loss, tinnitus, dysarthria, dysphagia, aphasia, other focal numbness/weakness not mentioned above, bowel/bladder incontinence or ataxia. 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, spinal stenosis, lumbar pain, cervical pain, parkinsons disease, DVT per past medical history but pt does not recall dvt, BPH, UTIS/sepsis and recent UTI, falls, tinnitis R ear, deaf in L ear, history of presbyesophagus, hyponatremia, thrombocytopenia, CKD stage II Last Myocardial Infarction Date:: 03/04/11 History of Any Multi-Drug Resistant Organisms: None Reported Past Surgical History: Coronary Bypass/CABG, Heart Catheterization With Stent, Joint Replacement, Tonsillectomy Additional Past Surgical History / Comment(s): 2005 and 2011 PTCA with stent, 2006 CABG-3 vessel, sebaceous cysts removed from neck, laser surgery for cataract removals bilateral, colonoscopy, total R knee arthroplasty. Past Anesthesia/Blood Transfusion Reactions: No Reported Reaction Date of Last Stent Placement:: 2011 Smoking Status: Former smoker - Past Family History Father Family Medical History: Coronary Artery Disease (CAD) Additional Family Medical History / Comment(s): Father had heart disease. Mother Family Medical History: Coronary Artery Disease (CAD) Additional Family Medical History / Comment(s): Mother had heart disease. Medications and Allergies Home Medications Medication Instructions Recorded Confirmed Type Finasteride [Proscar] 5 mg PO DAILY 11/02/15 11/08/18 History Isosorbide Mononitrate ER [Imdur] 30 mg PO HS 11/02/15 11/08/18 History Carbidopa-Levodopa 25-100 mg 1 tab PO TID 02/07/18 11/08/18 History [Sinemet 25-100 mg] Gabapentin [Neurontin] 300 mg PO BID 02/07/18 11/08/18 History Atorvastatin Calcium [Lipitor] 40 mg PO HS #30 tablet 02/09/18 11/08/18 Rx Famotidine [Pepcid] 20 mg PO BID #60 tab 02/09/18 11/08/18 Rx Cholecalciferol [Vitamin D3 (25 2,000 unit PO DAILY 07/14/18 11/08/18 History Mcg = 1000 Iu)] Ethosuximide [Zarontin] 250 mg PO BID 07/14/18 11/08/18 History Rivaroxaban [Xarelto] 2.5 mg PO BID 11/08/18 11/08/18 History glipiZIDE [Glucotrol] 10 mg PO BID 11/08/18 11/08/18 History metFORMIN HCL [Glucophage] 500 mg PO BID 11/08/18 11/08/18 History Allergies Allergy/AdvReac Type Severity Reaction Status Date / Time No Known Allergies Allergy Verified 07/14/18 09:02 Physical Examination - Vital Signs Vital Signs: Vital Signs Temp Pulse Resp BP Pulse Ox 11/08/18 14:44 98.2 F 82 16 128/78 98 Intake and Output 11/08/18 11/08/18 11/08/18 06:59 14:59 22:59 Other: Voiding Method Indwelling Catheter Weight 112.5 kg Gen NAD Pleasant and cooperative HEENT NCAT Sclera without icterus O/P clear Neck Supple No carotid bruit Cor RRR no m/r/g Lungs CTAB Abd Soft NTND +BS Ext Warm to touch No edema Neuro MS A+Ox4 Normal fluency Able to follow all commands and articulate a detailed medical history CN PERRL VFF no APD EOMI no nystagmus or MALCOM No facial asymmetry Masseter's symmetric Hearing diminished to normal voice bilaterally Speech not dysarthric Equal elevation of palate Tongue midline Sym shrug and SCM bilaterally Motor Normal bulk/tone No pronator or tremors Strength 4+/5 right 5/5 left Sens Intact to LT x4 No neglect or extinction Coord No dysmetria on FTN bilaterally DTRs 2+/4 sym throughout Toes downgoing bilaterally No clonus at achilles Gait Deferred Results - Laboratory Findings Abnormal Lab Findings: Abnormal Labs 11/08/18 17:21 POC Glucose (mg/dL) 53 L 11/08/18 BMP remarkable for Na 146 Lactic acid 1.1 hga1c 7.5 11/07/18 CBC and CMP normal UA 0-5 WBC 1-9 bacteria negative LE or nitrites Assessment and Plan Assessment: AMS possible increased seizure in the setting of UTI, possibly metabolic encephalopathy due to infection r/o absence seizure Plan: -EEG in am -Continue ethosuximide 250mg po bid -He also takes GBP 300mg po bid, which I suspect is used for pain -Seizure precautions -Patient does not drive. Same common sense applies to engaging in any activity that may endanger patient and/or others should he have recurrent seizure activity -d/w patient and RN in detail. All questions answered. Thank you for this consultation. Please call with ?. Time with Patient: Greater than 30 (Time spent in direct patient care, greater than 50% of which was spent in [id number] counseling and coordination of care: 70 minutes)
[2018-11-08 21:05] LABS: Glucose,Whole Blood 140 mg/dL (75-99)
[2018-11-08] MEDS: ATORVASTATIN 40 MG TAB PO SCH (21:27)
[2018-11-08] MEDS: FAMOTIDINE 20 MG TAB PO SCH (21:27)
[2018-11-08] MEDS: GABAPENTIN 300 MG CAP PO SCH (21:28)
[2018-11-08] MEDS: INSULIN ASPART (NovoLOG) 100 UNIT/ML VIAL SQ SCH (21:28)
[2018-11-08] MEDS: ISOSORBIDE MONONITRATE ER 30 MG TAB.ER.24H PO SCH (21:28)
[2018-11-08] MEDS: ETHOSUXIMIDE 250 MG PO SCH (21:28)
[2018-11-08] MEDS: metFORMIN 500 MG TAB PO SCH (21:28)
[2018-11-08] MEDS: RIVAROXABAN 2.5 MG TABLET PO SCH (21:28)
[2018-11-08] MEDS: glipiZIDE 10 MG TAB PO SCH (21:28)
[2018-11-08] MEDS: CARBIDOPA-LEVODOPA 25-100 MG 1 EACH TAB PO SCH (21:28)
[2018-11-09] MEDS: ACETAMINOPHEN TAB 325 MG TAB PO PRN ×2 (01:29→09:30)
[2018-11-09 02:01] LABS: Glucose,Whole Blood 144 mg/dL (75-99)
[2018-11-09] MEDS: DEXTROSE 5%-0.45% NACL 1,000 ML IV SCH ×3 (05:52→19:34)
[2018-11-09 07:25] LABS: Glucose,Whole Blood 184 mg/dL (75-99)
[2018-11-09] MEDS: INSULIN ASPART (NovoLOG) 100 UNIT/ML VIAL SQ SCH ×4 (09:19→22:45)
[2018-11-09] MEDS: ETHOSUXIMIDE 250 MG PO SCH ×2 (09:19→22:45)
[2018-11-09] MEDS: CHOLECALCIFEROL 1,000 UNIT TAB PO SCH (09:20)
[2018-11-09] MEDS: metFORMIN 500 MG TAB PO SCH ×2 (09:20→22:46)
[2018-11-09] MEDS: FAMOTIDINE 20 MG TAB PO SCH ×2 (09:21→22:45)
[2018-11-09] MEDS: FINASTERIDE 5 MG TAB PO SCH (09:21)
[2018-11-09] MEDS: GABAPENTIN 300 MG CAP PO SCH ×2 (09:21→22:45)
[2018-11-09] MEDS: glipiZIDE 10 MG TAB PO SCH ×2 (09:22→22:45)
[2018-11-09] MEDS: RIVAROXABAN 2.5 MG TABLET PO SCH ×2 (09:22→22:46)
[2018-11-09] MEDS: CARBIDOPA-LEVODOPA 25-100 MG 1 EACH TAB PO SCH ×3 (09:22→22:46)
[2018-11-09 11:42] LABS: Glucose,Whole Blood 148 mg/dL (75-99)
[2018-11-09] MEDS: DICLOFENAC SODIUM GEL 100 GM TUBE TOPICAL SCH ×3 (13:16→22:46)
[2018-11-09 13:18] VITALS: BMI 31.8
--- NOTE | 2018-11-09 15:00 | EEG ---
ELECTROENCEPHALOGRAM REPORT DATE OF TESTIN11/09/2018. CLINICAL PROBLEM: Altered mental status. 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 EEG was requested to rule out epileptic activity. TYPE OF RECORDING: Bedside tracing using the 10-20 international electrode placement system. No sedation was given prior to the beginning of this recording. FINDINGS: The background of this tracing is seen with a symmetric alpha rhythm that attenuates on eye opening and returns upon eye closure. There are scattered EMG artifacts that correspond to patient's movements. Photic stimulation elicits a symmetric driving response. Hyperventilation is not performed in this recording. There is no definitive sleep architecture seen. There is no background asymmetry, ictal or interictal patterns appreciated. IMPRESSION: This is a normal awake electroencephalogram without background asymmetry or epileptiform discharges. Clinical correlation is advised. SERVANDO / RADUN: [id number] / MTDD
[2018-11-09 16:05] LABS: Amorphous Sediment,Urine Rare /hpf; Appearance,Urine Clear (Clear); Bacteria,Urine Rare /hpf; Bilirubin,Urine Negative (Negative); Blood,Urine Small (Negative); Color,Urine Yellow; Glucose,Urine (UA) Negative (Negative); Hyaline Casts,Urine 1 /lpf (0-2); Ketones,Urine Negative (Negative); Leukocyte Esterase,Urine Small (Negative); Mucus,Urine Few /hpf; Nitrite,Urine Negative (Negative); PH, Urine 5.5 (5.0-8.0); Protein,Urine Trace (Negative); RBC,Urine 22 /hpf (0-5); Specific Gravity,Urine 1.014 (1.001-1.035); Squamous Epithelial Cell,Urine <1 /hpf (0-4); Urobilinogen,Urine <2.0 mg/dL (<2.0)
--- NOTE | 2018-11-09 16:06 | P.PN ---
Subjective Progress Note Date: 11/09/18 Principal diagnosis: Altered mental status Absence epilepsy EEG. No recurrent seizure observed. Patient without new neuro c/o. Objective - Vital Signs Vital signs: Vital Signs Temp 97.8 F 11/09/18 12:15 Pulse 70 11/09/18 12:15 Resp 20 11/09/18 12:15 BP 109/71 11/09/18 12:15 Pulse Ox 96 11/09/18 12:15 Intake & Output 11/08/18 11/09/18 11/09/18 18:59 06:59 18:59 Intake Total 450 Output Total 1000 1000 Balance -1000 -550 Weight 112.5 kg 112.5 kg Intake: Intake, IV Titration 450 Amount Dextrose 5%-0.45% NaCl 1, 400 000 ml @ 100 mls/hr IV . Q10H JEFF Rx#:[id number] cefTRIAXone 1 gm In 50 Sodium Chloride 0.9% 50 ml @ 100 mls/hr IVPB Q24HR JEFF Rx#:[id number] Output: Urine 1000 1000 Other: Voiding Method Indwelling Catheter Indwelling Catheter Indwelling Catheter # Bowel Movements 0 - Exam Gen NAD Pleasant and cooperative MS A+Ox4 Normal speech CN II-XII grossly intact no nystagmus Motor Normal bulk/tone No tremors VÁSQUEZ x4 Sens Intact to LT x4 Coord Not tested DTRs 2+/4 sym throughout Gait Deferred - Labs Labs: Abnormal Lab Results - Last 24 Hours (Table) 11/08/18 11/08/18 11/09/18 Range/Units 17:21 21:02 02:00 POC Glucose (mg/dL) 53 L 140 H 144 H (75-99) mg/dL 11/09/18 11/09/18 Range/Units 07:23 11:41 POC Glucose (mg/dL) 184 H 148 H (75-99) mg/dL Assessment and Plan Assessment: AMS possible increased seizure in the setting of UTI, possibly metabolic encephalopathy due to infection r/o absence seizure Plan: -EEG normal -Continue ethosuximide 250mg po bid for h/o absence seizure -He also takes GBP 300mg po bid, which I suspect is used for pain -Seizure precautions -Patient does not drive. Same common sense applies to engaging in any activity that may endanger patient and/or others should he have recurrent seizure activity -d/w patient and RN in detail. All questions answered -Stable for discharge from acute neuro standpoint. Will revisit patient prn. Please call with new ?. Thank you again for this consultation. Time with Patient: Less than 30 (Time spent in direct patient care, greater than 50% of which was spent in [id number] counseling and coordination of care: 25 minutes)
[2018-11-09 17:15] LABS: Hemoglobin A1C 7.3 % (4.0-6.0)
[2018-11-09 17:19] LABS: Glucose,Whole Blood 42 mg/dL (75-99)
[2018-11-09 17:37] LABS: Glucose,Whole Blood 76 mg/dL (75-99)
[2018-11-09 20:05] LABS: Glucose,Whole Blood 291 mg/dL (75-99)
[2018-11-09] MEDS: ATORVASTATIN 40 MG TAB PO SCH (22:45)
[2018-11-09] MEDS: ISOSORBIDE MONONITRATE ER 30 MG TAB.ER.24H PO SCH (22:46)
--- NOTE | 2018-11-10 00:46 | P.HPIM ---
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 Patient had extensive workup in the past including computed tomography scan computed tomography scan and shows. Patient has presented to [facility] with altered mental status. Because neurologic services were not available that patient was transferred here. Patient daughter is the bedside. She checks on the patient every morning in these lesions for him. Otherwise the patient lives alone. Normally has a walker to get about. Patient on finished a course of antibiotic for UTI. They were checked in on the patient and patient looked different. Riggs catheter was placed at [facility]. Otherwise patient appetite has been good. Patient does complain of pain in the left knee since his transfer from another hospital. No known injury. When I saw the patient this morning patient is more back to his baseline. There was no focal report of any focal weakness. Daughter the bedside care post of the history. 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 Does use a walker. Can lead daughter checks on him most days. Smoked in the remote past. No alcohol. Physical examination: VITAL SIGNS: 98.2, 82, 16, 128/78, 98% room air GENERAL: BMI 31.8, sitting up in bed awake. EYES: Pupils equal. Conjunctiva normal. HEENT: External appearance of nose and ears normal, oral cavity grossly normal. NECK: JVD not raised; masses not palpable. HEART: First and second heart sounds are normal; no edema. LUNGS: Respiratory rate normal; clear to auscultation. ABDOMEN: Soft, nontender, liver spleen not palpable, no masses palpable, Riggs catheter. PSYCH: Awake house able to answer simple questionsl. NEUROLOGICAL: Cranial nerves grossly intact; no facial asymmetry, power and sensation grossly intact. 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 Presentation appears to be more metabolic. We will treat for UTI. Told the nurse to DC the Riggs catheter. Care was discussed and the daughter the bedside. The patient can tolerate that 24 hours. Home medications resumed. Accu-Cheks will be followed. Past Medical History Past Medical History: Coronary Artery Disease (CAD), Cancer, Chest Pain / Angina, Diabetes Mellitus, Deep Vein Thrombosis (DVT), Hearing Disorder / Deafness, Hyperlipidemia, Hypertension, Myocardial Infarction (ME), Pneumonia, Prostate Disorder, Renal Disease, Rheumatoid Arthritis (RA) Additional Past Medical History / Comment(s): skin cancer on face-removed;CVA with mild R sided weakness, TIAs, NIDDM type II, epilepsy as a child, spinal stenosis, lumbar pain, cervical pain, parkinsons disease, DVT per past medical history but pt does not recall dvt, BPH, UTIS/sepsis and recent UTI, falls, tinnitis R ear, deaf in L ear, history of presbyesophagus, hyponatremia, thrombocytopenia, CKD stage II Last Myocardial Infarction Date:: 03/04/11 History of Any Multi-Drug Resistant Organisms: None Reported Past Surgical History: Coronary Bypass/CABG, Heart Catheterization With Stent, Joint Replacement, Tonsillectomy Additional Past Surgical History / Comment(s): 2005 and 2011 PTCA with stent, 2006 CABG-3 vessel, sebaceous cysts removed from neck, laser surgery for cataract removals bilateral, colonoscopy, total R knee arthroplasty, skin cancer on face removed Past Anesthesia/Blood Transfusion Reactions: No Reported Reaction Date of Last Stent Placement:: 2011 Past Psychological History: No Psychological Hx Reported Additional Psychological History / Comment(s): Pt currently resides at [facility]. He ambulates with a walker. His bud, Radha, manages his medications and brings him breakfast and food that he only has to warm up. His bud also drives him to [employer]. Smoking Status: Former smoker Past Alcohol Use History: None Reported Additional Past Alcohol Use History / Comment(s): Pt smoked from 0961-5782, one pack per day. Past Drug Use History: None Reported - Past Family History Father Family Medical History: Coronary Artery Disease (CAD) Additional Family Medical History / Comment(s): Father had heart disease. Mother Family Medical History: Coronary Artery Disease (CAD) Additional Family Medical History / Comment(s): Mother had heart disease. Medications and Allergies Home Medications Medication Instructions Recorded Confirmed Type Finasteride [Proscar] 5 mg PO DAILY 11/02/15 11/08/18 History Isosorbide Mononitrate ER [Imdur] 30 mg PO HS 11/02/15 11/08/18 History Carbidopa-Levodopa 25-100 mg 1 tab PO TID 02/07/18 11/08/18 History [Sinemet 25-100 mg] Gabapentin [Neurontin] 300 mg PO BID 02/07/18 11/08/18 History Atorvastatin Calcium [Lipitor] 40 mg PO HS #30 tablet 02/09/18 11/08/18 Rx Famotidine [Pepcid] 20 mg PO BID #60 tab 02/09/18 11/08/18 Rx Cholecalciferol [Vitamin D3 (25 2,000 unit PO DAILY 07/14/18 11/08/18 History Mcg = 1000 Iu)] Ethosuximide [Zarontin] 250 mg PO BID 07/14/18 11/08/18 History Rivaroxaban [Xarelto] 2.5 mg PO BID 11/08/18 11/08/18 History glipiZIDE [Glucotrol] 10 mg PO BID 11/08/18 11/08/18 History metFORMIN HCL [Glucophage] 500 mg PO BID 11/08/18 11/08/18 History Allergies Allergy/AdvReac Type Severity Reaction Status Date / Time No Known Allergies Allergy Verified 07/14/18 09:02 Physical Exam Vitals: Vital Signs Temp Pulse Resp BP Pulse Ox 11/09/18 04:55 98.1 F 79 18 118/73 97 11/08/18 20:50 98.7 F 77 18 122/70 95 11/08/18 14:44 98.2 F 82 16 128/78 98 Intake and Output 11/08/18 11/09/18 11/09/18 22:59 06:59 14:59 Output Total 1000 Balance -1000 Output: Urine 1000 Other: Voiding Method Indwelling Catheter Indwelling Catheter # Bowel Movements 0 Weight 112.5 kg Results Labs: Abnormal Lab Results - Last 24 Hours (Table) 11/08/18 11/08/18 11/09/18 Range/Units 17:21 21:02 02:00 POC Glucose (mg/dL) 53 L 140 H 144 H (75-99) mg/dL 11/09/18 Range/Units 07:23 POC Glucose (mg/dL) 184 H (75-99) mg/dL Thrombosis Risk Factor Assmnt - Choose All That Apply Any of the Below Risk Factors Present?: Yes Each Factor Represents 1 point: Obesity (BMI >25) Other Risk Factors: Yes Each Risk Factor Represents 3 Points: Age 75 years or older, History of DVT/PE Other congenital or acquired thrombophilia - If yes, enter type in comment: No Thrombosis Risk Factor Assessment Total Risk Factor Score: 7 Thrombosis Risk Factor Assessment Level: High Risk
[2018-11-10 01:53] LABS: Glucose,Whole Blood 153 mg/dL (75-99)
[2018-11-10 07:16] LABS: Glucose,Whole Blood 202 mg/dL (75-99)
[2018-11-10 08:44] LABS: Basophils % (A) 1 %; Eosinophils # (A) 0.2 k/uL (0-0.7); Eosinophils % (A) 2 %; HCT 37.1 % (39.0-53.0); HGB 11.8 gm/dL (13.0-17.5); Hypochromasia Marked; Lymphocytes # (A) 1.1 k/uL (1.0-4.8); Lymphocytes % (A) 16 %; MCH 27.2 pg (25.0-35.0); MCHC 31.8 g/dL (31.0-37.0); MCV 85.6 fL (80.0-100.0); Mean Platelet Volume 8.1; Monocytes # (A) 0.7 k/uL (0-1.0); Monocytes % (A) 11 %; Neutrophils # (A) 4.8 k/uL (1.3-7.7); Neutrophils % (A) 69 %; Platelet Count 194 k/uL (150-450); Poikilocytosis Slight; RBC 4.34 m/uL (4.30-5.90); RDW 14.8 % (11.5-15.5)
[2018-11-10 08:56] LABS: African American GFR (CKD) >90 (>60 ml/min/1.73 sqM); Anion Gap 9 mmol/L; Blood Urea Nitrogen 9 mg/dL (9-20); Calcium 8.7 mg/dL (8.4-10.2); Carbon Dioxide 22 mmol/L (22-30); Chloride 106 mmol/L (98-107); Glucose 198 mg/dL (74-99); Potassium 3.9 mmol/L (3.5-5.1); Sodium 137 mmol/L (137-145)
[2018-11-10] MEDS: INSULIN ASPART (NovoLOG) 100 UNIT/ML VIAL SQ SCH ×4 (09:21→20:47)
[2018-11-10] MEDS: GABAPENTIN 300 MG CAP PO SCH ×2 (09:22→21:39)
[2018-11-10] MEDS: metFORMIN 500 MG TAB PO SCH ×2 (09:22→21:39)
[2018-11-10] MEDS: CHOLECALCIFEROL 1,000 UNIT TAB PO SCH (09:24)
[2018-11-10] MEDS: CARBIDOPA-LEVODOPA 25-100 MG 1 EACH TAB PO SCH ×3 (09:24→21:57)
[2018-11-10] MEDS: ETHOSUXIMIDE 250 MG PO SCH ×2 (09:25→21:39)
[2018-11-10] MEDS: FAMOTIDINE 20 MG TAB PO SCH ×2 (09:25→21:39)
[2018-11-10] MEDS: RIVAROXABAN 2.5 MG TABLET PO SCH ×2 (09:25→21:39)
[2018-11-10] MEDS: glipiZIDE 10 MG TAB PO SCH ×2 (09:26→21:39)
[2018-11-10] MEDS: FINASTERIDE 5 MG TAB PO SCH (09:26)
[2018-11-10] MEDS: ACETAMINOPHEN TAB 325 MG TAB PO PRN (09:27)
[2018-11-10] MEDS: DICLOFENAC SODIUM GEL 100 GM TUBE TOPICAL SCH ×4 (09:29→21:57)
[2018-11-10 11:33] LABS: Glucose,Whole Blood 170 mg/dL (75-99)
--- NOTE | 2018-11-10 11:55 | XR ---
Left knee HISTORY: Chronic left knee pain 3 views of the left knee Marginal spurring is present especially in the medial compartment with joint space loss, there is sli ght varus deformity. Bone mineralization is maintained. Multiple surgical clips are present within th e soft tissues. Marked spurring also present at the patellofemoral joint. Suprapatellar joint effusio n suspected, there is increased attenuation. IMPRESSION: Osteoarthritis.
[2018-11-10] MEDS: DEXTROSE 5%-0.45% NACL 1,000 ML IV SCH ×2 (12:39→21:43)
[2018-11-10 16:51] LABS: Glucose,Whole Blood 119 mg/dL (75-99)
[2018-11-10 20:20] LABS: Glucose,Whole Blood 125 mg/dL (75-99)
--- NOTE | 2018-11-10 21:15 | P.PN ---
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 Patient had extensive workup in the past including computed tomography scan computed tomography scan and shows. Patient has presented to [facility] with altered mental status. Because neurologic services were not available that patient was transferred here. Patient daughter is the bedside. She checks on the patient every morning in these [facility] for him. Otherwise the patient lives alone. Normally has a walker to get about. Patient on finished a course of antibiotic for UTI. They were checked in on the patient and patient looked different. Riggs catheter was placed at [facility]. Otherwise patient appetite has been good. Patient does complain of pain in the left knee since his transfer from another hospital. No known injury. When I saw the patient this morning patient is more back to his baseline. There was no focal report of any focal weakness. Daughter the bedside care post of the history. Patient is felt to be admitted with metabolic encephalopathy from underlying UTI. Today-patient's cheerful laying in bed. Still complaining of pain in the left knee. X-ray and orthopedic consult was ordered. Neurology signed signed off. Review of systems: Was done for constitutional, cardiovascular, GI, pulmonary. relevant finding as above Active Medications Acetaminophen (Tylenol Tab) 325 mg PO Q6HR PRN PRN Reason: Fever and/ or Mild Pain Last Admin: 11/10/18 09:27 Dose: 325 mg Documented by: Atorvastatin Calcium (Lipitor) 40 mg PO HS [facility] Last Admin: 11/09/18 22:45 Dose: Not Given Documented by: Carbidopa/Levodopa (Sinemet 25-100) 1 each PO TID [facility] Last Admin: 11/10/18 17:42 Dose: 1 each Documented by: Cholecalciferol (Vitamin D3 (25 Mcg = 1000 Iu)) 2,000 unit PO DAILY [facility] Last Admin: 11/10/18 09:24 Dose: 2,000 unit Documented by: Diclofenac Sodium (Voltaren Gel) 4 gm TOPICAL QID [facility] Last Admin: 11/10/18 17:43 Dose: Not Given Documented by: Famotidine (Pepcid) 20 mg PO BID [facility] Last Admin: 11/10/18 09:25 Dose: 20 mg Documented by: Finasteride (Proscar) 5 mg PO DAILY [facility] Last Admin: 11/10/18 09:26 Dose: 5 mg Documented by: Gabapentin (Neurontin) 300 mg PO BID [facility] Last Admin: 11/10/18 09:22 Dose: 300 mg Documented by: Glipizide (Glucotrol) 10 mg PO BID [facility] Last Admin: 11/10/18 09:26 Dose: 10 mg Documented by: Dextrose/Sodium Chloride (Dextrose 5%-1/2ns Iv Soln) 1,000 mls @ 100 mls/hr IV .Q10H [facility] Last Admin: 11/10/18 12:39 Dose: 100 mls/hr Documented by: Ceftriaxone Sodium 1 gm/ (Sodium Chloride) 50 mls @ 100 mls/hr IVPB Q24HR [facility] Last Admin: 11/10/18 09:20 Dose: 100 mls/hr Documented by: Insulin Aspart (Novolog) 0 unit SQ ACHS [facility]; Protocol Last Admin: 11/10/18 20:47 Dose: Not Given Documented by: Isosorbide Mononitrate (Imdur) 30 mg PO HS [facility] Last Admin: 11/09/18 22:46 Dose: Not Given Documented by: Metformin HCl (Glucophage) 500 mg PO BID [facility] Last Admin: 11/10/18 09:22 Dose: 500 mg Documented by: Ethosuximide 250 Mg 250 mg PO BID [facility] Last Admin: 11/10/18 09:25 Dose: 250 mg Documented by: Rivaroxaban (Xarelto) 2.5 mg PO BID [facility] Last Admin: 11/10/18 09:25 Dose: 2.5 mg Documented by: Physical examination: VITAL SIGNS: 98.3, 88, 18, 127/81, 92% room air GENERAL: BMI 31.8, spropped up in bed, awake cheerful. EYES: Pupils equal. Conjunctiva normal. HEENT: External appearance of nose and ears normal, oral cavity grossly normal. NECK: JVD not raised; masses not palpable. HEART: First and second heart sounds are normal; no edema. LUNGS: Respiratory rate normal; clear to auscultation. ABDOMEN: Soft, nontender, liver spleen not palpable, no masses palpable, Riggs catheter. PSYCH: Awake house able to answer simple questionsl. NEUROLOGICAL: Cranial nerves grossly intact; no facial asymmetry, power and sensation grossly intact. 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 They do not wish to take him home because of pain in his knee. Awaiting input from surgery. David wrap has been ordered. Neurology a site of the case.patient does live by himself. Did explain to patient's son and daughter at length. They're this is a good time patient is more supervise living arrangements. This was rreinforcedor several times. Discharge has been postponed until tomorrow.await input from orthopedics.
[2018-11-10] MEDS: ISOSORBIDE MONONITRATE ER 30 MG TAB.ER.24H PO SCH (21:39)
[2018-11-10] MEDS: ATORVASTATIN 40 MG TAB PO SCH (21:39)
[2018-11-11 02:48] LABS: Glucose,Whole Blood 150 mg/dL (75-99)
[2018-11-11 07:27] LABS: Glucose,Whole Blood 148 mg/dL (75-99)
--- NOTE | 2018-11-11 08:43 | P.CNOR ---
History of Present Illness - [facility] Consult date: 11/11/18 Consult reason: joint pain (Left knee) History of present illness: This is an 83-year-old gentleman admitted to [facility] on 11/08/2018 as a transfer from [facility] for mental status changes. The patient has history of Parkinson's disease and has history of degenerative arthritis. He has history of total right knee arthroplasty in the past by Dr. Comer. The patient and his daughter states that he has been having trouble getting around secondary to left knee pain. We are consulted for orthopedic evaluation. Past Medical History Past Medical History: Coronary Artery Disease (CAD), Cancer, Chest Pain / Angina, Diabetes Mellitus, Deep Vein Thrombosis (DVT), Hearing Disorder / Deafness, Hyperlipidemia, Hypertension, Myocardial Infarction (DC), Pneumonia, Prostate Disorder, Renal Disease, Rheumatoid Arthritis (RA) Additional Past Medical History / Comment(s): skin cancer on face-removed;CVA with mild R sided weakness, TIAs, NIDDM type II, epilepsy as a child, spinal stenosis, lumbar pain, cervical pain, parkinsons disease, DVT per past medical history but pt does not recall dvt, BPH, UTIS/sepsis and recent UTI, falls, tinnitis R ear, deaf in L ear, history of presbyesophagus, hyponatremia, thromb ocytopenia, CKD stage II Last Myocardial Infarction Date:: 03/04/11 History of Any Multi-Drug Resistant Organisms: None Reported Past Surgical History: Coronary Bypass/CABG, Heart Catheterization With Stent, Joint Replacement, Tonsillectomy Additional Past Surgical History / Comment(s): 2005 and 2011 PTCA with stent, 2006 CABG-3 vessel, sebaceous cysts removed from neck, laser surgery for cataract removals bilateral, colonoscopy, total R knee arthroplasty, skin cancer on face removed Past Anesthesia/Blood Transfusion Reactions: No Reported Reaction Date of Last Stent Placement:: 2011 Past Psychological History: No Psychological Hx Reported Additional Psychological History / Comment(s): Pt currently resides at [facility]. He ambulates with a walker. His bud, Radha, manages his medica tions and brings him breakfast and food that he only has to warm up. His bud also drives him to [employer]. Smoking Status: Former smoker Past Alcohol Use History: None Reported Additional Past Alcohol Use History / Comment(s): Pt smoked from 6525-6692, one pack per day. Past Drug Use History: None Reported - Past Family History Father Family Medical History: Coronary Artery Disease (CAD) Additional Family Medical History / Comment(s): Father had heart disease. Mother Family Medical History: Coronary Artery Disease (CAD) Additional Family Medical History / Comment(s): Mother had heart disease. Medications and Allergies Home Medications Medication Instructions Recorded Confirmed Type Finasteride [Proscar] 5 mg PO DAILY 11/02/15 11/08/18 History Isosorbide Mononitrate ER [Imdur] 30 mg PO HS 11/02/15 11/08/18 History Carbidopa-Levodopa 25-100 mg 1 tab PO TID 02/07/18 11/08/18 History [Sinemet 25-100 mg] Gabapentin [Neurontin] 300 mg PO BID 02/07/18 11/08/18 History Atorvastatin Calcium [Lipitor] 40 mg PO HS #30 tablet 02/09/18 11/08/18 Rx Famotidine [Pepcid] 20 mg PO BID #60 tab 02/09/18 11/08/18 Rx Cholecalciferol [Vitamin D3 (25 2,000 unit PO DAILY 07/14/18 11/08/18 History Mcg = 1000 Iu)] Ethosuximide [Zarontin] 250 mg PO BID 07/14/18 11/08/18 History Rivaroxaban [Xarelto] 2.5 mg PO BID 11/08/18 11/08/18 History glipiZIDE [Glucotrol] 10 mg PO BID 11/08/18 11/08/18 History metFORMIN HCL [Glucophage] 500 mg PO BID 11/08/18 11/08/18 History Allergies Allergy/AdvReac Type Severity Reaction Status Date / Time No Known Allergies Allergy Verified 07/14/18 09:02 Physical Examination This is an 83-year-old gentleman in no acute distress. He is hearing impaired. His daughter helps provide history. He is alert but having some confusion this morning. Exam of the lower extremities reveals obvious varus deformity to the left knee. He is lacking about 5 of full extension. He can flex to about 60 with pain. There is minimal effusion. There is no erythema or ecchymosis. There is crepitus with motion of the knee. He has full foot and ankle motion without difficulty or pain. Neurovascular status to the lower extremity is intact. Results X-rays of the left knee revealed [id number] arthritis in the medial compartment of the left knee. No acute fractures identified. - Labs Labs: Abnormal Lab Results - Last 24 Hours (Table) 11/10/18 11/10/18 11/10/18 Range/Units 08:12 08:12 11:31 Hgb 11.8 L (13.0-17.5) gm/dL Hct 37.1 L (39.0-53.0) % Glucose 198 H (74-99) mg/dL POC Glucose (mg/dL) 170 H (75-99) mg/dL 11/10/18 11/10/18 11/11/18 Range/Units 16:49 20:18 02:47 Hgb (13.0-17.5) gm/dL Hct (39.0-53.0) % Glucose (74-99) mg/dL POC Glucose (mg/dL) 119 H 125 H 150 H (75-99) mg/dL 11/11/18 Range/Units 07:25 Hgb (13.0-17.5) gm/dL Hct (39.0-53.0) % Glucose (74-99) mg/dL POC Glucose (mg/dL) 148 H (75-99) mg/dL H & H 11/10/18 Range/Units 08:12 Hgb 11.8 L (13.0-17.5) gm/dL Hct 37.1 L (39.0-53.0) % Result Diagrams: 11/10/18 08:12 11/10/18 08:12 Assessment and Plan (1) Primary osteoarthritis of left knee Current Visit: Yes Status: Acute Code(s): M17.12 - UNILATERAL PRIMARY OSTEOARTHRITIS, LEFT KNEE SNOMED Code(s): 080753054908139 (2) Altered mental status Current Visit: No Status: Acute Code(s): R41.82 - ALTERED MENTAL STATUS, UNSPECIFIED SNOMED Code(s): 480681000 Plan: The clinical and x-ray findings are discussed with the patient and his daughter. Treatment options are discussed including cortisone injection, physical therapy, bracing and surgical intervention. The patient elects to proceed with a cortisone injection today. I recommended that he work with physical therapy. He is follow-up with our office in 3-4 weeks. Time with Patient: Less than 30
[2018-11-11] MEDS: CHOLECALCIFEROL 1,000 UNIT TAB PO SCH (08:49)
[2018-11-11] MEDS: GABAPENTIN 300 MG CAP PO SCH (08:49)
[2018-11-11] MEDS: glipiZIDE 10 MG TAB PO SCH ×2 (08:49→21:22)
[2018-11-11] MEDS: FAMOTIDINE 20 MG TAB PO SCH ×2 (08:49→21:22)
[2018-11-11] MEDS: RIVAROXABAN 2.5 MG TABLET PO SCH ×2 (08:50→21:22)
[2018-11-11] MEDS: metFORMIN 500 MG TAB PO SCH ×2 (08:50→21:22)
[2018-11-11] MEDS: ETHOSUXIMIDE 250 MG PO SCH ×2 (08:50→21:22)
[2018-11-11] MEDS: DICLOFENAC SODIUM GEL 100 GM TUBE TOPICAL SCH ×4 (08:50→21:25)
[2018-11-11] MEDS: FINASTERIDE 5 MG TAB PO SCH (08:50)
[2018-11-11] MEDS: CARBIDOPA-LEVODOPA 25-100 MG 1 EACH TAB PO SCH ×3 (08:50→21:22)
[2018-11-11] MEDS: INSULIN ASPART (NovoLOG) 100 UNIT/ML VIAL SQ SCH ×4 (08:51→20:39)
[2018-11-11] MEDS: methylPREDNISolone ACETATE 40 MG/ML 1 ML VIAL INTRAARTIC ONE ×2 (09:00→10:19)
[2018-11-11] MEDS: LIDOCAINE 2% INJ 20 MG/ML (20 ML MDV) SQ ONE ×2 (09:00→10:19)
[2018-11-11] MEDS: DEXTROSE 5%-0.45% NACL 1,000 ML IV SCH ×2 (10:19→18:03)
[2018-11-11 11:12] LABS: Glucose,Whole Blood 151 mg/dL (75-99)
--- NOTE | 2018-11-11 12:21 | P.CONS ---
History of Present Illness - Chief Complaint Medical debility - History of Present Illness I had the opportunity to see patient for inpatient rehab consultation with regard to medical debility. He was admitted to [facility] November 08 with UTI, weakness and mental status change. Seen by Dr. Jj for possible absent seizure. Seen by orthopedics who notes left knee x-ray consistent with osteoarthritis. PT reports two-person total assistance functional mobility. OT reports maximal assistance upper dressing to person total assistance for lower dressing and bathing. Unable to assess toileting. Previous functional history as elicited from patient: 83-year-old right-handed white male who is , lives in second-floor apartment with elevator alone. Daughter does the laundry and driving. Patient independent with some simple cooking, sitdown shower and gait with [address] Noel is regular doctor. Review of Systems Review of systems: ENT: Hard of hearing. Eyes: Denies discharge or photophobia. Cardiac: Denies chest pain or palpitation. Pulmonary: Denies cough or shortness of breath. Gastrointestinal: Denies nausea, emesis, constipation, diarrhea. Genitourinary: Denies discharge or frequency. Musculoskeletal: Left knee discomfort. Neurologic: At least mild generalized weakness. Endocrine: Denies shakes or sweats. Oncology: Denies cancers. Dermatologic: Denies rash, itching, pruritus. ALLERGY/immunology: Denies sneezes, rashes. Past Medical History Past Medical History: Coronary Artery Disease (CAD), Cancer, Chest Pain / Angina, Diabetes Mellitus, Deep Vein Thrombosis (DVT), Hearing Disorder / Nissa fness, Hyperlipidemia, Hypertension, Myocardial Infarction (IA), Pneumonia, Prostate Disorder, Renal Disease, Rheumatoid Arthritis (RA) Additional Past Medical History / Comment(s): skin cancer on face-removed;CVA with mild R sided weakness, TIAs, NIDDM type II, epilepsy as a child, spinal stenosis, lumbar pain, cervical pain, parkinsons disease, DVT per past medical history but pt does not recall dvt, BPH, UTIS/sepsis and recent UTI, falls, tinnitis R ear, deaf in L ear, history of presbyesophagus, hyponatremia, thrombocytopenia, CKD stage II Last Myocardial Infarction Date:: 03/04/11 History of Any Multi-Drug Resistant Organisms: None Reported Past Surgical History: Coronary Bypass/CABG, Heart Catheterization With Stent, Joint Replacement, Tonsillectomy Additional Past Surgical History / Comment(s): 2005 and 2011 PTCA with stent, 2006 CABG-3 vessel, sebaceous cysts removed from neck, laser surgery for cataract removals bilateral, colonoscopy, total R knee arthroplasty, skin cancer on face removed Past Anesthesia/Blood Transfusion Reactions: No Reported Reaction Date of Last Stent Placement:: 2011 Past Psychological History: No Psychological Hx Reported Additional Psychological History / Comment(s): Pt currently resides at [facility]. He ambulates with a walker. His bud, Radha, manages his medications and brings him breakfast and food that he only has to warm up. His bud also drives him to [employer]. Smoking Status: Former smoker Past Alcohol Use History: None Reported Additional Past Alcohol Use History / Comment(s): Pt smoked from [id number], one pack per day. Past Drug Use History: None Reported - Past Family History Father Family Medical History: Coronary Artery Disease (CAD) Additional Family Medical History / Comment(s): Father had heart disease. Mother Family Medical History: Coronary Artery Disease (CAD) Additional Family Medical History / Comment(s): Mother had heart disease. Medications and Allergies Home Medications Medication Instructions Recorded Confirmed Type Finasteride [Proscar] 5 mg PO DAILY 11/02/15 11/08/18 History Isosorbide Mononitrate ER [Imdur] 30 mg PO HS 11/02/15 11/08/18 History Carbidopa-Levodopa 25-100 mg 1 tab PO TID 02/07/18 11/08/18 History [Sinemet 25-100 mg] Gabapentin [Neurontin] 300 mg PO HS 02/07/18 11/11/18 History Atorvastatin Calcium [Lipitor] 40 mg PO HS #30 tablet 02/09/18 11/08/18 Rx Famotidine [Pepcid] 20 mg PO BID #60 tab 02/09/18 11/08/18 Rx Cholecalciferol [Vitamin D3 (25 2,000 unit PO DAILY 07/14/18 11/08/18 History Mcg = 1000 Iu)] Ethosuximide [Zarontin] 250 mg PO BID 07/14/18 11/08/18 History Rivaroxaban [Xarelto] 2.5 mg PO BID 11/08/18 11/08/18 History glipiZIDE [Glucotrol] 10 mg PO BID 11/08/18 11/08/18 History metFORMIN HCL [Glucophage] 500 mg PO BID 11/08/18 11/08/18 History Allergies Allergy/AdvReac Type Severity Reaction Status Date / Time No Known Allergies Allergy Verified 07/14/18 09:02 Physical Exam Vitals: Vital Signs Temp Pulse Resp BP BP Pulse Ox 11/11/18 11:40 98 F 82 18 126/66 91 L 11/10/18 19:19 98.5 F 85 16 122/58 98 11/10/18 13:00 97.5 F L 80 16 129/84 98 Intake and Output 11/10/18 11/11/18 11/11/18 22:59 06:59 14:59 Intake Total 100 Balance 100 Intake: Oral 100 Other: Voiding Method Urinal Diaper Diaper Incontinent Incontinent # Voids 1 1 Skin: Atrophic, intact. General: Overweight build and comfortable appearance. Head: Normocephalic, atraumatic. Eyes: Symmetric. Pupils equal round. Ears: Symmetric. Hard of hearing bilateral. Mouth: Clear. Neck: Supple. Carotid without bruit. Cardiac: Regular rate and rhythm. Lungs: Clear anteriorly and posteriorly. Abdomen: Soft active nontender. Extremities: Normal tone. Neurological: Mental status: Alert, cooperative, pleasant. Cranial nerves: Symmetric facial tone and trapezius. Motor: Can actively elevate off of bed all 4 limbs. Sensation: Intact throughout. DTRs: Symmetric and equal throughout. Mobility: Requires two-person assistance for bed mobility. Results CBC & Chem 7: 11/10/18 08:12 11/10/18 08:12 Labs: Abnormal Lab Results - Last 24 Hours (Table) 11/10/18 11/10/18 11/11/18 Range/Units 16:49 20:18 02:47 POC Glucose (mg/dL) 119 H 125 H 150 H (75-99) mg/dL 11/11/18 11/11/18 Range/Units 07:25 11:08 POC Glucose (mg/dL) 148 H 151 H (75-99) mg/dL Assessment and Plan (1) ARF (acute renal failure) Current Visit: No Status: Acute Code(s): N17.9 - ACUTE KIDNEY FAILURE, UNSPECIFIED SNOMED Code(s): 29379894 (2) Altered mental status Current Visit: No Status: Acute Code(s): R41.82 - ALTERED MENTAL STATUS, UNSPECIFIED SNOMED Code(s): 091394997 Plan: Impression: 1. Medical debility. 2. Acute renal failure. 3. Lumbar disc disease. 4. Lydia arthritis including left knee. 5. History of Parkinson. 6. Hard of hearing. Comes plan: At this time PT and OT ongoing. Patient currently two-person assistance for functional mobility and thus would require 24/7 multiple persons. At this time should begin to consider alternative placement such as SNF.
[2018-11-11 17:24] LABS: Glucose,Whole Blood 196 mg/dL (75-99)
--- NOTE | 2018-11-11 19:26 | P.PN ---
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 Patient had extensive workup in the past including computed tomography scan computed tomography scan and shows. Patient has presented to [facility] with altered mental status. Because neurologic services were not available that patient was transferred here. Patient daughter is the bedside. She checks on the patient every morning in these lesions for him. Otherwise the patient lives alone. Normally has a walker to get about. Patient on finished a course of antibiotic for UTI. They were checked in on the patient and patient looked different. Riggs catheter was placed at [facility]. Otherwise patient appetite has been good. Patient does complain of pain in the left knee since his transfer from another hospital. No known injury. When I saw the patient this morning patient is more back to his baseline. There was no focal report of any focal weakness. Daughter the bedside care post of the history. Patient is felt to be admitted with metabolic encephalopathy from underlying UTI. Also had flareup of Wilberto arthritis of the left knee. Today-seen by orthopedics. Received a cortisone shot to the left knee. Family is looking for patient to the inpatient rehab.. Discharge planning is in place. Otherwise patient is comfortable. Review of systems: Was done for constitutional, cardiovascular, GI, pulmonary. relevant finding as above Active Medications Acetaminophen (Tylenol Tab) 325 mg PO Q6HR PRN PRN Reason: Fever and/ or Mild Pain Last Admin: 11/10/18 09:27 Dose: 325 mg Documented by: Atorvastatin Calcium (Lipitor) 40 mg PO HS [facility] Last Admin: 11/10/18 21:39 Dose: Not Given Documented by: Carbidopa/Levodopa (Sinemet 25-100) 1 each PO TID [facility] Last Admin: 11/11/18 16:13 Dose: 1 each Documented by: Cholecalciferol (Vitamin D3 (25 Mcg = 1000 Iu)) 2,000 unit PO DAILY [facility] Last Admin: 11/11/18 08:49 Dose: 2,000 unit Documented by: Diclofenac Sodium (Voltaren Gel) 4 gm TOPICAL QID [facility] Last Admin: 11/11/18 18:04 Dose: Not Given Documented by: Famotidine (Pepcid) 20 mg PO BID [facility] Last Admin: 11/11/18 08:49 Dose: 20 mg Documented by: Finasteride (Proscar) 5 mg PO DAILY [facility] Last Admin: 11/11/18 08:50 Dose: 5 mg Documented by: Gabapentin (Neurontin) 300 mg PO [facility] Glipizide (Glucotrol) 10 mg PO BID [facility] Last Admin: 11/11/18 08:49 Dose: 10 mg Documented by: Dextrose/Sodium Chloride (Dextrose 5%-1/2ns Iv Soln) 1,000 mls @ 100 mls/hr IV .Q10H [facility] Last Admin: 11/11/18 18:03 Dose: Not Given Documented by: Ceftriaxone Sodium 1 gm/ (Sodium Chloride) 50 mls @ 100 mls/hr IVPB Q24HR [facility] Last Admin: 11/11/18 08:53 Dose: 100 mls/hr Documented by: Insulin Aspart (Novolog) 0 unit SQ [facility]; Protocol Last Admin: 11/11/18 18:05 Dose: 3 unit Documented by: Isosorbide Mononitrate (Imdur) 30 mg PO [facility] Last Admin: 11/10/18 21:39 Dose: Not Given Documented by: Metformin HCl (Glucophage) 500 mg PO BID [facility] Last Admin: 11/11/18 08:50 Dose: 500 mg Documented by: Ethosuximide 250 Mg 250 mg PO BID [facility] Last Admin: 11/11/18 08:50 Dose: 250 mg Documented by: Rivaroxaban (Xarelto) 2.5 mg PO BID [facility] Last Admin: 11/11/18 08:50 Dose: 2.5 mg Documented by: Physical examination: VITAL SIGNS: 98, 82, 18, 120 [id number], 91% room air GENERAL: BMI 31.8, laying in bed, comfortable EYES: Pupils equal. Conjunctiva normal. HEENT: External appearance of nose and ears normal, oral cavity grossly normal. NECK: JVD not raised; masses not palpable. HEART: First and second heart sounds are normal; no edema. LUNGS: Respiratory rate normal; clear to auscultation. ABDOMEN: Soft, nontender, liver spleen not palpable, no masses palpable, Riggs catheter. PSYCH: Awake house able to answer simple questionsl. 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 Looking into inpatient rehab. Other medication treatment plan is to continue.
[2018-11-11 20:18] LABS: Glucose,Whole Blood 118 mg/dL (75-99)
[2018-11-11] MEDS ORDERED: GABAPENTIN 300 MG CAP PO SCH (21:00)
[2018-11-11] MEDS: ATORVASTATIN 40 MG TAB PO SCH (21:22)
[2018-11-11] MEDS: ISOSORBIDE MONONITRATE ER 30 MG TAB.ER.24H PO SCH (21:22)
[2018-11-11] MEDS: CEPHALEXIN 250 MG CAP PO SCH (21:22)
[2018-11-12 01:48] LABS: Glucose,Whole Blood 134 mg/dL (75-99)
[2018-11-12] MEDS: DEXTROSE 5%-0.45% NACL 1,000 ML IV SCH (04:53)
[2018-11-12 06:57] LABS: Glucose,Whole Blood 101 mg/dL (75-99)
[2018-11-12] MEDS: INSULIN ASPART (NovoLOG) 100 UNIT/ML VIAL SQ SCH ×2 (08:44→13:13)
[2018-11-12] MEDS: FAMOTIDINE 20 MG TAB PO SCH (08:45)
[2018-11-12] MEDS: glipiZIDE 10 MG TAB PO SCH (08:45)
[2018-11-12] MEDS: metFORMIN 500 MG TAB PO SCH (08:45)
[2018-11-12] MEDS: CHOLECALCIFEROL 1,000 UNIT TAB PO SCH (08:45)
[2018-11-12] MEDS: CEPHALEXIN 250 MG CAP PO SCH ×2 (08:46→13:13)
[2018-11-12] MEDS: ETHOSUXIMIDE 250 MG PO SCH (08:46)
[2018-11-12] MEDS: FINASTERIDE 5 MG TAB PO SCH (08:46)
[2018-11-12 08:47] LABS: African American GFR (CKD) >90 (>60 ml/min/1.73 sqM); Anion Gap 9 mmol/L; Blood Urea Nitrogen 16 mg/dL (9-20); Calcium 8.7 mg/dL (8.4-10.2); Carbon Dioxide 26 mmol/L (22-30); Chloride 105 mmol/L (98-107); Glucose 116 mg/dL (74-99); Sodium 140 mmol/L (137-145)
[2018-11-12] MEDS: RIVAROXABAN 2.5 MG TABLET PO SCH (08:47)
[2018-11-12] MEDS: DICLOFENAC SODIUM GEL 100 GM TUBE TOPICAL SCH ×2 (08:47→13:14)
[2018-11-12] MEDS: CARBIDOPA-LEVODOPA 25-100 MG 1 EACH TAB PO SCH (08:47)
--- NOTE | 2018-11-12 09:20 | P.PN ---
Subjective Progress Note Date: 11/12/18 Principal diagnosis: Primary osteoarthritis left knee. Mental status changes. This is an 83-year-old gentleman who we are following regarding his degenerative arthritis of his left knee. He was given a cortisone injection to the left knee yesterday which she tolerated well. He states that his pain is significantly improved today. Objective - Vital Signs Vital signs: Vital Signs Temp 97.1 F L 11/12/18 05:00 Pulse 74 11/12/18 05:00 Resp 16 11/12/18 05:00 BP 102/56 11/12/18 05:00 Pulse Ox 100 11/12/18 05:00 Intake & Output 11/11/18 11/12/18 11/12/18 18:59 06:59 18:59 Intake Total 300 Balance 300 Weight 112.5 kg Intake: Oral 300 Other: Voiding Method Diaper Incontinent # Voids 1 1 - Exam This is a pleasant 83-year-old gentleman in no acute distress. He is alert with some confusion. He is in a much better mood today. His daughter is present at bedside. He is able to flex and extend his knee actively today. There is no erythema or swelling to the knee. He has full foot and ankle motion without difficulty or pain. Neurovascular status to the lower extremity is intact. - Labs CBC & Chem 7: 11/10/18 08:12 11/10/18 08:12 Labs: Abnormal Lab Results - Last 24 Hours (Table) 11/11/18 11/11/18 11/11/18 Range/Units 11:08 17:22 20:17 POC Glucose (mg/dL) 151 H 196 H 118 H (75-99) mg/dL 11/12/18 11/12/18 Range/Units 01:46 06:56 POC Glucose (mg/dL) 134 H 101 H (75-99) mg/dL Assessment and Plan (1) Primary osteoarthritis of left knee Current Visit: Yes Status: Acute Code(s): M17.12 - UNILATERAL PRIMARY OSTEOARTHRITIS, LEFT KNEE SNOMED Code(s): 956544760766313 (2) Altered mental status Current Visit: No Status: Acute Code(s): R41.82 - ALTERED MENTAL STATUS, UNSPECIFIED SNOMED Code(s): 245161021 Plan: The clinical and x-ray findings are discussed with the patient and his daughter. He is to continue with physical therapy. I recommend inpatient rehab. He is to follow-up in one month or as needed.
[2018-11-12 11:13] LABS: Glucose,Whole Blood 135 mg/dL (75-99)
[2018-11-12 11:47] VITALS: BP 102/61; PULSE 77; RESP 18; TEMP 98.1
--- NOTE | 2018-11-12 12:06 | P.DS ---
Providers Date of admission: 11/08/18 14:53 Expected date of discharge: 11/12/18 Attending physician: Lalo Alegria Consults: 11/08/18 18:58 Consult Physician Routine Consulting Provider: Maeve Pastrana Consult Reason/Comments: absent seizures Do you want consulting provider notified?: Yes 11/10/18 10:51 Consult Physician Routine Consulting Provider: Michael Melendez Consult Reason/Comments: left knee pain Do you want consulting provider notified?: Yes 11/11/18 09:32 Consult Physician Routine Consulting Provider: Rajat Gatica Consult Reason/Comments: inpatient rehab Do you want consulting provider notified?: Yes Primary care physician: Stated None Hospital Course: Hospital course: This is a 83-year-old patient whose chronic stable medical conditions include idiopathic Parkinson disease, diabetes mellitus type 2,absence seizures, 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 Patient had extensive workup in the past including computed tomography scan computed tomography scan and shows. Patient has presented to [facility] with altered mental status. Because neurologic services were not available that patient was transferred here. Patient daughter is the bedside. She checks on the patient every morning in these [facility] for him. Otherwise the patient lives alone. Normally has a walker to get about. Patient on finished a course of antibiotic for UTI. They were checked in on the patient and patient looked different. Riggs catheter was placed at [facility]. Otherwise patient appetite has been good. Patient does complain of pain in the left knee since his transfer from another hospital. No known injury. When I saw the patient this morning patient is more back to his baseline. There was no focal report of any focal weakness. Daughter the bedside care post of the history. Patient is felt to be admitted with metabolic encephalopathy from underlying UTI. Also had flareup of Wilberto arthritis of the left knee. Patient's encephalopathy resolved with IV ceftriaxone. Did receive a steroid injection to his left knee. Pain much improved. Doing better and back to his baseline. Spoke to the daughter the bedside today. Questions were answered. Also seen by neurology. No further workup. It may be noted that patient has a history of absence seizures. Discussed with the wrong from social science instructor. Patient agreed to the rehab today. Discussion and discharge planning more than 35 minutes Consultation: Dr. Howard from orthopedics Dr. Pastrana from neurology Physical examination: VITAL SIGNS: 98, 82, 18, 120 [id number], 91% room air GENERAL: BMI 31.8, laying in bed, comfortable EYES: Pupils equal. Conjunctiva normal. HEENT: External appearance of nose and ears normal, oral cavity grossly normal. NECK: JVD not raised; masses not palpable. HEART: First and second heart sounds are normal; no edema. LUNGS: Respiratory rate normal; clear to auscultation. ABDOMEN: Soft, nontender, liver spleen not palpable, no masses palpable, Riggs catheter. PSYCH: Awake house able to answer simple questionsl. 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 -Coronary artery disease with stent and bypass -Hyperlipidemia -Essential hypertension -Chronic neurocognitive disorder -Chronic spinal stenosis -BPH -Primary Wilberto arthritis of the left knee with acute flareup, status post cortisone shot -Absence seizures Disposition: ECF Patient Condition at Discharge: Stable Plan - Discharge Summary Discharge Rx Participant: No New Discharge Prescriptions: New Cephalexin [Keflex] 250 mg PO QID #20 cap INSULIN ASPART (NovoLOG) [NovoLOG (formulary)] 0 unit SQ [facility] vial Continue Isosorbide Mononitrate ER [Imdur] 30 mg PO HS Finasteride [Proscar] 5 mg PO DAILY Carbidopa-Levodopa 25-100 mg [Sinemet 25-100 mg] 1 tab PO TID Atorvastatin Calcium [Lipitor] 40 mg PO HS #30 tablet Famotidine [Pepcid] 20 mg PO BID #60 tab Cholecalciferol [Vitamin D3 (25 Mcg = 1000 Iu)] 2,000 unit PO DAILY Ethosuximide [Zarontin] 250 mg PO BID metFORMIN HCL [Glucophage] 500 mg PO BID glipiZIDE [Glucotrol] 10 mg PO BID Rivaroxaban [Xarelto] 2.5 mg PO BID Gabapentin [Neurontin] 300 mg PO HS #3 cap Discharge Medication List Finasteride [Proscar] 5 mg PO DAILY 11/02/15 [History] Isosorbide Mononitrate ER [Imdur] 30 mg PO HS 11/02/15 [History] Carbidopa-Levodopa 25-100 mg [Sinemet 25-100 mg] 1 tab PO TID 02/07/18 [History] Atorvastatin Calcium [Lipitor] 40 mg PO HS #30 tablet 02/09/18 [Rx] Famotidine [Pepcid] 20 mg PO BID #60 tab 02/09/18 [Rx] Cholecalciferol [Vitamin D3 (25 Mcg = 1000 Iu)] 2,000 unit PO DAILY 07/14/18 [History] Ethosuximide [Zarontin] 250 mg PO BID 07/14/18 [History] Rivaroxaban [Xarelto] 2.5 mg PO BID 11/08/18 [History] glipiZIDE [Glucotrol] 10 mg PO BID 11/08/18 [History] metFORMIN HCL [Glucophage] 500 mg PO BID 11/08/18 [History] Cephalexin [Keflex] 250 mg PO QID #20 cap 11/12/18 [Rx] Gabapentin [Neurontin] 300 mg PO HS #3 cap 11/12/18 [Rx] INSULIN ASPART (NovoLOG) [NovoLOG (formulary)] 0 unit SQ [facility] vial 11/12/18 [Rx] Follow up Appointment(s)/Referral(s): [facility], [NON-STAFF] - 1 Week Fahad Howard MD [STAFF PHYSICIAN] - 4 Weeks
== END 2018-11-12 14:52 | DRG 689 ==
LOC: 3NMEDONC 14:53
PROVIDERS: ADMIT Hospitalist; ATTEND Hospitalist
DX: N30.90 Cystitis, unspecified without hematuria (principal); G93.41 Metabolic encephalopathy; E87.2 Acidosis; I69.351 Hemiplegia and hemiparesis following cerebral infarction affecting right dominant side; N17.9 Acute kidney failure, unspecified; E11.649 Type 2 diabetes mellitus with hypoglycemia without coma; E78.5 Hyperlipidemia, unspecified; G20 Parkinson's disease; H91.90 Unspecified hearing loss, unspecified ear; I25.10 Atherosclerotic heart disease of native coronary artery without angina pectoris; I25.2 Old myocardial infarction; K22.8 Other specified diseases of esophagus; M06.9 Rheumatoid arthritis, unspecified; M17.12 Unilateral primary osteoarthritis, left knee; M51.36 Other intervertebral disc degeneration, lumbar region; N40.0 Benign prostatic hyperplasia without lower urinary tract symptoms; R13.10 Dysphagia, unspecified; Z79.01 Long term (current) use of anticoagulants; Z79.84 Long term (current) use of oral hypoglycemic drugs; Z79.899 Other long term (current) drug therapy; Z82.49 Family history of ischemic heart disease and other diseases of the circulatory system; Z85.828 Personal history of other malignant neoplasm of skin; Z87.440 Personal history of urinary (tract) infections; Z87.891 Personal history of nicotine dependence; Z95.1 Presence of aortocoronary bypass graft; Z95.5 Presence of coronary angioplasty implant and graft; Z96.651 Presence of right artificial knee joint; E11.22 Type 2 diabetes mellitus with diabetic chronic kidney disease; I12.9 Hypertensive chronic kidney disease with stage 1 through stage 4 chronic kidney disease, or unspecified chronic kidney disease; N18.2 Chronic kidney disease, stage 2 (mild); G40.A09 Absence epileptic syndrome, not intractable, without status epilepticus
CPT/HCPCS: 80048; 81001; 83036; 85025; 95816

== ENCOUNTER 2018-12-12 08:19 | Inpatient (IN) | payer MEDICARE, OTHER ==
[2018-12-12] MEDS ORDERED: SODIUM CHLORIDE 0.9% 1,000 ML IV ONE ×3 (09:44→11:39)
[2018-12-12 09:57] LABS: Basophils # (A) 0.1 k/uL (0-0.2); Basophils % (A) 1 %; Eosinophils # (A) 0.3 k/uL (0-0.7); Eosinophils % (A) 6 %; HCT 36.6 % (39.0-53.0); HGB 11.5 gm/dL (13.0-17.5); Hypochromasia Marked; Lymphocytes # (A) 0.7 k/uL (1.0-4.8); Lymphocytes % (A) 16 %; MCH 25.7 pg (25.0-35.0); MCHC 31.5 g/dL (31.0-37.0); MCV 81.5 fL (80.0-100.0); Mean Platelet Volume 7.5; Monocytes # (A) 0.4 k/uL (0-1.0); Monocytes % (A) 10 %; Neutrophils # (A) 2.8 k/uL (1.3-7.7); Neutrophils % (A) 63 %; Platelet Count 212 k/uL (150-450); Poikilocytosis Slight; RBC 4.49 m/uL (4.30-5.90); RDW 14.2 % (11.5-15.5); WBC 4.4 k/uL (3.8-10.6)
--- NOTE | 2018-12-12 10:10 | ED ---
General Adult HPI <Adolfo Melendez - Last Filed: 12/12/18 12:34> - General Source: patient, RN notes reviewed, old records reviewed Mode of arrival: ambulatory Limitations: no limitations <Brooke Vo - Last Filed: 12/12/18 14:01> - General Chief complaint: Altered Mental Status Stated complaint: altered mental status Time Seen by Provider: 12/12/18 08:24 - History of Present Illness Initial comments: Patient is an 83-year-old male, who presents emergency Department after calling 911. Patient reports that after he called 911 he refused to go but told the EMS that he just didn't want to live any longer. Patient states she is sad but denies any suicidal complaints. He denies any physical complaints at this time. He has a history of seizure disorder and history of frequent urinary tract infections. Patient states he just doesn't feel good. Patient states that he has had no falls or trauma. Patient is relatively uncooperative with history taking. Should states he does not know year where he is at. (Brooke Vo) - Related Data Home Medications Medication Instructions Recorded Confirmed Finasteride [Proscar] 5 mg PO DAILY 11/02/15 12/12/18 Carbidopa-Levodopa 25-100 mg 1 tab PO TID 02/07/18 12/12/18 [Sinemet 25-100 mg] Ethosuximide [Zarontin] 250 mg PO BID 07/14/18 12/12/18 Rivaroxaban [Xarelto] 2.5 mg PO BID 11/08/18 12/12/18 glipiZIDE [Glucotrol] 10 mg PO BID 11/08/18 12/12/18 metFORMIN HCL [Glucophage] 500 mg PO BID 11/08/18 12/12/18 Clopidogrel [Plavix] 75 mg PO DAILY 12/12/18 12/12/18 Nitrofurantoin Monohyd/M-Cryst 100 mg PO Q12HR 12/12/18 12/12/18 [Macrobid] Previous Rx's Medication Instructions Recorded Atorvastatin Calcium [Lipitor] 40 mg PO HS #30 tablet 02/09/18 Famotidine [Pepcid] 20 mg PO BID #60 tab 02/09/18 Allergies Allergy/AdvReac Type Severity Reaction Status Date / Time No Known Allergies Allergy Verified 12/12/18 10:38 Review of Systems ROS Other: All systems not noted in ROS Statement are negative. <Adolfo Melendez - Last Filed: 12/12/18 12:34> ROS Other: All systems not noted in ROS Statement are negative. <Brooke Vo - Last Filed: 12/12/18 14:01> ROS Statement: Those systems with pertinent positive or pertinent negative responses have been documented in the HPI. Past Medical History Past Medical History: Coronary Artery Disease (CAD), Cancer, Chest Pain / Angina, Diabetes Mellitus, Deep Vein Thrombosis (DVT), Hearing Disorder / Deafness, Hyperlipidemia, Hypertension, Myocardial Infarction ([place]), Pneumonia, Prostate Disorder, Renal Disease, Rheumatoid Arthritis (RA) Additional Past Medical History / Comment(s): skin cancer on face-removed;CVA with mild R sided weakness, TIAs, NIDDM type II, epilepsy as a child, spinal stenosis, lumbar pain, cervical pain, parkinsons disease, DVT per past medical history but pt does not recall dvt, BPH, UTIS/sepsis and recent UTI, falls, tinnitis R ear, deaf in L ear, history of presbyesophagus, hyponatremia, thrombocytopenia, CKD stage II Last Myocardial Infarction Date:: 03/04/11 History of Any Multi-Drug Resistant Organisms: None Reported Past Surgical History: Coronary Bypass/CABG, Heart Catheterization With Stent, Joint Replacement, Tonsillectomy Additional Past Surgical History / Comment(s): 2005 and 2011 PTCA with stent, 2006 CABG-3 vessel, sebaceous cysts removed from neck, laser surgery for cataract removals bilateral, colonoscopy, total R knee arthroplasty, skin cancer on face removed Past Anesthesia/Blood Transfusion Reactions: No Reported Reaction Date of Last Stent Placement:: 2011 Past Psychological History: No Psychological Hx Reported Smoking Status: Former smoker Past Alcohol Use History: None Reported Past Drug Use History: None Reported - Past Family History Father Family Medical History: Coronary Artery Disease (CAD) Additional Family Medical History / Comment(s): Father had heart disease. Mother Family Medical History: Coronary Artery Disease (CAD) Additional Family Medical History / Comment(s): Mother had heart disease. <Brooke Vo - Last Filed: 12/12/18 14:01> General Exam Limitations: no limitations General appearance: alert, in no apparent distress Head exam: Present: atraumatic, normocephalic, normal inspection Eye exam: Present: normal appearance, PERRL, EOMI. Absent: scleral icterus, conjunctival injection, periorbital swelling ENT exam: Present: mucous membranes dry, mucous membranes moist. Absent: normal exam Neck exam: Present: normal inspection. Absent: tenderness, meningismus, lymphadenopathy Respiratory exam: Present: normal lung sounds bilaterally. Absent: respiratory distress, wheezes, rales, rhonchi, stridor Cardiovascular Exam: Present: regular rate, normal rhythm, normal heart sounds. Absent: systolic murmur, diastolic murmur, rubs, gallop, clicks GI/Abdominal exam: Present: soft, normal bowel sounds. Absent: distended, tenderness, guarding, rebound, rigid Extremities exam: Present: normal inspection, full ROM, normal capillary refill. Absent: tenderness, pedal edema, joint swelling, calf tenderness Back exam: Present: normal inspection Neurological exam: Present: alert, altered, CN II-XII intact Expanded Patient oriented to: Present: person Speech: Present: expressive aphasia (at times patient would not respond to questioning, others he would. ) Cranial nerves: EOM's Intact: Normal Cerebellar function: Finger to Nose: Normal Upper motor neuron: Pronator Drift: Normal Sensory exam: Upper Extremity Light Touch: Normal, Lower Extremity Light Touch: Normal Motor strength exam: RUE: 5, LUE: 5, RLE: 5, LLE: 5 Eye Response: (4) open spontaneously Motor Response: (6) obeys commands Verbal Response: (5) oriented Donald Total: 15 Psychiatric exam: Present: normal mood. Absent: normal affect Skin exam: Present: warm, dry, intact, normal color. Absent: rash <Brooke Vo - Last Filed: 12/12/18 14:01> - General Exam Comments Initial Comments: 83-year-old male. Patient is confused and otherwise here. Does not know date or year.. (Brooke Vo) Course Vital Signs 12/12/18 12/12/18 12/12/18 08:32 10:04 12:34 Temperature 97.9 F Pulse Rate 86 65 70 Respiratory 18 18 18 Rate Blood Pressure 121/79 123/65 102/60 O2 Sat by Pulse 97 97 95 Oximetry Medical Decision Making - Lab Data Result diagrams: 12/12/18 09:37 12/12/18 09:37 <Adolfo Melendez - Last Filed: 12/12/18 12:34> - Lab Data Result diagrams: 12/12/18 09:37 12/12/18 09:37 - Radiology Data Radiology results: report reviewed <Brooke Vo - Last Filed: 12/12/18 14:01> - Medical Decision Making Case was discussed with practitioner Brooke. Chart and results reviewed. Case also discussed with Dr. wetzel, who will admit for hospital call. (Adolfo Melendez) 83-year-old male presents today for evaluation for complaints of confusion. He called EMS but did not know why he called EMS. Upon arriving here patient's family states is generally been weak, E or drinking well. History of Parkinson's disease and seizures. At this time Patient with steroids space, and tablet unresponsive episode at the later would respond appropriately. He does have history of Seizures. At This Time Patient Was Also Becoming Hostile. Upon Arrival to the ER He Had No Specific Complaints of Pain. Family Relates He Has Had History of Urinary Tract Infections in the past. Patient at This Time Was Given IV Fluids and Lab Work Obtained. Lab Work Was Reviewed Shows Mild Dehydration from Elevated Kidney Functions Otherwise Unremarkable. Chest X-Ray and CT Were Performed. Negative for Any Acute Process. Chest X-Ray Shows Cardiomegaly and CT of the Branch Is No Evidence of Intracranial Hemorrhage or Midline Shift. I Discussed the Case with Dr. Melendez Family's Concern for General Weakness and His Confusion Breathing Him in to the ER. They're Uncomfortable Taking Him Home. Dr. Melendez Discussed the Case with Dr. She Was Agreeable to Admission. It Is of Note the Patient Did Mention That He Just Wanted to "End It". He Has Had Some Vague Depressive and Suicidal Statements. Family States That He May Benefit from Seeing Psychiatry. (Brooke Vo) - Lab Data Lab Results 12/12/18 12/12/18 12/12/18 Range/Units 09:37 09:37 09:37 WBC 4.4 (3.8-10.6) k/uL RBC 4.49 (4.30-5.90) m/uL Hgb 11.5 L (13.0-17.5) gm/dL Hct 36.6 L (39.0-53.0) % MCV 81.5 (80.0-100.0) fL MCH 25.7 (25.0-35.0) pg MCHC 31.5 (31.0-37.0) g/dL RDW 14.2 (11.5-15.5) % Plt Count 212 (150-450) k/uL Neutrophils % 63 % Lymphocytes % 16 % Monocytes % 10 % Eosinophils % 6 % Basophils % 1 % Neutrophils # 2.8 (1.3-7.7) k/uL Lymphocytes # 0.7 L (1.0-4.8) k/uL Monocytes # 0.4 (0-1.0) k/uL Eosinophils # 0.3 (0-0.7) k/uL Basophils # 0.1 (0-0.2) k/uL Hypochromasia Marked Poikilocytosis Slight PT 9.9 (9.0-12.0) sec INR 0.9 (<1.2) APTT 22.1 (22.0-30.0) sec Sodium 142 (137-145) mmol/L Potassium 3.4 L (3.5-5.1) mmol/L Chloride 108 H (98-107) mmol/L Carbon Dioxide 24 (22-30) mmol/L Anion Gap 10 mmol/L BUN 9 (9-20) mg/dL Creatinine 0.77 (0.66-1.25) mg/dL Est GFR (CKD-EPI)AfAm >90 (>60 ml/min/1.73 sqM) Est GFR (CKD-EPI)NonAf 84 (>60 ml/min/1.73 sqM) Glucose 182 H (74-99) mg/dL Calcium 8.6 (8.4-10.2) mg/dL Total Bilirubin 0.3 (0.2-1.3) mg/dL AST 27 (17-59) U/L ALT 22 (21-72) U/L Alkaline Phosphatase 90 (38-126) U/L Troponin I (0.000-0.034) ng/mL Total Protein 6.2 L (6.3-8.2) g/dL Albumin 3.3 L (3.5-5.0) g/dL 12/12/18 Range/Units 09:37 WBC (3.8-10.6) k/uL RBC (4.30-5.90) m/uL Hgb (13.0-17.5) gm/dL Hct (39.0-53.0) % MCV (80.0-100.0) fL MCH (25.0-35.0) pg MCHC (31.0-37.0) g/dL RDW (11.5-15.5) % Plt Count (150-450) k/uL Neutrophils % % Lymphocytes % % Monocytes % % Eosinophils % % Basophils % % Neutrophils # (1.3-7.7) k/uL Lymphocytes # (1.0-4.8) k/uL Monocytes # (0-1.0) k/uL Eosinophils # (0-0.7) k/uL Basophils # (0-0.2) k/uL Hypochromasia Poikilocytosis PT (9.0-12.0) sec INR (<1.2) APTT (22.0-30.0) sec Sodium (137-145) mmol/L Potassium (3.5-5.1) mmol/L Chloride (98-107) mmol/L Carbon Dioxide (22-30) mmol/L Anion Gap mmol/L BUN (9-20) mg/dL Creatinine (0.66-1.25) mg/dL Est GFR (CKD-EPI)AfAm (>60 ml/min/1.73 sqM) Est GFR (CKD-EPI)NonAf (>60 ml/min/1.73 sqM) Glucose (74-99) mg/dL Calcium (8.4-10.2) mg/dL Total Bilirubin (0.2-1.3) mg/dL AST (17-59) U/L ALT (21-72) U/L Alkaline Phosphatase (38-126) U/L Troponin I <0.012 (0.000-0.034) ng/mL Total Protein (6.3-8.2) g/dL Albumin (3.5-5.0) g/dL 12/12/18 10:17 EKG performed at 8:32 AM shows sinus rhythm with sinus arrhythmia and occasional PVCs. Nonspecific T-wave abnormality. Prolonged QT. Abnormal EKG. Ventricular rate of 81 bpm. Intervals 164 ms. QRS ration is 82 ms. QT QTc is 510/92 ms. (Brooke Vo) - Radiology Data CT shows no acute injury cranial on amount appeared atrophic change. Chronic white matter ischemic change. X-ray shows mild cardiomegaly. (Brooke Vo) Disposition <Adolfo Melendez - Last Filed: 12/12/18 12:34> Is patient prescribed a controlled substance at d/c from ED?: No Time of Disposition: 13:59 <Brooke Vo - Last Filed: 12/12/18 14:01> Clinical Impression: AMS (altered mental status), Dizziness, Weakness, Parkinsons disease, Failure to thrive Disposition: ADMITTED IP TO THIS HOSP Condition: Stable Referrals: None,Stated [Primary Care Provider] - 1-2 days
[2018-12-12 10:18] LABS: INR 0.9 (<1.2); Partial Thromboplastin Time 22.1 sec (22.0-30.0); Prothrombin Time 9.9 sec (9.0-12.0)
[2018-12-12 10:20] LABS: ALT 22 U/L (21-72); AST 27 U/L (17-59); African American GFR (CKD) >90 (>60 ml/min/1.73 sqM); Albumin 3.3 g/dL (3.5-5.0); Alkaline Phosphatase 90 U/L (38-126); Anion Gap 10 mmol/L; Blood Urea Nitrogen 9 mg/dL (9-20); Calcium 8.6 mg/dL (8.4-10.2); Carbon Dioxide 24 mmol/L (22-30); Chloride 108 mmol/L (98-107); Glucose 182 mg/dL (74-99); Potassium 3.4 mmol/L (3.5-5.1); Sodium 142 mmol/L (137-145); Total Bilirubin 0.3 mg/dL (0.2-1.3); Total Protein 6.2 g/dL (6.3-8.2)
--- NOTE | 2018-12-12 10:50 | CT ---
EXAMINATION TYPE: CT brain wo con DATE OF EXAM: 12/12/2018 COMPARISON: Previous study dated 07/14/2018 HISTORY: Mental status changes CT DLP: 1099.4 mGycm Automated exposure control for dose reduction was used. FINDINGS: There are generalized changes of sulcal prominence and ventriculomegaly, compatible with atrophic shahram nge. There is diffuse periventricular white matter lucency, compatible with chronic white matter isch emic change. There is no acute focal lesion, mass effect or midline shift identified. I do not see ev idence of intracranial blood. There is an air-fluid level in the left maxillary sinus. The remainder the paranasal sinuses and mast oids are clear. The bony calvarium is intact. IMPRESSION: 1. NO ACUTE INTRACRANIAL ABNORMALITY. 2. ATROPHIC CHANGE. 3. CHRONIC WHITE MATTER ISCHEMIC CHANGE.
--- NOTE | 2018-12-12 10:52 | XR ---
EXAMINATION TYPE: XR chest 2V DATE OF EXAM: 12/12/2018 HISTORY: altered mental status. REFERENCE: Previous study dated 07/14/2018. FINDINGS: There has been a midline sternotomy. The heart is mildly prominent. Lungs are clear. Pleura l space are clear. IMPRESSION: MILD CARDIOMEGALY.
--- NOTE | 2018-12-12 13:05 | P.HPIM ---
History of Present Illness This is a pleasant 83 years old male with past medical history of recent TIA on with right arm weakness and slurred speech, diabetes mellitus, hypertension, hyperlipidemia, Parkinson disease.Presents because of generalized weakness for 2 days duration. No family at bedside and information is taken from staff, recurrence and patient himself. Patient states that he lives with his daughter, and he come to the hospital because he feels generally weak, he complains from pain in both inguinal hernia but mainly on the right side, and he was complaining of from some dysuria now and then recently, also he was complaining of from loose stool for the last 2 days however he did not have bowel movement since morning. Patient has been dose abdomen and both areas looks right and tender with purulent discharge and bad hygiene. Patient denies chest pain or dyspnea. No abdominal pain. No nausea vomiting. No obvious change in his mental status as he is interactive well and he is oriented to place and his illness. No fever. He is diabetic and he was recently on nitrofurantoin which are risk factors for infections patient is awake however he is not very good historian. Patient refuses to cooperate to give urine sample. Family think patient will need placement Vitas looks stable. Labs show an unremarkable CBC, INR, liver enzymes and BMP except for mild hypokalemia at 3.4. chest x-ray showing no acute process. CAT scan of the head showing no acute hemorrhage or mass or shifting problem. EKG normal showing normal sinus rhythm at [address] T changes, QTC is 592. Review of Systems CONSTITUTIONAL: No fever, no malaise, no fatigue. HEENT: No recent visual problems or hearing problems. Denied any sore throat. CARDIOVASCULAR: No orthopnea, PND, no palpitations, no syncope. PULMONARY: No shortness of breath, no cough, no hemoptysis. GASTROINTESTINAL: no nausea, no vomiting, no abdominal pain. Normoactive bowel sounds. NEUROLOGICAL: No headaches, no weakness, no numbness. HEMATOLOGICAL: Denies any bleeding or petechiae. GENITOURINARY: Denies urgency. MUSCULOSKELETAL/RHEUMATOLOGICAL: Denies any joint pain, swelling, or any muscle pain. ENDOCRINE: Denies any polyuria or polydipsia. Past Medical History Past Medical History: Coronary Artery Disease (CAD), Cancer, Chest Pain / Angina, Diabetes Mellitus, Deep Vein Thrombosis (DVT), Hearing Disorder / Deafness, Hyperlipidemia, Hypertension, Myocardial Infarction ([place]), Pneumonia, Prostate Disorder, Renal Disease, Rheumatoid Arthritis (RA) Additional Past Medical History / Comment(s): skin cancer on face-removed;CVA with mild R sided weakness, TIAs, NIDDM type II, epilepsy as a child, spinal stenosis, lumbar pain, cervical pain, parkinsons disease, DVT per past medical history but pt does not recall dvt, BPH, UTIS/sepsis and recent UTI, falls, tinnitis R ear, deaf in L ear, history of presbyesophagus, hyponatremia, thrombocytopenia, CKD stage II Last Myocardial Infarction Date:: 03/04/11 History of Any Multi-Drug Resistant Organisms: None Reported Past Surgical History: Coronary Bypass/CABG, Heart Catheterization With Stent, Joint Replacement, Tonsillectomy Additional Past Surgical History / Comment(s): 2005 and 2011 PTCA with stent, 2006 CABG-3 vessel, sebaceous cysts removed from neck, laser surgery for cataract removals bilateral, colonoscopy, total R knee arthroplasty, skin cancer on face removed Past Anesthesia/Blood Transfusion Reactions: No Reported Reaction Date of Last Stent Placement:: 2011 Past Psychological History: No Psychological Hx Reported Smoking Status: Former smoker Past Alcohol Use History: None Reported Past Drug Use History: None Reported - Past Family History Father Family Medical History: Coronary Artery Disease (CAD) Additional Family Medical History / Comment(s): Father had heart disease. Mother Family Medical History: Coronary Artery Disease (CAD) Additional Family Medical History / Comment(s): Mother had heart disease. Medications and Allergies Home Medications Medication Instructions Recorded Confirmed Type Finasteride [Proscar] 5 mg PO DAILY 11/02/15 12/12/18 History Carbidopa-Levodopa 25-100 mg 1 tab PO TID 02/07/18 12/12/18 History [Sinemet 25-100 mg] Atorvastatin Calcium [Lipitor] 40 mg PO HS #30 tablet 02/09/18 12/12/18 Rx Famotidine [Pepcid] 20 mg PO BID #60 tab 02/09/18 12/12/18 Rx Ethosuximide [Zarontin] 250 mg PO BID 07/14/18 12/12/18 History Rivaroxaban [Xarelto] 2.5 mg PO BID 11/08/18 12/12/18 History glipiZIDE [Glucotrol] 10 mg PO BID 11/08/18 12/12/18 History metFORMIN HCL [Glucophage] 500 mg PO BID 11/08/18 12/12/18 History Clopidogrel [Plavix] 75 mg PO DAILY 12/12/18 12/12/18 History Nitrofurantoin Monohyd/M-Cryst 100 mg PO Q12HR 12/12/18 12/12/18 History [Macrobid] Allergies Allergy/AdvReac Type Severity Reaction Status Date / Time No Known Allergies Allergy Verified 12/12/18 10:38 Physical Exam Vitals: Vital Signs Temp Pulse Resp BP Pulse Ox 12/12/18 12:34 70 18 102/60 95 12/12/18 10:04 65 18 123/65 97 12/12/18 08:32 97.9 F 86 18 121/79 97 Intake and Output 12/11/18 12/12/18 12/12/18 22:59 06:59 14:59 Other: Weight 100.244 kg GENERAL: The patient is alert and oriented x3, not in any acute distress. Well developed, well nourished. HEENT: Pupils are round and equally reacting to light. EOMI. No scleral icterus. No conjunctival pallor. Normocephalic, atraumatic. No pharyngeal erythema. No thyromegaly. CARDIOVASCULAR: S1 and S2 present. No murmurs, rubs, or gallops. PULMONARY: Chest is clear to auscultation, no wheezing or crackles. -ABDOMEN: Soft, nontender, nondistended, normoactive bowel sounds. No palpable organomegaly. Both inguinal area look inflamed trade and tender, with purulent discharge and had hygiene. No open wound MUSCULOSKELETAL: No joint swelling or deformity. -EXTREMITIES: No cyanosis, clubbing, or pedal edema. Resting tremor NEUROLOGICAL: Gross neurological examination did not reveal any focal deficits. SKIN: No rashes. No petechiae Results CBC & Chem 7: 12/12/18 09:37 12/12/18 09:37 Labs: Abnormal Lab Results - Last 24 Hours (Table) 12/12/18 12/12/18 Range/Units 09:37 09:37 Hgb 11.5 L (13.0-17.5) gm/dL Hct 36.6 L (39.0-53.0) % Lymphocytes # 0.7 L (1.0-4.8) k/uL Potassium 3.4 L (3.5-5.1) mmol/L Chloride 108 H (98-107) mmol/L Glucose 182 H (74-99) mg/dL Total Protein 6.2 L (6.3-8.2) g/dL Albumin 3.3 L (3.5-5.0) g/dL Assessment and Plan Assessment: Generalized weakness Cellulitis of both inguinal area, more on the right side suspected fungal infection, rule out bacterial infection recent diarrhea Dysuria rule out urinary tract infection Diabetes, not well controlled Hypertension Hyperlipidemia Parkinson's disease. Prolonged QT interval History of TIA, manifesting with right facial droop, right arm weakness and slurred speech, that now seems to have resolved. Plan: This is a pleasant 83 years old male who presents with generalized weakness and cellulitis in both inguinal area with purulent discharge. We'll start the patient on antibiotics both topical and oral. Sent culture from cellulitis areas. Improve hygiene. Check TSH and B12 levels . Continue with Xarelto. And Plavix Labs and medication were reviewed.. Continue same treatment. Continue with symptomatic treatment. Resume home medication. Monitor lytes and vitals. DVT and GI prophylaxis. Further recommendations of the clinical course of the patient DVT prophylaxis: Xarelto GI Prophylaxis: Pepcid PT/OT: Pending Prognosis is guarded
[2018-12-12] MEDS ORDERED: KETOROLAC 30 MG/ML 1 ML VIAL IVP PRN (14:03)
[2018-12-12] MEDS ORDERED: MORPHINE SULFATE 4 MG/ML SYRINGE IV PRN (14:03)
[2018-12-12] MEDS ORDERED: NALOXONE 0.4 MG/ML 1 ML VIAL IV PRN (14:03)
[2018-12-12] MEDS ORDERED: LORazepam 2 MG/ML INJ IV PRN (14:03)
[2018-12-12] MEDS ORDERED: ACETAMINOPHEN TAB 325 MG TAB PO PRN (14:03)
[2018-12-12] MEDS ORDERED: IBUPROFEN 400 MG TAB PO PRN (14:03)
[2018-12-12] MEDS: SODIUM CHLORIDE 0.9% 1,000 ML IV SCH ×2 (14:15→21:37)
[2018-12-12 17:04] LABS: Glucose,Whole Blood 125 mg/dL (75-99)
[2018-12-12] MEDS: INSULIN ASPART (NovoLOG) 100 UNIT/ML VIAL SQ SCH ×2 (18:32→21:37)
[2018-12-12] MEDS: glipiZIDE 10 MG TAB PO SCH (18:36)
[2018-12-12] MEDS: CEPHALEXIN 500 MG CAP PO SCH ×2 (18:36→21:37)
[2018-12-12] MEDS: metFORMIN 500 MG TAB PO SCH (18:36)
[2018-12-12 20:11] LABS: Glucose,Whole Blood 209 mg/dL (75-99)
[2018-12-12] MEDS: ETHOSUXIMIDE 250 MG PO SCH (21:31)
[2018-12-12] MEDS: ATORVASTATIN 40 MG TAB PO SCH (21:37)
[2018-12-12] MEDS: FAMOTIDINE 20 MG TAB PO SCH (21:37)
[2018-12-12] MEDS: NYSTATIN 100,000 UNIT/GM POWD 15 GM TOPICAL SCH (21:37)
[2018-12-12] MEDS: RIVAROXABAN 2.5 MG TABLET PO SCH (21:37)
[2018-12-13 07:15] LABS: Glucose,Whole Blood 95 mg/dL (75-99)
[2018-12-13] MEDS: INSULIN ASPART (NovoLOG) 100 UNIT/ML VIAL SQ SCH ×4 (07:48→20:21)
[2018-12-13] MEDS ORDERED: PANTOPRAZOLE 40 MG/10 ML VIAL IV SCH (09:00)
[2018-12-13] MEDS: FAMOTIDINE 20 MG TAB PO SCH ×2 (09:00→20:36)
[2018-12-13] MEDS: metFORMIN 500 MG TAB PO SCH ×2 (09:00→17:59)
[2018-12-13] MEDS: CLOPIDOGREL 75 MG TAB PO SCH (09:00)
[2018-12-13] MEDS: glipiZIDE 10 MG TAB PO SCH ×2 (09:01→17:58)
[2018-12-13] MEDS: FINASTERIDE 5 MG TAB PO SCH (09:01)
[2018-12-13] MEDS: CEPHALEXIN 500 MG CAP PO SCH (09:01)
[2018-12-13] MEDS: NYSTATIN 100,000 UNIT/GM POWD 15 GM TOPICAL SCH ×2 (09:02→20:37)
--- NOTE | 2018-12-13 09:02 | P.PN ---
Subjective This is a pleasant 83 years old male with past medical history of recent TIA on with right arm weakness and slurred speech, diabetes mellitus, hypertension, hyperlipidemia, Parkinson disease.Presents because of generalized weakness for 2 days duration. No family at bedside and information is taken from staff, recurrence and patient himself. Patient states that he lives with his daughter, and he come to the hospital because he feels generally weak, he complains from pain in both inguinal hernia but mainly on the right side, and he was complaining of from some dysuria now and then recently, also he was complaining of from loose stool for the last 2 days however he did not have bowel movement since morning. Patient has been dose abdomen and both areas looks right and tender with purulent discharge and bad hygiene. Patient denies chest pain or dyspnea. No abdominal pain. No nausea vomiting. No obvious change in his mental status as he is interactive well and he is oriented to place and his illness. No fever. He is diabetic and he was recently on nitrofurantoin which are risk factors for infections patient is awake however he is not very good historian. Patient refuses to cooperate to give urine sample. Family think patient will need placement Vitas looks stable. Labs show an unremarkable CBC, INR, liver enzymes and BMP except for mild hypokalemia at 3.4. chest x-ray showing no acute process. CAT scan of the head showing no acute hemorrhage or mass or shifting problem. EKG normal showing normal sinus rhythm at [address] T changes, QTC is 592. 12/13/2018 Patient remains fully awake and oriented to time place and person, however he cannot remember why he was in the hospital. Yesterday family were not at bedside when I saw the patient however today his daughter Miss tSover at the bedside is telling me that she is not sure why the patient was sent to the hospital however one day earlier on the last Thursday she witnessed and Since seizure in which the patient was staring in space for 5-8 minutes followed by confusion for 20-30 minutes, with no tonic-clonic activity. Patient himself states that last think he remembers he was in bed, and next thing he's been in the hospital, he could not remember what happened yesterday morning when he was brought by his family to the hospital. It looks like patient was confused yesterday as well. However when I saw the patient in the afternoon he was fully awake and oriented As per Dr. Choi patient has history of SEIZURE HE IS ON ANTISEIZURE MEDS DICTATION. CURRENTLY HE IS ON ETHOSUXIMIDE PATIENT DENIES CHEST PAIN OR DYSPNEA. NO URINARY SYMPTOMS OR SUPRAPUBIC DISCOMFORT. HIS BILATERAL GROIN AREA LOOKS BETTER AFTER APPLYING THE NYSTATIN. WE CAN STOP THE KEFLEX THERE IS NO STRONG EVIDENCE OF BACTERIAL INFECTION Patient Albino looks stable on his afebrile. Patient refused to give urine analysis today. We'll consult neurology service Review of systems CONSTITUTIONAL: No fever, no malaise, no fatigue. HEENT: No recent visual problems or hearing problems. Denied any sore throat. CARDIOVASCULAR: No orthopnea, PND, no palpitations, no syncope. PULMONARY: No shortness of breath, no cough, no hemoptysis. GASTROINTESTINAL: no nausea, no vomiting, no abdominal pain. Normoactive bowel sounds. NEUROLOGICAL: No headaches, no weakness, no numbness. HEMATOLOGICAL: Denies any bleeding or petechiae. GENITOURINARY: Denies urgency. MUSCULOSKELETAL/RHEUMATOLOGICAL: Denies any joint pain, swelling, or any muscle pain. ENDOCRINE: Denies any polyuria or polydipsia. Objective - Vital Signs Vital signs: Vital Signs Temp 97.7 F 12/13/18 04:10 Pulse 62 12/13/18 04:10 Resp 18 12/13/18 04:10 BP 129/70 12/13/18 04:10 Pulse Ox 95 12/13/18 04:10 Intake & Output 12/12/18 12/13/18 12/13/18 18:59 06:59 18:59 Intake Total 1190 Output Total 100 Balance 1090 Weight 100.244 kg Intake: Intake, IV Titration 600 Amount Sodium Chloride 0.9% 1, 600 000 ml @ 75 mls/hr IV . [id number] [facility] Rx#:[id number] Oral 590 Output: Urine 100 Other: Voiding Method Toilet Urinal # Voids 1 # Bowel Movements 1 - Exam GENERAL: The patient is alert and oriented x3, not in any acute distress. Well developed, well nourished. HEENT: Pupils are round and equally reacting to light. EOMI. No scleral icterus. No conjunctival pallor. Normocephalic, atraumatic. No pharyngeal erythema. No thyromegaly. CARDIOVASCULAR: S1 and S2 present. No murmurs, rubs, or gallops. PULMONARY: Chest is clear to auscultation, no wheezing or crackles. -ABDOMEN: Soft, nontender, nondistended, normoactive bowel sounds. No palpable organomegaly. Both inguinal area look less inflamed red and tender, with purulent discharge has been cleaned. No open wound MUSCULOSKELETAL: No joint swelling or deformity. -EXTREMITIES: No cyanosis, clubbing, or pedal edema. Resting tremor NEUROLOGICAL: Gross neurological examination did not reveal any focal deficits. SKIN: No rashes. No petechiae - Labs CBC & Chem 7: 12/12/18 09:37 12/12/18 09:37 Labs: Abnormal Lab Results - Last 24 Hours (Table) 12/12/18 12/12/18 12/12/18 Range/Units 09:37 09:37 17:03 Hgb 11.5 L (13.0-17.5) gm/dL Hct 36.6 L (39.0-53.0) % Lymphocytes # 0.7 L (1.0-4.8) k/uL Potassium 3.4 L (3.5-5.1) mmol/L Chloride 108 H (98-107) mmol/L Glucose 182 H (74-99) mg/dL POC Glucose (mg/dL) 125 H (75-99) mg/dL Total Protein 6.2 L (6.3-8.2) g/dL Albumin 3.3 L (3.5-5.0) g/dL 12/12/18 Range/Units 20:10 Hgb (13.0-17.5) gm/dL Hct (39.0-53.0) % Lymphocytes # (1.0-4.8) k/uL Potassium (3.5-5.1) mmol/L Chloride (98-107) mmol/L Glucose (74-99) mg/dL POC Glucose (mg/dL) 209 H (75-99) mg/dL Total Protein (6.3-8.2) g/dL Albumin (3.5-5.0) g/dL Microbiology - Last 24 Hours (Table) 12/12/18 16:30 Gram Stain - Preliminary Groin Wound Culture - Preliminary Assessment and Plan Assessment: Previous of confusion, rule out TIA versus absence seizure Generalized weakness Cellulitis of both inguinal area, more on the right side suspected fungal infection, improving on 917 recent diarrhea Dysuria rule out urinary tract infection Diabetes, not well controlled Hypertension Hyperlipidemia Parkinson's disease. Prolonged QT interval History of TIA, manifesting with right facial droop, right arm weakness and slurred speech, that now seems to have resolved. Plan: This is a pleasant 83 years old male who presents with generalized weakness and cellulitis in both inguinal area with purulent discharge. Continue with nystatin. DC Keflex.. Check TSH and B12 levels however patient refused lab work. Continue with Xarelto. And Plavix. Consult neurology. Ativan when necessary for seizure Labs and medication were reviewed.. Continue same treatment. Continue with symptomatic treatment. Resume home medication. Monitor lytes and vitals. DVT and GI prophylaxis. Further recommendations of the clinical course of the patient DVT prophylaxis: Xarelto GI Prophylaxis: Pepcid PT/OT: Pending Prognosis is guarded
[2018-12-13] MEDS: RIVAROXABAN 2.5 MG TABLET PO SCH ×2 (09:04→20:36)
[2018-12-13 11:19] LABS: Glucose,Whole Blood 94 mg/dL (75-99)
[2018-12-13] MEDS: ETHOSUXIMIDE 250 MG PO SCH ×3 (11:19→20:37)
[2018-12-13] MEDS: SODIUM CHLORIDE 0.9% 1,000 ML IV SCH (14:21)
[2018-12-13 15:59] LABS: Appearance,Urine Clear (Clear); Bilirubin,Urine Negative (Negative); Blood,Urine Negative (Negative); Color,Urine Yellow; Glucose,Urine (UA) Negative (Negative); Ketones,Urine Negative (Negative); Leukocyte Esterase,Urine Negative (Negative); Nitrite,Urine Negative (Negative); PH, Urine 5.5 (5.0-8.0); Protein,Urine Negative (Negative); Specific Gravity,Urine 1.017 (1.001-1.035); Urobilinogen,Urine <2.0 mg/dL (<2.0)
[2018-12-13 17:12] LABS: Glucose,Whole Blood 123 mg/dL (75-99)
[2018-12-13 20:02] LABS: Glucose,Whole Blood 148 mg/dL (75-99)
[2018-12-13] MEDS: ATORVASTATIN 40 MG TAB PO SCH (20:36)
--- NOTE | 2018-12-13 21:30 | P.CNNES ---
History of Present Illness Consult date: 12/13/18 Reason for Consult: AMS Chief complaint: Confusion History of Present Illness: HISTORY OF PRESENT ILLNESS: Thank you for allowing me to evaluate Mr. Alfred Rosario. Mr. Rosario is an 83-year-old male with past medical history of coronary artery disease, diabetes, DVT, hearing disorder, hyperlipidemia, hypertension, AR, rheumatoid arthritis, skin cancer, stroke with mild right-sided weakness, epile psy as a child, spinal stenosis, spinal stenosis, Parkinson's disease, BPH, thrombocytopenia, CKD stage II, presenting to [facility] after patient himself called EMS. Daughter is at bedside for corroborating detail. Patient states that when he woke up, he was already at the hospital. Patient lives alone, but daughter takes care of him by visiting him everyday after work. Patient does not report any pain, headache, nausea or vomiting. No recent sickness, BUT he and daughter report that patient has lost almost 50 pounds in the last 6 months (from 280 to 250 pounds). Patient has had loss of appetite. Patient reports that he does have night sweats where his sheets sometimes get wet. Reports patient has been going through bouts of diarrhea along with constipation for some time. Regarding seizure history, patient started having seizures at age 6. Patient was not restarted on seizure meds until a couple of years by a neurologist at [facility]. Patient has been seen by neurologists here, once in 10/2018 and once in 06/2017, EEG at the time normal. Daughter states that patient has been having increased episodes of staring off, which are his usual seizure episodes, last episode on 12/10/18. It appears that he's been having one episode every week. PAST MEDICAL HISTORY: coronary artery disease, diabetes, DVT, hearing disorder, hyperlipidemia, hy pertension, AR, rheumatoid arthritis, skin cancer, stroke with mild right-sided weakness, epilepsy as a child, spinal stenosis, spinal stenosis, Parkinson's disease, BPH, thrombocytopenia, CTD stage II PAST SURGICAL HISTORY: CABG, heart catheterization with stent, joint replacement, tonsillectomy, cataract removal bilaterally, total right knee arthroplasty HOME MEDICATIONS: Finesteride, Sinemet 25-100 TId, atorvastatin, famotidine, Ethosuximide, Metfo rmin, Rivaroxaban, Plavix ALLERGIES: NKDA SOCIAL HISTORY: Former smoker FAMILY HISTORY: Father and mother both had heart disease as REVIEW OF SYSTEMS: The 14 systems are reviewed and no additional points are identified compared to the review of systems documented history and physical PHYSICAL EXAMINATION: VITAL SIGNS: T 97.7 HR 62 RR 18 BP 129/70 O2 sat 95% on RA GEN.: NAD, pleasant and cooperative HEENT: NCAT, sclera without icterus NECK: Supple SKIN AND EXTREMITIES: Warm to touch, no edema NEURO: MENTAL STATUS: Patient alert and oriented to self, place, time. Able to name the current president. Speech fluent, able to name and repeat, following all commands readily. No right and left disorientation CRANIAL NERVES II THROUGH XII: II: Pupils are equal and reactive to light symmetrically. No afferent pupillary defect. Visual melton are intact. III, I V, : No ptosis. Extraocular movements full. No nystagmus. V: Decreased facial sensation from R V1-3 (previous neuro notes report R-sided symptoms, no stroke on MRI). VII. No clear facial asymmetry. VIII: Hearing intact to finger rub bilaterally. IX, X: Symmetric palate elevation. XI: Shoulder shrug intact. XII: Tongue midline without fasciculation or atrophy. MOTOR: Normal bulk. Mildly increased tone. No pronator drift. Resting tremor, L more than R. Strength is 5/5 throughout all 4 extremities. SENSORY: Intact to light touch in all 4 extremities REFLEXES: 2+ b/l UE. 1+ in b/l LE. Toes are downgoing. No clonus. COORDINATION: Finger to nose intact. No dysmetria. GAIT: Deferred DIAGNOSTIC TESTING: LABORATORY: WBC 4.4 hemoglobin 11.5 platelets 212 PT 9.9 INR 0.9 sodium 142 potassium 3.4 chloride 108 bicarb 24 BUN 9 creatinine 0.77 glucose 182 AST 27 ALT 22 troponin <0.012 IMAGING: CT Head 12/12/18: No acute intracranial abnormality. Atrophic changes. Chronic white matter ischemic change. 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 Daughter reports that patient has been having increased seizure frequency. No obvious recent sickness, but notable for significant weight loss of 50 pounds. RECOMMENDATIONS: 1. Routine EEG 2. Continue Ethosuxamide 250mg BID. Patient needs to follow up with an outpatient Neurologist for either continuation of Ethosuximide or changing to Depakote. 3. Primary care physician to do basic malignancy work-up as patient is 83 years old and daughter states that as far as she's concerned, no colonoscopy has been done (daughter had taken care of patient for 15 years, and definitely did not get a colonoscopy done during that time) 4. Patient needs outpatient Neurology follow up within 1-2 weeks of discharge 5. 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, spinal stenosis, lumbar pain, cervical pain, parkinsons disease, DVT per past medical history but pt does not recall dvt, BPH, UTIS/sepsis and recent UTI, falls, tinnitis R ear, deaf in L ear, history of presbyesophagus, hyponatremia, thrombocytopenia, CKD stage II Last Myocardial Infarction Date:: 03/04/11 History of Any Multi-Drug Resistant Organisms: None Reported Past Surgical History: Coronary Bypass/CABG, Heart Catheterization With Stent, Joint Replacement, Tonsillectomy Additional Past Surgical History / Comment(s): 2005 and 2011 PTCA with stent, 2006 CABG-3 vessel, sebaceous cysts removed from neck, laser surgery for cat aract removals bilateral, colonoscopy, total R knee arthroplasty, skin cancer on face removed Past Anesthesia/Blood Transfusion Reactions: No Reported Reaction Date of Last Stent Placement:: 2011 Past Psychological History: No Psychological Hx Reported Additional Psychological History / Comment(s): Pt currently resides at [facility]. He ambulates with a walker. His bud, Radha, manages his medications and brings him breakfast and food that he only has to warm up. His bud also drives him to [employer]. Smoking Status: Former smoker Past Alcohol Use History: None Reported Additional Past Alcohol Use History / Comment(s): Pt smoked from [id number], one pack per day. Past Drug Use History: None Reported - Past Family History Father Family Medical History: Coronary Artery Disease (CAD) Additional Family Medical History / Comment(s): Father had heart disease. Mother Family Medical History: Coronary Artery Disease (CAD) Additional Family Medical History / Comment(s): Mother had heart disease. Medications and Allergies Home Medications Medication Instructions Recorded Confirmed Type Finasteride [Proscar] 5 mg PO DAILY 11/02/15 12/12/18 History Carbidopa-Levodopa 25-100 mg 1 tab PO TID 02/07/18 12/12/18 History [Sinemet 25-100 mg] Atorvastatin Calcium [Lipitor] 40 mg PO HS #30 tablet 02/09/18 12/12/18 Rx Famotidine [Pepcid] 20 mg PO BID #60 tab 02/09/18 12/12/18 Rx Ethosuximide [Zarontin] 250 mg PO BID 07/14/18 12/12/18 History Rivaroxaban [Xarelto] 2.5 mg PO BID 11/08/18 12/12/18 History glipiZIDE [Glucotrol] 10 mg PO BID 11/08/18 12/12/18 History metFORMIN HCL [Glucophage] 500 mg PO BID 11/08/18 12/12/18 History Clopidogrel [Plavix] 75 mg PO DAILY 12/12/18 12/12/18 History Nitrofurantoin Monohyd/M-Cryst 100 mg PO Q12HR 12/12/18 12/12/18 History [Macrobid] Allergies Allergy/AdvReac Type Severity Reaction Status Date / Time No Known Allergies Allergy Verified 12/12/18 10:38 Physical Examination - Vital Signs Vital Signs: Vital Signs Temp Pulse Pulse Resp BP BP Pulse Ox 12/13/18 04:10 97.7 F 62 18 129/70 95 12/12/18 21:00 96.1 F L 76 16 104/55 96 12/12/18 17:00 67 16 12/12/18 15:21 97.3 F L 67 16 159/70 99 12/12/18 14:56 69 18 103/67 98 12/12/18 12:34 70 18 102/60 95 12/12/18 10:04 65 18 123/65 97 Intake and Output 12/12/18 12/13/18 12/13/18 22:59 06:59 14:59 Intake Total 590 600 Output Total 100 Balance 590 500 Intake: Intake, IV Titration 600 Amount Sodium Chloride 0.9% 1, 600 000 ml @ 75 mls/hr IV . [id number] [facility] Rx#:[id number] Oral 590 Output: Urine 100 Other: Voiding Method Toilet Urinal # Voids 1 # Bowel Movements 1 Results - Laboratory Findings CBC and BMP: 12/12/18 09:37 12/12/18 09:37 Abnormal Lab Findings: Abnormal Labs 12/12/18 12/12/18 12/12/18 09:37 09:37 17:03 Hgb 11.5 L Hct 36.6 L Lymphocytes # 0.7 L Potassium 3.4 L Chloride 108 H Glucose 182 H POC Glucose (mg/dL) 125 H Total Protein 6.2 L Albumin 3.3 L 12/12/18 20:10 Hgb Hct Lymphocytes # Potassium Chloride Glucose POC Glucose (mg/dL) 209 H Total Protein Albumin
[2018-12-14 07:07] LABS: Glucose,Whole Blood 144 mg/dL (75-99)
[2018-12-14 07:57] LABS: Basophils % (A) 1 %; Eosinophils # (A) 0.2 k/uL (0-0.7); Eosinophils % (A) 4 %; HCT 34.7 % (39.0-53.0); HGB 10.6 gm/dL (13.0-17.5); Hypochromasia Marked; Lymphocytes # (A) 1.1 k/uL (1.0-4.8); Lymphocytes % (A) 22 %; MCH 25.2 pg (25.0-35.0); MCHC 30.6 g/dL (31.0-37.0); MCV 82.4 fL (80.0-100.0); Monocytes # (A) 0.4 k/uL (0-1.0); Monocytes % (A) 7 %; Neutrophils # (A) 3.2 k/uL (1.3-7.7); Neutrophils % (A) 63 %; Platelet Count 212 k/uL (150-450); Poikilocytosis Slight; RBC 4.21 m/uL (4.30-5.90); RDW 14.2 % (11.5-15.5); WBC 5.1 k/uL (3.8-10.6)
[2018-12-14 08:00] LABS: African American GFR (CKD) >90 (>60 ml/min/1.73 sqM); Anion Gap 8 mmol/L; Blood Urea Nitrogen 6 mg/dL (9-20); Calcium 8.2 mg/dL (8.4-10.2); Carbon Dioxide 23 mmol/L (22-30); Chloride 109 mmol/L (98-107); Glucose 127 mg/dL (74-99); Potassium 3.6 mmol/L (3.5-5.1); Sodium 140 mmol/L (137-145)
[2018-12-14] MEDS: metFORMIN 500 MG TAB PO SCH ×2 (08:08→17:37)
[2018-12-14] MEDS: glipiZIDE 10 MG TAB PO SCH ×2 (08:08→17:37)
[2018-12-14] MEDS: CLOPIDOGREL 75 MG TAB PO SCH (08:08)
[2018-12-14] MEDS: ETHOSUXIMIDE 250 MG PO SCH ×2 (08:09→20:29)
[2018-12-14] MEDS: FAMOTIDINE 20 MG TAB PO SCH ×2 (08:10→20:28)
[2018-12-14] MEDS: FINASTERIDE 5 MG TAB PO SCH (08:11)
[2018-12-14] MEDS: NYSTATIN 100,000 UNIT/GM POWD 15 GM TOPICAL SCH ×2 (08:13→20:30)
[2018-12-14] MEDS: INSULIN ASPART (NovoLOG) 100 UNIT/ML VIAL SQ SCH ×4 (08:45→20:29)
[2018-12-14] MEDS: RIVAROXABAN 2.5 MG TABLET PO SCH (09:13)
[2018-12-14 11:31] LABS: Glucose,Whole Blood 88 mg/dL (75-99)
--- NOTE | 2018-12-14 16:43 | P.CONS ---
History of Present Illness - Chief Complaint Gait disturbance, right hemiparesthesias - History of Present Illness I had the opportunity to see patient for inpatient rehab consultation with regard to gait disturbance and right hemiparesthesias. Patient admitted with some slurring of speech and right arm weakness December 12 for which she was seen by Dr. Tam. Chest x-ray with mild cardiomegaly. Head CT with atrophy and chronic white matter change. PT reports moderate assistance for gait 10 feet with roller walker. OT reports minimal assistance for upper dressing and toileting and moderate assistance for lower dressing and bathing. Previous functional history/rehab discharge status: Patient recently discharged from rehab unit with standby assist for bed mobility, transfers, gait 60 feet with 4 wheeled walker. Patient was supervision/setup for bathing, upper/lower dressing, toileting and basic self-care transfers. Refused speech therapy. Patient has stubborn personality type and family aware. Should note that patient reports that he was dressing himself independently as was his toileting, sitdown shower and gait with 4 wheeled walker. Review of Systems Review of systems: Should note patient denies any problems whatsoever and feels he is ready for discharge tomorrow. ENT: Denies sneezes or discharge. Eyes: Denies discharge or photophobia. Cardiac: Denies chest pain or palpitation. Pulmonary: Denies cough or shortness of breath. Gastrointestinal: Denies nausea, emesis, constipation, diarrhea. Genitourinary: Denies discharge or frequency. Musculoskeletal: Denies muscle or bone aches. Neurologic: Reported right arm weakness and mild dysarthria. Endocrine: Denies shakes or sweats. Oncology: Denies cancers. Dermatologic: Denies rash, itching, pruritus. ALLERGY/immunology: Denies sneezes, rashes. Past Medical History Past Medical History: Coronary Artery Disease (CAD), Cancer, Chest Pain / Angina, Diabetes Mellitus, Deep Vein Thrombosis (DVT), Hearing Disorder / Deafness, Hyperlipidemia, Hypertension, Myocardial Infarction ([place]), Pneumonia, Prostate Disorder, Renal Disease, Rheumatoid Arthritis (RA) Additional Past Medical History / Comment(s): skin cancer on face-removed;CVA with mild R sided weakness, TIAs, NIDDM type II, epilepsy as a child, spinal stenosis, lumbar pain, cervical pain, parkinsons disease, DVT per past medical history but pt does not recall dvt, BPH, UTIS/sepsis and recent UTI, falls, tinnitis R ear, deaf in L ear, history of presbyesophagus, hyponatremia, thrombocytopenia, CKD stage II Last Myocardial Infarction Date:: 03/04/11 History of Any Multi-Drug Resistant Organisms: None Reported Past Surgical History: Coronary Bypass/CABG, Heart Catheterization With Stent, Joint Replacement, Tonsillectomy Additional Past Surgical History / Comment(s): 2005 and 2011 PTCA with stent, 2006 CABG-3 vessel, sebaceous cysts removed from neck, laser surgery for cataract removals bilateral, colonoscopy, total R knee arthroplasty, skin cancer on face removed Past Anesthesia/Blood Transfusion Reactions: No Reported Reaction Date of Last Stent Placement:: 2011 Past Psychological History: No Psychological Hx Reported Additional Psychological History / Comment(s): Pt currently resides at [facility]. He ambulates with a walker. His bud, Radha, manages his medications and brings him breakfast and food that he only has to warm up. His bud also drives him to [employer]. Smoking Status: Former smoker Past Alcohol Use History: None Reported Additional Past Alcohol Use History / Comment(s): Pt smoked from [id number], one pack per day. Past Drug Use History: None Reported - Past Family History Father Family Medical History: Coronary Artery Disease (CAD) Additional Family Medical History / Comment(s): Father had heart disease. Mother Family Medical History: Coronary Artery Disease (CAD) Additional Family Medical History / Comment(s): Mother had heart disease. Medications and Allergies Home Medications Medication Instructions Recorded Confirmed Type Finasteride [Proscar] 5 mg PO DAILY 11/02/15 12/12/18 History Carbidopa-Levodopa 25-100 mg 1 tab PO TID 02/07/18 12/12/18 History [Sinemet 25-100 mg] Atorvastatin Calcium [Lipitor] 40 mg PO HS #30 tablet 02/09/18 12/12/18 Rx Famotidine [Pepcid] 20 mg PO BID #60 tab 02/09/18 12/12/18 Rx Ethosuximide [Zarontin] 250 mg PO BID 07/14/18 12/12/18 History Rivaroxaban [Xarelto] 2.5 mg PO BID 11/08/18 12/12/18 History glipiZIDE [Glucotrol] 10 mg PO BID 11/08/18 12/12/18 History metFORMIN HCL [Glucophage] 500 mg PO BID 11/08/18 12/12/18 History Clopidogrel [Plavix] 75 mg PO DAILY 12/12/18 12/12/18 History Nitrofurantoin Monohyd/M-Cryst 100 mg PO Q12HR 12/12/18 12/12/18 History [Macrobid] Allergies Allergy/AdvReac Type Severity Reaction Status Date / Time No Known Allergies Allergy Verified 12/12/18 10:38 Physical Exam Vitals: Vital Signs Temp Pulse Resp BP Pulse Ox 12/14/18 11:43 97.7 F 83 22 107/73 98 12/14/18 09:23 85 20 139/82 98 12/14/18 08:10 85 20 12/14/18 04:43 97.9 F 67 17 113/70 97 12/13/18 21:00 98.7 F 61 16 123/77 99 Intake and Output 12/14/18 12/14/18 12/14/18 06:59 14:59 22:59 Intake Total 1000 Balance 1000 Intake: Intake, IV Titration 400 Amount Sodium Chloride 0.9% 1, 400 000 ml @ 50 mls/hr IV . Q20H [facility] LICENSE OF [facility] Rx#:[id number] Oral 600 Other: Voiding Method Toilet Toilet Urinal Urinal # Voids 3 # Bowel Movements 1 Skin: Atrophic, intact. General: Medium build and comfortable appearance. Head: Normocephalic, atraumatic. Eyes: Symmetric. Pupils equal round. Ears: Symmetric. Hearing within normal limits. Mouth: Clear. Neck: Supple. Carotid without bruit. Cardiac: Regular rate and rhythm. Lungs: Clear anteriorly and posteriorly. Abdomen: Soft active nontender. Extremities: Normal tone. Neurological: Mental status: Alert, cooperative, pleasant. Cranial nerves: Symmetric facial tone and trapezius. Motor: Active movement all 4 limbs. Sensation: Intact throughout. DTRs: Symmetric and equal throughout. Mobility: Requires minimal assistance to stand from Jazz chair. Results CBC & Chem 7: 12/14/18 07:32 12/14/18 07:32 Labs: Abnormal Lab Results - Last 24 Hours (Table) 12/13/18 12/13/18 12/14/18 Range/Units 17:10 20:02 07:06 RBC (4.30-5.90) m/uL Hgb (13.0-17.5) gm/dL Hct (39.0-53.0) % MCHC (31.0-37.0) g/dL Chloride (98-107) mmol/L BUN (9-20) mg/dL Glucose (74-99) mg/dL POC Glucose (mg/dL) 123 H 148 H 144 H (75-99) mg/dL Calcium (8.4-10.2) mg/dL 12/14/18 12/14/18 Range/Units 07:32 07:32 RBC 4.21 L (4.30-5.90) m/uL Hgb 10.6 L (13.0-17.5) gm/dL Hct 34.7 L (39.0-53.0) % MCHC 30.6 L (31.0-37.0) g/dL Chloride 109 H (98-107) mmol/L BUN 6 L (9-20) mg/dL Glucose 127 H (74-99) mg/dL POC Glucose (mg/dL) (75-99) mg/dL Calcium 8.2 L (8.4-10.2) mg/dL Microbiology - Last 24 Hours (Table) 12/12/18 16:30 Gram Stain - Preliminary Groin Wound Culture - Preliminary Assessment and Plan (1) Cerebrovascular accident Current Visit: No Status: Acute Code(s): I63.9 - CEREBRAL INFARCTION, UNSPECIFIED SNOMED Code(s): 094046462 Plan: Impression: 1. Gait disturbance with TIA. 2. Neurocognitive deficits. 3. Parkinson. 4. Chronic kidney disease. Comments and plan: PT and OT are ongoing. Would order speech therapy but patient will decline. We'll continue to follow patient's course and determine if there is significant difference between current and that on discharge from rehab recently. Currently some functional discrepancies noted.
[2018-12-14 17:07] LABS: Glucose,Whole Blood 120 mg/dL (75-99)
[2018-12-14] MEDS: SODIUM CHLORIDE 0.9% 1,000 ML IV SCH (17:14)
[2018-12-14] MEDS: ATORVASTATIN 40 MG TAB PO SCH (20:29)
[2018-12-14] MEDS: CARBIDOPA-LEVODOPA 25-100 MG 1 EACH TAB PO SCH ×2 (20:29→22:19)
--- NOTE | 2018-12-14 20:36 | PN ---
PROGRESS NOTE DATE OF SERVICE: 12/14/2018 This 83-year-old gentleman who was admitted with confusion and change in mental status is being worked up to rule out the possibility of TIA or absence seizures. PT/OT is evaluating the patient, also. Inpatient Rehab is also being consulted. The patient is being closely monitored at this time. An EEG has been ordered; at this time results are pending. Past medical history reviewed. Review of systems could not be taken, as the patient is confused. CURRENT MEDICATIONS: Reviewed. They include: 1. Tylenol p.r.n. 2. Lipitor 40 mg at bedtime. 3. Plavix 75 mg p.o. daily. 4. Pepcid 20 mg p.o. b.i.d. 5. Proscar 5 mg p.o. daily. 6. Glucotrol 10 mg p.o. b.i.d. 7. Motrin 400 mg q.6 p.r.n. 8. Toradol 30 mg q.6 p.r.n. 9. Ativan. 10.Glucophage. 11.Morphine. 12.Narcan. 13.Mycostatin. 14.Xarelto. 15.IV fluids. Doses are reviewed. PHYSICAL EXAMINATION: Patient is alert, oriented x1. Pulse 83, blood pressure 107/73, respiration 22, temperature 97.7, pulse ox 98% on room air. HEENT: Conjunctivae normal. Oral mucosa moist. NECK: No jugular venous distention. No carotid bruit. No lymph node enlargement. CARDIOVASCULAR SYSTEM: S1, S2 muffled. No S3. No S4. RESPIRATORY SYSTEM: Breath sounds diminished at the bases. A few scattered rhonchi. No crackles. ABDOMEN: Soft, non-tender. No mass palpable. LEGS: No edema. No swelling. NERVOUS SYSTEM: Higher functions as mentioned earlier. Moves all 4 limbs. No focal motor or sensory deficit. LYMPHATICS: No lymph node palpable in neck, axillae or groin. SKIN: No ulcer, rash, bleeding. JOINTS: No active deforming arthropathy. LABS: WBC 5.1, hemoglobin 10.6. Other labs are noted. ASSESSMENT: 1. Change in mental status, confusion; possibly acute metabolic encephalopathy. Rule out TIA versus absence seizures. 2. Generalized weakness and gait dysfunction. 3. Cellulitis of both inguinal areas, right more than the left, possibly fungal. 4. History of recent diarrhea. 5. Dysuria. 6. Diabetes mellitus, type 2, with hyperglycemia. 7. Hypertension. 8. Hyperlipidemia. 9. History of Parkinson's disease. 10.Prolonged QT interval. 11.History of transient ischemic attack. 12.Anemia, normocytic; anemia of chronic disease. 13.Hypokalemia, improved. RECOMMENDATIONS AND DISCUSSION: In this 83-year-old gentleman who presented with multiple complex medical issues, we will monitor the patient closely, continue the current medications, continue symptomatic treatment. Otherwise at this time I would recommend closely following with Neurology. Anticoagulation. Continue the cautious IV fluids. Repeat labs. Home medication reconciliation done. Patient's overall prognosis is guarded because of multiple complex medical issues. Further recommendations to follow. See orders for further details. MMODL / IJN: [id number] /
[2018-12-14 20:49] LABS: Glucose,Whole Blood 169 mg/dL (75-99)
--- NOTE | 2018-12-14 22:58 | EEG ---
ELECTROENCEPHALOGRAM REPORT PROCEDURE DATE: 12/14/2018. ELECTROENCEPHALOGRAM (EEG) REPORT: TECHNIQUE: A routine 18 channel EEG was performed with video using the 10/20 international electrode placement system. HISTORY: Altered mental status, dehydration, TIA in June of 2018. CURRENT MEDICATIONS: Xarelto, Protonix, ethosuximide, morphine and metformin. STUDY DURATION: 25 minutes. FINDINGS: BACKGROUND: The background activity consists of 7 to 8 Hz rhythmic waveforms, symmetric through both posterior quadrants. ACTIVATION: Hyperventilation: Not performed. Photic stimulation: Symmetric driving seen. Sleep: Drowsy. ABNORMALITIES: None. IMPRESSION: Normal EEG. No epileptiform activity was present. No seizures were recorded. Please note that 1 channel of this EEG was dedicated to EKG. At times it did not demonstrate a sinus rhythm. Also note that background frequencies did not exceed 8 Hz. Given the patient's age, this can be considered within normal limits. MMODL / IJN: [id number] /
[2018-12-15 05:07] VITALS: BP 127/62; PULSE 74; RESP 16; TEMP 97.7
[2018-12-15 07:11] LABS: Glucose,Whole Blood 95 mg/dL (75-99)
--- NOTE | 2018-12-15 07:31 | P.PN ---
Progress Note - Text Progress Note Date: 12/14/18 SUBJECTIVE/INTERVAL EVENTS: No acute overnight events. Patient with no complaints. He was able to walk with me with his personal walker at least 60 feet. PHYSICAL EXAMINATION: VITAL SIGNS: T 97.9 HR 67 RR 17 BP 113/70 O2 sat 97% on RA GEN.: NAD, pleasant and cooperative HEENT: NCAT, sclera without icterus NECK: Supple SKIN AND EXTREMITIES: Warm to touch, no edema NEURO: MENTAL STATUS: Patient alert and oriented to self, place, time. Able to name the current president. Speech fluent, able to name and repeat, following all commands readily. No right and left disorientation CRANIAL NERVES II THROUGH XII: II: Pupils are equal and reactive to light symmetrically. No afferent pupillary defect. Visual melton are intact. III, IV, : No ptosis. Extraocular movements full. No nystagmus. V: Decreased facial sensation from R V1-3 (previous neuro notes report R-sided symptoms, no stroke on MRI). VII. No clear facial asymmetry. VIII: Hearing intact to finger rub bilaterally. IX, X: Symmetric palate elevation. XI: Shoulder shrug intact. XII: Tongue midline without fasciculation or atrophy. MOTOR: Normal bulk. Mildly increased tone. No pronator drift. Resting tremor, L more than R. Strength is 5/5 throughout all 4 extremities. SENSORY: Intact to light touch in all 4 extremities REFLEXES: 2+ b/l UE. 1+ in b/l LE. Toes are downgoing. No clonus. COORDINATION: Finger to nose intact. No dysmetria. GAIT: Able to walk with walker DIAGNOSTIC TESTING: LABORATORY: WBC 4.4 hemoglobin 11.5 platelets 212 PT 9.9 INR 0.9 sodium 142 potassium 3.4 chloride 108 bicarb 24 BUN 9 creatinine 0.77 glucose 182 AST 27 ALT 22 troponin <0.012 IMAGING: CT Head 12/12/18: No acute intracranial abnormality. Atrophic changes. Chronic white matter ischemic change. 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 Daughter reports that patient has been having increased seizure frequency. No obvious recent sickness, but notable for significant weight loss of 50 pounds. RECOMMENDATIONS: 1. Routine EEG normal 2. Continue Ethosuxamide 250mg BID. Patient needs to follow up with an outpatient Neurologist for either continuation of Ethosuximide or changing to Depakote. 3. Primary care physician to do basic malignancy work-up as patient is 83 years old and daughter states that as far as she's concerned, no colonoscopy has been done (daughter had taken care of patient for 15 years, and definitely did not get a colonoscopy done during that time) 4. Patient needs outpatient Neurology follow up within 1-2 weeks of discharge 5. Neurology will sign off at this time. Please feel free to contact Neurology again if with additional questions or concerns.
[2018-12-15] MEDS: INSULIN ASPART (NovoLOG) 100 UNIT/ML VIAL SQ SCH ×2 (07:47→12:14)
[2018-12-15] MEDS: FAMOTIDINE 20 MG TAB PO SCH (08:44)
[2018-12-15] MEDS: glipiZIDE 10 MG TAB PO SCH ×2 (08:44→17:14)
[2018-12-15] MEDS: CLOPIDOGREL 75 MG TAB PO SCH (08:45)
[2018-12-15] MEDS: CARBIDOPA-LEVODOPA 25-100 MG 1 EACH TAB PO SCH ×2 (08:45→17:14)
[2018-12-15] MEDS: metFORMIN 500 MG TAB PO SCH ×2 (08:45→17:14)
[2018-12-15] MEDS: FINASTERIDE 5 MG TAB PO SCH (08:46)
[2018-12-15] MEDS: NYSTATIN 100,000 UNIT/GM POWD 15 GM TOPICAL SCH (08:47)
[2018-12-15] MEDS: SODIUM CHLORIDE 0.9% 1,000 ML IV SCH (08:49)
[2018-12-15] MEDS: ETHOSUXIMIDE 250 MG PO SCH (08:50)
[2018-12-15 09:21] LABS: African American GFR (CKD) >90 (>60 ml/min/1.73 sqM); Anion Gap 11 mmol/L; Blood Urea Nitrogen 8 mg/dL (9-20); Calcium 8.9 mg/dL (8.4-10.2); Carbon Dioxide 25 mmol/L (22-30); Chloride 108 mmol/L (98-107); Glucose 184 mg/dL (74-99); Potassium 3.1 mmol/L (3.5-5.1); Sodium 144 mmol/L (137-145)
[2018-12-15 09:33] LABS: Basophils # (A) 0.1 k/uL (0-0.2); Basophils % (A) 1 %; Eosinophils # (A) 0.1 k/uL (0-0.7); Eosinophils % (A) 2 %; HCT 40.8 % (39.0-53.0); HGB 12.6 gm/dL (13.0-17.5); Hypochromasia Marked; Lymphocytes # (A) 1.5 k/uL (1.0-4.8); Lymphocytes % (A) 24 %; MCH 25.3 pg (25.0-35.0); MCHC 30.9 g/dL (31.0-37.0); MCV 81.9 fL (80.0-100.0); Mean Platelet Volume 7.6; Monocytes # (A) 0.5 k/uL (0-1.0); Monocytes % (A) 8 %; Neutrophils # (A) 3.8 k/uL (1.3-7.7); Neutrophils % (A) 62 %; Platelet Count 267 k/uL (150-450); Poikilocytosis Slight; RBC 4.98 m/uL (4.30-5.90); RDW 14.2 % (11.5-15.5); WBC 6.1 k/uL (3.8-10.6)
[2018-12-15] MEDS ORDERED: POTASSIUM CHLORIDE ER 20 MEQ TAB.ER PO STA (10:07)
[2018-12-15 11:23] LABS: Glucose,Whole Blood 158 mg/dL (75-99)
[2018-12-15] MEDS ORDERED: POTASSIUM CHLORIDE ER 20 MEQ TAB.ER PO ONE (12:00)
--- NOTE | 2018-12-15 15:10 | P.DS ---
Providers Date of admission: 12/14/18 09:34 Expected date of discharge: 12/15/18 Attending physician: Xavi Kearns MD Consults: 12/13/18 09:01 Consult Physician Urgent Consulting Provider: Leola Tam Consult Reason/Comments: period of confusion , r/u TIA vs abscence seizure Do you want consulting provider notified?: Yes 12/14/18 11:30 Consult Physician Routine Consulting Provider: Rajat Gatica Consult Reason/Comments: evaluate for inpatient rehab Do you want consulting provider notified?: Yes Primary care physician: Stated None Hospital Course: Final diagnosis Change in mental status, confusion, possibly acute metabolic encephalopathy Generalized weakness and gait dysfunction Cellulitis of both inguinal areas, right more than left, possibly fungal history of recent diarrhea Dysuria Diabetes mellitus2, with hyperglycemia Hypertension Hyperlipidemia History of Parkinson's disease Prolonged QT interval History of transient ischemic attack Anemia, normocytic, anemia of chronic disease Hypokalemia Discharge disposition She is being discharged in a stable condition with guarded prognosis to [facility] for continued PT/OT therapy. Patient will follow up with neurology in the outpatient setting in 1-2 weeks' time upon discharge. Total time taken is 35 minutes. History of present illness This is an 83-year-old male who was recently admitted with confusion and change in mental status and was being worked up to rule out the possibility of a TIA or absence seizures and was being closely monitored. Neurology was following and recommends outpatient follow-up in 1-2 weeks upon discharge. During hospitalization patient underwent an EEG which was normal per neurology. Patient was adamant about wanting to go home and daughter who lives by him and takes care of him didn't feel like it was safe for him to go home on his own and would like him to go to rehab for continued PT/OT therapy. After speaking with the daughter and social work patient is now willing to go to [facility] for continued PT/OT therapy. Currently patient's condition is stable with much improvement and will be discharged today. Patient denies any chest pain, sh ortness of breath, or palpitations at this time. Patient is afebrile. Patient denies any nausea or vomiting and is tolerating diet. Patient's potassium was found to be 3.1 and was replaced. Patient will need repeat labs in 2-3 days to monitor electrolytes. Guarded prognosis. On exam vital signs are stable. Temp is 97.7F, pulse is 74, respirations are 16, blood pressure is 127/62, oxygen saturation is 100% on room air. Cardio S1 and S2 are muffled. Respiratory system shows diminished breath sounds at the bases with no wheezing or crackles noted. Abdomen is soft and nontender. Nervous system shows no focal deficits. Please refer to medication reconciliation sheet for a list of medications. Patient Condition at Discharge: Stable Plan - Discharge Summary New Discharge Prescriptions: New metFORMIN HCL [Glucophage] 500 mg PO BID-W/MEALS tab Ibuprofen [Motrin] 400 mg PO Q6HR PRN tab PRN Reason: Mild Pain Or Fever > 100.5 Nystatin 100,000 Unit/gm Powd [Mycostatin Powder] 1 applic TOPICAL BID applic INSULIN ASPART (NovoLOG) [NovoLOG (formulary)] 0 unit SQ ACHS vial Acetaminophen Tab [Tylenol] 650 mg PO Q6HR PRN tab PRN Reason: Mild Pain Or Fever > 100.5 Continue Finasteride [Proscar] 5 mg PO DAILY Carbidopa-Levodopa 25-100 mg [Sinemet 25-100 mg] 1 tab PO TID Atorvastatin Calcium [Lipitor] 40 mg PO HS #30 tablet Famotidine [Pepcid] 20 mg PO BID #60 tab Ethosuximide [Zarontin] 250 mg PO BID glipiZIDE [Glucotrol] 10 mg PO BID Clopidogrel [Plavix] 75 mg PO DAILY Discontinued metFORMIN HCL [Glucophage] 500 mg PO BID Rivaroxaban [Xarelto] 2.5 mg PO BID Nitrofurantoin Monohyd/M-Cryst [Macrobid] 100 mg PO Q12HR Discharge Medication List Finasteride [Proscar] 5 mg PO DAILY 11/02/15 [History] Carbidopa-Levodopa 25-100 mg [Sinemet 25-100 mg] 1 tab PO TID 02/07/18 [History] Atorvastatin Calcium [Lipitor] 40 mg PO HS #30 tablet 02/09/18 [Rx] Famotidine [Pepcid] 20 mg PO BID #60 tab 02/09/18 [Rx] Ethosuximide [Zarontin] 250 mg PO BID 07/14/18 [History] glipiZIDE [Glucotrol] 10 mg PO BID 11/08/18 [History] Clopidogrel [Plavix] 75 mg PO DAILY 12/12/18 [History] Acetaminophen Tab [Tylenol] 650 mg PO Q6HR PRN tab 12/15/18 [Rx] INSULIN ASPART (NovoLOG) [NovoLOG (formulary)] 0 unit SQ ACHS vial 12/15/18 [Rx] Ibuprofen [Motrin] 400 mg PO Q6HR PRN tab 12/15/18 [Rx] Nystatin 100,000 Unit/gm Powd [Mycostatin Powder] 1 applic TOPICAL BID applic 12/15/18 [Rx] metFORMIN HCL [Glucophage] 500 mg PO BID-W/MEALS tab 12/15/18 [Rx] Follow up Appointment(s)/Referral(s): [facility], [NON-STAFF] - 1 Week Ambulatory/Diagnostic Orders: Basic Metabolic Panel [LAB.AMB] Time Frame: 2 Days, Location: None Selected Activity/Diet/Wound Care/Special Instructions: Patient is going to [facility] on [facility] [place] Continue current diet Activity as tolerated Follow-up with primary care provider upon discharge Repeat labs in 2-3 days Follow-up with neurology in the outpatient setting in 2-3 weeks. Discharge Disposition: TRANSFER TO SNF/ECF
== END 2018-12-15 19:00 | DRG 71 ==
LOC: EC 08:19 → 3NMEDONC 12:35 → OBSVTOIN 12-14 09:34 → 3NMEDONC 12-14 17:04
PROVIDERS: ADMIT Internal Medicine; ATTEND Internal Medicine
DX: G93.41 Metabolic encephalopathy (principal); L03.314 Cellulitis of groin; G40.909 Epilepsy, unspecified, not intractable, without status epilepticus; E11.22 Type 2 diabetes mellitus with diabetic chronic kidney disease; E11.65 Type 2 diabetes mellitus with hyperglycemia; E86.0 Dehydration; D63.8 Anemia in other chronic diseases classified elsewhere; G20 Parkinson's disease; M06.9 Rheumatoid arthritis, unspecified; E78.5 Hyperlipidemia, unspecified; E87.6 Hypokalemia; I12.9 Hypertensive chronic kidney disease with stage 1 through stage 4 chronic kidney disease, or unspecified chronic kidney disease; I25.10 Atherosclerotic heart disease of native coronary artery without angina pectoris; I25.2 Old myocardial infarction; H91.92 Unspecified hearing loss, left ear; H93.11 Tinnitus, right ear; N18.2 Chronic kidney disease, stage 2 (mild); N40.0 Benign prostatic hyperplasia without lower urinary tract symptoms; R62.7 Adult failure to thrive; M48.00 Spinal stenosis, site unspecified; R30.0 Dysuria; B35.6 Tinea cruris; R26.9 Unspecified abnormalities of gait and mobility; R94.31 Abnormal electrocardiogram [ECG] [EKG]; R63.4 Abnormal weight loss; Z79.01 Long term (current) use of anticoagulants; Z79.02 Long term (current) use of antithrombotics/antiplatelets; Z79.899 Other long term (current) drug therapy; Z79.84 Long term (current) use of oral hypoglycemic drugs; Z86.73 Personal history of transient ischemic attack (TIA), and cerebral infarction without residual deficits; Z85.828 Personal history of other malignant neoplasm of skin; Z87.440 Personal history of urinary (tract) infections; Z87.891 Personal history of nicotine dependence; Z95.1 Presence of aortocoronary bypass graft; Z95.5 Presence of coronary angioplasty implant and graft; Z96.651 Presence of right artificial knee joint; Z86.718 Personal history of other venous thrombosis and embolism; Z87.01 Personal history of pneumonia (recurrent); Z91.81 History of falling; Z98.42 Cataract extraction status, left eye; Z98.41 Cataract extraction status, right eye; Z96.1 Presence of intraocular lens; Z82.49 Family history of ischemic heart disease and other diseases of the circulatory system
CPT/HCPCS: 36415; 70450; 71046; 80048; 80053; 81003; 84443; 84484; 85025; 85610; 85730; 87070; 87205; 93005; 95819; 96360; 96361; 99285

== ENCOUNTER 2018-12-24 17:53 | Emergency (ER) | payer MEDICARE, OTHER ==
[2018-12-24 18:01] VITALS: BP 124/88; RESP 18; TEMP 97.1
--- NOTE | 2018-12-24 18:13 | ED ---
General Adult HPI - General Chief complaint: Fall Stated complaint: Fall Source: patient, RN notes reviewed Mode of arrival: EMS Limitations: no limitations - History of Present Illness Initial comments: 83-year-old male with a complicated past medical history presents from a senior living secondary to fall. Patient states he was using his wheelchair when he tipped backwards and fell hitting his right shoulder. Patient does not recall hitting his head but is noted to be on Plavix and does have some neck pain. Patient also complains of pain by the right shoulder blade. He is not having any abdominal or lower back pain. No other injuries.Patient has no other complaints at this time including shortness of breath, chest pain, abdominal pain, nausea or vomiting, headache, or visual changes. - Related Data Home Medications Medication Instructions Recorded Confirmed Finasteride [Proscar] 5 mg PO DAILY 11/02/15 12/12/18 Carbidopa-Levodopa 25-100 mg 1 tab PO TID 02/07/18 12/12/18 [Sinemet 25-100 mg] glipiZIDE [Glucotrol] 10 mg PO BID 11/08/18 12/12/18 Clopidogrel [Plavix] 75 mg PO DAILY 12/12/18 12/12/18 Previous Rx's Medication Instructions Recorded Atorvastatin Calcium [Lipitor] 40 mg PO HS #30 tablet 02/09/18 Famotidine [Pepcid] 20 mg PO BID #60 tab 02/09/18 Acetaminophen Tab [Tylenol] 650 mg PO Q6HR PRN tab 12/15/18 Ethosuximide [Zarontin] 250 mg PO BID #6 cap 12/15/18 INSULIN ASPART (NovoLOG) [NovoLOG 0 unit SQ ACHS vial 12/15/18 (formulary)] Ibuprofen [Motrin] 400 mg PO Q6HR PRN tab 12/15/18 Nystatin 100,000 Unit/gm Powd 1 applic TOPICAL BID applic 12/15/18 [Mycostatin Powder] metFORMIN HCL [Glucophage] 500 mg PO BID-W/MEALS tab 12/15/18 Allergies Allergy/AdvReac Type Severity Reaction Status Date / Time No Known Allergies Allergy Verified 12/12/18 10:38 Review of Systems ROS Statement: Those systems with pertinent positive or pertinent negative responses have been documented in the HPI. ROS Other: All systems not noted in ROS Statement are negative. 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, spinal stenosis, lumbar pain, cervical pain, parkinsons disease, DVT per past medical history but pt does not recall dvt, BPH, UTIS/sepsis and recent UTI, falls, tinnitis R ear, deaf in L ear, history of presbyesophagus, hyponatremia, thrombocytopenia, CKD stage II Last Myocardial Infarction Date:: 03/04/11 History of Any Multi-Drug Resistant Organisms: None Reported Past Surgical History: Coronary Bypass/CABG, Heart Catheterization With Stent, Joint Replacement, Tonsillectomy Additional Past Surgical History / Comment(s): 2005 and 2011 PTCA with stent, 2 007 CABG-3 vessel, sebaceous cysts removed from neck, laser surgery for cataract removals bilateral, colonoscopy, total R knee arthroplasty, skin cancer on face removed Past Anesthesia/Blood Transfusion Reactions: No Reported Reaction Date of Last Stent Placement:: 2011 Past Psychological History: No Psychological Hx Reported Smoking Status: Former smoker Past Alcohol Use History: None Reported Past Drug Use History: None Reported - Past Family History Father Family Medical History: Coronary Artery Disease (CAD) Additional Family Medical History / Comment(s): Father had heart disease. Mother Family Medical History: Coronary Artery Disease (CAD) Additional Family Medical History / Comment(s): Mother had heart disease. General Exam Limitations: no limitations General appearance: alert, in no apparent distress Head exam: Present: atraumatic (No lacerations or contusions present), normocephalic, normal inspection Eye exam: Present: normal appearance, PERRL, EOMI. Absent: scleral icterus, conjunctival injection, periorbital swelling ENT exam: Present: normal exam, normal oropharynx, mucous membranes moist, normal external ear exam Neck exam: Present: tenderness (Tenderness of the cervical spine), other (Patient currently in c-collar) Respiratory exam: Present: normal lung sounds bilaterally, chest wall tenderness (Posterior chest wall tenderness inferior to the right scapula). Absent: respiratory distress, wheezes, rales, rhonchi, stridor Cardiovascular Exam: Present: regular rate, normal rhythm, normal heart sounds. Absent: systolic murmur, diastolic murmur, rubs, gallop, clicks GI/Abdominal exam: Present: soft, normal bowel sounds. Absent: distended, tenderness, guarding, rebound, rigid Extremities exam: Present: tenderness (Minimal generalize shoulder tenderness without any step-off. ), normal capillary refill (Amador refill less than 2 seconds, radial pulse 2+ in the right upper extremity.). Absent: full ROM (Patient has about 90 of flexion and abduction of the right shoulder.), other (No contusion or ecchymosis.) Back exam: Present: vertebral tenderness (Patient does have some minimal thoracic spine tenderness around T7 through T10. No lumbar spine tenderness.). Absent: CVA tenderness (R), CVA tenderness (L), other (No contusions or evidence of trauma) Neurological exam: Present: alert, oriented X3 Psychiatric exam: Present: normal affect, normal mood Course Vital Signs 12/24/18 17:59 Temperature 97.1 F L Pulse Rate 89 Respiratory 18 Rate Blood Pressure 124/88 O2 Sat by Pulse 98 Oximetry Medical Decision Making - Medical Decision Making CT brain shows no acute intracranial hemorrhage. There is age-related volume loss and mild burden nonspecific white matter change. Patient does have Parkinson's as well. CT cervical spine shows no acute fracture or dislocation. Extensive multilevel degenerative disease. C-collar was cleared. Patient has full range of motion of the cervical spine. X-ray of the right-sided ribs shows no acute displaced rib fracture. X-ray of the thoracic spine shows no acute fracture or dislocation. Moderate degenerative disc disease present. X-ray of the right shoulder shows no acute fracture or dislocation. There is moderate glenohumeral and acromioclavicular arthropathy. Patient reevaluated, at this time feeling well enough to go home. Patient will be discharged back to senior living. He is wheelchair-bound and will need EMS transportation. He will return here if he has any worsening symptoms. Disposition Clinical Impression: Fall, Shoulder pain, right Disposition: HOME SELF-CARE Condition: Good Instructions (If sedation given, give patient instructions): Shoulder Pain (ED) Additional Instructions: Please follow up with primary care in 1-2 days. Return to the emergency department if you have any worsening symptoms. Is patient prescribed a controlled substance at d/c from ED?: No Referrals: Alli Peguero MD [Primary Care Provider] - 1-2 days Time of Disposition: 20:35
--- NOTE | 2018-12-24 18:36 | CT ---
EXAMINATION TYPE: CT brain pili kelley DATE OF EXAM: 12/24/2018 COMPARISON: 12/12/2018 HISTORY: Fall with subsequent head and neck pain CT DLP: 1419.4. mGycm. Automated Exposure Control for Dose Reduction was Utilized. TECHNIQUE: CT scan of the head and cervical spine are performed without contrast. FINDINGS: There is no acute intracranial hemorrhage, mass effect, or midline shift identified. The ventricles and sulci are symmetrically prominent compatible with age-related volume loss. Areas of h ypoattenuation in the periventricular white matter are most commonly on the basis of chronic microang iopathy. Dystrophic basal ganglia calcifications are seen. The globes are intact. Mild mucosal thick ening is seen in the left maxillary sinus and ethmoid sinuses. Remaining paranasal sinuses and mastoi d air cells are well aerated. Cerumen impaction is noted of both external auditory canals. There is reversal usual cervical lordosis. There is grade 1 anterolisthesis of C4 and C5 and C5 on C6 , likely on a degenerative basis. Disc osteophyte complexes are seen at C5-C6, C6-C7 and C7-T1. Facet s remain aligned. There is degenerative narrowing of the atlantodental interval with subcortical cyst ic change. No prevertebral soft tissue swelling. Extensive multilevel degenerative disc disease. Biap ical pleural parenchymal scarring, calcific on the left. Post CABG changes of the chest are partially visualized. IMPRESSION: 1. There is no acute fracture or dislocation evident in the cervical spine. 2. No acute intracranial hemorrhage, mass effect, or midline shift is seen. 3. Extensive multilevel degenerative disc disease of the cervical spine and reversal usual cervical l ordosis that may be on the basis of muscular sprain, spasm or patient positioning. 4. Age-related volume loss and mild burden nonspecific white matter change, likely on the basis of ch ronic microangiopathy.
--- NOTE | 2018-12-24 19:19 | XR ---
EXAMINATION TYPE: XR thoracic spine complete DATE OF EXAM: 12/24/2018 CLINICAL HISTORY: Back pain after falling out of a wheelchair TECHNIQUE: Frontal, lateral, and swimmer's view of thoracic spine are obtained. COMPARISON: None. FINDINGS: Thoracic spine show satisfactory alignment without evidence of acute fracture or dislocatio n. Vertebral body heights are preserved. Multilevel intervertebral disc space narrowing is seen with some bridging osteophytes. The visualized ribs are unremarkable. Post CABG changes the chest are s een. IMPRESSION: No acute fracture or dislocation is seen in the thoracic spine. Moderate multilevel dege nerative disc disease of the thoracic spine.
--- NOTE | 2018-12-24 19:21 | XR ---
EXAMINATION TYPE: XR ribs RT w pa chest xray DATE OF EXAM: 12/24/2018 CLINICAL HISTORY: Chest pain after falling out of wheelchair. Right rib pain. TECHNIQUE: Single frontal view of the chest is obtained. 2 views of the right ribs were also obtained . COMPARISON: None FINDINGS: There is no focal air space opacity, pleural effusion, or pneumothorax seen. The cardiac silhouette size is mildly enlarged with post CABG change. No acute displaced right rib fracture is se en. Osseous structures appear grossly intact. IMPRESSION: No acute process. No acute displaced right rib fracture is seen.
--- NOTE | 2018-12-24 20:18 | XR ---
EXAMINATION TYPE: XR shoulder complete RT DATE OF EXAM: 12/24/2018 CLINICAL HISTORY: Right shoulder pain after falling off a wheelchair TECHNIQUE: Three views of the right shoulder are obtained. COMPARISON: None. FINDINGS: There is no acute fracture/dislocation evident in the right shoulder. The acromioclavicul ar and glenohumeral joint spaces appear aligned. Moderate degenerative change of the acromioclavicula r joint and glenohumeral joint with subchondral cysts or formation and marginal osteophytes as well a s joint space narrowing. Partial visualization of post-CABG changes of the chest. The visualized rib s are intact and unremarkable. IMPRESSION: There is no acute fracture or dislocation in the right shoulder. Moderate glenohumeral a nd acromioclavicular arthropathy.
[2018-12-24 20:49] VITALS: PULSE 80
== END 2018-12-24 22:07 | disposition home or self-care (01) ==
LOC: EC 17:53
DX: M25.511 Pain in right shoulder (principal); M12.811 Other specific arthropathies, not elsewhere classified, right shoulder; M50.30 Other cervical disc degeneration, unspecified cervical region; M51.34 Other intervertebral disc degeneration, thoracic region; I25.119 Atherosclerotic heart disease of native coronary artery with unspecified angina pectoris; E11.9 Type 2 diabetes mellitus without complications; E78.5 Hyperlipidemia, unspecified; I25.2 Old myocardial infarction; M06.9 Rheumatoid arthritis, unspecified; I12.9 Hypertensive chronic kidney disease with stage 1 through stage 4 chronic kidney disease, or unspecified chronic kidney disease; N18.2 Chronic kidney disease, stage 2 (mild); G20 Parkinson's disease; Z79.02 Long term (current) use of antithrombotics/antiplatelets; Z79.84 Long term (current) use of oral hypoglycemic drugs; Z79.899 Other long term (current) drug therapy; Z87.891 Personal history of nicotine dependence; Z95.1 Presence of aortocoronary bypass graft; Z95.5 Presence of coronary angioplasty implant and graft; Z86.73 Personal history of transient ischemic attack (TIA), and cerebral infarction without residual deficits; Z86.718 Personal history of other venous thrombosis and embolism; Z85.828 Personal history of other malignant neoplasm of skin; W05.0XXA Fall from non-moving wheelchair, initial encounter
CPT/HCPCS: 70450; 72072; 72125; 99284

== ENCOUNTER 2019-01-05 08:48 | Inpatient (IN) | payer MEDICARE, OTHER ==
[2019-01-05] MEDS ORDERED: SODIUM CHLORIDE 0.9% 1,000 ML IV STA ×2 (09:09)
--- NOTE | 2019-01-05 09:23 | ED ---
Weakness HPI - General Chief complaint: Weakness Stated complaint: altered mental status Time Seen by Provider: 01/05/19 08:51 Source: EMS, RN notes reviewed, old records reviewed Mode of arrival: EMS Limitations: no limitations - History of Present Illness Initial comments: Alfred is a 83-year-old male, he presents today for evaluation for concern for just general weakness T concern for dehydration and lethargy. Patient was discharged from [facility] 2 days ago. Patient's son went to check on him last night he is complaining of significant thirst and complaining of irritation over his rash in his groin. Patient son reports that he went to bed somewhat tired when he went to check on him this morning he was quite lethargic, would have some episodes of garbled speech, and wouldn't sit up in bed properly. He tonight breakfast this morning. Patient son brought called the EMS for concern for these complaints and lethargy and unable to take care of himself. Patient son is now concerned that he would not be able to go home to take care of himself at this time sees calling him to help him turn over in bed. His son noted that he did have some dark urine yesterday. History of dementia and Parkinson's disease. - Related Data Home Medications Medication Instructions Recorded Confirmed Finasteride [Proscar] 5 mg PO DAILY 11/02/15 01/05/19 Carbidopa-Levodopa 25-100 mg 1 tab PO Q8H 02/07/18 01/05/19 [Sinemet 25-100 mg] glipiZIDE [Glucotrol] 10 mg PO BID 11/08/18 01/05/19 Clopidogrel [Plavix] 75 mg PO DAILY 12/12/18 01/05/19 INSULIN ASPART (NovoLOG) [NovoLOG See Protocol SQ AC-TID 01/05/19 01/05/19 (formulary)] Isosorbide Mononitrate ER [Imdur] 30 mg PO DAILY 01/05/19 01/05/19 Previous Rx's Medication Instructions Recorded Atorvastatin Calcium [Lipitor] 40 mg PO HS #30 tablet 02/09/18 Famotidine [Pepcid] 20 mg PO BID #60 tab 02/09/18 Acetaminophen Tab [Tylenol] 650 mg PO Q6HR PRN tab 12/15/18 Ethosuximide [Zarontin] 250 mg PO BID #6 cap 12/15/18 Ibuprofen [Motrin] 400 mg PO Q6HR PRN tab 12/15/18 metFORMIN HCL [Glucophage] 500 mg PO BID-W/MEALS tab 12/15/18 Allergies Allergy/AdvReac Type Severity Reaction Status Date / Time No Known Allergies Allergy Verified 01/05/19 10:13 Review of Systems ROS Statement: Those systems with pertinent positive or pertinent negative responses have been documented in the HPI. ROS Other: All systems not noted in ROS Statement are negative. 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, spinal stenosis, lumbar pain, cervical pain, parkinsons disease, DVT per past medical history but pt does not recall dvt, BPH, UTIS/sepsis and recent UTI, falls, tinnitis R ear, deaf in L ear, history of presbyesophagus, hyponatremia, thrombocytopenia, CKD stage II Last Myocardial Infarction Date:: 03/04/11 History of Any Multi-Drug Resistant Organisms: None Reported Past Surgical History: Coronary Bypass/CABG, Heart Catheterization With Stent, Joint Replacement, Tonsillectomy Additional Past Surgical History / Comment(s): 2005 and 2011 PTCA with stent, 2006 CABG-3 vessel, sebaceous cysts removed from neck, laser surgery for cataract removals bilateral, colonoscopy, total R knee arthroplasty, skin cancer on face removed Past Anesthesia/Blood Transfusion Reactions: No Reported Reaction Date of Last Stent Placement:: 2011 Past Psychological History: No Psychological Hx Reported Smoking Status: Former smoker Past Alcohol Use History: None Reported Past Drug Use History: None Reported - Past Family History Father Family Medical History: Coronary Artery Disease (CAD) Additional Family Medical History / Comment(s): Father had heart disease. Mother Family Medical History: Coronary Artery Disease (CAD) Additional Family Medical History / Comment(s): Mother had heart disease. General Exam - General Exam Comments Initial Comments: 83-year-old male. Limitations: no limitations General appearance: alert, in no apparent distress Head exam: Present: atraumatic, normocephalic, normal inspection Eye exam: Present: normal appearance, PERRL, EOMI. Absent: scleral icterus, conjunctival injection, periorbital swelling ENT exam: Present: normal exam, mucous membranes dry, mucous membranes moist. Absent: normal oropharynx Neck exam: Present: normal inspection. Absent: tenderness, meningismus, lymphadenopathy Respiratory exam: Present: normal lung sounds bilaterally. Absent: respiratory distress, wheezes, rales, rhonchi, stridor Cardiovascular Exam: Present: regular rate, normal rhythm, normal heart sounds. Absent: systolic murmur, diastolic murmur, rubs, gallop, clicks GI/Abdominal exam: Present: soft, normal bowel sounds. Absent: distended, tenderness, guarding, rebound, rigid Extremities exam: Present: normal inspection, full ROM, normal capillary refill. Absent: tenderness, pedal edema, joint swelling, calf tenderness Back exam: Present: normal inspection Neurological exam: Present: alert, oriented X3, CN II-XII intact Course Vital Signs 01/05/19 01/05/19 01/05/19 08:53 09:00 09:27 Temperature 98.6 F Pulse Rate 96 90 Respiratory 18 22 Rate Blood Pressure 107/65 107/65 O2 Sat by Pulse 96 97 Oximetry 01/05/19 01/05/19 11:00 12:11 Temperature Pulse Rate 71 66 Respiratory 18 20 Rate Blood Pressure 122/77 124/77 O2 Sat by Pulse 99 95 Oximetry - Reevaluation(s) Reevaluation #1: 01/05/19 12:31 Required 2 people assist to stand at the edge of the bed to be able to urinate. Reevaluation #2: 01/05/19 13:06 Delay in admission due to Patient refusing to have catheterization, and refusing to ambulate or attempt to leave a urine sample. Medical Decision Making - Medical Decision Making 83-year-old male presents today for evaluation for continued increased lethargy generalized weakness. Patient was discharged from [facility] days ago. He was discharged in stable condition according to son. When someone to check on him last night into today he's had weakness, trouble performing ADLs. He is concerned he would fall. Patient arrives here via EMS. He does appear to be somewhat clinically dehydrated with a dry mouth. Refusing to leave a urine sample for multiple hours after giving 2 L bolus he was able to finally urinate. Patient labwork was reviewed and relatively unremarkable. At this time Romain martinez appears to be baseline mental status for me his eye take care of Patient before with his history of dementia. Patient's son states that he thinks that it would be time the Patient may need to have a full admission to an extended care facility is unable to care for his daily needs at home. Reportedly patient's son stated the last night he was "talking to his parents". Discussed with son that would like to have the Patient for generalized weakness, failure to thrive and dehydration. - Lab Data Result diagrams: 01/05/19 09:02 01/05/19 09:02 Lab Results 01/05/19 01/05/19 01/05/19 Range/Units 09:02 09:02 09:02 WBC 5.1 (3.8-10.6) k/uL RBC 4.29 L (4.30-5.90) m/uL Hgb 10.5 L (13.0-17.5) gm/dL Hct 34.0 L (39.0-53.0) % MCV 79.3 L (80.0-100.0) fL MCH 24.5 L (25.0-35.0) pg MCHC 30.9 L (31.0-37.0) g/dL RDW 15.1 (11.5-15.5) % Plt Count 270 (150-450) k/uL Neutrophils % 71 % Lymphocytes % 9 % Monocytes % 7 % Eosinophils % 10 % Basophils % 1 % Neutrophils # 3.6 (1.3-7.7) k/uL Lymphocytes # 0.5 L (1.0-4.8) k/uL Monocytes # 0.3 (0-1.0) k/uL Eosinophils # 0.5 (0-0.7) k/uL Basophils # 0.1 (0-0.2) k/uL Hypochromasia Moderate PT 10.2 (9.0-12.0) sec INR 0.9 (<1.2) APTT 24.4 (22.0-30.0) sec Sodium 138 (137-145) mmol/L Potassium 3.9 (3.5-5.1) mmol/L Chloride 105 (98-107) mmol/L Carbon Dioxide 24 (22-30) mmol/L Anion Gap 9 mmol/L BUN 14 (9-20) mg/dL Creatinine 0.87 (0.66-1.25) mg/dL Est GFR (CKD-EPI)AfAm >90 (>60 ml/min/1.73 sqM) Est GFR (CKD-EPI)NonAf 79 (>60 ml/min/1.73 sqM) Glucose 128 H (74-99) mg/dL Calcium 8.4 (8.4-10.2) mg/dL Phosphorus 3.2 (2.5-4.5) mg/dL Magnesium 1.8 (1.6-2.3) mg/dL Total Bilirubin 0.5 (0.2-1.3) mg/dL AST 18 (17-59) U/L ALT 25 (21-72) U/L Alkaline Phosphatase 86 (38-126) U/L Troponin I (0.000-0.034) ng/mL Total Protein 5.8 L (6.3-8.2) g/dL Albumin 3.0 L (3.5-5.0) g/dL Urine Color Urine Appearance (Clear) Urine pH (5.0-8.0) Ur Specific [place] (1.001-1.035) Urine Protein (Negative) Urine Glucose (UA) (Negative) Urine Ketones (Negative) Urine Blood (Negative) Urine Nitrite (Negative) Urine Bilirubin (Negative) Urine Urobilinogen (<2.0) mg/dL Ur Leukocyte Esterase (Negative) Urine RBC (0-5) /hpf Urine WBC (0-5) /hpf Ur Squamous Epith Cells (0-4) /hpf Urine Bacteria (None) /hpf Urine Mucus (None) /hpf 01/05/19 01/05/19 Range/Units 09:02 12:17 WBC (3.8-10.6) k/uL RBC (4.30-5.90) m/uL Hgb (13.0-17.5) gm/dL Hct (39.0-53.0) % MCV (80.0-100.0) fL MCH (25.0-35.0) pg MCHC (31.0-37.0) g/dL RDW (11.5-15.5) % Plt Count (150-450) k/uL Neutrophils % % Lymphocytes % % Monocytes % % Eosinophils % % Basophils % % Neutrophils # (1.3-7.7) k/uL Lymphocytes # (1.0-4.8) k/uL Monocytes # (0-1.0) k/uL Eosinophils # (0-0.7) k/uL Basophils # (0-0.2) k/uL Hypochromasia PT (9.0-12.0) sec INR (<1.2) APTT (22.0-30.0) sec Sodium (137-145) mmol/L Potassium (3.5-5.1) mmol/L Chloride (98-107) mmol/L Carbon Dioxide (22-30) mmol/L Anion Gap mmol/L BUN (9-20) mg/dL Creatinine (0.66-1.25) mg/dL Est GFR (CKD-EPI)AfAm (>60 ml/min/1.73 sqM) Est GFR (CKD-EPI)NonAf (>60 ml/min/1.73 sqM) Glucose (74-99) mg/dL Calcium (8.4-10.2) mg/dL Phosphorus (2.5-4.5) mg/dL Magnesium (1.6-2.3) mg/dL Total Bilirubin (0.2-1.3) mg/dL AST (17-59) U/L ALT (21-72) U/L Alkaline Phosphatase (38-126) U/L Troponin I <0.012 (0.000-0.034) ng/mL Total Protein (6.3-8.2) g/dL Albumin (3.5-5.0) g/dL Urine Color Yellow Urine Appearance Cloudy (Clear) Urine pH 5.0 (5.0-8.0) Ur Specific [place] 1.009 (1.001-1.035) Urine Protein Negative (Negative) Urine Glucose (UA) Negative (Negative) Urine Ketones Negative (Negative) Urine Blood Negative (Negative) Urine Nitrite Negative (Negative) Urine Bilirubin Negative (Negative) Urine Urobilinogen <2.0 (<2.0) mg/dL Ur Leukocyte Esterase Moderate H (Negative) Urine RBC 7 H (0-5) /hpf Urine WBC 2 (0-5) /hpf Ur Squamous Epith Cells <1 (0-4) /hpf Urine Bacteria Occasional H (None) /hpf Urine Mucus Rare H (None) /hpf - Radiology Data Radiology results: report reviewed Chest x-ray shows no acute process. Chest x-ray shows chronic findings of any acute cardio primary process. Cardiac silhouette size upper limits normal post- CABG changes. Some hyperinflation flattening of the diaphragms consistent with COPD. Disposition Clinical Impression: History of Parkinson's disease, Weakness, History of diabetes mellitus, Candidiasis, intertrigo, Failure to thrive Disposition: ADMITTED IP TO THIS HOSP Condition: Stable Is patient prescribed a controlled substance at d/c from ED?: No Referrals: Alli Peguero MD [Primary Care Provider] - 1-2 days Time of Disposition: 13:10
[2019-01-05 09:32] LABS: Basophils # (A) 0.1 k/uL (0-0.2); Basophils % (A) 1 %; Eosinophils # (A) 0.5 k/uL (0-0.7); Eosinophils % (A) 10 %; HGB 10.5 gm/dL (13.0-17.5); Hypochromasia Moderate; Lymphocytes # (A) 0.5 k/uL (1.0-4.8); Lymphocytes % (A) 9 %; MCH 24.5 pg (25.0-35.0); MCHC 30.9 g/dL (31.0-37.0); MCV 79.3 fL (80.0-100.0); Mean Platelet Volume 7.6; Monocytes # (A) 0.3 k/uL (0-1.0); Monocytes % (A) 7 %; Neutrophils # (A) 3.6 k/uL (1.3-7.7); Neutrophils % (A) 71 %; Platelet Count 270 k/uL (150-450); RBC 4.29 m/uL (4.30-5.90); RDW 15.1 % (11.5-15.5); WBC 5.1 k/uL (3.8-10.6)
[2019-01-05 09:41] LABS: ALT 25 U/L (21-72); AST 18 U/L (17-59); African American GFR (CKD) >90 (>60 ml/min/1.73 sqM); Alkaline Phosphatase 86 U/L (38-126); Anion Gap 9 mmol/L; Blood Urea Nitrogen 14 mg/dL (9-20); Calcium 8.4 mg/dL (8.4-10.2); Carbon Dioxide 24 mmol/L (22-30); Chloride 105 mmol/L (98-107); Glucose 128 mg/dL (74-99); INR 0.9 (<1.2); Magnesium 1.8 mg/dL (1.6-2.3); Non-African American GFR(CKD) 79 (>60 ml/min/1.73 sqM); Partial Thromboplastin Time 24.4 sec (22.0-30.0); Phosphorus 3.2 mg/dL (2.5-4.5); Potassium 3.9 mmol/L (3.5-5.1); Prothrombin Time 10.2 sec (9.0-12.0); Sodium 138 mmol/L (137-145); Total Bilirubin 0.5 mg/dL (0.2-1.3); Total Protein 5.8 g/dL (6.3-8.2)
--- NOTE | 2019-01-05 10:16 | XR ---
EXAMINATION TYPE: XR chest 2V DATE OF EXAM: 01/05/2019 COMPARISON: 12/24/2018 HISTORY: Increased weakness. TECHNIQUE: Frontal and lateral views of the chest are obtained. FINDINGS: There is no focal air space opacity, pleural effusion, or pneumothorax seen. Slight pulmo nary hyperinflation and flattening of the diaphragms on the lateral view suggests underlying COPD. Th e cardiac silhouette size is upper limits of normal with post CABG changes. The osseous structures are intact. Mild multilevel degenerative changes of the spine. Moderate degenerative changes of the a cromioclavicular joints. IMPRESSION: Chronic findings no acute cardiopulmonary process.
[2019-01-05] MEDS ORDERED: SODIUM CHLORIDE 0.9% 1,000 ML IV ONE (11:00)
[2019-01-05 12:49] LABS: Appearance,Urine Cloudy (Clear); Bacteria,Urine Occasional /hpf; Bilirubin,Urine Negative (Negative); Blood,Urine Negative (Negative); Color,Urine Yellow; Glucose,Urine (UA) Negative (Negative); Ketones,Urine Negative (Negative); Leukocyte Esterase,Urine Moderate (Negative); Mucus,Urine Rare /hpf; Nitrite,Urine Negative (Negative); Protein,Urine Negative (Negative); RBC,Urine 7 /hpf (0-5); Specific Gravity,Urine 1.009 (1.001-1.035); Squamous Epithelial Cell,Urine <1 /hpf (0-4); Urobilinogen,Urine <2.0 mg/dL (<2.0)
[2019-01-05] MEDS ORDERED: IBUPROFEN 400 MG TAB PO PRN ×2 (13:10→15:14)
[2019-01-05] MEDS ORDERED: ONDANSETRON 4 MG/2 ML VIAL IVP PRN (13:10)
[2019-01-05] MEDS ORDERED: ACETAMINOPHEN TAB 325 MG TAB PO PRN ×2 (13:10→15:14)
[2019-01-05] MEDS ORDERED: NALOXONE 0.4 MG/ML 1 ML VIAL IV PRN (13:10)
[2019-01-05] MEDS: SODIUM CHLORIDE 0.9% 1,000 ML IV SCH (13:32)
[2019-01-05 14:09] VITALS: BMI 29.0
[2019-01-05] MEDS: metFORMIN 500 MG TAB PO SCH (17:29)
[2019-01-05] MEDS: CARBIDOPA-LEVODOPA 25-100 MG 1 EACH TAB PO SCH (17:29)
[2019-01-05 17:38] LABS: Glucose,Whole Blood 63 mg/dL (75-99)
[2019-01-05] MEDS: INSULIN ASPART (NovoLOG) 100 UNIT/ML VIAL SQ SCH ×2 (17:38→20:33)
[2019-01-05 18:01] LABS: Glucose,Whole Blood 63 mg/dL (75-99)
[2019-01-05 18:21] LABS: Glucose,Whole Blood 87 mg/dL (75-99)
[2019-01-05 20:00] LABS: Glucose,Whole Blood 115 mg/dL (75-99)
[2019-01-05] MEDS: ATORVASTATIN 40 MG TAB PO SCH (20:33)
[2019-01-05] MEDS: FAMOTIDINE 20 MG TAB PO SCH (20:33)
[2019-01-05] MEDS: glipiZIDE 10 MG TAB PO SCH (20:33)
--- NOTE | 2019-01-05 21:22 | P.HPIM ---
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 Patient had extensive workup in the past including computed tomography scan computed tomography scan and shows. Patient was at [facility] until 2 days ago. Has been on for 2 days. Admitted with generalized weakness. No fever no chills. Appetite is fair. Has been more lethargic. Here after arriving patient is eating fairly well. Patient denies any pain. No urinary symptoms. Patient's family in the ER expressed that patient not been not be a take care of himself. 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 Can lead daughter checks on him most days. Smoked in the remote past. No alcohol. Physical examination: VITAL SIGNS: 98.6, 90, 22, 107/65, 97% on room air GENERAL: BMI 29, laying bed awake EYES: Pupils equal. Conjunctiva normal. HEENT: External appearance of nose and ears normal, oral cavity grossly normal. NECK: JVD not raised; masses not palpable. HEART: First and second heart sounds are normal; no edema. LUNGS: Respiratory rate normal; clear to auscultation. ABDOMEN: Soft, nontender, liver spleen not palpable, no masses palpable, Riggs catheter. PSYCH: Awake, able to answer simple questionsl. NEUROLOGICAL: Cranial nerves grossly intact; no facial asymmetry, power and sensation grossly intact. LYMPHATICS: No lymph nodes palpable in the axilla and neck INVESTIGATIONS, reviewed in the clinical context: Accu-Cheks Accu-Cheks 63, 63, 87, 15 UA positive for leukoesterase 5 WBC, urine bacteria occasional Assessment: -Acute on chronic medical deconditioning from multiple medical problems. Patient just discharged from rehab 2 days ago. Patient had multiple admissions to different rehabs. 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 Home medications resumed. PTOT is on the case. This will need to probably long-term placement. Otherwise he is to keep bouncing back from rehab to acute hospital setting. Given his multiple comorbidities. Care was discussed with the patient. Past Medical History Past Medical History: Coronary Artery Disease (CAD), Cancer, Chest Pain / Angina, Dementia, Diabetes Mellitus, Deep Vein Thrombosis (DVT), Hearing Di sorder / Deafness, Hyperlipidemia, Hypertension, Myocardial Infarction ([place]), Pneumonia, Prostate Disorder, Renal Disease, Rheumatoid Arthritis (RA), Seizure Disorder Additional Past Medical History / Comment(s): TIAs, NIDDM type II, epilepsy as a child, possible seizures, spinal stenosis, lumbar pain, cervical pain, parkinsons disease, DVT per past medical history but pt does not recall dvt, BPH, UTIS/sepsis and recent UTI, falls, tinnitis R ear, deaf in L ear, history o f presbyesophagus/dysphagia, hyponatremia, thrombocytopenia, anemia, CKD stage II, recent cellulitis bilateral groins. Last Myocardial Infarction Date:: 03/04/11 History of Any Multi-Drug Resistant Organisms: None Reported Past Surgical History: Coronary Bypass/CABG, Heart Catheterization With Stent, Joint Replacement, Tonsillectomy Additional Past Surgical History / Comment(s): 2005 and 2011 PTCA with stent, 2006 CABG-3 vessel, sebaceous cysts removed from neck, laser surgery for cataract removals bilateral, colonoscopy, total R knee arthroplasty, skin cancer on face removed Past Anesthesia/Blood Transfusion Reactions: No Reported Reaction Date of Last Stent Placement:: 2011 Smoking Status: Former smoker - Past Family History Father Family Medical History: Coronary Artery Disease (CAD) Additional Family Medical History / Comment(s): Father had heart disease. Mother Family Medical History: Coronary Artery Disease (CAD) Additional Family Medical History / Comment(s): Mother had heart disease. Medications and Allergies Home Medications Medication Instructions Recorded Confirmed Type Finasteride [Proscar] 5 mg PO DAILY 11/02/15 01/05/19 History Carbidopa-Levodopa 25-100 mg 1 tab PO Q8H 02/07/18 01/05/19 History [Sinemet 25-100 mg] Atorvastatin Calcium [Lipitor] 40 mg PO HS #30 tablet 02/09/18 01/05/19 Rx Famotidine [Pepcid] 20 mg PO BID #60 tab 02/09/18 01/05/19 Rx glipiZIDE [Glucotrol] 10 mg PO BID 11/08/18 01/05/19 History Clopidogrel [Plavix] 75 mg PO DAILY 12/12/18 01/05/19 History Acetaminophen Tab [Tylenol] 650 mg PO Q6HR PRN tab 12/15/18 01/05/19 Rx Ethosuximide [Zarontin] 250 mg PO BID #6 cap 12/15/18 01/05/19 Rx Ibuprofen [Motrin] 400 mg PO Q6HR PRN tab 12/15/18 01/05/19 Rx metFORMIN HCL [Glucophage] 500 mg PO BID-W/MEALS tab 12/15/18 01/05/19 Rx INSULIN ASPART (NovoLOG) [NovoLOG See Protocol SQ AC-TID 01/05/19 01/05/19 History (formulary)] Isosorbide Mononitrate ER [Imdur] 30 mg PO DAILY 01/05/19 01/05/19 History Allergies Allergy/AdvReac Type Severity Reaction Status Date / Time No Known Allergies Allergy Verified 01/05/19 10:13 Physical Exam Vitals: Vital Signs Temp Pulse Resp BP Pulse Ox 01/05/19 13:33 97.7 F 64 18 108/62 98 01/05/19 12:11 66 20 124/77 95 01/05/19 11:00 71 18 122/77 99 01/05/19 09:27 98.6 F 01/05/19 09:00 90 22 107/65 97 01/05/19 08:53 96 18 107/65 96 Intake and Output 01/05/19 01/05/19 01/05/19 06:59 14:59 22:59 Other: Voiding Method Diaper Incontinent Weight 99.79 kg Results CBC & Chem 7: 01/05/19 09:02 01/05/19 09:02 Labs: Abnormal Lab Results - Last 24 Hours (Table) 01/05/19 01/05/19 01/05/19 Range/Units 09:02 09:02 12:17 RBC 4.29 L (4.30-5.90) m/uL Hgb 10.5 L (13.0-17.5) gm/dL Hct 34.0 L (39.0-53.0) % MCV 79.3 L (80.0-100.0) fL MCH 24.5 L (25.0-35.0) pg MCHC 30.9 L (31.0-37.0) g/dL Lymphocytes # 0.5 L (1.0-4.8) k/uL Glucose 128 H (74-99) mg/dL POC Glucose (mg/dL) (75-99) mg/dL Total Protein 5.8 L (6.3-8.2) g/dL Albumin 3.0 L (3.5-5.0) g/dL Ur Leukocyte Esterase Moderate H (Negative) Urine RBC 7 H (0-5) /hpf Urine Bacteria Occasional H (None) /hpf Urine Mucus Rare H (None) /hpf 01/05/19 01/05/19 01/05/19 Range/Units 17:35 17:54 19:51 RBC (4.30-5.90) m/uL Hgb (13.0-17.5) gm/dL Hct (39.0-53.0) % MCV (80.0-100.0) fL MCH (25.0-35.0) pg MCHC (31.0-37.0) g/dL Lymphocytes # (1.0-4.8) k/uL Glucose (74-99) mg/dL POC Glucose (mg/dL) 63 L 63 L 115 H (75-99) mg/dL Total Protein (6.3-8.2) g/dL Albumin (3.5-5.0) g/dL Ur Leukocyte Esterase (Negative) Urine RBC (0-5) /hpf Urine Bacteria (None) /hpf Urine Mucus (None) /hpf Thrombosis Risk Factor Assmnt - Choose All That Apply Any of the Below Risk Factors Present?: Yes Each Factor Represents 1 point: Obesity (BMI >25) Other Risk Factors: Yes Each Risk Factor Represents 2 Points: Malignancy Each Risk Factor Represents 3 Points: Age 75 years or older, History of DVT/PE Other congenital or acquired thrombophilia - If yes, enter type in comment: No Thrombosis Risk Factor Assessment Total Risk Factor Score: 9 Thrombosis Risk Factor Assessment Level: High Risk
[2019-01-05] MEDS: ENOXAPARIN 40 MG/0.4 ML SYRINGE SQ SCH (21:42)
[2019-01-06] MEDS: SODIUM CHLORIDE 0.9% 1,000 ML IV SCH ×3 (00:29→19:43)
[2019-01-06] MEDS: CARBIDOPA-LEVODOPA 25-100 MG 1 EACH TAB PO SCH ×4 (00:29→23:11)
[2019-01-06 07:09] LABS: Glucose,Whole Blood 104 mg/dL (75-99)
[2019-01-06] MEDS: metFORMIN 500 MG TAB PO SCH ×2 (07:12→17:20)
[2019-01-06] MEDS: INSULIN ASPART (NovoLOG) 100 UNIT/ML VIAL SQ SCH ×4 (07:12→21:19)
[2019-01-06] MEDS: ENOXAPARIN 40 MG/0.4 ML SYRINGE SQ SCH (07:53)
[2019-01-06] MEDS: ISOSORBIDE MONONITRATE ER 30 MG TAB.ER.24H PO SCH (07:54)
[2019-01-06] MEDS: CLOPIDOGREL 75 MG TAB PO SCH (07:54)
[2019-01-06] MEDS: FAMOTIDINE 20 MG TAB PO SCH ×2 (07:54→21:20)
[2019-01-06] MEDS: FINASTERIDE 5 MG TAB PO SCH (07:54)
[2019-01-06] MEDS: glipiZIDE 10 MG TAB PO SCH ×2 (07:55→21:20)
[2019-01-06] MEDS: PANTOPRAZOLE 40 MG/10 ML VIAL IV SCH (07:55)
[2019-01-06 12:28] LABS: Glucose,Whole Blood 113 mg/dL (75-99)
[2019-01-06 17:15] LABS: Glucose,Whole Blood 138 mg/dL (75-99)
[2019-01-06] MEDS: ATORVASTATIN 40 MG TAB PO SCH (21:20)
[2019-01-06 21:21] LABS: Glucose,Whole Blood 135 mg/dL (75-99)
--- NOTE | 2019-01-06 22:54 | P.PN ---
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 Patient had extensive workup in the past including computed tomography scan computed tomography scan and shows. Patient was at [facility] until 2 days ago. Has been on for 2 days. Admitted with generalized weakness. No fever no chills. Appetite is fair. Has been more lethargic. Here after arriving patient is eating fairly well. Patient denies any pain. No urinary symptoms. Patient's family in the ER expressed that patient not been not be a take care of himself. today-oral intake favorably. Laying in bed. Communicating. Review of systems: Was done for constitutional, cardiovascular, GI, pulmonary. relevant finding as above Active Medications Acetaminophen (Tylenol Tab) 650 mg PO Q6HR PRN PRN Reason: Mild Pain or Fever > 100.5 Atorvastatin Calcium (Lipitor) 40 mg PO HS [facility] Last Admin: 01/06/19 21:20 Dose: 40 mg Documented by: Carbidopa/Levodopa (Sinemet 25-100) 1 each PO Q8HR [facility] Last Admin: 01/06/19 17:20 Dose: 1 each Documented by: Clopidogrel Bisulfate (Plavix) 75 mg PO DAILY [facility] Last Admin: 01/06/19 07:54 Dose: 75 mg Documented by: Enoxaparin Sodium (Lovenox) 40 mg SQ DAILY [facility] Last Admin: 01/06/19 07:53 Dose: 40 mg Documented by: Famotidine (Pepcid) 20 mg PO BID [facility] Last Admin: 01/06/19 21:20 Dose: 20 mg Documented by: Finasteride (Proscar) 5 mg PO DAILY [facility] Last Admin: 01/06/19 07:54 Dose: 5 mg Documented by: Glipizide (Glucotrol) 10 mg PO BID [facility] Last Admin: 01/06/19 21:20 Dose: 10 mg Documented by: Sodium Chloride (Saline 0.9%) 1,000 mls @ 100 mls/hr IV .Q10H [facility] Last Admin: 01/06/19 19:43 Dose: Not Given Documented by: Ibuprofen (Motrin) 400 mg PO Q6HR PRN PRN Reason: Mild Pain or Fever > 100.5 Insulin Aspart (Novolog) 0 unit SQ ACHS [facility]; Protocol Last Admin: 01/06/19 21:19 Dose: Not Given Documented by: Isosorbide Mononitrate (Imdur) 30 mg PO DAILY [facility] Last Admin: 01/06/19 07:54 Dose: 30 mg Documented by: Metformin HCl (Glucophage) 500 mg PO BID-W/MEALS [facility] Last Admin: 01/06/19 17:20 Dose: 500 mg Documented by: Naloxone HCl (Narcan) 0.2 mg IV Q2M PRN PRN Reason: Opioid Reversal (Ethosuximide 250 Mg ()) 250 mg PO BID [facility] Last Admin: 01/06/19 20:39 Dose: Not Given Documented by: Ondansetron HCl (Zofran) 4 mg IVP Q8HR PRN PRN Reason: Nausea And Vomiting Pantoprazole Sodium (Protonix) 40 mg IV DAILY [facility] Last Admin: 01/06/19 07:55 Dose: 40 mg Documented by: Physical examination: VITAL SIGNS: 97.4, 60, 18, 96/54, 97% room air GENERAL: laying bed, comfortable awake EYES: Pupils equal. Conjunctiva normal. HEENT: External appearance of nose and ears normal, oral cavity grossly normal. NECK: JVD not raised; masses not palpable. HEART: First and second heart sounds are normal; no edema. LUNGS: Respiratory rate normal; clear to auscultation. ABDOMEN: Soft, nontender, liver spleen not palpable, no masses palpable, Riggs catheter. PSYCH: Awake, able to answer simple questionsl. INVESTIGATIONS, reviewed in the clinical context: Accu-Cheks Accu-Cheks 104, 113, 138 Previous testing UA positive for leukoesterase 5 WBC, urine bacteria occasional Assessment: -Acute on chronic medical deconditioning from multiple medical problems. Patient just discharged from rehab 2 days ago. Patient had multiple admissions to different rehabs. 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 Patient will probably need some long-term placement. We'll see if that is any scope for acute rehab. Other medication treatment plan is to continue.
[2019-01-07] MEDS: SODIUM CHLORIDE 0.9% 1,000 ML IV SCH ×2 (04:34→15:33)
[2019-01-07] MEDS: ISOSORBIDE MONONITRATE ER 30 MG TAB.ER.24H PO SCH ×2 (07:11→08:54)
[2019-01-07] MEDS: CLOPIDOGREL 75 MG TAB PO SCH (07:11)
[2019-01-07] MEDS: CARBIDOPA-LEVODOPA 25-100 MG 1 EACH TAB PO SCH ×2 (07:11→15:31)
[2019-01-07] MEDS: metFORMIN 500 MG TAB PO SCH ×2 (07:11→17:20)
[2019-01-07] MEDS: FAMOTIDINE 20 MG TAB PO SCH ×2 (07:12→21:18)
[2019-01-07] MEDS: FINASTERIDE 5 MG TAB PO SCH (07:12)
[2019-01-07] MEDS: PANTOPRAZOLE 40 MG/10 ML VIAL IV SCH (07:12)
[2019-01-07] MEDS: ENOXAPARIN 40 MG/0.4 ML SYRINGE SQ SCH (07:12)
[2019-01-07 07:18] LABS: Glucose,Whole Blood 108 mg/dL (75-99)
[2019-01-07] MEDS: INSULIN ASPART (NovoLOG) 100 UNIT/ML VIAL SQ SCH ×4 (07:18→21:17)
[2019-01-07] MEDS ORDERED: glipiZIDE 5 MG TAB PO SCH (07:30)
[2019-01-07 11:50] LABS: Glucose,Whole Blood 58 mg/dL (75-99)
[2019-01-07 11:54] LABS: Glucose,Whole Blood 61 mg/dL (75-99)
[2019-01-07] MEDS ORDERED: DEXTROSE 10 % IN WATER 250 ML IV ONE (11:57)
[2019-01-07 12:15] LABS: Glucose,Whole Blood 152 mg/dL (75-99)
[2019-01-07 17:21] LABS: Glucose,Whole Blood 75 mg/dL (75-99)
[2019-01-07 21:14] LABS: Glucose,Whole Blood 100 mg/dL (75-99)
[2019-01-07] MEDS: ATORVASTATIN 40 MG TAB PO SCH (21:18)
--- NOTE | 2019-01-07 21:58 | P.PN ---
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 Patient had extensive workup in the past including computed tomography scan computed tomography scan and shows. Patient was at [facility] until 2 days ago. Has been on for 2 days. Admitted with generalized weakness. No fever no chills. Appetite is fair. Has been more lethargic. Here after arriving patient is eating fairly well. Patient denies any pain. No urinary symptoms. Patient's family in the ER expressed that patient not been not be a take care of himself. Accu-Cheks are running low. Dose of glyburide has been cut back. today-more cheerful today. Eating better. Review of systems: Was done for constitutional, cardiovascular, GI, pulmonary. relevant finding as above Physical examination: VITAL SIGNS: 97.6, 80, 16, 125/78, 99% room air GENERAL: laying bed, cheerful EYES: Pupils equal. Conjunctiva normal. HEENT: External appearance of nose and ears normal, oral cavity grossly normal. NECK: JVD not raised; masses not palpable. HEART: First and second heart sounds are normal; no edema. LUNGS: Respiratory rate normal; clear to auscultation. ABDOMEN: Soft, nontender, liver spleen not palpable, no masses palpable, Riggs catheter. PSYCH: Awake, able to answer simple questionsl. INVESTIGATIONS, reviewed in the clinical context: Accu-Cheks Accu-Cheks 108, 58, 61, 152, 75, Previous testing UA positive for leukoesterase 5 WBC, urine bacteria occasional Assessment: -Acute on chronic medical deconditioning from multiple medical problems. P atient just discharged from rehab 2 days ago. Patient had multiple admissions to different rehabs. 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 Patient not ready for DC'd because of 3 night criteria is not met. We'll DC glyburide increase the [id number] mg twice a day.
[2019-01-08 03:33] LABS: Glucose,Whole Blood 108 mg/dL (75-99)
[2019-01-08] MEDS: CARBIDOPA-LEVODOPA 25-100 MG 1 EACH TAB PO SCH ×4 (04:20→17:08)
[2019-01-08 07:04] LABS: Glucose,Whole Blood 112 mg/dL (75-99)
[2019-01-08] MEDS: INSULIN ASPART (NovoLOG) 100 UNIT/ML VIAL SQ SCH ×4 (07:54→21:38)
[2019-01-08] MEDS: metFORMIN 500 MG TAB PO SCH ×2 (10:36→16:45)
[2019-01-08] MEDS: CLOPIDOGREL 75 MG TAB PO SCH ×2 (10:54→12:24)
[2019-01-08] MEDS: FAMOTIDINE 20 MG TAB PO SCH (10:55)
[2019-01-08] MEDS: ISOSORBIDE MONONITRATE ER 30 MG TAB.ER.24H PO SCH ×2 (10:55→12:25)
[2019-01-08] MEDS: FINASTERIDE 5 MG TAB PO SCH ×2 (10:55→12:25)
[2019-01-08] MEDS: ENOXAPARIN 40 MG/0.4 ML SYRINGE SQ SCH (10:55)
[2019-01-08 11:52] LABS: Glucose,Whole Blood 108 mg/dL (75-99)
[2019-01-08] MEDS ORDERED: HALOPERIDOL LACTATE 5 MG/ML 1 ML VIAL IM PRN (13:10)
[2019-01-08 13:40] LABS: Basophils % (A) 0 %; Eosinophils # (A) 0.3 k/uL (0-0.7); Eosinophils % (A) 7 %; HCT 34.1 % (39.0-53.0); HGB 10.6 gm/dL (13.0-17.5); Hypochromasia Marked; Lymphocytes % (A) 23 %; MCH 24.8 pg (25.0-35.0); MCHC 31.1 g/dL (31.0-37.0); MCV 79.5 fL (80.0-100.0); Mean Platelet Volume 7.6; Monocytes # (A) 0.3 k/uL (0-1.0); Monocytes % (A) 8 %; Neutrophils # (A) 2.5 k/uL (1.3-7.7); Neutrophils % (A) 60 %; Platelet Count 275 k/uL (150-450); Poikilocytosis Slight; RBC 4.29 m/uL (4.30-5.90); RDW 14.8 % (11.5-15.5); WBC 4.1 k/uL (3.8-10.6)
[2019-01-08 13:49] LABS: African American GFR (CKD) >90 (>60 ml/min/1.73 sqM); Anion Gap 5 mmol/L; Blood Urea Nitrogen 10 mg/dL (9-20); Calcium 8.2 mg/dL (8.4-10.2); Carbon Dioxide 25 mmol/L (22-30); Chloride 109 mmol/L (98-107); Glucose 138 mg/dL (74-99); Non-African American GFR(CKD) 83 (>60 ml/min/1.73 sqM); Potassium 3.7 mmol/L (3.5-5.1); Sodium 139 mmol/L (137-145)
[2019-01-08 17:05] LABS: Glucose,Whole Blood 148 mg/dL (75-99)
[2019-01-08] MEDS: OLANZapine 2.5 MG TAB PO SCH ×2 (17:08→22:18)
--- NOTE | 2019-01-08 17:22 | P.CN ---
Psychiatric Consult - . Consult date: 01/08/19 Consult:: 01/08/19 17:15 IDENTIFYING DATA: An 83-year-old male patient HPI: Patient admitted to the medical floor [facility] with concerns with generalized weakness and increasing lethargy. He was admitted with UTI with cystitis. Psychiatry is consulted regarding concerns of agitation. When asked the patient what brought him into the hospital he states an ambulance brought him here because his son called. Per nursing staff he has not allowed them to have an IV placed and he has orders for IV medication. PAST PSYCHIATRIC HISTORY: Patient denies PMH: Parkinson's, diabetes mellitus type 2, dysphasia, coronary artery disease with stent and bypass, hyperlipidemia, essential hypertension, neurocognitive disorder, spinal stenosis, BPH ALLERGIES: No known ALLERGIES MEDICATIONS: Mental set some eye, Tylenol when necessary, Lipitor, Sinemet, ceftriaxone, Plavix, Lovenox, Proscar, rolling, Haldol when necessary, Zyprexa, older appearing, Novolin, Imdur, Glucophage, Theragran, Narcan when necessary, Zofran when necessary, Protonix, vitamin B1 CHEMICAL DEPENDENCY HISTORY: Initially makes reference to a couple of gallons and then he denies. FAMILY PSYCHIATRIC HISTORY: Not known at this time. FAMILY CHEMICAL DEPENDENCY HISTORY: Not known at this time. SOCIAL HISTORY: Recently he was at [facility], now lives in an apartment MENTAL STATUS EXAM: He is alert and overall cooperative with the interview. He laughs at times throughout the session. Initially to question about thoughts of harm to self or others he laughs and says all the time, then it seems that he did not appropriately here the question denies thoughts of harm to self or others. He describes his mood as "off and on." He is oriented to place, month and year but not the date. He is oriented to person. He is not showing any current significant agitation. IMPRESSIONS: Likely major neurocognitive disorder and delirium. PLAN: Zyprexa has been initiated at 2.5 mg twice a day, will see and monitor how he responds to this for delirium and agitation. Haldol when necessary is ordered for agitation. Continue to treat possible causes of delirium. Patient at this time related that he was agreeable to have IV placed.
--- NOTE | 2019-01-08 17:44 | PN ---
PROGRESS NOTE DATE OF SERVICE: 01/08/2019 This 84-year-old gentleman who was admitted with acute confusion also had UTIs with features of UTI with cystitis. Currently, the patient is on no antibiotics. The patient continues to be confused at this time. The patient apparently throwing stuff around at the staff as well as even the family members, which is a change according to the family. PAST MEDICAL HISTORY: The past medical history is reviewed. REVIEW OF SYMPTOMS: Review of systems could not be taken as the patient is confused. Could not be taken because of above mentioned behavioral changes. CURRENT MEDICATIONS ARE: 1. Tylenol p.r.n. 2. Lipitor 40 mg. 3. Sinemet 10/100 p.o. q8h. 4. Plavix 75 mg b.i.d. 5. Lovenox 40 mg subcu. 6. Pepcid 20 mg p.o. b.i.d. 7. Proscar. 8. Motrin 400 mg p.o. daily. 9. NovoLog. 10.Imdur. 11.Glucophage. 12.Narcan. 13.Zofran. PHYSICAL EXAM: Patient is conscious, confused, slightly combative, disoriented. Pulse 52, blood pressure 124/79, respirations 16, temperature 97.8, pulse ox 100 percent on room air. HEENT: Conjunctivae normal. Oral mucosa moist. NECK is no jugular venous distention. No carotid bruit. No lymph node enlargement. CARDIOVASCULAR SYSTEMS: S1, S2 muffled. RESPIRATION: Breath sounds diminished in the bases. A few scattered rhonchi and crackles. ABDOMEN: Soft. Nontender. No mass palpable. LEGS: No edema. No swelling. NERVOUS SYSTEM: Higher functions as mentioned earlier. Moves all 4 limbs. No focal deficits. Diffusely weak. LYMPHATICS: No lymph nodes palpable in the neck, axillae or groin. LABS: WBC is 4.8, hemoglobin 10.6. ASSESSMENT: 1. Possible acute urinary tract infection with cystitis and sepsis. 2. Change in mental status acute metabolic encephalopathy. 3. Rule out acute delirium. 4. Severe dementia. 5. Diabetes mellitus type 2 uncontrolled with hypoglycemia. 6. Idiopathic Parkinson disease. 7. 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 8. Coronary artery disease, stent history. 9. Hyperlipidemia. 10.Hypertension. 11.Neurogenic bladder, chronic. 12.Chronic spinal stenosis. 13.History of benign prostatic hypertrophy. 14.FULL CODE. 15.History of anemia of chronic disease. RECOMMENDATIONS AND DISCUSSION: This 83-year-old gentleman who presented with multiple medical problems, we will monitor the patient closely, continue the current medications, management and symptomatic treatment. We will initiate broad-spectrum IV antibiotics, obtain cultures. I reviewed the previous CT scan which showed significant amount of dementia especially in the frontal areas with some ventriculomegaly. I would recommend continue the current medications and current plan is to possible ECF rehab. We will continue to monitor. Medications will be adjusted. Discussed with the patient and family, understands and agrees. Further recommendations to follow. MMODL / IJN: [id number] /
[2019-01-08 20:39] LABS: Glucose,Whole Blood 177 mg/dL (75-99)
[2019-01-08] MEDS: ATORVASTATIN 40 MG TAB PO SCH (21:38)
[2019-01-09] MEDS: CARBIDOPA-LEVODOPA 25-100 MG 1 EACH TAB PO SCH ×4 (00:08→23:42)
[2019-01-09 07:17] LABS: Glucose,Whole Blood 139 mg/dL (75-99)
[2019-01-09 08:04] LABS: Basophils % (A) 1 %; Eosinophils # (A) 0.2 k/uL (0-0.7); Eosinophils % (A) 5 %; HCT 34.2 % (39.0-53.0); HGB 10.7 gm/dL (13.0-17.5); Hypochromasia Marked; Lymphocytes # (A) 1.2 k/uL (1.0-4.8); Lymphocytes % (A) 28 %; MCH 24.6 pg (25.0-35.0); MCHC 31.4 g/dL (31.0-37.0); MCV 78.4 fL (80.0-100.0); Mean Platelet Volume 7.1; Monocytes # (A) 0.4 k/uL (0-1.0); Monocytes % (A) 10 %; Neutrophils # (A) 2.3 k/uL (1.3-7.7); Neutrophils % (A) 53 %; Platelet Count 265 k/uL (150-450); Poikilocytosis Slight; RBC 4.36 m/uL (4.30-5.90); RDW 14.9 % (11.5-15.5); WBC 4.2 k/uL (3.8-10.6)
[2019-01-09] MEDS: MULTIVITAMINS, THERA 1 EACH TAB PO SCH (08:13)
[2019-01-09] MEDS: ENOXAPARIN 40 MG/0.4 ML SYRINGE SQ SCH (08:13)
[2019-01-09] MEDS: FINASTERIDE 5 MG TAB PO SCH (08:13)
[2019-01-09] MEDS: THIAMINE 100 MG TAB PO SCH (08:13)
[2019-01-09] MEDS: metFORMIN 500 MG TAB PO SCH ×2 (08:13→17:26)
[2019-01-09] MEDS: CLOPIDOGREL 75 MG TAB PO SCH (08:13)
[2019-01-09] MEDS: PANTOPRAZOLE 40 MG TABLET PO SCH (08:13)
[2019-01-09] MEDS: FOLIC ACID 1 MG TAB PO SCH (08:13)
[2019-01-09] MEDS: OLANZapine 2.5 MG TAB PO SCH ×2 (08:13→21:09)
[2019-01-09] MEDS: INSULIN ASPART (NovoLOG) 100 UNIT/ML VIAL SQ SCH ×4 (08:14→21:12)
[2019-01-09] MEDS: ISOSORBIDE MONONITRATE ER 30 MG TAB.ER.24H PO SCH (08:14)
[2019-01-09 08:37] LABS: African American GFR (CKD) >90 (>60 ml/min/1.73 sqM); Anion Gap 6 mmol/L; Blood Urea Nitrogen 16 mg/dL (9-20); Calcium 8.4 mg/dL (8.4-10.2); Carbon Dioxide 25 mmol/L (22-30); Chloride 109 mmol/L (98-107); Glucose 124 mg/dL (74-99); Non-African American GFR(CKD) 85 (>60 ml/min/1.73 sqM); Potassium 3.7 mmol/L (3.5-5.1); Sodium 140 mmol/L (137-145)
[2019-01-09 12:17] LABS: Glucose,Whole Blood 167 mg/dL (75-99)
--- NOTE | 2019-01-09 16:20 | P.PN ---
Progress Note - Text Progress Note Date: 01/09/19 Interval history: Patient seen in [facility] today for psychiatry. He seems to relay that he slept last night and he is eating well. He relates his son is coming to visit [facility]. Per nursing staff he has not been exhibiting any agitation today. Mental status exam: Patient is fully alert and cooperative with the interview. His mood he seems to report is okay. He does not show any agitation. No active evidence of psychosis. He does not make any reference to thoughts of harm to self or others. Plan: Maintain current treatment as is. Continue to monitor for any agitation and continue to treat any possible causes of delirium. Psychiatry can continue to follow-up.
[2019-01-09 17:23] LABS: Glucose,Whole Blood 110 mg/dL (75-99)
--- NOTE | 2019-01-09 19:31 | PN ---
PROGRESS NOTE DATE OF SERVICE: 01/09/2019. This 83-year-old gentleman who was admitted with acute confusion also had multiple urinary tract infections. The patient is started on IV antibiotics empirically. The cultures are negative so far. Psychiatry is also seeing the patient. Zyprexa has been initiated. The patient is given p.r.n. Haldol also. Patient being closely monitored. Sensorium is slightly improved. Still confused, but orientation is improved. PAST MEDICAL HISTORY: Reviewed. REVIEW OF SYMPTOMS: Review of systems still could not be taken. CURRENT MEDICATIONS: Are reviewed and include: 1. Tylenol 650 q.6h p.r.n. 2. Lipitor 40 mg. 3. Sinemet 25/100 1 p.o. q8h. 4. Rocephin 1 g daily. 5. Plavix. 6. Lovenox 40 mg subcu daily. 7. Proscar. 8. Folic acid. 9. Haldol p.r.n. 10.Motrin. 11.NovoLog. 12.Imdur. 13.Glucophage. 14.Narcan. 16.Zyprexa. 17.Zofran. 18.Protonix. 19.Vitamin B1. 20.Doses and route of administration reviewed. PHYSICAL EXAM: Patient is alert, oriented x2, confused. Pulse 73, blood pressure 103/65, respirations 16, temperature 96 degrees, pulse 97% on room air. HEENT: Conjunctivae normal. Oral mucosa moist. NECK is no jugular venous distention. No carotid bruit. No lymph node enlargement. CARDIOVASCULAR systems: S1, S2 muffled. RESPIRATION: Breath sounds diminished in the bases. No rhonchi. No crackles. ABDOMEN: Soft, nontender. No mass palpable. LEGS: No edema. No swelling. NERVOUS SYSTEM: Higher functions as mentioned earlier. Moves all four extremities. No focal motor or sensory deficits. SKIN: No ulcer, no rashes and no bleeding. LYMPHATICS: No lymph nodes palpable in the neck, axillae or groin. JOINTS: No active deforming arthropathy. LABS: WBC 4.8, hemoglobin 10.7. Sodium is 140. Accu-Cheks 113, 167. Cultures are pending. ASSESSMENT: 1. Acute urinary tract infection with cystitis, sepsis, present on admission. Change in mental status, acute metabolic encephalopathy, possibly from sepsis. 2. Possible acute delirium. 3. Severe dementia. 4. Diabetes mellitus type 2, uncontrolled with hypoglycemia. 5. Idiopathic Parkinson disease. 6. 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 7. Coronary artery disease, stent history. 8. Hyperlipidemia. 9. Hypertension. 10.Neurogenic bladder, chronic. 11.Chronic spinal stenosis. 12.History of benign prostatic hypertrophy. 13.FULL CODE. 14.History of anemia of chronic disease. RECOMMENDATIONS AND DISCUSSION: Recommend to continue current medications, management and symptomatic treatment. Continue the antibiotics. Continue the current medication. Vitamins. Sensorium is improved significantly. Cultures are pending. I would recommend close followup with Psychiatry and possibly continue with PT/ OT evaluation and possible ECF rehab on Thursday with also. MMODL / IJN: [id number] / LINDA
[2019-01-09 20:51] LABS: Glucose,Whole Blood 168 mg/dL (75-99)
[2019-01-09] MEDS: ATORVASTATIN 40 MG TAB PO SCH (21:08)
[2019-01-09 22:13] VITALS: RESP 18
[2019-01-10 04:31] VITALS: BP 131/81; PULSE 75; TEMP 97.8
[2019-01-10 06:58] LABS: Glucose,Whole Blood 142 mg/dL (75-99)
[2019-01-10] MEDS: MULTIVITAMINS, THERA 1 EACH TAB PO SCH (07:34)
[2019-01-10] MEDS: CLOPIDOGREL 75 MG TAB PO SCH (07:34)
[2019-01-10] MEDS: CARBIDOPA-LEVODOPA 25-100 MG 1 EACH TAB PO SCH (07:34)
[2019-01-10] MEDS: ISOSORBIDE MONONITRATE ER 30 MG TAB.ER.24H PO SCH (07:34)
[2019-01-10] MEDS: FINASTERIDE 5 MG TAB PO SCH (07:34)
[2019-01-10] MEDS: FOLIC ACID 1 MG TAB PO SCH (07:35)
[2019-01-10] MEDS: metFORMIN 500 MG TAB PO SCH (07:35)
[2019-01-10] MEDS: PANTOPRAZOLE 40 MG TABLET PO SCH (07:35)
[2019-01-10] MEDS: THIAMINE 100 MG TAB PO SCH (07:35)
[2019-01-10] MEDS: INSULIN ASPART (NovoLOG) 100 UNIT/ML VIAL SQ SCH ×2 (07:36→11:48)
[2019-01-10] MEDS: ENOXAPARIN 40 MG/0.4 ML SYRINGE SQ SCH (07:36)
[2019-01-10] MEDS: OLANZapine 2.5 MG TAB PO SCH (07:40)
[2019-01-10 10:21] LABS: African American GFR (CKD) >90 (>60 ml/min/1.73 sqM); Anion Gap 7 mmol/L; Blood Urea Nitrogen 14 mg/dL (9-20); Calcium 8.7 mg/dL (8.4-10.2); Carbon Dioxide 24 mmol/L (22-30); Chloride 110 mmol/L (98-107); Glucose 117 mg/dL (74-99); Non-African American GFR(CKD) 81 (>60 ml/min/1.73 sqM); Sodium 141 mmol/L (137-145)
[2019-01-10 10:55] LABS: Basophils % (A) 0 %; Eosinophils # (A) 0.2 k/uL (0-0.7); Eosinophils % (A) 4 %; HCT 32.4 % (39.0-53.0); HGB 9.9 gm/dL (13.0-17.5); Hypochromasia Marked; Lymphocytes # (A) 1.1 k/uL (1.0-4.8); Lymphocytes % (A) 29 %; MCH 24.6 pg (25.0-35.0); MCHC 30.5 g/dL (31.0-37.0); MCV 80.5 fL (80.0-100.0); Mean Platelet Volume 6.8; Monocytes # (A) 0.3 k/uL (0-1.0); Monocytes % (A) 7 %; Neutrophils # (A) 2.3 k/uL (1.3-7.7); Neutrophils % (A) 58 %; Platelet Count 293 k/uL (150-450); RBC 4.03 m/uL (4.30-5.90); RDW 14.8 % (11.5-15.5); WBC 3.9 k/uL (3.8-10.6)
[2019-01-10 11:52] LABS: Glucose,Whole Blood 116 mg/dL (75-99)
--- NOTE | 2019-01-10 11:54 | P.DS ---
Providers Date of admission: 01/06/19 15:40 Expected date of discharge: 01/10/19 Attending physician: Lalo Alegria Consults: 01/08/19 12:57 Consult Physician Urgent Consulting Provider: Corbin Ballard Reason/Comments: combative, angry, AMS Do you want consulting provider notified?: Already Contacted Primary care physician: Alli Peguero Hospital Course: Final diagnosis Acute urinary tract infection with cystitis, sepsis, present on admission. 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 Patient will follow-up with Dr. Peguero upon discharge. Patient will continue short course of oral antibiotics in the form of Ceftin 500 mg twice daily for 4 days and then may discontinue. Total time taken is 35 minutes. History of present illness This is an 83-year-old male who was recently admitted with acute confusion and has had multiple urinary tract infections and was being closely monitored. During hospitalization patient was followed by psychiatry. Zyprexa has been added to his medication regimen. Per nursing staff patient is calm and not experiencing any agitation at this time. Sensorium is slightly improved. Currently patient's condition is stable with improvement and is ready for discharge today. Patient will be going to [facility] for continued PT/OT therapy to increase his strength and mobility. Patient denies any chest pain, shortness of breath, or palpitations at this time. Patient is afebrile. Patient denies any nausea or vomiting and has been tolerating diet. Patient will continue with closely monitoring of blood glucose levels before meals at bedtime and continue to treat with sliding scale. During hospitalization patient was treated for urinary tract infection and urine culture has remained negative. Patient will continue short course of oral antibiotics in the form of Ceftin 500 mg twice daily for the next 4 days and then may discontinue. Guarded prognosis. On exam vital signs are stable. Temp is 97.8F, pulse is 75, respirations are 18, blood pressure is 131/81, oxygen saturation is 99% on room air. Cardio S1, S2 muffled. Respiratory shows diminished breath sounds at the bases otherwise clear to auscultation. Abdomen is soft and nontender. Nervous system shows no focal deficits with mild diffuse weakness. Please refer to medication reconciliation sheet for a list of medications. Patient Condition at Discharge: Stable Plan - Discharge Summary Discharge Rx Participant: No New Discharge Prescriptions: New Cefuroxime Axetil [Ceftin] 500 mg PO BID 4 Days #8 tab Folic Acid 1 mg PO DAILY@1200 tab metFORMIN HCL [Glucophage] 1,000 mg PO BID-W/MEALS tab Multivitamins, Thera [Multivitamin (formulary)] 1 each PO DAILY@1200 tab Thiamine [Vitamin B-1] 100 mg PO DAILY@1200 tab OLANZapine [ZyPREXA] 2.5 mg PO BID 30 Days #60 tab Continue Finasteride [Proscar] 5 mg PO DAILY Carbidopa-Levodopa 25-100 mg [Sinemet 25-100 mg] 1 tab PO Q8H Atorvastatin Calcium [Lipitor] 40 mg PO HS #30 tablet Famotidine [Pepcid] 20 mg PO BID #60 tab glipiZIDE [Glucotrol] 10 mg PO BID Clopidogrel [Plavix] 75 mg PO DAILY Ibuprofen [Motrin] 400 mg PO Q6HR PRN tab PRN Reason: Mild Pain Or Fever > 100.5 Acetaminophen Tab [Tylenol] 650 mg PO Q6HR PRN tab PRN Reason: Mild Pain Or Fever > 100.5 Ethosuximide [Zarontin] 250 mg PO BID #6 cap INSULIN ASPART (NovoLOG) [NovoLOG (formulary)] See Protocol SQ AC-TID Isosorbide Mononitrate ER [Imdur] 30 mg PO DAILY Discontinued metFORMIN HCL [Glucophage] 500 mg PO BID-W/MEALS tab Discharge Medication List Finasteride [Proscar] 5 mg PO DAILY 11/02/15 [History] Carbidopa-Levodopa 25-100 mg [Sinemet 25-100 mg] 1 tab PO Q8H 02/07/18 [History] Atorvastatin Calcium [Lipitor] 40 mg PO HS #30 tablet 02/09/18 [Rx] Famotidine [Pepcid] 20 mg PO BID #60 tab 02/09/18 [Rx] glipiZIDE [Glucotrol] 10 mg PO BID 11/08/18 [History] Clopidogrel [Plavix] 75 mg PO DAILY 12/12/18 [History] Acetaminophen Tab [Tylenol] 650 mg PO Q6HR PRN tab 12/15/18 [Rx] Ethosuximide [Zarontin] 250 mg PO BID #6 cap 12/15/18 [Rx] Ibuprofen [Motrin] 400 mg PO Q6HR PRN tab 12/15/18 [Rx] INSULIN ASPART (NovoLOG) [NovoLOG (formulary)] See Protocol SQ AC-TID 01/05/19 [History] Isosorbide Mononitrate ER [Imdur] 30 mg PO DAILY 01/05/19 [History] Cefuroxime Axetil [Ceftin] 500 mg PO BID 4 Days #8 tab 01/10/19 [Rx] Folic Acid 1 mg PO DAILY@1200 tab 01/10/19 [Rx] Multivitamins, Thera [Multivitamin (formulary)] 1 each PO DAILY@1200 tab 01/10/19 [Rx] OLANZapine [ZyPREXA] 2.5 mg PO BID 30 Days #60 tab 01/10/19 [Rx] Thiamine [Vitamin B-1] 100 mg PO DAILY@1200 tab 01/10/19 [Rx] metFORMIN HCL [Glucophage] 1,000 mg PO BID-W/MEALS tab 01/10/19 [Rx] Follow up Appointment(s)/Referral(s): Alli Peguero MD [Primary Care Provider] - 1-2 days Activity/Diet/Wound Care/Special Instructions: Patient [facility] [address]. Activity as tolerated Continue antibiotics until finished Follow-up with primary care provider upon discharge Continue monitoring blood sugar before meals at bedtime and treat with sliding scale Continue current diet Discharge Disposition: TRANSFER TO SNF/ECF
--- NOTE | 2019-01-10 12:48 | P.PN ---
Progress Note - Text Progress Note Date: 01/10/19 Clinical Problems: Major neurocognitive disorder Interim history: I reviewed the medical record and interviewed the patient. He is an 83-year-old male with multiple medical problems including idiopathic Parkinson's disease, diabetes mellitus type 2, chronic dysphagia, coronary artery disease with stent and bypass, hyperlipidemia, essential hypertension, cognitive neurocognitive disorder, chronic spinal stenosis, benign prostatic hypertrophy hypertrophy and recurrent TIAs. The hospitalist consult to psychiatry because he presented to the medical unit acutely agitated and unwilling or unable to comply with recommended medical treatment. Dr. Howard evaluated him, diagnose major neurocognitive disorder complicated by delirium secondary to his acute medical problems and recommended treatment with olanzapine 2.5 mg by mouth twice a day. The patient was without complaint today. His only concern was being discharged before . According to the record he has been compliant with recommended treatments including IV administration of medications. He denied experiencing side effects to the "psychiatric" medication. Mental status exam: He presented as a pale appearing elderly male who was pleasant on approach. He maintained eye contact and appeared to attend to the interview. He had a blunted but bright facial expression. He was alert and oriented to person, place and time. He was not agitated or restless. He had the tremor of his hands more prominent on the left than the right. His speech was spontaneous with dysarthric. His affect was stable and appropriate. He did not express suicidal homicidal ideation. His thinking was concrete but his associations were coherent and logical. He denied hallucinations and did not appear to be responding to internal stimuli. We completed the [facility] Orientation Memory and Concentration test. His total weighted error score was 7; total weighted error score greater than 10 is consistent with dementia. He knew the month of the year. He was able to register the memory phrase "Corbin Diaz, [address] [place] [address]". He did not estimate the time correctly within 1 hour actual time. He was able to count backwards from 20 and name the months of the year in reverse order beginning with January. He made 2 errors when asked to recall the memory phrase. Assessment: He is much less agitated and is denying side effects to the current dose of olanzapine. Plan: Continue the current dose of olanzapine for now but consider tapering dose after discharge as the acute delirium clears.
== END 2019-01-10 13:21 | DRG 871 ==
LOC: EC 08:48 → 4MS4W 12:55 → OBSVTOIN 01-06 15:40
PROVIDERS: ADMIT Hospitalist; ATTEND Hospitalist
DX: A41.9 Sepsis, unspecified organism (principal); G93.41 Metabolic encephalopathy; F05 Delirium due to known physiological condition; E11.649 Type 2 diabetes mellitus with hypoglycemia without coma; E78.5 Hyperlipidemia, unspecified; E86.0 Dehydration; F01.50 Vascular dementia, unspecified severity, without behavioral disturbance, psychotic disturbance, mood disturbance, and anxiety; G20 Parkinson's disease; G40.909 Epilepsy, unspecified, not intractable, without status epilepticus; H91.90 Unspecified hearing loss, unspecified ear; I25.10 Atherosclerotic heart disease of native coronary artery without angina pectoris; K22.8 Other specified diseases of esophagus; M06.9 Rheumatoid arthritis, unspecified; M48.00 Spinal stenosis, site unspecified; N30.90 Cystitis, unspecified without hematuria; N31.9 Neuromuscular dysfunction of bladder, unspecified; N40.0 Benign prostatic hyperplasia without lower urinary tract symptoms; R13.10 Dysphagia, unspecified; H91.92 Unspecified hearing loss, left ear; I12.9 Hypertensive chronic kidney disease with stage 1 through stage 4 chronic kidney disease, or unspecified chronic kidney disease; E11.22 Type 2 diabetes mellitus with diabetic chronic kidney disease; D63.1 Anemia in chronic kidney disease; N18.2 Chronic kidney disease, stage 2 (mild); Z96.651 Presence of right artificial knee joint; R62.7 Adult failure to thrive; Z79.02 Long term (current) use of antithrombotics/antiplatelets; Z79.84 Long term (current) use of oral hypoglycemic drugs; Z79.899 Other long term (current) drug therapy; Z82.49 Family history of ischemic heart disease and other diseases of the circulatory system; I25.2 Old myocardial infarction; Z85.828 Personal history of other malignant neoplasm of skin; Z86.73 Personal history of transient ischemic attack (TIA), and cerebral infarction without residual deficits; Z87.440 Personal history of urinary (tract) infections; Z87.891 Personal history of nicotine dependence; Z95.1 Presence of aortocoronary bypass graft; Z95.5 Presence of coronary angioplasty implant and graft; Z86.718 Personal history of other venous thrombosis and embolism; Z87.01 Personal history of pneumonia (recurrent); Z91.81 History of falling; Z87.19 Personal history of other diseases of the digestive system; Z86.39 Personal history of other endocrine, nutritional and metabolic disease; Z86.2 Personal history of diseases of the blood and blood-forming organs and certain disorders involving the immune mechanism; Z90.89 Acquired absence of other organs; Z98.890 Other specified postprocedural states; Z98.42 Cataract extraction status, left eye; Z98.41 Cataract extraction status, right eye
CPT/HCPCS: 36415; 71046; 80048; 80053; 81001; 83735; 84100; 84484; 85025; 85610; 85730; 87040; 87086; 96360; 96361; 99285

== ENCOUNTER 2019-01-13 07:40 | Emergency (ER) | payer MEDICARE, OTHER ==
[2019-01-13 07:46] VITALS: TEMP 97.9
--- NOTE | 2019-01-13 08:35 | ED ---
Fall HPI - General Chief Complaint: Fall Stated Complaint: Fall /neck pain Time Seen by Provider: 01/13/19 07:51 Source: EMS Mode of arrival: EMS - History of Present Illness Initial Comments: Patient is an 83-year-old male presenting to the emergency department via EMS from [facility] with complaints of neck pain after a fall today. Patient states he fell in the bathroom and is complaining of neck pain and left shoulder pain. Patient states he did hit his head. Patient denies LOC, nausea, vomiting, abdominal pain, lower extremity pain, numbness and tingling into the extrem ities. Patient has no other complaints at this time. Upon arrival to the ER, vital signs are stable. - Related Data Home Medications Medication Instructions Recorded Confirmed Finasteride [Proscar] 5 mg PO DAILY 11/02/15 01/05/19 Carbidopa-Levodopa 25-100 mg 1 tab PO Q8H 02/07/18 01/05/19 [Sinemet 25-100 mg] glipiZIDE [Glucotrol] 10 mg PO BID 11/08/18 01/05/19 Clopidogrel [Plavix] 75 mg PO DAILY 12/12/18 01/05/19 INSULIN ASPART (NovoLOG) [NovoLOG See Protocol SQ AC-TID 01/05/19 01/05/19 (formulary)] Isosorbide Mononitrate ER [Imdur] 30 mg PO DAILY 01/05/19 01/05/19 Previous Rx's Medication Instructions Recorded Atorvastatin Calcium [Lipitor] 40 mg PO HS #30 tablet 02/09/18 Famotidine [Pepcid] 20 mg PO BID #60 tab 02/09/18 Acetaminophen Tab [Tylenol] 650 mg PO Q6HR PRN tab 12/15/18 Ethosuximide [Zarontin] 250 mg PO BID #6 cap 12/15/18 Ibuprofen [Motrin] 400 mg PO Q6HR PRN tab 12/15/18 Cefuroxime Axetil [Ceftin] 500 mg PO BID 4 Days #8 tab 01/10/19 Folic Acid 1 mg PO DAILY@1200 tab 01/10/19 Multivitamins, Thera [Multivitamin 1 each PO DAILY@1200 tab 01/10/19 (formulary)] OLANZapine [ZyPREXA] 2.5 mg PO BID 30 Days #60 tab 01/10/19 Thiamine [Vitamin B-1] 100 mg PO DAILY@1200 tab 01/10/19 metFORMIN HCL [Glucophage] 1,000 mg PO BID-W/MEALS tab 01/10/19 Allergies Allergy/AdvReac Type Severity Reaction Status Date / Time No Known Allergies Allergy Verified 01/05/19 10:13 Review of Systems ROS Statement: Those systems with pertinent positive or pertinent negative responses have been documented in the HPI. ROS Other: All systems not noted in ROS Statement are negative. Past Medical History Past Medical History: Coronary Artery Disease (CAD), Cancer, Chest Pain / Angina, Dementia, Diabetes Mellitus, Deep Vein Thrombosis (DVT), Hearing Disorder / Deafness, Hyperlipidemia, Hypertension, Myocardial Infarction ([place]), Pneumonia, Prostate Disorder, Renal Disease, Rheumatoid Arthritis (RA), Seizure Disorder Additional Past Medical History / Comment(s): TIAs, NIDDM type II, epilepsy as a child, possible seizures, spinal stenosis, lumbar pain, cervical pain, parkinsons disease, DVT per past medical history but pt does not recall dvt, BPH, UTIS/sepsis and recent UTI, falls, tinnitis R ear, deaf in L ear, history of presbyesophagus/dysphagia, hyponatremia, thrombocytopenia, anemia, CKD stage II, recent cellulitis bilateral groins. Last Myocardial Infarction Date:: 03/04/11 History of Any Multi-Drug Resistant Organisms: None Reported Past Surgical History: Coronary Bypass/CABG, Heart Catheterization With Stent, Joint Replacement, Tonsillectomy Additional Past Surgical History / Comment(s): 2005 and 2011 PTCA with stent, 2006 CABG-3 vessel, sebaceous cysts removed from neck, laser surgery for cataract removals bilateral, colonoscopy, total R knee arthroplasty, skin cancer on face removed Past Anesthesia/Blood Transfusion Reactions: No Reported Reaction Date of Last Stent Placement:: 2011 Past Psychological History: No Psychological Hx Reported Smoking Status: Former smoker - Past Family History Father Family Medical History: Coronary Artery Disease (CAD) Additional Family Medical History / Comment(s): Father had heart disease. Mother Family Medical History: Coronary Artery Disease (CAD) Additional Family Medical History / Comment(s): Mother had heart disease. General Exam - General Exam Comments Initial Comments: GENERAL: Well-appearing, well-nourished and in no acute distress. HEAD: Atraumatic, normocephalic. EYES: Pupils equal round and reactive to light, extraocular movements intact, sclera anicteric, conjunctiva are normal. ENT: TMs normal, nares patent, oropharynx clear without exudates. Moist mucous membranes. NECK: Patient arrived in c-collar. Mild pain with palpation of the C-spine as well as cervical paraspinals. After c-collar was cleared, Normal range of motion with some soreness at the end range. supple without lymphadenopathy or JVD. LUNGS: Breath sounds clear to auscultation bilaterally and equal. No wheezes rales or rhonchi. HEART: Regular rate and rhythm without murmurs, rubs or gallops. ABDOMEN: Soft, nontender, normoactive bowel sounds. No guarding, no rebound. No masses appreciated. : Deferred EXTREMITIES: Pain to palpation of the left anterior shoulder. Patient has decreased range of motion secondary to pain. Normal range of motion of the right upper extremity and bilateral lower extremities. NEUROLOGICAL: Cranial nerves II through XII grossly intact. . PSYCH: Normal mood, normal affect. SKIN: Warm, Dry, normal turgor, no rashes or lesions noted. Limitations: no limitations Course Vital Signs 01/13/19 07:44 Temperature 97.9 F Pulse Rate 85 Respiratory 16 Rate Blood Pressure 118/70 O2 Sat by Pulse 98 Oximetry Medical Decision Making - Medical Decision Making Patient is an 83-year-old male presenting with neck pain after falling today. Patient comes from [facility]. CT of the head and neck revealed no acute abnormalities. Patient is also complaining of left shoulder pain. X-rays reveal no acute fractures dislocations. Patient is stable for discharge at this time and he is in agreement with this plan of care. Patient will be discharged back to [facility]. Return parameters were discussed with the patient and he verbalized understanding. Case discussed with Dr. Alston. Disposition Clinical Impression: Fall, Neck pain, Left shoulder pain Disposition: HOME SELF-CARE Condition: Stable Instructions (If sedation given, give patient instructions): Fall Prevention for Older Adults (ED) Additional Instructions: Please return to the Emergency Department if symptoms worsen or any other concerns. May take Tylenol for pain relief. May use heat and/or ice to the neck and left shoulder for pain relief. Follow-up with PCP if symptoms persist. Is patient prescribed a controlled substance at d/c from ED?: No Referrals: Aldo Guerrero MD [Primary Care Provider] - 1-2 days
--- NOTE | 2019-01-13 08:40 | CT ---
EXAMINATION TYPE: CT brain pili k[place]ley DATE OF EXAM: 01/13/2019 COMPARISON: Trauma CT 20 days ago. HISTORY: Fall injury with headache and neck pain. CT DLP: 1375.8 mGycm. Automated Exposure Control for Dose Reduction was Utilized. TECHNIQUE: CT scan of the head and cervical spine are performed without contrast. FINDINGS: There is no acute intracranial hemorrhage or midline shift identified. Diffuse ventricula r and sulcal prominence. Low attenuation in the white matter. Calvarium is intact. The globes are int act . New air level right maxillary sinus and posterior left ethmoid sinus noted. Cervical spine is visualized in its entirety from C1 through upper thoracic levels and redemonstrates reversal of normal cervical curvature without evidence of acute fracture or dislocation. There is st able grade 1 anterolisthesis C4 on C5. Prevertebral soft tissue appears within normal limits. The C1 -C2 articulation is within normal limits on the coronal images. Vertebral body heights are maintaine d. [id number] multilevel disc space narrowing with multilevel anterior spurring that is fairly severe in lower cervical spine is redemonstrated. Posterior spurring and spur disc complexes efface t he anterior thecal sac at C5-C6 and C6-C7 levels. Review of axial images shows multilevel uncovertebral facet degenerative changes contributing to mult ilevel neural foraminal narrowing most prominent bilateral C3-C4, left C4-C5, and right C5-C6 and C6- C7 levels. Persistent roughly 1.1 cm lower pole left thyroid nodule coronal image 32. Sternal wires a re partially imaged. IMPRESSION: 1. There is no acute fracture or dislocation evident in the cervical spine. 2. No acute intracranial hemorrhage or midline shift is seen. No significant change from prior.
--- NOTE | 2019-01-13 09:07 | XR ---
EXAMINATION TYPE: XR shoulder complete LT DATE OF EXAM: 01/13/2019 CLINICAL HISTORY: Fall injury with pain. TECHNIQUE: Three views of the left shoulder are obtained. COMPARISON: None. FINDINGS: There is no acute fracture/dislocation evident in the left shoulder. Moderate to severe na rrowing and spurring at acromioclavicular joint. Moderate narrowing at glenohumeral joint The visual ized ribs are intact and unremarkable. Overlying sternal wires and mediastinal clips are partially im aged. IMPRESSION: There is no acute fracture or dislocation in the left shoulder.
[2019-01-13 09:40] VITALS: BP 121/81; PULSE 81; RESP 18
== END 2019-01-13 09:38 | disposition home or self-care (01) ==
LOC: EC 07:40
DX: M54.2 Cervicalgia (principal); M25.512 Pain in left shoulder; I25.10 Atherosclerotic heart disease of native coronary artery without angina pectoris; E11.9 Type 2 diabetes mellitus without complications; I25.2 Old myocardial infarction; N40.0 Benign prostatic hyperplasia without lower urinary tract symptoms; G20 Parkinson's disease; M06.9 Rheumatoid arthritis, unspecified; Z86.73 Personal history of transient ischemic attack (TIA), and cerebral infarction without residual deficits; Z86.718 Personal history of other venous thrombosis and embolism; Z85.828 Personal history of other malignant neoplasm of skin; Z95.1 Presence of aortocoronary bypass graft; Z95.5 Presence of coronary angioplasty implant and graft; Z95.810 Presence of automatic (implantable) cardiac defibrillator; Z96.651 Presence of right artificial knee joint; Z87.891 Personal history of nicotine dependence; Z79.02 Long term (current) use of antithrombotics/antiplatelets; Z79.4 Long term (current) use of insulin; Z79.899 Other long term (current) drug therapy; W19.XXXA Unspecified fall, initial encounter; Y92.002 Bathroom of unspecified non-institutional (private) residence as the place of occurrence of the external cause
CPT/HCPCS: 73030; 72125; 70450; 99284; L0120

== ENCOUNTER 2019-03-21 18:53 | Emergency (ER) | payer MEDICARE, OTHER ==
[2019-03-21 19:03] VITALS: TEMP 98.1
--- NOTE | 2019-03-21 19:24 | ED ---
Fall HPI - General Chief Complaint: Fall Stated Complaint: fall Time Seen by Provider: 03/21/19 19:07 Source: EMS, RN notes reviewed, old records reviewed Mode of arrival: EMS - History of Present Illness Initial Comments: This is an 83-year-old male DF for evaluation patient has a for fall, patient of fall out of wheelchair me from standing at the snf and it is that heidi mendoza is on Plavix. Patient presents he is a DO NOT RESUSCITATE, DO NOT RESUSCITATE, patient is a poor historian but unable to give accurate history surrounding events denying any complaints denying headache chest pain and leg pain. 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 Fall Witnessed: yes, by living facility staff Place Fall Occurred: snf/SNF Loss of Consciousness: unsure Prolonged Down Time?: unclear Symptoms Prior to Fall: none Location: head Severity: mild Severity scale (1-10): 3 Context: tripped/slipped Associated Symptoms: denies - Related Data Home Medications Medication Instructions Recorded Confirmed Finasteride [Proscar] 5 mg PO DAILY 11/02/15 01/05/19 Carbidopa-Levodopa 25-100 mg 1 tab PO Q8H 02/07/18 01/05/19 [Sinemet 25-100 mg] glipiZIDE [Glucotrol] 10 mg PO BID 11/08/18 01/05/19 Clopidogrel [Plavix] 75 mg PO DAILY 12/12/18 01/05/19 INSULIN ASPART (NovoLOG) [NovoLOG See Protocol SQ AC-TID 01/05/19 01/05/19 (formulary)] Isosorbide Mononitrate ER [Imdur] 30 mg PO DAILY 01/05/19 01/05/19 Previous Rx's Medication Instructions Recorded Atorvastatin Calcium [Lipitor] 40 mg PO HS #30 tablet 02/09/18 Famotidine [Pepcid] 20 mg PO BID #60 tab 02/09/18 Acetaminophen Tab [Tylenol] 650 mg PO Q6HR PRN tab 12/15/18 Ethosuximide [Zarontin] 250 mg PO BID #6 cap 12/15/18 Ibuprofen [Motrin] 400 mg PO Q6HR PRN tab 12/15/18 Cefuroxime Axetil [Ceftin] 500 mg PO BID 4 Days #8 tab 01/10/19 Folic Acid 1 mg PO DAILY@1200 tab 01/10/19 Multivitamins, Thera [Multivitamin 1 each PO DAILY@1200 tab 01/10/19 (formulary)] OLANZapine [ZyPREXA] 2.5 mg PO BID 30 Days #60 tab 01/10/19 Thiamine [Vitamin B-1] 100 mg PO DAILY@1200 tab 01/10/19 metFORMIN HCL [Glucophage] 1,000 mg PO BID-W/MEALS tab 01/10/19 Allergies Allergy/AdvReac Type Severity Reaction Status Date / Time No Known Allergies Allergy Verified 01/05/19 10:13 Review of Systems ROS Statement: Those systems with pertinent positive or pertinent negative responses have been documented in the HPI. ROS Other: All systems not noted in ROS Statement are negative. Past Medical History Past Medical History: Coronary Artery Disease (CAD), Cancer, Chest Pain / Angina , Dementia, Diabetes Mellitus, Deep Vein Thrombosis (DVT), Hearing Disorder / Deafness, Hyperlipidemia, Hypertension, Myocardial Infarction ([place]), Pneumonia, Prostate Disorder, Renal Disease, Rheumatoid Arthritis (RA), Seizure Disorder Additional Past Medical History / Comment(s): TIAs, NIDDM type II, epilepsy as a child, possible seizures, spinal stenosis, lumbar pain, cervical pain, parkinsons disease, DVT per past medical history but pt does not recall dvt, BPH, UTIS/sepsis and recent UTI, falls, tinnitis R ear, deaf in L ear, history of presbyesophagus/dysphagia, hyponatremia, thrombocytopenia, anemia, CKD stage II, recent cellulitis bilateral groins. Last Myocardial Infarction Date:: 03/04/11 History of Any Multi-Drug Resistant Organisms: None Reported Past Surgical History: Coronary Bypass/CABG, Heart Catheterization With Stent, Joint Replacement, Tonsillectomy Additional Past Surgical History / Comment(s): 2005 and 2011 PTCA with stent, 2006 CABG-3 vessel, sebaceous cysts removed from neck, laser surgery for cataract removals bilateral, colonoscopy, total R knee arthroplasty, skin cancer on face removed Past Anesthesia/Blood Transfusion Reactions: No Reported Reaction Date of Last Stent Placement:: 2011 Past Psychological History: No Psychological Hx Reported Smoking Status: Former smoker Past Alcohol Use History: None Reported Past Drug Use History: None Reported - Past Family History Father Family Medical History: Coronary Artery Disease (CAD) Additional Family Medical History / Comment(s): Father had heart disease. Mother Family Medical History: Coronary Artery Disease (CAD) Additional Family Medical History / Comment(s): Mother had heart disease. General Exam Limitations: altered mental status General appearance: alert, in no apparent distress Head exam: Present: atraumatic, normocephalic, normal inspection Eye exam: Present: normal appearance, PERRL, EOMI. Absent: scleral icterus, conjunctival injection, periorbital swelling ENT exam: Present: normal exam, mucous membranes moist Neck exam: Present: normal inspection. Absent: tenderness, meningismus, lymphadenopathy Respiratory exam: Present: normal lung sounds bilaterally. Absent: respiratory distress, wheezes, rales, rhonchi, stridor Cardiovascular Exam: Present: regular rate, normal rhythm, normal heart sounds. Absent: systolic murmur, diastolic murmur, rubs, gallop, clicks GI/Abdominal exam: Present: soft, normal bowel sounds. Absent: distended, tenderness, guarding, rebound, rigid Extremities exam: Present: normal inspection, full ROM, normal capillary refill. Absent: tenderness, pedal edema, joint swelling, calf tenderness Back exam: Present: normal inspection Neurological exam: Present: alert, oriented X3, CN II-XII intact Psychiatric exam: Present: normal affect, normal mood Skin exam: Present: warm, dry, intact, normal color. Absent: rash Course Vital Signs 03/21/19 18:58 Temperature 98.1 F Pulse Rate 91 Respiratory 20 Rate Blood Pressure 136/92 O2 Sat by Pulse 99 Oximetry - Reevaluation(s) Reevaluation #1: 03/21/19 19:23 medical record is reviewed Reevaluation #2: 03/21/19 19:25 Patient has no tender points during palpation on physical exam Reevaluation #3: 03/21/19 20:35 Patient remains asymptomatic Medical Decision Making - Medical Decision Making 3 male DF status post fall. Had no injuries noted on examination CT brain and C-spine negative for acute disease a patient will be discharged home - Radiology Data Radiology results: report reviewed (CT brain and C-spine is negative for dramatic injury), image reviewed Disposition Clinical Impression: Fall, Head injury Disposition: HOME SELF-CARE Condition: Good Instructions (If sedation given, give patient instructions): Fall Prevention for Older Adults (ED), Head Injury (ED) Is patient prescribed a controlled substance at d/c from ED?: No Referrals: Alli Peguero MD [Primary Care Provider] - 1-2 days
--- NOTE | 2019-03-21 20:04 | CT ---
EXAMINATION TYPE: CT brain pili wo con DATE OF EXAM: 03/21/2019 COMPARISON: 01/13/2019 HISTORY: fall CT DLP: 1294 mGycm Automated exposure control for dose reduction was used. Multiple axial sections were obtained of the brain without contrast. Multiple axial sections were obtained from the skull base to T1 vertebra without contrast. There is cerebral cortical atrophy. There is no mass effect nor midline shift. There is no sign of in tracranial hemorrhage. Calvarium is intact. There is cervical mild kyphotic deformity. There is anterior mild subluxation of C4 in relation to C5 . Posterior elements are intact. There is hypertrophic facet arthropathy in the mid cervical spine. T here is no compression fracture. Skull base is intact. There is multilevel uncovertebral spur formati on on the right side more than the left. IMPRESSION: Cerebral atrophy. No acute intracranial abnormality. No change. Spondylotic changes and kyphotic deformity in the cervical spine. Degenerative 4 mm subluxation defor mity at C4-5. No acute abnormality. No change compared to old exam.
[2019-03-21 21:34] VITALS: BP 108/72; PULSE 76; RESP 16
== END 2019-03-21 21:32 | disposition home or self-care (01) ==
LOC: EC 18:53
DX: S09.90XA Unspecified injury of head, initial encounter (principal); I25.119 Atherosclerotic heart disease of native coronary artery with unspecified angina pectoris; I12.9 Hypertensive chronic kidney disease with stage 1 through stage 4 chronic kidney disease, or unspecified chronic kidney disease; E11.22 Type 2 diabetes mellitus with diabetic chronic kidney disease; N18.2 Chronic kidney disease, stage 2 (mild); G20 Parkinson's disease; F02.80 Dementia in other diseases classified elsewhere, unspecified severity, without behavioral disturbance, psychotic disturbance, mood disturbance, and anxiety; I25.2 Old myocardial infarction; Z79.4 Long term (current) use of insulin; Z79.02 Long term (current) use of antithrombotics/antiplatelets; Z79.899 Other long term (current) drug therapy; Z87.891 Personal history of nicotine dependence; Z95.1 Presence of aortocoronary bypass graft; Z95.5 Presence of coronary angioplasty implant and graft; Z96.651 Presence of right artificial knee joint; Z86.718 Personal history of other venous thrombosis and embolism; Z86.73 Personal history of transient ischemic attack (TIA), and cerebral infarction without residual deficits; Z66 Do not resuscitate; W05.0XXA Fall from non-moving wheelchair, initial encounter
CPT/HCPCS: 70450; 72125; 99284

== ENCOUNTER 2019-04-20 16:30 | Emergency (ER) | payer MEDICARE, OTHER ==
[2019-04-20] MEDS ORDERED: SODIUM CHLORIDE 0.9% 1,000 ML IV STA ×2 (16:39→17:48)
--- NOTE | 2019-04-20 16:45 | ED ---
Neuro HPI - General Chief Complaint: Neuro Symptoms/Deficit Stated Complaint: Poss Stroke Time Seen by Provider: 04/20/19 16:33 Source: EMS, RN notes reviewed, old records reviewed Mode of arrival: EMS Limitations: no limitations - History of Present Illness Is the patient presenting with stroke symptoms?: Yes -: days(s), unknown (Unknown onset of symptoms) Initial Comments: This is a 3-year-old male DF for evaluation patient with us today for evaluation regards to possible neurological complaint, some weakness, decreased tenderness. Patient was sent DF for evaluation by primary care. Patient has no significant acute complaints here in the ER staff. Maybe some drooling, But then sent in for evaluation Location: speech, dysarthria History of same: No Place: home Severity: mild Quality: tingling Improves With: none Worsens With: none On Anticoagulants: Yes Context: gradual onset Associated Symptoms: confusion Treatments Prior to Arrival: none - Related Data Home Medications: Home Medications Medication Instructions Recorded Confirmed Finasteride [Proscar] 5 mg PO DAILY 11/02/15 01/05/19 Carbidopa-Levodopa 25-100 mg 1 tab PO Q8H 02/07/18 01/05/19 [Sinemet 25-100 mg] glipiZIDE [Glucotrol] 10 mg PO BID 11/08/18 01/05/19 Clopidogrel [Plavix] 75 mg PO DAILY 12/12/18 01/05/19 INSULIN ASPART (NovoLOG) [NovoLOG See Protocol SQ AC-TID 01/05/19 01/05/19 (formulary)] Isosorbide Mononitrate ER [Imdur] 30 mg PO DAILY 01/05/19 01/05/19 Previous Rx's Medication Instructions Recorded Atorvastatin Calcium [Lipitor] 40 mg PO HS #30 tablet 02/09/18 Famotidine [Pepcid] 20 mg PO BID #60 tab 02/09/18 Acetaminophen Tab [Tylenol] 650 mg PO Q6HR PRN tab 12/15/18 Ethosuximide [Zarontin] 250 mg PO BID #6 cap 12/15/18 Ibuprofen [Motrin] 400 mg PO Q6HR PRN tab 12/15/18 Cefuroxime Axetil [Ceftin] 500 mg PO BID 4 Days #8 tab 01/10/19 Folic Acid 1 mg PO DAILY@1200 tab 01/10/19 Multivitamins, Thera [Multivitamin 1 each PO DAILY@1200 tab 01/10/19 (formulary)] OLANZapine [ZyPREXA] 2.5 mg PO BID 30 Days #60 tab 01/10/19 Thiamine [Vitamin B-1] 100 mg PO DAILY@1200 tab 01/10/19 metFORMIN HCL [Glucophage] 1,000 mg PO BID-W/MEALS tab 01/10/19 Allergies/Adverse Reactions: Allergies Allergy/AdvReac Type Severity Reaction Status Date / Time No Known Allergies Allergy Verified 01/05/19 10:13 Review of Systems ROS Statement: Those systems with pertinent positive or pertinent negative responses have been documented in the HPI. ROS Other: All systems not noted in ROS Statement are negative. General Exam Limitations: no limitations General appearance: alert, in no apparent distress Head exam: Present: atraumatic, normocephalic, normal inspection Eye exam: Present: normal appearance, PERRL, EOMI. Absent: scleral icterus, conjunctival injection, periorbital swelling ENT exam: Present: normal exam, mucous membranes moist Neck exam: Present: normal inspection. Absent: tenderness, meningismus, lymphadenopathy Respiratory exam: Present: normal lung sounds bilaterally. Absent: respiratory distress, wheezes, rales, rhonchi, stridor Cardiovascular Exam: Present: regular rate, normal rhythm, normal heart sounds. Absent: systolic murmur, diastolic murmur, rubs, gallop, clicks GI/Abdominal exam: Present: soft, normal bowel sounds. Absent: distended, tenderness, guarding, rebound, rigid Extremities exam: Present: normal inspection, full ROM, normal capillary refill. Absent: tenderness, pedal edema, joint swelling, calf tenderness Back exam: Present: normal inspection Neurological exam: Present: alert, oriented X3, CN II-XII intact Psychiatric exam: Present: normal affect, normal mood Skin exam: Present: warm, dry, intact, normal color. Absent: rash Stroke MDM - Lab Data Result diagrams: 04/20/19 17:14 04/20/19 17:14 Lab Results 04/20/19 04/20/19 04/20/19 Range/Units 17:14 17:14 17:14 WBC 6.6 (3.8-10.6) k/uL RBC 4.40 (4.30-5.90) m/uL Hgb 10.9 L (13.0-17.5) gm/dL Hct 36.2 L (39.0-53.0) % MCV 82.2 (80.0-100.0) fL MCH 24.7 L (25.0-35.0) pg MCHC 30.0 L (31.0-37.0) g/dL RDW 19.3 H (11.5-15.5) % Plt Count 248 (150-450) k/uL Neutrophils % 70 % Lymphocytes % 19 % Monocytes % 6 % Eosinophils % 3 % Basophils % 0 % Neutrophils # 4.6 (1.3-7.7) k/uL Lymphocytes # 1.3 (1.0-4.8) k/uL Monocytes # 0.4 (0-1.0) k/uL Eosinophils # 0.2 (0-0.7) k/uL Basophils # 0.0 (0-0.2) k/uL Hypochromasia Slight Anisocytosis Slight Microcytosis Slight PT 10.0 (9.0-12.0) sec INR 1.0 (<1.2) APTT 23.2 (22.0-30.0) sec Sodium 137 (137-145) mmol/L Potassium 5.5 H (3.5-5.1) mmol/L Chloride 106 (98-107) mmol/L Carbon Dioxide 23 (22-30) mmol/L Anion Gap 8 mmol/L BUN 14 (9-20) mg/dL Creatinine 0.92 (0.66-1.25) mg/dL Est GFR (CKD-EPI)AfAm 88 (>60 ml/min/1.73 sqM) Est GFR (CKD-EPI)NonAf 76 (>60 ml/min/1.73 sqM) Glucose 129 H (74-99) mg/dL Calcium 8.4 (8.4-10.2) mg/dL Total Bilirubin 0.5 (0.2-1.3) mg/dL AST 38 (17-59) U/L ALT 6 (4-49) U/L Alkaline Phosphatase 72 (38-126) U/L Creatine Kinase 40 L (55-170) U/L Troponin I (0.000-0.034) ng/mL Total Protein 6.1 L (6.3-8.2) g/dL Albumin 3.1 L (3.5-5.0) g/dL 04/20/19 Range/Units 17:14 WBC (3.8-10.6) k/uL RBC (4.30-5.90) m/uL Hgb (13.0-17.5) gm/dL Hct (39.0-53.0) % MCV (80.0-100.0) fL MCH (25.0-35.0) pg MCHC (31.0-37.0) g/dL RDW (11.5-15.5) % Plt Count (150-450) k/uL Neutrophils % % Lymphocytes % % Monocytes % % Eosinophils % % Basophils % % Neutrophils # (1.3-7.7) k/uL Lymphocytes # (1.0-4.8) k/uL Monocytes # (0-1.0) k/uL Eosinophils # (0-0.7) k/uL Basophils # (0-0.2) k/uL Hypochromasia Anisocytosis Microcytosis PT (9.0-12.0) sec INR (<1.2) APTT (22.0-30.0) sec Sodium (137-145) mmol/L Potassium (3.5-5.1) mmol/L Chloride (98-107) mmol/L Carbon Dioxide (22-30) mmol/L Anion Gap mmol/L BUN (9-20) mg/dL Creatinine (0.66-1.25) mg/dL Est GFR (CKD-EPI)AfAm (>60 ml/min/1.73 sqM) Est GFR (CKD-EPI)NonAf (>60 ml/min/1.73 sqM) Glucose (74-99) mg/dL Calcium (8.4-10.2) mg/dL Total Bilirubin (0.2-1.3) mg/dL AST (17-59) U/L ALT (4-49) U/L Alkaline Phosphatase (38-126) U/L Creatine Kinase (55-170) U/L Troponin I <0.012 (0.000-0.034) ng/mL Total Protein (6.3-8.2) g/dL Albumin (3.5-5.0) g/dL - NIH Stroke Scale 1a. Level of Consciousness: (0) alert 1b. LOC Questions: (0) answers correctly 1c. LOC Commands: (0) performs tasks correctly 2. Best Gaze: (0) normal 3. Visual: (0) no visual loss 4. Facial Palsy: (0) normal symmetrical movement 5a. Motor Arm Left: (0) no drift 5b. Motor Arm Right: (0) no drift 6a. Motor Leg Left: (0) no drift 6b. Motor Leg Right: (0) no drift 7. Limb Ataxia: (0) absent 8. Sensory: (0) normal 9. Best Language: (0) no aphasia 10. Dysarthria: (0) normal 11. Extinction/Inattention: (0) no abnormality - Thrombolytic Inclusion/Exclusion Thrombolytic Exclusion Criteria: Symptom Onset > 4.5 Hours Thrombolytic Contraindications: Rapidly Improving s/s - Medical Decision Making 83 male DF for evaluation patient with us today for evaluation regards to ruling out. No focal neurological findings CT negative lab work is normal patient is with out acute distress family at bedside for patient's results and patient will be discharged back to facility - Radiology Data Radiology results: report reviewed (CT brain is negative for acute disease), image reviewed - EKG Data -: EKG Interpreted by Me (EKG shows NSR 86 ME 184 QRS 74 QTc 445) Past Medical History Past Medical History: Coronary Artery Disease (CAD), Cancer, Chest Pain / Angina, Dementia, Diabetes Mellitus, Deep Vein Thrombosis (DVT), Hearing Disorder / Deafness, Hyperlipidemia, Hypertension, Myocardial Infarction ([place]), Pneumonia, Prostate Disorder, Renal Disease, Rheumatoid Arthritis (RA), Seizure Disorder Additional Past Medical History / Comment(s): TIAs, NIDDM type II, epilepsy as a child, possible seizures, spinal stenosis, lumbar pain, cervical pain, parkinsons disease, DVT per past medical history but pt does not recall dvt, BPH, UTIS/sepsis and recent UTI, falls, tinnitis R ear, deaf in L ear, history of presbyesophagus/dysphagia, hyponatremia, thrombocytopenia, anemia, CKD stage II, recent cellulitis bilateral groins. Last Myocardial Infarction Date:: 03/04/11 History of Any Multi-Drug Resistant Organisms: None Reported Past Surgical History: Coronary Bypass/CABG, Heart Catheterization With Stent, Joint Replacement, Tonsillectomy Additional Past Surgical History / Comment(s): 2005 and 2011 PTCA with stent, 2006 CABG-3 vessel, sebaceous cysts removed from neck, laser surgery for cataract removals bilateral, colonoscopy, total R knee arthroplasty, skin cancer on face removed Past Anesthesia/Blood Transfusion Reactions: No Reported Reaction Date of Last Stent Placement:: 2011 Past Psychological History: No Psychological Hx Reported Smoking Status: Former smoker Past Alcohol Use History: None Reported Past Drug Use History: None Reported - Past Family History Father Family Medical History: Coronary Artery Disease (CAD) Additional Family Medical History / Comment(s): Father had heart disease. Mother Family Medical History: Coronary Artery Disease (CAD) Additional Family Medical History / Comment(s): Mother had heart disease. Course Vital Signs 04/20/19 04/20/19 04/20/19 16:40 17:43 18:43 Temperature 98.5 F Pulse Rate 87 72 Respiratory 20 20 20 Rate Blood Pressure 115/71 117/72 123/73 O2 Sat by Pulse 97 98 Oximetry - Reevaluation(s) Reevaluation #1: 04/20/19 19:23 Medical record is reviewed Reevaluation #2: 04/20/19 19:23 Patient has no complaints better with hydration Reevaluation #3: 04/20/19 19:23 Spoke with family regards to findings, questions answered Disposition Clinical Impression: Altered mental status, Dizziness, Dehydration Disposition: HOME SELF-CARE Condition: Good Instructions (If sedation given, give patient instructions): Dehydration (ED) Is patient prescribed a controlled substance at d/c from ED?: No Referrals: Alli Peguero MD [Primary Care Provider] - 1-2 days
[2019-04-20 17:30] LABS: Anisocytosis Slight; Basophils % (A) 0 %; Eosinophils # (A) 0.2 k/uL (0-0.7); Eosinophils % (A) 3 %; HCT 36.2 % (39.0-53.0); HGB 10.9 gm/dL (13.0-17.5); Hypochromasia Slight; Lymphocytes # (A) 1.3 k/uL (1.0-4.8); Lymphocytes % (A) 19 %; MCH 24.7 pg (25.0-35.0); MCV 82.2 fL (80.0-100.0); Mean Platelet Volume 8.7; Microcytosis Slight; Monocytes # (A) 0.4 k/uL (0-1.0); Monocytes % (A) 6 %; Neutrophils # (A) 4.6 k/uL (1.3-7.7); Neutrophils % (A) 70 %; Platelet Count 248 k/uL (150-450); RDW 19.3 % (11.5-15.5); WBC 6.6 k/uL (3.8-10.6)
[2019-04-20 17:38] LABS: Albumin 3.1 g/dL (3.5-5.0); Calcium 8.4 mg/dL (8.4-10.2); Total Bilirubin 0.5 mg/dL (0.2-1.3); Total Protein 6.1 g/dL (6.3-8.2)
--- NOTE | 2019-04-20 17:41 | CT ---
EXAMINATION TYPE: CT brain wo con for TPA DATE OF EXAM: 04/20/2019 COMPARISON: 03/21/2019 HISTORY: confusion. CT DLP: 1247.4 mGycm Automated exposure control for dose reduction was used. There is cerebral cortical atrophy. There is no mass effect nor midline shift. There is no sign of in tracranial hemorrhage. Calvarium is intact. IMPRESSION: Cerebral atrophy. No acute intracranial abnormality. No change.
--- NOTE | 2019-04-20 17:42 | XR ---
EXAMINATION TYPE: XR chest 2V DATE OF EXAM: 04/20/2019 COMPARISON: 01/05/2019 HISTORY: Weakness TECHNIQUE: FINDINGS: Heart and mediastinum are normal. Lungs are clear. Diaphragm is normal. There are sternal w ires. There are chest leads. Bony thorax is intact. IMPRESSION: No active cardiopulmonary disease. Inspiration improved compared to last exam.
[2019-04-20 17:43] LABS: Potassium 5.5 mmol/L (3.5-5.1)
[2019-04-20 17:52] LABS: Partial Thromboplastin Time 23.2 sec (22.0-30.0)
[2019-04-20 19:38] VITALS: BP 118/73; PULSE 70; RESP 18; TEMP 98
== END 2019-04-20 19:55 | disposition home or self-care (01) ==
LOC: EC 16:30
DX: E86.0 Dehydration (principal); R47.1 Dysarthria and anarthria; R20.2 Paresthesia of skin; I25.119 Atherosclerotic heart disease of native coronary artery with unspecified angina pectoris; G20 Parkinson's disease; F02.80 Dementia in other diseases classified elsewhere, unspecified severity, without behavioral disturbance, psychotic disturbance, mood disturbance, and anxiety; N18.2 Chronic kidney disease, stage 2 (mild); E11.22 Type 2 diabetes mellitus with diabetic chronic kidney disease; H91.92 Unspecified hearing loss, left ear; I12.9 Hypertensive chronic kidney disease with stage 1 through stage 4 chronic kidney disease, or unspecified chronic kidney disease; I25.2 Old myocardial infarction; N40.0 Benign prostatic hyperplasia without lower urinary tract symptoms; M06.9 Rheumatoid arthritis, unspecified; D63.1 Anemia in chronic kidney disease; Z87.891 Personal history of nicotine dependence; Z79.02 Long term (current) use of antithrombotics/antiplatelets; Z79.4 Long term (current) use of insulin; Z79.899 Other long term (current) drug therapy; Z86.718 Personal history of other venous thrombosis and embolism; Z86.73 Personal history of transient ischemic attack (TIA), and cerebral infarction without residual deficits; Z95.1 Presence of aortocoronary bypass graft; Z95.5 Presence of coronary angioplasty implant and graft; Z96.651 Presence of right artificial knee joint; Z85.828 Personal history of other malignant neoplasm of skin; Z98.890 Other specified postprocedural states
CPT/HCPCS: 36415; 70450; 71046; 80053; 82550; 84484; 85025; 85610; 85730; 96360; 99285

== ENCOUNTER 2019-04-23 16:37 | Inpatient (IN) | payer MEDICARE, OTHER ==
[2019-04-23] MEDS ORDERED: cefTRIAXone IN SWFI 1,000 MG/10 ML SYRINGE IVP STA (16:41)
--- NOTE | 2019-04-23 16:45 | ED ---
General Adult HPI - General Stated complaint: Poss Sepsis Time Seen by Provider: 04/23/19 16:38 Source: EMS, RN notes reviewed, old records reviewed Limitations: altered mental status, physical limitation - History of Present Illness Initial comments: 83-year-old male presenting from custodial for evaluation of fever and lethargy. Patient history is provided by EMS and review the medical record. Liyah mendoza has multiple medical problems including dementia, coronary artery disease, renal disease, EMS reports history of MS and frequent UTI. Patient is presenting today with fever which is been present for approximately 24 hours. Patient is unable to contribute to the history. - Related Data Home Medications Medication Instructions Recorded Confirmed Finasteride [Proscar] 5 mg PO DAILY@0900 11/02/15 04/23/19 Carbidopa-Levodopa 25-100 mg 1 tab PO Q8H 02/07/18 04/23/19 [Sinemet 25-100 mg] Clopidogrel [Plavix] 75 mg PO DAILY@0900 12/12/18 04/23/19 Isosorbide Mononitrate ER [Imdur] 30 mg PO DAILY@0901/05/19 04/23/19 Albuterol Nebulized [Ventolin 2.5 mg INHALATION RT-Q4H PRN 04/23/19 04/23/19 Nebulized] Artificial Tears-Hypromellose 1 drop BOTH EYES Q6H PRN 04/23/19 04/23/19 [Artificial Tear Drops] Atorvastatin Calcium [Lipitor] 40 mg PO HS@209904/23/19 04/23/19 Clotrimazole/Betamethasone Dip 1 applic TOPICAL Q12H 04/23/19 04/23/19 [Lotrisone Cream] Ethosuximide [Zarontin] 250 mg PO BID@0900,209904/23/19 04/23/19 Famotidine [Pepcid] 20 mg PO BID@0900,209904/23/19 04/23/19 Ferrous Sulfate [Feosol] 325 mg PO DAILY@00 04/23/19 04/23/19 Hydrophilic Cream [Triad Cream] 1 applic TOPICAL DAILY PRN 04/23/19 04/23/19 Hydrophilic Cream [Triad Cream] 1 applic TOPICAL Q12H 04/23/19 04/23/19 INSULIN LISPRO (HumaLOG) [humaLOG] See Protocol SQ AC-TID 04/23/19 04/23/19 Multivitamins, Thera [Multivitamin 1 tab PO DAILY@1200 04/23/19 04/23/19 (formulary)] OLANZapine [ZyPREXA] 2.5 mg PO BID@0900,2100 04/23/19 04/23/19 glipiZIDE [Glucotrol] 5 mg PO BID@0900,1700 04/23/19 04/23/19 metFORMIN HCL 1,000 mg PO BID@0800,1700 04/23/19 04/23/19 Previous Rx's Medication Instructions Recorded Acetaminophen Tab [Tylenol] 650 mg PO Q6HR PRN tab 12/15/18 Ibuprofen [Motrin] 400 mg PO Q6HR PRN tab 12/15/18 Folic Acid 1 mg PO DAILY@1200 tab 01/10/19 Thiamine [Vitamin B-1] 100 mg PO DAILY@1200 tab 01/10/19 Allergies Allergy/AdvReac Type Severity Reaction Status Date / Time No Known Allergies Allergy Verified 04/23/19 17:10 Review of Systems ROS Statement: Those systems with pertinent positive or pertinent negative responses have been documented in the HPI. ROS Other: All systems not noted in ROS Statement are negative. Limitations: ROS unobtainable due to patients medical condition Past Medical History Past Medical History: Coronary Artery Disease (CAD), Cancer, Chest Pain / Angina, Dementia, Diabetes Mellitus, Deep Vein Thrombosis (DVT), Hearing Disorder / Deafness, Hyperlipidemia, Hypertension, Myocardial Infarction ([place]), Pneumonia, Prostate Disorder, Renal Disease, Rheumatoid Arthritis (RA), Seizure Disorder Additional Past Medical History / Comment(s): TIAs, NIDDM type II, epilepsy as a child, possible seizures, spinal stenosis, lumbar pain, cervical pain, parkinsons disease, DVT per past medical history but pt does not recall dvt, BPH, UTIS/sepsis and recent UTI, falls, tinnitis R ear, deaf in L ear, history of presbyesophagus/dysphagia, hyponatremia, thrombocytopenia, anemia, CKD stage II, recent cellulitis bilateral groins. Last Myocardial Infarction Date:: 03/04/11 History of Any Multi-Drug Resistant Organisms: None Reported Past Surgical History: Coronary Bypass/CABG, Heart Catheterization With Stent, Joint Replacement, Tonsillectomy Additional Past Surgical History / Comment(s): 2005 and 2011 PTCA with stent, 2006 CABG-3 vessel, sebaceous cysts removed from neck, laser surgery for cataract removals bilateral, colonoscopy, total R knee arthroplasty, skin cancer on face removed Past Anesthesia/Blood Transfusion Reactions: No Reported Reaction Date of Last Stent Placement:: 2011 Past Psychological History: No Psychological Hx Reported Smoking Status: Former smoker Past Alcohol Use History: None Reported Past Drug Use History: None Reported - Past Family History Father Family Medical History: Coronary Artery Disease (CAD) Additional Family Medical History / Comment(s): Father had heart disease. Mother Family Medical History: Coronary Artery Disease (CAD) Additional Family Medical History / Comment(s): Mother had heart disease. General Exam General appearance: lethargic Eye exam: Present: PERRL (Pupils reactive bilaterally, there is a left eye lateral gaze) Neck exam: Present: normal inspection Respiratory exam: Present: decreased breath sounds. Absent: respiratory distress Cardiovascular Exam: Present: regular rate, normal rhythm GI/Abdominal exam: Present: soft. Absent: tenderness, guarding exam: Present: normal inspection. Absent: testicular tenderness, scrotal swelling Extremities exam: Present: normal inspection. Absent: tenderness, calf tenderness Neurological exam: Present: other (Patient appears to be moving all extremities symmetrically.) Skin exam: Present: dry, intact. Absent: cyanosis, diaphoretic Course Vital Signs 04/23/19 04/23/19 04/23/19 17:03 17:12 17:20 Temperature 102.4 F H Pulse Rate 102 H 98 100 Respiratory 20 18 19 Rate Blood Pressure 154/79 154/79 140/82 O2 Sat by Pulse 97 98 98 Oximetry 04/23/19 04/23/19 04/23/19 17:30 17:40 17:50 Temperature Pulse Rate 90 93 93 Respiratory 16 18 18 Rate Blood Pressure 140/82 141/70 131/78 O2 Sat by Pulse 97 97 95 Oximetry 04/23/19 18:00 Temperature Pulse Rate 93 Respiratory 22 Rate Blood Pressure 131/78 O2 Sat by Pulse 94 L Oximetry EKG Findings - EKG Comments: EKG Findings:: EKG: Sinus rhythm with PVC, baseline artifact secondary to tremor, ventricular rate of 101, NH interval 184, QRS duration 70, QTC 471, no ST segment elevation. Medical Decision Making - Medical Decision Making 83-year-old male presenting for nursing with fever, mild confusion. Confusion does improve with IV hydration and initiation of IV antibiotics. Suspect metabolic encephalopathy secondary to UTI with sepsis. Patient has pulmonary, leukocytosis on CBC, he has a stable and improved hemoglobin. Normal electrolytes. Normal lactic acid. He is initiated on IV antibiotics including ceftriaxone and vancomycin. He's been cultured both blood and urine. His chest x-ray is negative for focal consolidation. He is given a 2 L normal saline bolus and placed on continuous IV fluids, IV antibiotics. Will be admitted for UTI with sepsis. This is discussed with Dr. Alegria - Lab Data Result diagrams: 04/23/19 17:00 04/23/19 17:00 Lab Results 04/23/19 04/23/19 04/23/19 Range/Units 17:00 17:00 17:00 WBC 13.5 H (3.8-10.6) k/uL RBC 4.67 (4.30-5.90) m/uL Hgb 11.6 L (13.0-17.5) gm/dL Hct 37.9 L (39.0-53.0) % MCV 81.1 (80.0-100.0) fL MCH 24.9 L (25.0-35.0) pg MCHC 30.7 L (31.0-37.0) g/dL RDW 18.9 H (11.5-15.5) % Plt Count 232 (150-450) k/uL Neutrophils % 87 % Lymphocytes % 5 % Monocytes % 6 % Eosinophils % 0 % Basophils % 0 % Neutrophils # 11.7 H (1.3-7.7) k/uL Lymphocytes # 0.6 L (1.0-4.8) k/uL Monocytes # 0.8 (0-1.0) k/uL Eosinophils # 0.0 (0-0.7) k/uL Basophils # 0.0 (0-0.2) k/uL Hypochromasia Slight Anisocytosis Slight Microcytosis Slight PT 10.9 (9.0-12.0) sec INR 1.1 (<1.2) APTT 23.8 (22.0-30.0) sec Sodium 134 L (137-145) mmol/L Potassium 4.4 (3.5-5.1) mmol/L Chloride 101 (98-107) mmol/L Carbon Dioxide 26 (22-30) mmol/L Anion Gap 7 mmol/L BUN 17 (9-20) mg/dL Creatinine 0.87 (0.66-1.25) mg/dL Est GFR (CKD-EPI)AfAm >90 (>60 ml/min/1.73 sqM) Est GFR (CKD-EPI)NonAf 79 (>60 ml/min/1.73 sqM) Glucose 178 H (74-99) mg/dL Plasma Lactic Acid Ronen (0.7-2.0) mmol/L Calcium 8.4 (8.4-10.2) mg/dL Total Bilirubin 0.5 (0.2-1.3) mg/dL AST 58 (17-59) U/L ALT 14 (4-49) U/L Alkaline Phosphatase 116 (38-126) U/L Total Protein 6.2 L (6.3-8.2) g/dL Albumin 3.3 L (3.5-5.0) g/dL Urine Color Urine Appearance (Clear) Urine pH (5.0-8.0) Ur Specific [place] (1.001-1.035) Urine Protein (Negative) Urine Glucose (UA) (Negative) Urine Ketones (Negative) Urine Blood (Negative) Urine Nitrite (Negative) Urine Bilirubin (Negative) Urine Urobilinogen (<2.0) mg/dL Ur Leukocyte Esterase (Negative) Urine RBC (0-5) /hpf Urine WBC (0-5) /hpf Urine WBC Clumps (None) /hpf Urine Bacteria (None) /hpf Urine Mucus (None) /hpf Influenza Type A RNA (Not Detectd) Influenza Type B (PCR) (Not Detectd) 04/23/19 04/23/19 04/23/19 Range/Units 17:00 17:00 17:38 WBC (3.8-10.6) k/uL RBC (4.30-5.90) m/uL Hgb (13.0-17.5) gm/dL Hct (39.0-53.0) % MCV (80.0-100.0) fL MCH (25.0-35.0) pg MCHC (31.0-37.0) g/dL RDW (11.5-15.5) % Plt Count (150-450) k/uL Neutrophils % % Lymphocytes % % Monocytes % % Eosinophils % % Basophils % % Neutrophils # (1.3-7.7) k/uL Lymphocytes # (1.0-4.8) k/uL Monocytes # (0-1.0) k/uL Eosinophils # (0-0.7) k/uL Basophils # (0-0.2) k/uL Hypochromasia Anisocytosis Microcytosis PT (9.0-12.0) sec INR (<1.2) APTT (22.0-30.0) sec Sodium (137-145) mmol/L Potassium (3.5-5.1) mmol/L Chloride (98-107) mmol/L Carbon Dioxide (22-30) mmol/L Anion Gap mmol/L BUN (9-20) mg/dL Creatinine (0.66-1.25) mg/dL Est GFR (CKD-EPI)AfAm (>60 ml/min/1.73 sqM) Est GFR (CKD-EPI)NonAf (>60 ml/min/1.73 sqM) Glucose (74-99) mg/dL Plasma Lactic Acid Ronen 1.6 (0.7-2.0) mmol/L Calcium (8.4-10.2) mg/dL Total Bilirubin (0.2-1.3) mg/dL AST (17-59) U/L ALT (4-49) U/L Alkaline Phosphatase (38-126) U/L Total Protein (6.3-8.2) g/dL Albumin (3.5-5.0) g/dL Urine Color Yellow Urine Appearance Turbid (Clear) Urine pH 7.0 (5.0-8.0) Ur Specific [place] 1.020 (1.001-1.035) Urine Protein 2+ H (Negative) Urine Glucose (UA) Trace H (Negative) Urine Ketones 1+ H (Negative) Urine Blood Moderate H (Negative) Urine Nitrite Positive (Negative) Urine Bilirubin Negative (Negative) Urine Urobilinogen <2.0 (<2.0) mg/dL Ur Leukocyte Esterase Large H (Negative) Urine RBC 40 H (0-5) /hpf Urine WBC >182 H (0-5) /hpf Urine WBC Clumps Many H (None) /hpf Urine Bacteria Few H (None) /hpf Urine Mucus Occasional H (None) /hpf Influenza Type A RNA Not Detected (Not Detectd) Influenza Type B (PCR) Not Detected (Not Detectd) Critical Care Time Critical Care Time: Yes Total Critical Care Time: 35 Disposition Clinical Impression: Dehydration, UTI (urinary tract infection), Sepsis Disposition: ADMITTED IP TO THIS [facility] Condition: Stable Is patient prescribed a controlled substance at d/c from ED?: No Referrals: Alli Peguero MD [Primary Care Provider] - 1-2 days Decision to Admit Reason: Admit from EC Decision Date: 04/23/19 Decision Time: 18:17
[2019-04-23 17:09] LABS: Anisocytosis Slight; Basophils % (A) 0 %; Eosinophils % (A) 0 %; HCT 37.9 % (39.0-53.0); HGB 11.6 gm/dL (13.0-17.5); Hypochromasia Slight; Lymphocytes # (A) 0.6 k/uL (1.0-4.8); Lymphocytes % (A) 5 %; MCH 24.9 pg (25.0-35.0); MCHC 30.7 g/dL (31.0-37.0); MCV 81.1 fL (80.0-100.0); Mean Platelet Volume 8.6; Microcytosis Slight; Monocytes # (A) 0.8 k/uL (0-1.0); Monocytes % (A) 6 %; Neutrophils # (A) 11.7 k/uL (1.3-7.7); Neutrophils % (A) 87 %; Platelet Count 232 k/uL (150-450); RBC 4.67 m/uL (4.30-5.90); RDW 18.9 % (11.5-15.5); WBC 13.5 k/uL (3.8-10.6)
[2019-04-23 17:21] LABS: ALT 14 U/L (4-49); AST 58 U/L (17-59); African American GFR (CKD) >90 (>60 ml/min/1.73 sqM); Albumin 3.3 g/dL (3.5-5.0); Alkaline Phosphatase 116 U/L (38-126); Anion Gap 7 mmol/L; Blood Urea Nitrogen 17 mg/dL (9-20); Calcium 8.4 mg/dL (8.4-10.2); Carbon Dioxide 26 mmol/L (22-30); Chloride 101 mmol/L (98-107); Glucose 178 mg/dL (74-99); Non-African American GFR(CKD) 79 (>60 ml/min/1.73 sqM); Potassium 4.4 mmol/L (3.5-5.1); Sodium 134 mmol/L (137-145); Total Bilirubin 0.5 mg/dL (0.2-1.3); Total Protein 6.2 g/dL (6.3-8.2)
[2019-04-23 17:24] LABS: INR 1.1 (<1.2); Partial Thromboplastin Time 23.8 sec (22.0-30.0); Prothrombin Time 10.9 sec (9.0-12.0)
[2019-04-23] MEDS ORDERED: ONDANSETRON 4 MG/2 ML VIAL IVP STA (17:36)
[2019-04-23] MEDS ORDERED: KETOROLAC 30 MG/ML 1 ML VIAL IVP STA (17:36)
[2019-04-23] MEDS: SODIUM CHLORIDE 0.9% 500 ML 500 ML IV SCH ×4 (17:37→23:59)
--- NOTE | 2019-04-23 17:37 | XR ---
EXAMINATION TYPE: XR chest 1V portable DATE OF EXAM: 04/23/2019 COMPARISON: 04/20/2019 HISTORY: Altered mental status TECHNIQUE: Single view FINDINGS: Heart appears slightly enlarged. Thoracic aorta is atheromatous. There are sternal wires. C ostophrenic angles are clear. There is slight increased markings left lower lobe. Bony thorax is inta ct. No heart failure. IMPRESSION: Slight increased interstitial markings in the left lower lobe. Inspiration decreased comp ared to old exam. No obvious heart failure. No pulmonary consolidation.
[2019-04-23 17:52] LABS: Appearance,Urine Turbid (Clear); Bacteria,Urine Few /hpf; Bilirubin,Urine Negative (Negative); Blood,Urine Moderate (Negative); Color,Urine Yellow; Glucose,Urine (UA) Trace (Negative); Ketones,Urine 1+ (Negative); Leukocyte Esterase,Urine Large (Negative); Mucus,Urine Occasional /hpf; Nitrite,Urine Positive (Negative); Protein,Urine 2+ (Negative); RBC,Urine 40 /hpf (0-5); Urobilinogen,Urine <2.0 mg/dL (<2.0); WBC,Urine >182 /hpf (0-5)
[2019-04-23] MEDS ORDERED: ACETAMINOPHEN TAB 325 MG TAB PO PRN (18:10)
[2019-04-23] MEDS ORDERED: ONDANSETRON 4 MG/2 ML VIAL IVP PRN (18:10)
[2019-04-23] MEDS ORDERED: NALOXONE 0.4 MG/ML 1 ML VIAL IV PRN (18:10)
[2019-04-23] MEDS ORDERED: VANCOMYCIN IV PER PHARMACY 1 EACH MISC MISCELLANE PRN (18:11)
[2019-04-23] MEDS ORDERED: ALBUTEROL NEBULIZED 2.5 MG/3 ML INHALATION PRN (18:12)
[2019-04-23] MEDS ORDERED: VANCOMYCIN 1,500 MG in SODIUM CHLORIDE 0.9% 250 ML IVPB ONE (19:00)
[2019-04-23] MEDS: ATORVASTATIN 40 MG TAB PO SCH (19:54)
[2019-04-23] MEDS: OLANZapine 2.5 MG TAB PO SCH (19:54)
[2019-04-23] MEDS: SODIUM CHLORIDE 0.9% 1,000 ML IV SCH (19:55)
[2019-04-23 20:12] LABS: Glucose,Whole Blood 184 mg/dL (75-99)
[2019-04-23] MEDS: ETHOSUXIMIDE 250 MG PO SCH (21:55)
[2019-04-24 00:45] LABS: Glucose,Whole Blood 154 mg/dL (75-99)
[2019-04-24] MEDS: VANCOMYCIN 1,500 MG in SODIUM CHLORIDE 0.9% 250 ML IVPB SCH ×2 (05:58→17:14)
[2019-04-24 06:51] LABS: Glucose,Whole Blood 162 mg/dL (75-99)
[2019-04-24] MEDS: CARBIDOPA-LEVODOPA 25-100 MG 1 EACH TAB PO SCH ×3 (08:27→17:19)
[2019-04-24] MEDS: CLOPIDOGREL 75 MG TAB PO SCH (08:27)
[2019-04-24] MEDS: metFORMIN 500 MG TAB PO SCH ×2 (08:27→17:20)
[2019-04-24] MEDS: FERROUS SULFATE 325 MG TAB PO SCH (08:28)
[2019-04-24] MEDS: INSULIN ASPART (NovoLOG) 100 UNIT/ML VIAL SQ SCH ×4 (08:28→20:25)
[2019-04-24] MEDS: ISOSORBIDE MONONITRATE ER 30 MG TAB.ER.24H PO SCH (08:28)
[2019-04-24] MEDS: ETHOSUXIMIDE 250 MG PO SCH ×2 (08:29→20:24)
[2019-04-24] MEDS: SODIUM CHLORIDE 0.9% 1,000 ML IV SCH (08:29)
[2019-04-24] MEDS: glipiZIDE 5 MG TAB PO SCH ×2 (08:30→17:19)
[2019-04-24] MEDS: OLANZapine 2.5 MG TAB PO SCH ×2 (08:41→20:36)
[2019-04-24 12:08] LABS: Glucose,Whole Blood 113 mg/dL (75-99)
[2019-04-24] MEDS: THIAMINE 100 MG TAB PO SCH (12:42)
[2019-04-24] MEDS: FOLIC ACID 1 MG TAB PO SCH (12:42)
[2019-04-24] MEDS ORDERED: ARTIFICIAL TEARS-HYPROMELLOSE DROPS 15 ML BTL BOTH EYES PRN (13:00)
[2019-04-24] MEDS ORDERED: HYDROPHILIC CREAM 180 GM TUBE TOPICAL PRN (13:00)
[2019-04-24] MEDS ORDERED: IBUPROFEN 400 MG TAB PO PRN (13:00)
[2019-04-24] MEDS: FAMOTIDINE 20 MG TAB PO SCH ×2 (13:52→20:36)
[2019-04-24] MEDS: FINASTERIDE 5 MG TAB PO SCH (13:52)
[2019-04-24 16:59] LABS: Glucose,Whole Blood 144 mg/dL (75-99)
--- NOTE | 2019-04-24 18:48 | P.HPIM ---
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 Patient sent in from [facility] probably lethargic and febrile. Patient rather tired. Not really would also questions. Postoperative history is ob tained by the ER notes and the transfer notes. Patient was febrile and tachycardic and found to be in sepsis on presentation. [place] to be from UTI. Started antibiotics. 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 No alcohol. Currently at [facility] Physical examination: VITAL SIGNS: 102.4,, 102, 20, 154/79, 97% on room air GENERAL: BMI 28, laying in bed lethargic but arousable EYES: Pupils equal. Conjunctiva normal. HEENT: External appearance of nose and ears normal, oral cavity dry. NECK: JVD unable to assess; masses not palpable. HEART: First and second heart sounds are normal; no edema. LUNGS: Respiratory rate normal; decreased breath sounds. ABDOMEN: Soft, nontender, liver spleen not palpable, no masses palpable, Riggs catheter. PSYCH: Lethargic not really answering questions. NEUROLOGICAL: Cranial nerves grossly intact; no facial asymmetry, lethargic, barely following commands LYMPHATICS: No lymph nodes palpable in the axilla and neck INVESTIGATIONS, reviewed in the clinical context: White count 13.5 hemoglobin 11.6 platelets 232 potassium 4.4 creatinine 0.87 UA positive for leukoesterase, WBC Influenza A and B both negative EKG tracing personally reviewed by me-sinus rhythm with PVCs Chest x-ray film personally reviewed by me-no obvious infiltrate Assessment: -Acute UTI with cystitis, causing metabolic/toxic encephalopathy -Diabetes mellitus type 2 -Idiopathic Parkinson disease -Diabetes mellitus type II -Chronic dysphagia from presbyesophagus -Coronary artery disease with stent and bypass -Hyperlipidemia -Essential hypertension -Chronic neurocognitive disorder -Chronic spinal stenosis -BPH -Moderate cognitive impairment, from late onset Alzheimer's dementia Plan: Patient started on ceftriaxone. IV fluids. Home medications are reviewed. And renewed. Lovenox for DVT prophylaxis. Follow labs closely. Urine culture pending. Prognosis guarded. Past Medical History Past Medical History: Coronary Artery Disease (CAD), Cancer, Chest Pain / Angina, Dementia, Diabetes Mellitus, Deep Vein Thrombosis (DVT), Hearing Disorder / Deafness, Hyperlipidemia, Hypertension, Myocardial Infarction ([place]), Pneumonia, Prostate Disorder, Renal Disease, Rheumatoid Arthritis (RA), Seizure Disorder Additional Past Medical History / Comment(s): TIAs, NIDDM type II, epilepsy as a child, possible seizures, spinal stenosis, lumbar pain, cervical pain, parkinsons disease, DVT per past medical history but pt does not recall dvt, BPH, UTIS/sepsis and recent UTI, falls, tinnitis R ear, deaf in L ear, history of presbyesophagus/dysphagia, hyponatremia, thrombocytopenia, anemia, CKD stage II, recent cellulitis bilateral groins. Last Myocardial Infarction Date:: 03/04/11 History of Any Multi-Drug Resistant Organisms: None Reported Past Surgical History: Coronary Bypass/CABG, Heart Catheterization With Stent, Joint Replacement, Tonsillectomy Additional Past Surgical History / Comment(s): 2005 and 2011 PTCA with stent, 2006 CABG-3 vessel, sebaceous cysts removed from neck, laser surgery for cataract removals bilateral, colonoscopy, total R knee arthroplasty, skin cancer on face removed Past Anesthesia/Blood Transfusion Reactions: No Reported Reaction Date of Last Stent Placement:: 2011 Past Psychological History: No Psychological Hx Reported Additional Psychological History / Comment(s): Pt recently discharged from [facility]. Pt currently resides alone. He ambulates with a walker. His bud, Radha, manages his medications and brings him breakfast and food that he only has to warm up. His bud also drives him to [employer]. Smoking Status: Former smoker Past Alcohol Use History: None Reported Additional Past Alcohol Use History / Comment(s): Pt smoked from [id number], one pack per day. Past Drug Use History: None Reported - Past Family History Father Family Medical History: Coronary Artery Disease (CAD) Additional Family Medical History / Comment(s): Father had heart disease. Mother Family Medical History: Coronary Artery Disease (CAD) Additional Family Medical History / Comment(s): Mother had heart disease. Medications and Allergies Home Medications Medication Instructions Recorded Confirmed Type Finasteride [Proscar] 5 mg PO DAILY@0900 11/02/15 04/23/19 History Carbidopa-Levodopa 25-100 mg 1 tab PO Q8H 02/07/18 04/23/19 History [Sinemet 25-100 mg] Clopidogrel [Plavix] 75 mg PO DAILY@0900 12/12/18 04/23/19 History Acetaminophen Tab [Tylenol] 650 mg PO Q6HR PRN tab 12/15/18 04/23/19 Rx Ibuprofen [Motrin] 400 mg PO Q6HR PRN tab 12/15/18 04/23/19 Rx Isosorbide Mononitrate ER [Imdur] 30 mg PO DAILY@0900 01/05/19 04/23/19 History Folic Acid 1 mg PO DAILY@1200 tab 01/10/19 04/23/19 Rx Thiamine [Vitamin B-1] 100 mg PO DAILY@1200 tab 01/10/19 04/23/19 Rx Albuterol Nebulized [Ventolin 2.5 mg INHALATION RT-Q4H PRN 04/23/19 04/23/19 History Nebulized] Artificial Tears-Hypromellose 1 drop BOTH EYES Q6H PRN 04/23/19 04/23/19 History [Artificial Tear Drops] Atorvastatin Calcium [Lipitor] 40 mg PO HS@209904/23/19 04/23/19 History Clotrimazole/Betamethasone Dip 1 applic TOPICAL Q12H 04/23/19 04/23/19 History [Lotrisone Cream] Ethosuximide [Zarontin] 250 mg PO BID@0900,209904/23/19 04/23/19 History Famotidine [Pepcid] 20 mg PO BID@0900,2100 04/23/19 04/23/19 History Ferrous Sulfate [Feosol] 325 mg PO DAILY@89904/23/19 04/23/19 History Hydrophilic Cream [Triad Cream] 1 applic TOPICAL DAILY PRN 04/23/19 04/23/19 History Hydrophilic Cream [Triad Cream] 1 applic TOPICAL Q12H 04/23/19 04/23/19 History INSULIN LISPRO (HumaLOG) [humaLOG] See Protocol SQ AC-TID 04/23/19 04/23/19 History Multivitamins, Thera [Multivitamin 1 tab PO DAILY@1200 04/23/19 04/23/19 History (formulary)] OLANZapine [ZyPREXA] 2.5 mg PO BID@0900,2100 04/23/19 04/23/19 History glipiZIDE [Glucotrol] 5 mg PO BID@0900,1700 04/23/19 04/23/19 History metFORMIN HCL 1,000 mg PO BID@0800,1700 04/23/19 04/23/19 History Allergies Allergy/AdvReac Type Severity Reaction Status Date / Time No Known Allergies Allergy Verified 04/23/19 17:10 Physical Exam Vitals: Vital Signs Temp Pulse Pulse Resp BP BP Pulse Ox 04/24/19 08:00 95 18 04/24/19 04:43 99.6 F 95 18 127/83 98 04/24/19 03:18 99.8 F H 04/24/19 00:01 98.1 F 76 18 116/74 97 04/24/19 00:00 76 18 04/23/19 20:31 98.9 F 67 16 112/63 92 L 04/23/19 19:06 101.1 F H 79 16 113/57 97 04/23/19 18:44 98.6 F 96 15 114/61 95 04/23/19 18:38 98.6 F 04/23/19 18:30 96 15 114/61 95 04/23/19 18:20 93 25 H 114/61 94 L 04/23/19 18:10 101 H 23 114/61 95 04/23/19 18:00 93 22 131/78 94 L 04/23/19 17:50 93 18 131/78 95 04/23/19 17:40 93 18 141/70 97 04/23/19 17:30 90 16 140/82 97 04/23/19 17:20 100 19 140/82 98 04/23/19 17:12 98 18 154/79 98 04/23/19 17:03 102.4 F H 102 H 20 154/79 97 Intake and Output 04/23/19 04/24/19 04/24/19 21:59 06:59 14:59 Intake Total Output Total Balance Intake: Oral Output: Urine Other: Voiding Method Incontinent Weight Results CBC & Chem 7: 04/23/19 17:00 04/23/19 17:00 Labs: Abnormal Lab Results - Last 24 Hours (Table) 04/23/19 04/23/19 04/23/19 Range/Units 17:00 17:00 17:38 WBC 13.5 H (3.8-10.6) k/uL Hgb 11.6 L (13.0-17.5) gm/dL Hct 37.9 L (39.0-53.0) % MCH 24.9 L (25.0-35.0) pg MCHC 30.7 L (31.0-37.0) g/dL RDW 18.9 H (11.5-15.5) % Neutrophils # 11.7 H (1.3-7.7) k/uL Lymphocytes # 0.6 L (1.0-4.8) k/uL Sodium 134 L (137-145) mmol/L Glucose 178 H (74-99) mg/dL POC Glucose (mg/dL) (75-99) mg/dL Total Protein 6.2 L (6.3-8.2) g/dL Albumin 3.3 L (3.5-5.0) g/dL Urine Protein 2+ H (Negative) Urine Glucose (UA) Trace H (Negative) Urine Ketones 1+ H (Negative) Urine Blood Moderate H (Negative) Ur Leukocyte Esterase Large H (Negative) Urine RBC 40 H (0-5) /hpf Urine WBC >182 H (0-5) /hpf Urine WBC Clumps Many H (None) /hpf Urine Bacteria Few H (None) /hpf Urine Mucus Occasional H (None) /hpf 04/23/19 04/24/19 04/24/19 Range/Units 20:11 00:33 06:50 WBC (3.8-10.6) k/uL Hgb (13.0-17.5) gm/dL Hct (39.0-53.0) % MCH (25.0-35.0) pg MCHC (31.0-37.0) g/dL RDW (11.5-15.5) % Neutrophils # (1.3-7.7) k/uL Lymphocytes # (1.0-4.8) k/uL Sodium (137-145) mmol/L Glucose (74-99) mg/dL POC Glucose (mg/dL) 184 H 154 H 162 H (75-99) mg/dL Total Protein (6.3-8.2) g/dL Albumin (3.5-5.0) g/dL Urine Protein (Negative) Urine Glucose (UA) (Negative) Urine Ketones (Negative) Urine Blood (Negative) Ur Leukocyte Esterase (Negative) Urine RBC (0-5) /hpf Urine WBC (0-5) /hpf Urine WBC Clumps (None) /hpf Urine Bacteria (None) /hpf Urine Mucus (None) /hpf 04/24/19 Range/Units 12:07 WBC (3.8-10.6) k/uL Hgb (13.0-17.5) gm/dL Hct (39.0-53.0) % MCH (25.0-35.0) pg MCHC (31.0-37.0) g/dL RDW (11.5-15.5) % Neutrophils # (1.3-7.7) k/uL Lymphocytes # (1.0-4.8) k/uL Sodium (137-145) mmol/L Glucose (74-99) mg/dL POC Glucose (mg/dL) 113 H (75-99) mg/dL Total Protein (6.3-8.2) g/dL Albumin (3.5-5.0) g/dL Urine Protein (Negative) Urine Glucose (UA) (Negative) Urine Ketones (Negative) Urine Blood (Negative) Ur Leukocyte Esterase (Negative) Urine RBC (0-5) /hpf Urine WBC (0-5) /hpf Urine WBC Clumps (None) /hpf Urine Bacteria (None) /hpf Urine Mucus (None) /hpf Microbiology - Last 24 Hours (Table) 04/23/19 17:38 Urine Culture - Preliminary Urine,Voided Thrombosis Risk Factor Assmnt - Choose All That Apply Each Risk Factor Represents 3 Points: Age 75 years or older, Family history of DVT/PE Thrombosis Risk Factor Assessment Total Risk Factor Score: 6 Thrombosis Risk Factor Assessment Level: High Risk
[2019-04-24 20:21] LABS: Glucose,Whole Blood 112 mg/dL (75-99)
[2019-04-24] MEDS: LACTATED RINGERS 1,000 ML IV SCH (20:33)
[2019-04-24] MEDS: ENOXAPARIN 40 MG/0.4 ML SYRINGE SQ SCH (20:36)
[2019-04-24] MEDS: ATORVASTATIN 40 MG TAB PO SCH (20:36)
[2019-04-24] MEDS ORDERED: INSULIN ASPART (NovoLOG) 100 UNIT/ML VIAL SQ SCH (21:00)
[2019-04-24] MEDS: HYDROPHILIC CREAM 180 GM TUBE TOPICAL SCH (21:40)
[2019-04-24] MEDS: CLOTRIMAZOLE/BETAMETH 1-0.05% CREAM 45 GM TUBE TOPICAL SCH (21:40)
[2019-04-25] MEDS: CARBIDOPA-LEVODOPA 25-100 MG 1 EACH TAB PO SCH ×4 (00:29→23:29)
[2019-04-25] MEDS: LACTATED RINGERS 1,000 ML IV SCH ×3 (04:30→17:00)
[2019-04-25 06:57] LABS: Glucose,Whole Blood 92 mg/dL (75-99)
[2019-04-25] MEDS: INSULIN ASPART (NovoLOG) 100 UNIT/ML VIAL SQ SCH ×4 (07:42→22:01)
[2019-04-25] MEDS: CLOPIDOGREL 75 MG TAB PO SCH (08:19)
[2019-04-25] MEDS: FAMOTIDINE 20 MG TAB PO SCH ×2 (08:19→22:01)
[2019-04-25] MEDS: metFORMIN 500 MG TAB PO SCH ×2 (08:19→16:52)
[2019-04-25] MEDS: FERROUS SULFATE 325 MG TAB PO SCH (08:19)
[2019-04-25] MEDS: ISOSORBIDE MONONITRATE ER 30 MG TAB.ER.24H PO SCH (08:19)
[2019-04-25] MEDS: FINASTERIDE 5 MG TAB PO SCH (08:19)
[2019-04-25] MEDS: OLANZapine 2.5 MG TAB PO SCH ×2 (08:20→22:01)
[2019-04-25] MEDS: ENOXAPARIN 40 MG/0.4 ML SYRINGE SQ SCH (08:20)
[2019-04-25 09:54] LABS: Anisocytosis Slight; HGB 10.1 gm/dL (13.0-17.5); Hypochromasia Marked; MCH 25.3 pg (25.0-35.0); MCHC 30.6 g/dL (31.0-37.0); MCV 82.8 fL (80.0-100.0); Mean Platelet Volume 9.2; Microcytosis Slight; Platelet Count 212 k/uL (150-450); RBC 3.98 m/uL (4.30-5.90); RDW 18.4 % (11.5-15.5); WBC 9.6 k/uL (3.8-10.6)
[2019-04-25 10:08] LABS: African American GFR (CKD) >90 (>60 ml/min/1.73 sqM); Anion Gap 6 mmol/L; Blood Urea Nitrogen 16 mg/dL (9-20); Calcium 7.6 mg/dL (8.4-10.2); Carbon Dioxide 23 mmol/L (22-30); Chloride 108 mmol/L (98-107); Glucose 89 mg/dL (74-99); Non-African American GFR(CKD) 87 (>60 ml/min/1.73 sqM); Potassium 3.5 mmol/L (3.5-5.1); Sodium 137 mmol/L (137-145)
[2019-04-25 11:19] LABS: Glucose,Whole Blood 115 mg/dL (75-99)
[2019-04-25] MEDS: MULTIVITAMINS, THERA 1 EACH TAB PO SCH (12:54)
[2019-04-25] MEDS: FOLIC ACID 1 MG TAB PO SCH (12:54)
[2019-04-25] MEDS: THIAMINE 100 MG TAB PO SCH (12:54)
[2019-04-25] MEDS: ETHOSUXIMIDE 250 MG PO SCH ×2 (13:47→22:02)
[2019-04-25 16:17] LABS: Hemoglobin A1C 6.1 % (4.0-6.0)
--- NOTE | 2019-04-25 16:41 | P.PN ---
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 Patient sent in from [facility] probably lethargic and febrile. Patient rather tired. Not really would also questions. Postoperative history is obtained by the ER notes and the transfer notes. Patient was febrile and tachycardic and found to be in sepsis on presentation. [place] to be from UTI. Started antibiotics. Admitted with-acute UTI and cystitis, metabolic/toxic encephalopathy. Today-. A bit more awake. She does. Small amount. Tired. Family visiting. Review of systems: Could not be obtained-patient now speaking much Active Medications Acetaminophen (Tylenol Tab) 650 mg PO Q6HR PRN PRN Reason: Mild Pain or Fever > 100.5 Last Admin: 04/24/19 00:48 Dose: 650 mg Documented by: Albuterol Sulfate (Ventolin Nebulized) 2.5 mg INHALATION RT-Q4H PRN PRN Reason: Shortness Of Breath Artificial Tears (Artificial Tear Drops) 1 drops BOTH EYES Q6H PRN PRN Reason: Dry Eye(s) Atorvastatin Calcium (Lipitor) 40 mg PO HS@2100 [facility] Last Admin: 04/24/19 20:36 Dose: 40 mg Documented by: Betamethasone/Clotrimazole (Lotrisone) 1 applic TOPICAL Q12HR [facility] Last Admin: 04/24/19 21:40 Dose: 1 applic Documented by: Carbidopa/Levodopa (Sinemet 25-100) 1 each PO Q8HR [facility] Last Admin: 04/25/19 08:19 Dose: 1 each Documented by: Clopidogrel Bisulfate (Plavix) 75 mg PO DAILY@0900 [facility] Last Admin: 04/25/19 08:19 Dose: 75 mg Documented by: Enoxaparin Sodium (Lovenox) 40 mg SQ DAILY [facility] Last Admin: 04/25/19 08:20 Dose: 40 mg Documented by: Famotidine (Pepcid) 20 mg PO BID@0900,2100 [facility] Last Admin: 04/25/19 08:19 Dose: 20 mg Documented by: Ferrous Sulfate (Feosol) 325 mg PO DAILY@0900 [facility] Last Admin: 04/25/19 08:19 Dose: 325 mg Documented by: Finasteride (Proscar) 5 mg PO DAILY@0900 [facility] Last Admin: 04/25/19 08:19 Dose: 5 mg Documented by: Folic Acid (Folic Acid) 1 mg PO DAILY@1200 [facility] Last Admin: 04/25/19 12:54 Dose: Not Given Documented by: Ceftriaxone Sodium 1 gm/ (Sodium Chloride) 50 mls @ 100 mls/hr IVPB Q24HR [facility] Last Admin: 04/25/19 08:19 Dose: 100 mls/hr Documented by: Lactated Ringer's (Lactated Ringers) 1,000 mls @ 125 mls/hr IV .Q8H [facility] Last Admin: 04/25/19 04:30 Dose: 125 mls/hr Documented by: Ibuprofen (Motrin) 400 mg PO Q6HR PRN PRN Reason: Mild Pain or Fever > 100.5 Last Admin: 04/24/19 17:13 Dose: 400 mg Documented by: Insulin Aspart (Novolog) 0 unit SQ [facility]; Protocol Last Admin: 04/25/19 12:50 Dose: Not Given Documented by: Isosorbide Mononitrate (Imdur) 30 mg PO DAILY@0900 [facility] Last Admin: 04/25/19 08:19 Dose: 30 mg Documented by: Metformin HCl (Glucophage) 1,000 mg PO BID@0800,1700 [facility] Last Admin: 04/25/19 08:19 Dose: 1,000 mg Documented by: Multi-Ingred Cream/Lotion/Oil/Oint (Triad Cream) 1 applic TOPICAL DAILY PRN PRN Reason: BUTTOCKS/COCCYX EXCORIATION Multi-Ingred Cream/Lotion/Oil/Oint (Triad Cream) 1 applic TOPICAL Q12HR [facility] Last Admin: 04/24/19 21:40 Dose: 1 applic Documented by: Multivitamins (Theragran) 1 each PO DAILY@1200 [facility] Last Admin: 04/25/19 12:54 Dose: Not Given Documented by: Naloxone HCl (Narcan) 0.2 mg IV Q2M PRN PRN Reason: Opioid Reversal Non-Formulary Medication (Ethosuximide) 250 mg PO BID@0900,2100 [facility] Last Admin: 04/25/19 13:47 Dose: Not Given Documented by: Olanzapine (Zyprexa) 2.5 mg PO BID@0900,2100 [facility] Last Admin: 04/25/19 08:20 Dose: 2.5 mg Documented by: Ondansetron HCl (Zofran) 4 mg IVP Q8HR PRN PRN Reason: Nausea And Vomiting Thiamine HCl (Vitamin B-1) 100 mg PO DAILY@1200 [facility] Last Admin: 04/25/19 12:54 Dose: Not Given Documented by: Physical examination: VITAL SIGNS: 98.1, 62, 18, blood pressure 101/61, 99% on 3 L GENERAL: BMI 28, laying in bed, a bit more awake today tired EYES: Pupils equal. Conjunctiva normal. HEENT: External appearance of nose and ears normal, oral cavity dry. NECK: JVD unable to assess; masses not palpable. HEART: First and second heart sounds are normal; no edema. LUNGS: Respiratory rate normal; decreased breath sounds. ABDOMEN: Soft, nontender, liver spleen not palpable, no masses palpable, Riggs catheter. PSYCH: A bit more awake today. Reluctant to answer questions INVESTIGATIONS, reviewed in the clinical context: White count 9.6, hemoglobin 10.1, creatinine 0.70. Previous testing White count 13.5 hemoglobin 11.6 platelets 232 potassium 4.4 creatinine 0.87 UA positive for leukoesterase, WBC: Urine iqoexxz-jbim-yobkoxaf bacilli Influenza A and B both negative EKG tracing personally reviewed by me-sinus rhythm with PVCs Chest x-ray film personally reviewed by me-no obvious infiltrate Assessment: -Acute UTI with cystitis, from gram-negative bacilli-causing metabolic/toxic encephalopathy-slowly improving -Diabetes mellitus type 2 -Idiopathic Parkinson disease -Diabetes mellitus type II -Chronic dysphagia from presbyesophagus -Coronary artery disease with stent and bypass -Hyperlipidemia -Essential hypertension -Chronic neurocognitive disorder -Chronic spinal stenosis -BPH -Moderate cognitive impairment, from late onset Alzheimer's dementia Plan: Continue with IV antibiotics, fluids. Patient slowly improving. Overall prognosis guarded.
[2019-04-25 16:48] LABS: Glucose,Whole Blood 94 mg/dL (75-99)
[2019-04-25] MEDS: CLOTRIMAZOLE/BETAMETH 1-0.05% CREAM 45 GM TUBE TOPICAL SCH ×2 (16:48→22:02)
[2019-04-25] MEDS: HYDROPHILIC CREAM 180 GM TUBE TOPICAL SCH ×2 (16:48→22:02)
[2019-04-25] MEDS ORDERED: LEVOFLOXACIN 500MG-D5W PMX 500 MG in DEXTROSE/WATER 1 100ML.BAG IVPB SCH (19:00)
[2019-04-25 19:37] LABS: Glucose,Whole Blood 105 mg/dL (75-99)
[2019-04-25] MEDS: ATORVASTATIN 40 MG TAB PO SCH (22:01)
[2019-04-26] MEDS: ATORVASTATIN 40 MG TAB PO SCH ×2 (02:59→20:47)
[2019-04-26] MEDS: FAMOTIDINE 20 MG TAB PO SCH ×3 (02:59→20:47)
[2019-04-26] MEDS: OLANZapine 2.5 MG TAB PO SCH ×3 (02:59→20:47)
[2019-04-26] MEDS: LACTATED RINGERS 1,000 ML IV SCH ×3 (04:02→20:47)
[2019-04-26 07:05] LABS: Glucose,Whole Blood 115 mg/dL (75-99)
[2019-04-26] MEDS: INSULIN ASPART (NovoLOG) 100 UNIT/ML VIAL SQ SCH ×4 (07:52→20:41)
[2019-04-26] MEDS: ENOXAPARIN 40 MG/0.4 ML SYRINGE SQ SCH (08:36)
[2019-04-26] MEDS: FERROUS SULFATE 325 MG TAB PO SCH (08:36)
[2019-04-26] MEDS: FOLIC ACID 1 MG TAB PO SCH (08:36)
[2019-04-26] MEDS: FINASTERIDE 5 MG TAB PO SCH (08:36)
[2019-04-26] MEDS: CARBIDOPA-LEVODOPA 25-100 MG 1 EACH TAB PO SCH ×3 (08:36→23:11)
[2019-04-26] MEDS: CLOPIDOGREL 75 MG TAB PO SCH (08:36)
[2019-04-26] MEDS: metFORMIN 500 MG TAB PO SCH ×2 (08:36→17:06)
[2019-04-26] MEDS: ISOSORBIDE MONONITRATE ER 30 MG TAB.ER.24H PO SCH (08:36)
[2019-04-26] MEDS: MULTIVITAMINS, THERA 1 EACH TAB PO SCH (10:48)
[2019-04-26] MEDS: THIAMINE 100 MG TAB PO SCH (10:48)
[2019-04-26 11:39] LABS: Glucose,Whole Blood 128 mg/dL (75-99)
[2019-04-26] MEDS: ETHOSUXIMIDE 250 MG PO SCH ×2 (12:26→20:41)
[2019-04-26 12:46] VITALS: RESP 18
[2019-04-26] MEDS: CLOTRIMAZOLE/BETAMETH 1-0.05% CREAM 45 GM TUBE TOPICAL SCH ×2 (13:38→20:47)
[2019-04-26] MEDS: HYDROPHILIC CREAM 180 GM TUBE TOPICAL SCH ×2 (13:39→20:47)
[2019-04-26 17:03] LABS: Glucose,Whole Blood 102 mg/dL (75-99)
[2019-04-26] MEDS ORDERED: LEVOFLOXACIN 500 MG TAB PO SCH (19:00)
[2019-04-26 20:04] LABS: Glucose,Whole Blood 112 mg/dL (75-99)
[2019-04-26 22:40] VITALS: PULSE 70
--- NOTE | 2019-04-26 23:47 | P.PN ---
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 Patient sent in from [facility] probably lethargic and febrile. Patient rather tired. Not really would also questions. Postoperative history is obtained by the ER notes and the transfer notes. Patient was febrile and tachycardic and found to be in sepsis on presentation. [place] to be from UTI. Started antibiotics. Admitted with-acute UTI and cystitis, metabolic/toxic encephalopathy. Today-. Bit more awake and cheerful. Eating about 50%. No fever no chills. Family at the bedside.. Review of systems: Could not be obtained-patient now speaking much Active Medications Acetaminophen (Tylenol Tab) 650 mg PO Q6HR PRN PRN Reason: Mild Pain or Fever > 100.5 Last Admin: 04/24/19 00:48 Dose: 650 mg Documented by: Albuterol Sulfate (Ventolin Nebulized) 2.5 mg INHALATION RT-Q4H PRN PRN Reason: Shortness Of Breath Artificial Tears (Artificial Tear Drops) 1 drops BOTH EYES Q6H PRN PRN Reason: Dry Eye(s) Atorvastatin Calcium (Lipitor) 40 mg PO HS@2100 [facility] Last Admin: 04/26/19 20:47 Dose: 40 mg Documented by: Betamethasone/Clotrimazole (Lotrisone) 1 applic TOPICAL Q12HR [facility] Last Admin: 04/26/19 20:47 Dose: 1 applic Documented by: Carbidopa/Levodopa (Sinemet 25-100) 1 each PO Q8HR [facility] Last Admin: 04/26/19 17:06 Dose: 1 each Documented by: Clopidogrel Bisulfate (Plavix) 75 mg PO DAILY@0900 [facility] Last Admin: 04/26/19 08:36 Dose: 75 mg Documented by: Enoxaparin Sodium (Lovenox) 40 mg SQ DAILY [facility] Last Admin: 04/26/19 08:36 Dose: 40 mg Documented by: Famotidine (Pepcid) 20 mg PO BID@0900,2100 [facility] Last Admin: 04/26/19 20:47 Dose: 20 mg Documented by: Ferrous Sulfate (Feosol) 325 mg PO DAILY@0900 [facility] Last Admin: 04/26/19 08:36 Dose: 325 mg Documented by: Finasteride (Proscar) 5 mg PO DAILY@0900 [facility] Last Admin: 04/26/19 08:36 Dose: 5 mg Documented by: Folic Acid (Folic Acid) 1 mg PO DAILY@1200 [facility] Last Admin: 04/26/19 08:36 Dose: 1 mg Documented by: Lactated Ringer's (Lactated Ringers) 1,000 mls @ 125 mls/hr IV .Q8H [facility] Last Admin: 04/26/19 20:47 Dose: 125 mls/hr Documented by: Ibuprofen (Motrin) 400 mg PO Q6HR PRN PRN Reason: Mild Pain or Fever > 100.5 Last Admin: 04/24/19 17:13 Dose: 400 mg Documented by: Insulin Aspart (Novolog) 0 unit SQ [facility]; Protocol Last Admin: 04/26/19 20:41 Dose: Not Given Documented by: Isosorbide Mononitrate (Imdur) 30 mg PO DAILY@0900 [facility] Last Admin: 04/26/19 08:36 Dose: 30 mg Documented by: Levofloxacin (Levaquin) 500 mg PO Q24H [facility] Last Admin: 04/26/19 17:06 Dose: 500 mg Documented by: Metformin HCl (Glucophage) 1,000 mg PO BID@0800,1700 [facility] Last Admin: 04/26/19 17:06 Dose: 1,000 mg Documented by: Multi-Ingred Cream/Lotion/Oil/Oint (Triad Cream) 1 applic TOPICAL DAILY PRN PRN Reason: BUTTOCKS/COCCYX EXCORIATION Last Admin: 04/25/19 16:47 Dose: 1 applic Documented by: Multi-Ingred Cream/Lotion/Oil/Oint (Triad Cream) 1 applic TOPICAL Q12HR [facility] Last Admin: 04/26/19 20:47 Dose: 1 applic Documented by: Multivitamins (Theragran) 1 each PO DAILY@1200 [facility] Last Admin: 04/26/19 10:48 Dose: Not Given Documented by: Naloxone HCl (Narcan) 0.2 mg IV Q2M PRN PRN Reason: Opioid Reversal Non-Formulary Medication (Ethosuximide) 250 mg PO BID@0900,2100 [facility] Last Admin: 03/10/20 20:41 Dose: Not Given Documented by: Olanzapine (Zyprexa) 2.5 mg PO BID@899,2099 [facility] Last Admin: 04/26/19 20:47 Dose: 2.5 mg Documented by: Ondansetron HCl (Zofran) 4 mg IVP Q8HR PRN PRN Reason: Nausea And Vomiting Thiamine HCl (Vitamin B-1) 100 mg PO DAILY@1200 [facility] Last Admin: 04/26/19 10:48 Dose: Not Given Documented by: Physical examination: VITAL SIGNS: 98.4, 54, 18, blood pressure 107/74, 100% on 2 L GENERAL: Propped up in bed, more cheerful today. EYES: Pupils equal. Conjunctiva normal. HEENT: External appearance of nose and ears normal, oral cavity dry. NECK: JVD unable to assess; masses not palpable. HEART: First and second heart sounds are normal; no edema. LUNGS: Respiratory rate normal; decreased breath sounds. ABDOMEN: Soft, nontender, liver spleen not palpable, no masses palpable, Riggs catheter. PSYCH: Answering occasional question INVESTIGATIONS, reviewed in the clinical context: White count 9.6, hemoglobin 10.1, creatinine 0.70. Urine culture-pseudomonas aeruginosa Previous testing White count 13.5 hemoglobin 11.6 platelets 232 potassium 4.4 creatinine 0.87 UA positive for leukoesterase, WBC: Urine culture-pseudomonas aeruginosa Influenza A and B both negative EKG tracing personally reviewed by me-sinus rhythm with PVCs Chest x-ray film personally reviewed by me-no obvious infiltrate Assessment: -Acute UTI with cystitis, from Pseudomonas aeruginosa metabolic/toxic encephalopathy- improving -Diabetes mellitus type 2 -Idiopathic Parkinson disease -Diabetes mellitus type II -Chronic dysphagia from presbyesophagus -Coronary artery disease with stent and bypass -Hyperlipidemia -Essential hypertension -Chronic neurocognitive disorder -Chronic spinal stenosis -BPH -Moderate cognitive impairment, from late onset Alzheimer's dementia -DO NOT RESUSCITATE Plan: We will DC IV fluids later today. Antibiotics will be switched to by mouth Levaquin. Care was discussed family the bedside. Hopefully discharge back tomorrow. Prognosis guarded.
[2019-04-27] MEDS: CARBIDOPA-LEVODOPA 25-100 MG 1 EACH TAB PO SCH ×2 (02:23→09:06)
[2019-04-27 05:30] VITALS: BP 134/69; TEMP 98
[2019-04-27] MEDS: INSULIN ASPART (NovoLOG) 100 UNIT/ML VIAL SQ SCH ×2 (07:33→13:07)
[2019-04-27 07:40] LABS: Glucose,Whole Blood 124 mg/dL (75-99)
[2019-04-27 08:58] LABS: Anisocytosis Slight; HCT 33.3 % (39.0-53.0); HGB 10.4 gm/dL (13.0-17.5); Hypochromasia Slight; MCH 25.4 pg (25.0-35.0); MCHC 31.1 g/dL (31.0-37.0); MCV 81.7 fL (80.0-100.0); Mean Platelet Volume 8.9; Microcytosis Slight; Platelet Count 208 k/uL (150-450); RBC 4.07 m/uL (4.30-5.90); RDW 18.4 % (11.5-15.5)
[2019-04-27] MEDS: FAMOTIDINE 20 MG TAB PO SCH (09:04)
[2019-04-27] MEDS: metFORMIN 500 MG TAB PO SCH (09:04)
[2019-04-27] MEDS: CLOPIDOGREL 75 MG TAB PO SCH (09:04)
[2019-04-27] MEDS: FERROUS SULFATE 325 MG TAB PO SCH (09:05)
[2019-04-27] MEDS: FOLIC ACID 1 MG TAB PO SCH (09:05)
[2019-04-27] MEDS: MULTIVITAMINS, THERA 1 EACH TAB PO SCH (09:05)
[2019-04-27] MEDS: ENOXAPARIN 40 MG/0.4 ML SYRINGE SQ SCH (09:05)
[2019-04-27] MEDS: ETHOSUXIMIDE 250 MG PO SCH (09:06)
[2019-04-27] MEDS: THIAMINE 100 MG TAB PO SCH (09:06)
[2019-04-27] MEDS: FINASTERIDE 5 MG TAB PO SCH (09:06)
[2019-04-27] MEDS: OLANZapine 2.5 MG TAB PO SCH (09:06)
[2019-04-27] MEDS: ISOSORBIDE MONONITRATE ER 30 MG TAB.ER.24H PO SCH (09:06)
[2019-04-27] MEDS: CLOTRIMAZOLE/BETAMETH 1-0.05% CREAM 45 GM TUBE TOPICAL SCH (09:12)
[2019-04-27] MEDS: HYDROPHILIC CREAM 180 GM TUBE TOPICAL SCH (09:12)
[2019-04-27 09:15] LABS: African American GFR (CKD) >90 (>60 ml/min/1.73 sqM); Anion Gap 5 mmol/L; Blood Urea Nitrogen 11 mg/dL (9-20); Calcium 7.8 mg/dL (8.4-10.2); Carbon Dioxide 25 mmol/L (22-30); Chloride 107 mmol/L (98-107); Glucose 121 mg/dL (74-99); Non-African American GFR(CKD) >90 (>60 ml/min/1.73 sqM); Potassium 3.5 mmol/L (3.5-5.1); Sodium 137 mmol/L (137-145)
[2019-04-27 11:30] LABS: Glucose,Whole Blood 184 mg/dL (75-99)
--- NOTE | 2019-04-27 11:51 | P.DS ---
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 Patient sent in from [facility] probably lethargic and febrile. Patient rather tired. Not really would also questions. Postoperative history is obtained by the ER notes and the transfer notes. Patient was febrile and tachycardic and found to be in sepsis on presentation. Tiona to be from UTI. Started antibiotics. Admitted with-acute UTI and cystitis, metabolic/toxic encephalopathy. Treated with IV fluids. Based on cultures. Switched to Levaquin. Positive for Pseudomonas aeruginosa. Today-. Sitting on bed. Comfortable. Eating fairly... Physical examination: VITAL SIGNS: 98, 70, 18, blood pressure 134/69, 85% on room air GENERAL: Propped up in bed, comfortable EYES: Pupils equal. Conjunctiva normal. HEENT: External appearance of nose and ears normal, oral cavity dry. NECK: JVD unable to assess; masses not palpable. HEART: First and second heart sounds are normal; no edema. LUNGS: Respiratory rate normal; decreased breath sounds. ABDOMEN: Soft, nontender, liver spleen not palpable, no masses palpable, Riggs catheter. PSYCH: Answering occasional question INVESTIGATIONS, reviewed in the clinical context: White count 7 hemoglobin 10.4 creatinine 0.62 Urine culture-pseudomonas aeruginosa Previous testing White count 13.5 hemoglobin 11.6 platelets 232 potassium 4.4 creatinine 0.87 UA positive for leukoesterase, WBC: Urine culture-pseudomonas aeruginosa Influenza A and B both negative EKG tracing personally reviewed by me-sinus rhythm with PVCs Chest x-ray film personally reviewed by me-no obvious infiltrate Assessment: -Acute UTI with cystitis, from Pseudomonas aeruginosa POA -Acute metabolic/toxic encephalopathy-POA -Idiopathic Parkinson disease -Diabetes mellitus type II -Chronic dysphagia from presbyesophagus -Coronary artery disease with stent and bypass -Hyperlipidemia -Essential hypertension -Chronic neurocognitive disorder -Chronic spinal stenosis -BPH -Moderate cognitive impairment, from late onset Alzheimer's dementia -DO NOT RESUSCITATE Disposition: [facility]ATR[facility] Patient Condition at Discharge: Stable Plan - Discharge Summary New Discharge Prescriptions: New Levofloxacin [Levaquin] 500 mg PO Q24H #7 tab Continue Finasteride [Proscar] 5 mg PO DAILY@0900 Carbidopa-Levodopa 25-100 mg [Sinemet 25-100 mg] 1 tab PO Q8H Clopidogrel [Plavix] 75 mg PO DAILY@0900 Ibuprofen [Motrin] 400 mg PO Q6HR PRN tab PRN Reason: Mild Pain Or Fever > 100.5 Acetaminophen Tab [Tylenol] 650 mg PO Q6HR PRN tab PRN Reason: Mild Pain Or Fever > 100.5 Isosorbide Mononitrate ER [Imdur] 30 mg PO DAILY@0900 Folic Acid 1 mg PO DAILY@1200 tab Thiamine [Vitamin B-1] 100 mg PO DAILY@1200 tab Hydrophilic Cream [Triad Cream] 1 applic TOPICAL Q12H Clotrimazole/Betamethasone Dip [Lotrisone Cream] 1 applic TOPICAL Q12H Artificial Tears-Hypromellose [Artificial Tear Drops] 1 drop BOTH EYES Q6H PRN PRN Reason: Dry Eye(S) Albuterol Nebulized [Ventolin Nebulized] 2.5 mg INHALATION RT-Q4H PRN PRN Reason: Shortness Of Breath INSULIN LISPRO (HumaLOG) [humaLOG] See Protocol SQ AC-TID metFORMIN HCL 1,000 mg PO BID@0800,1700 Ferrous Sulfate [Iron (65 MG Elemental)] 325 mg PO DAILY@0900 Hydrophilic Cream [Triad Cream] 1 applic TOPICAL DAILY PRN PRN Reason: BUTTOCKS/COCCYX EXCORIATION Ethosuximide [Zarontin] 250 mg PO BID@0900,2100 Atorvastatin Calcium [Lipitor] 40 mg PO HS@2100 Multivitamins, Thera [Multivitamin (formulary)] 1 tab PO DAILY@1200 Famotidine [Pepcid] 20 mg PO BID@0900,2100 OLANZapine [ZyPREXA] 2.5 mg PO BID@0900,2100 #6 tab Changed glipiZIDE [Glucotrol] 2.5 mg PO BID@0900,1700 #0 Discharge Medication List Finasteride [Proscar] 5 mg PO DAILY@0900 11/02/15 [History] Carbidopa-Levodopa 25-100 mg [Sinemet 25-100 mg] 1 tab PO Q8H 02/07/18 [History] Clopidogrel [Plavix] 75 mg PO DAILY@0900 12/12/18 [History] Acetaminophen Tab [Tylenol] 650 mg PO Q6HR PRN tab 12/15/18 [Rx] Ibuprofen [Motrin] 400 mg PO Q6HR PRN tab 12/15/18 [Rx] Isosorbide Mononitrate ER [Imdur] 30 mg PO DAILY@0900 01/05/19 [History] Folic Acid 1 mg PO DAILY@1200 tab 01/10/19 [Rx] Thiamine [Vitamin B-1] 100 mg PO DAILY@1200 tab 01/10/19 [Rx] Albuterol Nebulized [Ventolin Nebulized] 2.5 mg INHALATION RT-Q4H PRN 04/23/19 [History] Artificial Tears-Hypromellose [Artificial Tear Drops] 1 drop BOTH EYES Q6H PRN 04/23/19 [History] Atorvastatin Calcium [Lipitor] 40 mg PO HS@209904/23/19 [History] Clotrimazole/Betamethasone Dip [Lotrisone Cream] 1 applic TOPICAL Q12H 04/23/19 [History] Ethosuximide [Zarontin] 250 mg PO BID@0900,209904/23/19 [History] Famotidine [Pepcid] 20 mg PO BID@0900,209904/23/19 [History] Ferrous Sulfate [Iron (65 MG Elemental)] 325 mg PO DAILY@0900 04/23/19 [History] Hydrophilic Cream [Triad Cream] 1 applic TOPICAL DAILY PRN 04/23/19 [History] Hydrophilic Cream [Triad Cream] 1 applic TOPICAL Q12H 04/23/19 [History] INSULIN LISPRO (HumaLOG) [humaLOG] See Protocol SQ AC-TID 04/23/19 [History] Multivitamins, Thera [Multivitamin (formulary)] 1 tab PO DAILY@1200 04/23/19 [History] metFORMIN HCL 1,000 mg PO BID@0800,1700 04/23/19 [History] Levofloxacin [Levaquin] 500 mg PO Q24H #7 tab 04/27/19 [Rx] OLANZapine [ZyPREXA] 2.5 mg PO BID@0900,2100 #6 tab 04/27/19 [Rx] glipiZIDE [Glucotrol] 2.5 mg PO BID@0900,1700 #0 04/27/19 [Rx] Follow up Appointment(s)/Referral(s): Alli Peguero MD [Primary Care Provider] - 1-2 days
== END 2019-04-27 15:35 | DRG 871 ==
LOC: EC 16:37 → 5NMEDONC 18:20 → OBSVTOIN 04-25 08:59
PROVIDERS: ADMIT Hospitalist; ATTEND Hospitalist
DX: A41.52 Sepsis due to Pseudomonas (principal); G92 Toxic encephalopathy; N30.00 Acute cystitis without hematuria; E78.5 Hyperlipidemia, unspecified; E86.0 Dehydration; F02.80 Dementia in other diseases classified elsewhere, unspecified severity, without behavioral disturbance, psychotic disturbance, mood disturbance, and anxiety; Z66 Do not resuscitate; G20 Parkinson's disease; G30.1 Alzheimer's disease with late onset; G40.909 Epilepsy, unspecified, not intractable, without status epilepticus; I10 Essential (primary) hypertension; I25.10 Atherosclerotic heart disease of native coronary artery without angina pectoris; I25.2 Old myocardial infarction; K22.8 Other specified diseases of esophagus; M06.9 Rheumatoid arthritis, unspecified; M48.00 Spinal stenosis, site unspecified; N28.9 Disorder of kidney and ureter, unspecified; R13.10 Dysphagia, unspecified; Z79.02 Long term (current) use of antithrombotics/antiplatelets; Z79.84 Long term (current) use of oral hypoglycemic drugs; Z79.899 Other long term (current) drug therapy; Z82.49 Family history of ischemic heart disease and other diseases of the circulatory system; Z98.42 Cataract extraction status, left eye; Z98.41 Cataract extraction status, right eye; Z85.828 Personal history of other malignant neoplasm of skin; Z86.73 Personal history of transient ischemic attack (TIA), and cerebral infarction without residual deficits; Z87.440 Personal history of urinary (tract) infections; G35 Multiple sclerosis; Z87.891 Personal history of nicotine dependence; Z95.1 Presence of aortocoronary bypass graft; Z95.5 Presence of coronary angioplasty implant and graft; Z96.651 Presence of right artificial knee joint; Z79.4 Long term (current) use of insulin; H91.92 Unspecified hearing loss, left ear; E11.22 Type 2 diabetes mellitus with diabetic chronic kidney disease; N40.1 Benign prostatic hyperplasia with lower urinary tract symptoms; N18.2 Chronic kidney disease, stage 2 (mild)
CPT/HCPCS: 36415; 71045; 80048; 80053; 81001; 83036; 83605; 85025; 85027; 85610; 85730; 87040; 87077; 87086; 87186; 87502; 93005; 96374; 96375; 99291